=== PATIENT | female | born 1955 | race Caucasian/White ===

== ENCOUNTER 2022-10-02 17:38 | Inpatient (IN) ==
--- NOTE | 2022-10-02 18:00 | ED Triage Note ---
Date of Service October 02, 2022 History of Present Illness This patient was briefly evaluated while in triage. An abbreviated physical exam was performed. This patient is a 67-year-old Female who presents to the ED for evaluation of weakness and frequent falls. Was recently started on chemo for cervix mass. She was here for an outpatient PE study and was found to have an elevated creatinine of 3, which is new and she did not have the CT done. She also has bilateral nephrostomy tubes because of mass effect on kidneys. Had blood transfusion today as well, reports she is supposed to get a second unit of blood still. Physical Exam CONSTITUTIONAL: No acute distress. Pale appearing. RESPIRATORY: Clear to auscultation bilaterally. Equal expansion bilaterally. CARDIOVASCULAR: Regular rate and rhythm with no murmurs, rubs or gallops. Normal peripheral perfusion. No peripheral edema. GASTROINTESTINAL: Soft, nontender NEUROLOGIC: Alert and oriented X 4 with normal affect. Initial orders for labs and / or imaging were placed and patient was placed in the waiting area until a bed is available. Please see further documentation for the full ED course.
[2022-10-02 18:52] LABS: Hemoglobin 8.6 g/dl (12.0-16.0); Mean Corpuscular Hemoglobin 26.2 pg (25.0-34.0); Mean Corpuscular Hgb Conc 31.9 g/dL (32.0-36.0); Mean Corpuscular Volume 82.3 fL (80.0-100.0); Mean Platelet Volume 9.5 fL (9.4-12.4); Platelet Count 406 K/uL (130-400); RDW Coefficient of Variation 17.7 % (11.5-14.5); RDW Standard Deviation 51.8 fL (36.4-46.3); Red Blood Count 3.28 M/uL (4.20-5.40); White Blood Count 17.57 K/ul (4.8-10.8)
--- NOTE | 2022-10-02 19:03 | Emergency Department Note ---
Impression & Plan Neuroendocrine cancer, Nausea, Acute kidney injury, Anemia, Hyponatremia ED Provider Note NAME: ROMEO DOE AGE: 67 SEX: F : 1955 ARRIVES VIA: Walk-In INFORMANT: Patient, ED PROVIDER(S): Randy Camarena MD CHIEF COMPLAINT: Weakness, fall, anemia MEDICAL DECISION MAKING: Patient presents w/ progressively worsening weakness and fall. IV established and blood work obtained. IVF ordered. Noted to have elvated WBC and worsening LOLIS in setting of perc nephrostomy tubes. CT head negative. CXR w/ no obvious PNA. Did receive empiric abx given elevated WBC and complicated history and perc tubes. I did have nursing obtain two separate UAs given both neph tubes. Na low and calcium low. relates uric acid levels were elevated on prior lab work. Possible TLS. LA normal. Procal elevated. CT head negative. CT A/P w/ metastatic disease and known pelvic mass. No hydronephrosis. I did speak w/ patient account liaison garment sewer hand Dr. Salmon who is patient's primary garment sewer hand and agrees pateint may stay here for treatment and doesn't require transfer. I did update family. I spoke w/ oncall hospitalist Dr. Deluca and patient was admitted. Prior /Outside records reviewed: I did review an operative report from August 02 showed the patient did have an exam under anesthesia at which point the patient did have cervical biopsies cystoscopy and pelvic exam. Patient was admitted back on August 02 and discharged on August 07 for acute bilateral obstructive uropathy secondary to pelvic mass LOLIS and placement of percutaneous nephrostomy tubes. The patient also suffering from modest metabolic acidosis. Did review a hematology oncology consultation from Dr. 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 Patient reportedly at the time of her [facility] visit underwent CT-guided core needle biopsy on which revealed poorly differentiated malignant neoplasm with NGS revealing a low TMB. Patient was evaluated by Dr. Reese of gynecology oncology at [facility] who performed exam under anesthesia cervical dilation endometrial curettage biopsy cystoscopy and proctoscopy on September 11. Patient was to be started on cisplatin and etoposide neuroendocrine carcinoma regimen. Differential diagnosis: Infection, dehydration, metabolic abnormality, hypo/hyperglycemia, electrolyte disturbance, anemia, hypoxia, cardiac sources, intracerebral event, toxicologic, neurologic, as well as other pathologies. Diagnostics, as interpreted by me: ECG: Sinus, rate of 72, normal QRS, no ST elevations. Cardiac monitoring: An order was placed for continuous cardiac monitoring. The monitor shows a rate of 87 with sinus rhythm. Patient was placed on pulse oximetry Medical decision rules: none Imaging studies: See below Chest x-ray was informally reviewed by me which may show slight more raised of the right hemidiaphragm but no obvious pneumonia or pneumothorax. HPI: Patient presents with at bedside due to concern for fall and dizziness. The patient was recently diagnosed with a pelvic mass that was thought to be a neuroendocrine carcinoma. Patient has been seen by gynecology oncology down at [facility] Dr. Silva. Patient was to start chemotherapy today after consultation with Dr. Kim. Patient reportedly was at home and gotten up from the restroom and going to sit down when she lost her balance felt lightheaded and dizzy fell forward and struck her head on a flower vase which she states broke her fall. Patient did not hit the floor the hearth Mansel below. Patient denies any chest pains or shortness of breath no nausea vomiting or diarrhea. The patient is a poor appetite given the patient's abdominal mass. Patient does have percutaneous nephrostomy tubes in place. Patient states that they have been draining appropriately. They have been trying to increase her hydration and nutrition but given the associated compression of this abdominal mass therapy and that the chemo will improve some of the symptoms. PAST MEDICAL HISTORY: See Below PAST SURGICAL HISTORY: See Below SOCIAL HISTORY: See Below HOME MEDICATIONS: See Below ALLERGIES: See Below VITALS: See Below PHYSICAL EXAMINATION: GENERAL: Fatigue and pale in appearance but non-toxic. EYE EXAM: Normal conjunctiva. PERRL, no anisocoria and EOM's grossly intact w/o pain. NECK: Supple, no nuchal rigidity, no adenopathy, non-tender. No signs of meningismus. FROM of the neck with good chin to chest and neck extension. No stridor. LUNGS: Clear to auscultation. Normal chest wall mechanics. HEART: NSR, no MRG. ABDOMEN: Abdomen non-tender, no rebound or guarding. BACK: No CVA TTP. Perc nephrostomy tubes in place b/l lower back w/ no surround erythema or overlying skin changes. SKIN: No rashes and no bruising. UPPER EXTREMITIES: Upper extremities are grossly normal. LOWER EXTREMITIES: Grossly normal, trace pretibial edema. NEURO EXAM: A&O x3, cranial nerves II-XII grossly intact, normal speech, moves all 4 extremities. Past Med/Surg History Medical History (Updated 10/03/22 @ 13:56 by Randy Camarena MD) Advanced care planning/counseling discussion Anxiety Cancer related pain DVT (deep venous thrombosis) Insomnia Nausea Neuroendocrine cancer No significant medical problems Palliative care by specialist Surgical History (Updated 10/03/22 @ 13:44 by Randy Camarena MD) H/O cervical biopsy Social History Smoking Status: Never smoker Hx Alcohol Use: No Hx Substance Use: No Preferred Language: Bahraini Communication Ability: Effective Beliefs That Will Affect Care: Anabaptist marital status: Current Living Situation: Spouse current occupational status: employed How many Children do You have: 0 Other Information That Helps Us Care for You: No Feels Safe at Home: Yes Safety Concerns: Feels Safe At This Time during the past year weight has: decreased > 10 lbs Assistive Devices: Walker Allergies Allergies Allergy/AdvReac Type Severity Reaction Status Date / Time Sulfa (Sulfonamide Allergy Severe Swelling Verified 10/02/22 20:44 Antibiotics) of Lip/Tongue/Throat Home Meds Home Medications Medication Instructions Recorded Confirmed folic acid 1 mg tablet 1 mg PO DAILY 09/25/22 10/02/22 polyethylene glycol 3350 17 17 g PO DAILY 09/30/22 10/02/22 gram/dose oral powder (Miralax) allopurinol 300 mg tablet 300 mg PO QPM 10/02/22 10/02/22 food supplemt, lactose-reduced 1 ea PO DAILY 10/02/22 10/02/22 (Ensure oral liquid) olanzapine 2.5 mg tablet (Zyprexa) 2.5 mg PO HS 10/02/22 10/02/22 ondansetron HCl 4 mg tablet 4 mg PO Q6H PRN Nausea And Vomiting 10/02/22 10/02/22 prochlorperazine maleate 5 mg 5 mg PO TID PRN Nausea And Vomiting 10/02/22 10/02/22 tablet sodium chloride 1,000 mg soluble 1,000 mg PO TID 10/02/22 10/02/22 tablet Previous Rx's Medication Instructions Recorded oxycodone 5 mg tablet 5 mg PO TID 30 days #120 tabs 09/25/22 Results & Data (ED) Vital Signs Vital Signs - 24 hr 10/02/22 17:59 10/02/22 19:29 Temperature 37.2 C 36.7 C Temperature Source Temporal Artery Scan Oral Pulse Rate 73 Pulse Rate [Right Brachial] 78 Pulse Rhythm [Right Brachial] Regular Pulse Strength [Right Brachial] Normal Respiratory Rate 18 18 Respiratory Effort / Characteristics Non-Labored Non-Labored Spontaneous Respiratory Depth Normal Respiratory Pattern Regular Blood Pressure 133/67 Blood Pressure [Right Arm] 157/75 H Blood Pressure Mean 89 Blood Pressure Mean [Right Arm] 102 Blood Pressure Position [Right Arm] Lying Pulse Oximetry 98 98 Oxygen Delivery Method Room Air Room Air Sepsis Recent Fever Within 48 Hours No Sepsis New/Unexplained Change in Mental Status N/A Sepsis Action Taken by Nursing No Action Required Home Medications Current Medication List: was personally reviewed by me Laboratory Data Attestation: I reviewed the patient's lab results. 10/02/22 18:30 10/02/22 18:30 Lab Results 10/02/22 10/02/22 10/02/22 Range/Units 18:30 18:30 18:30 WBC (4.8-10.8) K/ul RBC (4.20-5.40) M/uL Hgb (12.0-16.0) g/dl Hct (37.0-47.0) % MCV (80.0-100.0) fL MCH (25.0-34.0) pg MCHC (32.0-36.0) g/dL RDW Std Deviation (36.4-46.3) fL RDW Coeff of Claude (11.5-14.5) % Plt Count (130-400) K/uL MPV (9.4-12.4) fL Immature Gran % (Auto) % Neut % (Auto) % Lymph % (Auto) % Hinds % (Auto) % Eos % (Auto) % Baso % (Auto) % Neut # (Auto) (1.40-6.50) K/uL Lymph # (Auto) (1.2-3.4) K/uL Hinds # (Auto) (0.11-0.59) K/uL Eos # (Auto) (0-0.50) K/uL Baso # (Auto) (0-0.2) K/uL Immature Gran # (Auto) (0.01-0.20) K/uL Echinocytes PT 12.0 (9.0-12.0) Seconds INR 1.1 (0.9-1.1) Sodium (136-145) mmol/L Potassium (3.5-5.1) mmol/L Chloride (98-107) mmol/L Carbon Dioxide (21-32) mmol/L Anion Gap (3-11) BUN (6-23) mg/dl Creatinine (0.6-1.2) mg/dl Est Cr Clr Drug Dosing Est GFR ( Amer) ml/min Est GFR (Non-Af Amer) ml/min BUN/Creatinine Ratio (10-20) Glucose (70-99(Fasting)) mg/dl Lactate 1.4 (0.4-2.0) mmol/L Calcium (8.6-10.3) mg/dl Magnesium (1.7-2.4) mg/dl Total Bilirubin (0.2-1.0) mg/dl AST (13-39) U/L ALT (7-52) U/L Alkaline Phosphatase (34-104) U/L Troponin I High Sens (0-14) pg/ml Total Protein (6.0-8.3) gm/dl Albumin (3.4-5.0) gm/dl Globulin (2.5-4.0) gm/dl Albumin/Globulin Ratio (0.9-2) Procalcitonin (0-0.5) ng/ml TSH (0.300-4.500) uIu/ml Blood Type A Positive Antibody Screen NEGATIVE 10/02/22 10/02/22 10/02/22 Range/Units 18:30 18:30 18:30 WBC 17.57 H (4.8-10.8) K/ul RBC 3.28 L (4.20-5.40) M/uL Hgb 8.6 L (12.0-16.0) g/dl Hct 27.0 L (37.0-47.0) % MCV 82.3 (80.0-100.0) fL MCH 26.2 (25.0-34.0) pg MCHC 31.9 L (32.0-36.0) g/dL RDW Std Deviation 51.8 H (36.4-46.3) fL RDW Coeff of Claude 17.7 H (11.5-14.5) % Plt Count 406 H (130-400) K/uL MPV 9.5 (9.4-12.4) fL Immature Gran % (Auto) 2.9 % Neut % (Auto) 92.2 % Lymph % (Auto) 1.4 % Hinds % (Auto) 3.3 % Eos % (Auto) 0.0 % Baso % (Auto) 0.2 % Neut # (Auto) 16.21 H (1.40-6.50) K/uL Lymph # (Auto) 0.24 L (1.2-3.4) K/uL Hinds # (Auto) 0.58 (0.11-0.59) K/uL Eos # (Auto) 0.00 (0-0.50) K/uL Baso # (Auto) 0.03 (0-0.2) K/uL Immature Gran # (Auto) 0.51 H (0.01-0.20) K/uL Echinocytes 1+ PT (9.0-12.0) Seconds INR (0.9-1.1) Sodium 128 L (136-145) mmol/L Potassium 4.8 (3.5-5.1) mmol/L Chloride 95 L (98-107) mmol/L Carbon Dioxide 18 L (21-32) mmol/L Anion Gap 15 H (3-11) BUN 67 H (6-23) mg/dl Creatinine 3.74 H (0.6-1.2) mg/dl Est Cr Clr Drug Dosing Not Reportable Est GFR ( Amer) 13.7 ml/min Est GFR (Non-Af Amer) 11.8 ml/min BUN/Creatinine Ratio 17.9 (10-20) Glucose 132 H (70-99(Fasting)) mg/dl Lactate (0.4-2.0) mmol/L Calcium 7.6 L (8.6-10.3) mg/dl Magnesium 2.2 (1.7-2.4) mg/dl Total Bilirubin 0.6 (0.2-1.0) mg/dl AST 108 H (13-39) U/L ALT 14 (7-52) U/L Alkaline Phosphatase 133 H (34-104) U/L Troponin I High Sens 40.3 H (0-14) pg/ml Total Protein 6.9 (6.0-8.3) gm/dl Albumin 3.4 (3.4-5.0) gm/dl Globulin 3.5 (2.5-4.0) gm/dl Albumin/Globulin Ratio 1.0 (0.9-2) Procalcitonin (0-0.5) ng/ml TSH 0.706 (0.300-4.500) uIu/ml Blood Type Antibody Screen 10/02/22 10/02/22 Range/Units 20:01 20:01 WBC (4.8-10.8) K/ul RBC (4.20-5.40) M/uL Hgb (12.0-16.0) g/dl Hct (37.0-47.0) % MCV (80.0-100.0) fL MCH (25.0-34.0) pg MCHC (32.0-36.0) g/dL RDW Std Deviation (36.4-46.3) fL RDW Coeff of Claude (11.5-14.5) % Plt Count (130-400) K/uL MPV (9.4-12.4) fL Immature Gran % (Auto) % Neut % (Auto) % Lymph % (Auto) % Hinds % (Auto) % Eos % (Auto) % Baso % (Auto) % Neut # (Auto) (1.40-6.50) K/uL Lymph # (Auto) (1.2-3.4) K/uL Hinds # (Auto) (0.11-0.59) K/uL Eos # (Auto) (0-0.50) K/uL Baso # (Auto) (0-0.2) K/uL Immature Gran # (Auto) (0.01-0.20) K/uL Echinocytes PT (9.0-12.0) Seconds INR (0.9-1.1) Sodium (136-145) mmol/L Potassium (3.5-5.1) mmol/L Chloride (98-107) mmol/L Carbon Dioxide (21-32) mmol/L Anion Gap (3-11) BUN (6-23) mg/dl Creatinine (0.6-1.2) mg/dl Est Cr Clr Drug Dosing Est GFR ( Amer) ml/min Est GFR (Non-Af Amer) ml/min BUN/Creatinine Ratio (10-20) Glucose (70-99(Fasting)) mg/dl Lactate 1.6 (0.4-2.0) mmol/L Calcium (8.6-10.3) mg/dl Magnesium (1.7-2.4) mg/dl Total Bilirubin (0.2-1.0) mg/dl AST (13-39) U/L ALT (7-52) U/L Alkaline Phosphatase (34-104) U/L Troponin I High Sens (0-14) pg/ml Total Protein (6.0-8.3) gm/dl Albumin (3.4-5.0) gm/dl Globulin (2.5-4.0) gm/dl Albumin/Globulin Ratio (0.9-2) Procalcitonin 1.26 H (0-0.5) ng/ml TSH (0.300-4.500) uIu/ml Blood Type Antibody Screen Administered Medications Folic Acid (Folic Acid 1 Mg Tab) 1 mg PO DAILY ADAN Stop: 11/02/22 08:59 Last Admin: 10/03/22 09:49 Dose: 1 mg Documented By: DOUGIE Pantoprazole Sodium 40 mg/ (Syringe) 10 mls @ 5 mls/min IV BID ADAN Stop: 11/02/22 08:59 Last Admin: 10/03/22 11:18 Dose: 5 mls/min Documented By: DOUGIE Iron Sucrose 200 mg/ Sodium (Chloride) 110 mls @ 220 mls/hr IV DAILY ADAN Stop: 10/06/22 08:59 Last Infusion: 10/03/22 12:10 Dose: 0 mls/hr Documented By: Admin: 10/03/22 11:17 Dose: 220 mls/hr Documented By: DOUGIE Discontinued Medications Calcium Gluconate () 1,000 mg in 60 mls @ 240 mls/hr IV NOW STA Stop: 10/02/22 19:33 Last Infusion: 10/02/22 20:34 Dose: 0 mls/hr Documented By: Admin: 10/02/22 20:15 Dose: 240 mls/hr Documented By: PAULA Sodium Chloride (Nss 1000ml) 1,000 mls @ 999 mls/hr IV .Q1H1M ONE Stop: 10/02/22 20:19 Last Infusion: 10/02/22 21:55 Dose: 0 mls/hr Documented By: Admin: 10/02/22 20:13 Dose: 999 mls/hr Documented By: PAULA Piperacillin Sod/Tazobactam (Sod 4.5 gm/ Dextrose) 120 mls @ 200 mls/hr IV NOW ONE; Protocol Stop: 10/02/22 20:05 Last Infusion: 10/02/22 21:12 Dose: 0 mls/hr Documented By: Admin: 10/02/22 20:35 Dose: 200 mls/hr Documented By: PAULA Lactated Ringer's (Lr) 1,000 mls @ 100 mls/hr IV .Q10H STA Stop: 10/03/22 07:46 Last Infusion: 10/03/22 02:39 Dose: 100 mls/hr Documented By: Admin: 10/02/22 21:55 Dose: 80 mls/hr Documented By: PAULA Pantoprazole Sodium 80 mg/ (Dextrose) 120 mls @ 480 mls/hr IV ONE STA Stop: 10/02/22 22:58 Last Infusion: 10/03/22 01:07 Dose: 0 mls/hr Documented By: Admin: 10/03/22 00:49 Dose: 480 mls/hr Documented By: FERNANDO Daptomycin 200 mg/ Syringe 4 mls @ 2 mls/min IV ONE STA; Protocol Stop: 10/02/22 22:50 Last Admin: 10/02/22 23:40 Dose: 2 mls/min Documented By: CHRISTIAN Cefepime HCl 2,000 mg/ Syringe 20 mls @ 5 mls/min IV ONE ONE; Protocol Stop: 10/03/22 04:03 Last Admin: 10/03/22 03:28 Dose: 5 mls/min Documented By: FERNANDO Non-Formulary Medication (Rasburicase ) 6 mg IV ONCE ONE Stop: 10/03/22 06:28 Last Admin: 10/03/22 09:49 Dose: Not Given Documented By: DOUGIE Imaging Data Radiologist's Impression: Chest X-Ray 10/02/22 18:07 XR chest 1V portable HISTORY: weakness COMPARISON: Chest 08/02/2022. FINDINGS: No pneumothorax. No pleural effusions. Right basilar linear densities favor subsegmental atelectasis. The heart remains mildly enlarged. No new focal lung consolidations to suggest a pneumonia. No evidence for pulmonary edema. Partially visualized right nephrostomy tube is noted. There is a small right azygos lobe. IMPRESSION: No significant change compared to the prior study. No acute process. ACT 112: Negative or not required by law. Electronically signed by: Angel Aguiar M.D. 10/03/2022 7:[address] 10/02/22 18:06 Exam(s): CT HEAD Without Contrast EXAM: CT Head Without Intravenous Contrast CLINICAL HISTORY: Reason for exam: weakness, disoriented at times. TECHNIQUE: Axial computed tomography images of the head/brain without intravenous contrast. Automated exposure control was utilized for the study. A dose lowering technique was utilized adhering to the principles of ALARA. COMPARISON: No relevant prior studies available. FINDINGS: Brain: No hemorrhage. No apparent acute cortical infarct. No mass lesion or midline shift. Involutional changes with small vessel disease. Ventricles: No hydrocephalus. Bones/joints: No acute fracture. Soft tissues: Unremarkable. Sinuses: No acute sinusitis. Mastoid air cells: No mastoid effusion. Orbits: Unremarkable as visualized. IMPRESSION: No acute intracranial process. Electronically signed by: Susanna Molina M.D. 10/02/22 20:05 PM Chest X-Ray 10/02/22 18:07 XR chest 1V portable HISTORY: weakness COMPARISON: Chest 08/02/2022. FINDINGS: No pneumothorax. No pleural effusions. Right basilar linear densities favor subsegmental atelectasis. The heart remains mildly enlarged. No new focal lung consolidations to suggest a pneumonia. No evidence for pulmonary edema. Partially visualized right nephrostomy tube is noted. There is a small right azygos lobe. IMPRESSION: No significant change compared to the prior study. No acute process. ACT 112: Negative or not required by law. Electronically signed by: Angel Aguiar M.D. 10/03/2022 7:13 AM Abdomen/Pelvis CT 10/02/22 19:30 Exam(s): CT ABDOMEN + PELVIS Without Contrast EXAM: CT Abdomen and Pelvis Without Intravenous Contrast CLINICAL HISTORY: Reason for exam: h/o pelvic mass and b/l neph tubes in place, WBC,. TECHNIQUE: Axial computed tomography images of the abdomen and pelvis without intravenous contrast. Automated exposure control was utilized for the study. A dose lowering technique was utilized adhering to the principles of ALARA. COMPARISON: 08/02/22 FINDINGS: There is subsegmental atelectasis at the lung bases. No suspicious pulmonary nodules are observed. There are hypodense lesions in the lateral segment of the left hepatic lobe measuring 2.2 cm (series 5, image 110) and 2.5 cm (series 5, image 96). There are vague regions of parenchymal hypodensity throughout the right liver. Gallbladder and common bile duct are normal. Spleen, pancreas, and adrenal glands are normal. Bilateral percutaneous nephrostomy tubes are in place and appropriately positioned. There is no significant hydronephrosis of either kidney. There are bilateral nonobstructing kidney stones. There is aortoiliac atherosclerosis without aneurysm. There is bulky and confluent retroperitoneal lymphadenopathy encasing the abdominal aorta. Enlarged lymph nodes extend along the bilateral iliac chains. There is also bulky and confluent pelvic lymphadenopathy. There are also numerous scattered peritoneal nodules. There is a poorly characterized mass involving the cervix and uterus with numerous surrounding soft tissue nodules. Urinary bladder is incompletely distended and suboptimally characterized. There is no bowel obstruction or inflammation. There is scattered colonic diverticula. Appendix is not identified. There is trace ascites in the pelvis. There is no free air. There are no acute osseous findings or suspicious osseous lesions. IMPRESSION: 1. Bulky mass involving the uterus and cervix. Numerous surrounding metastatic implants in the pelvis. Extensive retroperitoneal, iliac chain, and pelvic lymphadenopathy. Findings raise concern for metastatic cancer of uterine, endometrial, or cervical origin. 2. Numerous scattered peritoneal nodules concerning for peritoneal carcinomatosis. 3. Vague hypodense lesions throughout the liver raising concern for hepatic metastases. These might be better characterized on liver mass protocol CT or MRI. 4. Interval placement of bilateral percutaneous nephrostomy tubes. Nonobstructing kidney stones bilaterally. No hydronephrosis. Electronically signed by: Candace Baptiste M.D. 10/02/22 20:25 PM Venous Doppler Study 10/02/22 22:43 CR Exam(s): US VENOUS BILATERAL LOWER EXTREMITIES EXAM: US Duplex Bilateral Lower Extremities Veins CLINICAL HISTORY: Reason for exam: leg swelling. TECHNIQUE: Real-time duplex ultrasound scan of the bilateral lower extremity veins integrating B-mode two-dimensional vascular structure, Doppler spectral analysis, color flow Doppler imaging and compression. COMPARISON: No relevant prior studies available. FINDINGS: Right deep veins: Acute nonocclusive DVT common femoral vein. Acute occlusive DVT extending through the superficial femoral vein and popliteal vein as well as within the gastrocnemius vein. Possible nonocclusive DVT in the deep femoral vein. Right superficial veins: Possible nonocclusive thrombus extending into the great saphenous vein. Left deep veins: Unremarkable. No DVT in the left common femoral, femoral, proximal deep femoral or popliteal veins. The veins demonstrate normal color flow, are normally compressible, with normal phasic flow and/or augmentation response. Left superficial veins: Unremarkable. No thrombus in the visualized left great saphenous vein. Soft tissues: Right leg soft tissue edema. IMPRESSION: 1. Extensive acute DVT in the right leg involving the common femoral, superficial femoral, popliteal, and gastrocnemius veins. 2. No left lower extremity DVT. Communications: Call Doctor DVT acute, progressing Electronically signed by: Candace Baptiste M.D. 10/02/22 23:59 PM Discharge Plan Visit Data Chief Complaint: Altered Mental Status Stated Complaint: DISORIENTED, FALLING ED Provider: Randy Camarena Discharge Problem: Neuroendocrine cancer, Nausea, Acute kidney injury, Anemia, Hyponatremia Patient Disposition: Admitted As Inpatient Discharge Instructions Interventions: ED Discharge Assessment Last Done: 10/02/22 23:11
[2022-10-02 19:06] LABS: Alanine Aminotransferase 14 U/L (7-52); Albumin Level 3.4 gm/dl (3.4-5.0); Alkaline Phosphatase 133 U/L (34-104); Anion Gap 15 (3-11); Aspartate Aminotransferase 108 U/L (13-39); BUN Creatinine Ratio 17.9 (10-20); Bilirubin,Total 0.6 mg/dl (0.2-1.0); Blood Urea Nitrogen 67 mg/dl (6-23); Calcium 7.6 mg/dl (8.6-10.3); Carbon Dioxide 18 mmol/L (21-32); Chloride 95 mmol/L (98-107); Est GFR (African American) 13.7 ml/min; Est GFR (Non-African American) 11.8 ml/min; Globulin 3.5 gm/dl (2.5-4.0); Glucose 132 mg/dl (70-99(Fasting)); Magnesium 2.2 mg/dl (1.7-2.4); Potassium 4.8 mmol/L (3.5-5.1); Sodium 128 mmol/L (136-145); Total Protein 6.9 gm/dl (6.0-8.3)
[2022-10-02 19:10] LABS: INR 1.1 (0.9-1.1)
[2022-10-02 19:16] LABS: Troponin I High Sensitivity 40.3 pg/ml (0-14)
[2022-10-02 19:19] LABS: Basophils # (auto) 0.03 K/uL (0-0.2); Basophils % (auto) 0.2 %; Echinocytes 1+; Immature Granulocytes # (auto) 0.51 K/uL (0.01-0.20); Immature Granulocytes % (auto) 2.9 %; Lymphocytes # (auto) 0.24 K/uL (1.2-3.4); Lymphocytes % (auto) 1.4 %; Monocytes # (auto) 0.58 K/uL (0.11-0.59); Monocytes % (auto) 3.3 %; Neutrophils # (auto) 16.21 K/uL (1.40-6.50); Neutrophils % (auto) 92.2 %
[2022-10-02] MEDS ORDERED: CALCIUM GLUCONATE 1,000 MG/60 ML BAG IV STA (19:19)
[2022-10-02] MEDS ORDERED: SODIUM CHLORIDE 0.9% 1000ML 1,000 ML IV ONE (19:19)
[2022-10-02] MEDS ORDERED: PIPERACILLIN/TAZOBACTAM 4.5 GM in DEXTROSE 5% 100 ML IV ONE (19:30)
[2022-10-02 20:00] LABS: Appearance Urine Turbid (Clear); Bacteria Urine Automated Negative (Negative); Bilirubin Urine Negative (Negative); Blood Urine 3+ (Negative); Color Urine Yellow; Epithelial Cell Urine Auto >30 /lpf (0-5); Glucose Urine UA Negative (Negative); Ketones Urine Negative (Negative); Leukocyte Esterase Urine 1+ (Negative); Leukocyte Esterase Urine 2+ (Negative); Nitrite Urine Negative (Negative); Protein Urine 2+ (Negative); RBC Urine Automated 0-4 /hpf (0-4); Specific Gravity Urine 1.014 (1.000-1.030); Specific Gravity Urine 1.015 (1.000-1.030); Urobilinogen Urine Negative (Negative); WBC Urine Automated >30 /hpf (0-5)
[2022-10-02 20:17] LABS: Uric Acid Crystals Urine Present (None Prsent)
[2022-10-02 20:20] LABS: Renal Epithelial Cells Urine 0-5 /lpf (0-5)
--- NOTE | 2022-10-02 20:20 | CT Scan Report ---
Exam(s): CT HEAD Without Contrast EXAM: CT Head Without Intravenous Contrast CLINICAL HISTORY: Reason for exam: weakness, disoriented at times. TECHNIQUE: Axial computed tomography images of the head/brain without intravenous contrast. Automated exposure control was utilized for the study. A dose lowering technique was utilized adhering to the principles of ALARA. COMPARISON: No relevant prior studies available. FINDINGS: Brain: No hemorrhage. No apparent acute cortical infarct. No mass lesion or midline shift. Involutional changes with small vessel disease. Ventricles: No hydrocephalus. Bones/joints: No acute fracture. Soft tissues: Unremarkable. Sinuses: No acute sinusitis. Mastoid air cells: No mastoid effusion. Orbits: Unremarkable as visualized. IMPRESSION: No acute intracranial process. Electronically signed by: Susanna Molina M.D. 10/02/22 20:05 PM
[2022-10-02 20:23] LABS: Uric Acid Crystals Urine Present (None Prsent)
--- NOTE | 2022-10-02 20:26 | CT Scan Report ---
Exam(s): CT ABDOMEN + PELVIS Without Contrast EXAM: CT Abdomen and Pelvis Without Intravenous Contrast CLINICAL HISTORY: Reason for exam: h/o pelvic mass and b/l neph tubes in place, WBC,. TECHNIQUE: Axial computed tomography images of the abdomen and pelvis without intravenous contrast. Automated exposure control was utilized for the study. A dose lowering technique was utilized adhering to the principles of ALARA. COMPARISON: 08/02/22 FINDINGS: There is subsegmental atelectasis at the lung bases. No suspicious pulmonary nodules are observed. There are hypodense lesions in the lateral segment of the left hepatic lobe measuring 2.2 cm (series 5, image 110) and 2.5 cm (series 5, image 96). There are vague regions of parenchymal hypodensity throughout the right liver. Gallbladder and common bile duct are normal. Spleen, pancreas, and adrenal glands are normal. Bilateral percutaneous nephrostomy tubes are in place and appropriately positioned. There is no significant hydronephrosis of either kidney. There are bilateral nonobstructing kidney stones. There is aortoiliac atherosclerosis without aneurysm. There is bulky and confluent retroperitoneal lymphadenopathy encasing the abdominal aorta. Enlarged lymph nodes extend along the bilateral iliac chains. There is also bulky and confluent pelvic lymphadenopathy. There are also numerous scattered peritoneal nodules. There is a poorly characterized mass involving the cervix and uterus with numerous surrounding soft tissue nodules. Urinary bladder is incompletely distended and suboptimally characterized. There is no bowel obstruction or inflammation. There is scattered colonic diverticula. Appendix is not identified. There is trace ascites in the pelvis. There is no free air. There are no acute osseous findings or suspicious osseous lesions. IMPRESSION: 1. Bulky mass involving the uterus and cervix. Numerous surrounding metastatic implants in the pelvis. Extensive retroperitoneal, iliac chain, and pelvic lymphadenopathy. Findings raise concern for metastatic cancer of uterine, endometrial, or cervical origin. 2. Numerous scattered peritoneal nodules concerning for peritoneal carcinomatosis. 3. Vague hypodense lesions throughout the liver raising concern for hepatic metastases. These might be better characterized on liver mass protocol CT or MRI. 4. Interval placement of bilateral percutaneous nephrostomy tubes. Nonobstructing kidney stones bilaterally. No hydronephrosis. Electronically signed by: Candace Baptiste M.D. 10/02/22 20:25 PM
[2022-10-02] MEDS ORDERED: LACTATED RINGER'S 1,000 ML IV STA (21:47)
--- NOTE | 2022-10-02 22:42 | History & Physical Report ---
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, chronic hydronephrosis secondary to bilateral ureteral obstruction status post nephroureteral catheter placement [id number] oxycodone Rx possibly contributory Hyponatremia, AGMA secondary to illness/kidney dysfunction UGIB, hemoglobin currently at baseline RLE DVT HTN, patient BP medicine currently on hold due to outpatient hypotension the last few days history VRE UTI Medical telemetry CS, Daptomycin, cefepime Monitor creatinine response to IVF Nephrology consult Re: Worsening kidney dysfunction IV PPI for UGIB GI consult Re: UGIB Vascular surgery consult Re: IVC filter placement, history RLE DVT with current contraindication to anticoagulation N.p.o. in anticipation of any procedures in a.m. Oncology consultation follow-up evaluation as per patient/family request Re: Progressive malignancy Appropriate to hold RTC oxycodone given patient encephalopathy. Utilize Vicodin as needed interim DVT prophylaxis. SCDs on unaffected LLE (RE GI bleed) Full code Patient requesting updates from providers. Mr. Erwin Pérez, contact #[phone]. Text document was generated using [employer] voice recognition software. It may contain grammatical or spelling errors. Kindly contact undersigned for clarification of any documentation item in question. History of Present Illness Chief Complaint: Increasing weakness Primary Care Provider: Kelley Giordano DO History obtained from patient, family, and records. 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 Last [facility] confinement August 02 to 2022 acute renal failure secondary to bilateral hydroureteronephrosis secondary to likely metastatic pelvic malignancy status post bilateral percutaneous nephrostomy tube placement. Serum creatinine initially noted to be 20s when patient initially presented at [facility] prior to [facility] transfer. Serum creatinine back to normal at time of discharge. Subsequent CT-guided pelvic at [facility] 2 months ago revealed lymph node biopsy poorly differentiated malignant neoplasm. Patient underwent pelvic exam under anesthesia, cervical core biopsies, cystoscopy and proctoscopy at [facility] last September 11. 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 Chemotherapy (cisplatin and etoposide)JEFFERY recommended by [facility] oncologist for aggressive/severe malignancy after initial evaluation last week. Serum creatinine noted to be 1.74 at time of oncologist evaluation. Patient also seen by palliative care last week following oncology referral. Oxycodone [id number] and as needed Ativan recommended for patient's cancer pain and anxiety. Increasing weakness over the last week. Episode of dark emesis and transient dark stools. Abdominal discomfort relieved by oxycodone. No OTC NSAID intake. Poor appetite, no fever, no chills. Patient denies headache, chest pain, SOB. Episodic disorientation noted by which patient denies. Legs swollen as per patient. Patient noted to be tachycardic and hypotensive at [facility] general surgeon clinic 2 days ago to discuss Mediport placement tentatively scheduled for 10/16/2022. communicated abnormal vitals with PCP's office. Patient amlodipine on hold. PCP concerned about pulmonary embolism given tachycardia. Outpatient CT chest angio study could not be done due to worsening kidney function (serum creatinine 2.95) on outpatient blood work 2 days ago. First dose chemotherapy initiated yesterday outpatient. Patient also received pRBC transfusion. Increasing weakness at home with patient falling down once due to weakness. No syncope. Patient brought to ER for evaluation. Zosyn administered for possible UTI. 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 Allergies Allergy/AdvReac Type Severity Reaction Status Date / Time Sulfa (Sulfonamide Allergy Severe Swelling Verified 10/02/22 20:44 Antibiotics) of Lip/Tongue/Throat Home Medications Medication Instructions Recorded Confirmed Type folic acid 1 mg tablet 1 mg PO DAILY 09/25/22 10/02/22 History oxycodone 5 mg tablet 5 mg PO TID 30 days #120 tabs 09/25/22 10/02/22 Rx polyethylene glycol 3350 17 17 g PO DAILY 09/30/22 10/02/22 History gram/dose oral powder (Miralax) allopurinol 300 mg tablet 300 mg PO QPM 10/02/22 10/02/22 History food supplemt, lactose-reduced 1 ea PO DAILY 10/02/22 10/02/22 History (Ensure oral liquid) olanzapine 2.5 mg tablet (Zyprexa) 2.5 mg PO HS 10/02/22 10/02/22 History ondansetron HCl 4 mg tablet 4 mg PO Q6H PRN Nausea And Vomiting 10/02/22 10/02/22 History prochlorperazine maleate 5 mg 5 mg PO TID PRN Nausea And Vomiting 10/02/22 10/02/22 History tablet sodium chloride 1,000 mg soluble 1,000 mg PO TID 10/02/22 10/02/22 History tablet Past Med/Surg History Medical History (Updated 10/03/22 @ 06:16 by Jenae Kim MD) Anxiety Cancer related pain Insomnia Nausea Neuroendocrine cancer No significant medical problems Palliative care by specialist Social History (Updated 09/30/22 @ 15:07 by Joy Simmons RN) Smoking Status: Never smoker Hx Alcohol Use: No Hx Substance Use: No Preferred Language: Georgian Beliefs That Will Affect Care: None marital status: Current Living Situation: Spouse current occupational status: employed How many Children do You have: 0 Other Information That Helps Us Care for You: No Feels Safe at Home: Yes Safety Concerns: Feels Safe At This Time during the past year weight has: decreased > 10 lbs Assistive Devices: Walker Review of Systems Review of Systems: As per HPI, all other systems reviewed and negative Physical Exam Physical Exam: GENERAL: Episodic lethargy, slightly uncomfortable, obese, no respiratory distress SKIN: Pallor, warm HEENT: Bespectacled, pale palpebral conjunctivae, no ptosis, dry buccal mucosa NECK : Supple, no tenderness CHEST : Decreased breath sounds, no tenderness HEART : RRR, no obvious murmurs ABDOMEN: distention, minimal epigastric tenderness EXTREMITIES : Bilateral LE swelling, no LE tenderness, no other conspicuous deformities noted NEUROLOGIC : Episodic lethargy, no facial asymmetry, gait and stance not assessed Results & Data Results & Data Vital Signs (Past 12 Hours) Vital Signs Temp Pulse Pulse Resp BP BP Pulse Ox 10/02/22 19:29 36.7 C 78 18 157/75 H 98 10/02/22 17:59 37.2 C 73 18 133/67 98 O2 Del Method 10/02/22 19:29 Room Air 10/02/22 17:59 Room Air Laboratory Results Laboratory Results WBC 17.57 K/ul (4.8-10.8) H 10/02/22 18:30 RBC 3.28 M/uL (4.20-5.40) L 10/02/22 18:30 Hgb 8.6 g/dl (12.0-16.0) L 10/02/22 18:30 Hct 27.0 % (37.0-47.0) L 10/02/22 18:30 MCV 82.3 fL (80.0-100.0) 10/02/22 18:30 MCH 26.2 pg (25.0-34.0) 10/02/22 18: MCHC 31.9 g/dL (32.0-36.0) L 10/02/22 18:30 RDW Std Deviation 51.8 fL (36.4-46.3) H 10/02/22 18:30 RDW Coeff of Claude 17.7 % (11.5-14.5) H 10/02/22 18: Plt Count 406 K/uL (130-400) H 10/02/22 18:30 MPV 9.5 fL (9.4-12.4) 10/02/22 18:30 Immature Gran % (Auto) 2.9 % 10/02/22 18:30 Neut % (Auto) 92.2 % 10/02/22 18:30 Lymph % (Auto) 1.4 % 10/02/22 18:30 Grant % (Auto) 3.3 % 10/02/22 18:30 Eos % (Auto) 0.0 % 10/02/22 18:30 Baso % (Auto) 0.2 % 10/02/22 18:30 Neut # (Auto) 16.21 K/uL (1.40-6.50) H 10/02/22 18:30 Lymph # (Auto) 0.24 K/uL (1.2-3.4) L 10/02/22 18:30 Grant # (Auto) 0.58 K/uL (0.11-0.59) 10/02/22 18:30 Eos # (Auto) 0.00 K/uL (0-0.50) 10/02/22 18:30 Baso # (Auto) 0.03 K/uL (0-0.2) 10/02/22 18:30 Immature Gran # (Auto) 0.51 K/uL (0.01-0.20) H 10/02/22 18:30 Echinocytes 1+ 10/02/22 18:30 PT 12.0 Seconds (9.0-12.0) 10/02/22 18:30 INR 1.1 (0.9-1.1) 10/02/22 18:30 Sodium 128 mmol/L (136-145) L 10/02/22 18:30 Potassium 4.8 mmol/L (3.5-5.1) 10/02/22 18:30 Chloride 95 mmol/L (98-107) L 10/02/22 18:30 Carbon Dioxide 18 mmol/L (21-32) L 10/02/22 18:30 Anion Gap 15 (3-11) H 10/02/22 18:30 BUN 67 mg/dl (6-23) H 10/02/22 18:30 Creatinine 3.74 mg/dl (0.6-1.2) H 10/02/22 18:30 Est Cr Clr Drug Dosing Not Reportable 10/02/22 18:30 Est GFR ( Amer) 13.7 ml/min 10/02/22 18:30 Est GFR (Non-Af Amer) 11.8 ml/min 10/02/22 18:30 BUN/Creatinine Ratio 17.9 (10-20) 10/02/22 18:30 Glucose 132 mg/dl (70-99(Fasting)) H 10/02/22 18:30 Lactate 1.6 mmol/L (0.4-2.0) 10/02/22 20:01 Calcium 7.6 mg/dl (8.6-10.3) L 10/02/22 18:30 Magnesium 2.2 mg/dl (1.7-2.4) 10/02/22 18:30 Total Bilirubin 0.6 mg/dl (0.2-1.0) 10/02/22 18:30 AST 108 U/L (13-39) H 10/02/22 18:30 ALT 14 U/L (7-52) 10/02/22 18:30 Alkaline Phosphatase 133 U/L (34-104) H 10/02/22 18:30 Troponin I High Sens 40.3 pg/ml (0-14) H 10/02/22 18:30 Total Protein 6.9 gm/dl (6.0-8.3) 10/02/22 18:30 Albumin 3.4 gm/dl (3.4-5.0) 10/02/22 18:30 Globulin 3.5 gm/dl (2.5-4.0) 10/02/22 18:30 Albumin/Globulin Ratio 1.0 (0.9-2) 10/02/22 18:30 Procalcitonin 1.26 ng/ml (0-0.5) H 10/02/22 20:01 TSH 0.706 uIu/ml (0.300-4.500) 10/02/22 18:30 Urine Color Yellow 10/02/22 Unknown Urine Color Yellow 10/02/22 Unknown Urine Appearance Turbid (Clear) A 10/02/22 Unknown Urine Appearance Turbid (Clear) A 10/02/22 Unknown Urine pH 5.0 (4.5-7.5) 10/02/22 Unknown Urine pH 5.0 (4.5-7.5) 10/02/22 Unknown Ur Specific Philipp 1.014 (1.000-1.030) 10/02/22 Unknown Ur Specific Philipp 1.015 (1.000-1.030) 10/02/22 Unknown Urine Protein 2+ (Negative) H 10/02/22 Unknown Urine Protein 2+ (Negative) H 10/02/22 Unknown Urine Glucose (UA) Negative (Negative) 10/02/22 Unknown Urine Glucose (UA) Negative (Negative) 10/02/22 Unknown Urine Ketones Negative (Negative) 10/02/22 Unknown Urine Ketones Negative (Negative) 10/02/22 Unknown Urine Blood 3+ (Negative) H 10/02/22 Unknown Urine Blood 3+ (Negative) H 10/02/22 Unknown Urine Nitrite Negative (Negative) 10/02/22 Unknown Urine Nitrite Negative (Negative) 10/02/22 Unknown Urine Bilirubin Negative (Negative) 10/02/22 Unknown Urine Bilirubin Negative (Negative) 10/02/22 Unknown Urine Urobilinogen Negative (Negative) 10/02/22 Unknown Urine Urobilinogen Negative (Negative) 10/02/22 Unknown Ur Leukocyte Esterase 1+ (Negative) H 10/02/22 Unknown Ur Leukocyte Esterase 2+ (Negative) H 10/02/22 Unknown Urine WBC (Auto) >30 /hpf (0-5) H 10/02/22 Unknown Urine WBC (Auto) >30 /hpf (0-5) H 10/02/22 Unknown Urine RBC (Auto) 0-4 /hpf (0-4) 10/02/22 Unknown Urine RBC (Auto) 0-4 /hpf (0-4) 10/02/22 Unknown U Hyaline Cast (Auto) 1-5 /lpf (0-5) 10/02/22 Unknown U Hyaline Cast (Auto) 1-5 /lpf (0-5) 10/02/22 Unknown U Epithel Cells (Auto) 10-20 /lpf (0-5) H 10/02/22 Unknown U Epithel Cells (Auto) >30 /lpf (0-5) H 10/02/22 Unknown Urine Bacteria (Auto) Negative (Negative) 10/02/22 Unknown Urine Bacteria (Auto) Not Reportable 10/02/22 Unknown Ur Renal Epithelial Cell 0-5 /lpf (0-5) 10/02/22 Unknown Urine Crystals Uric Acid (None Prsent) A 10/02/22 Unknown Urine Crystals Uric Acid (None Prsent) A 10/02/22 Unknown Uric Acid Crystals Present (None Prsent) A 10/02/22 Unknown Uric Acid Crystals Present (None Prsent) A 10/02/22 Unknown SARS-CoV-2, RNA, NAAT NEGATIVE (NEGATIVE) 10/02/22 Unknown Blood Type A Positive 10/02/22 18:30 Antibody Screen NEGATIVE 10/02/22 18:[address] 10/02/22 18:06 Exam(s): CT HEAD Without Contrast EXAM: CT Head Without Intravenous Contrast CLINICAL HISTORY: Reason for exam: weakness, disoriented at times. TECHNIQUE: Axial computed tomography images of the head/brain without intravenous contrast. Automated exposure control was utilized for the study. A dose lowering technique was utilized adhering to the principles of ALARA. COMPARISON: No relevant prior studies available. FINDINGS: Brain: No hemorrhage. No apparent acute cortical infarct. No mass lesion or midline shift. Involutional changes with small vessel disease. Ventricles: No hydrocephalus. Bones/joints: No acute fracture. Soft tissues: Unremarkable. Sinuses: No acute sinusitis. Mastoid air cells: No mastoid effusion. Orbits: Unremarkable as visualized. IMPRESSION: No acute intracranial process. Electronically signed by: Susanna Molina M.D. 10/02/22 20:05 PM Abdomen/Pelvis CT 10/02/22 19:30 Exam(s): CT ABDOMEN + PELVIS Without Contrast EXAM: CT Abdomen and Pelvis Without Intravenous Contrast CLINICAL HISTORY: Reason for exam: h/o pelvic mass and b/l neph tubes in place, WBC,. TECHNIQUE: Axial computed tomography images of the abdomen and pelvis without intravenous contrast. Automated exposure control was utilized for the study. A dose lowering technique was utilized adhering to the principles of ALARA. COMPARISON: 08/02/22 FINDINGS: There is subsegmental atelectasis at the lung bases. No suspicious pulmonary nodules are observed. There are hypodense lesions in the lateral segment of the left hepatic lobe measuring 2.2 cm (series 5, image 110) and 2.5 cm (series 5, image 96). There are vague regions of parenchymal hypodensity throughout the right liver. Gallbladder and common bile duct are normal. Spleen, pancreas, and adrenal glands are normal. Bilateral percutaneous nephrostomy tubes are in place and appropriately positioned. There is no significant hydronephrosis of either kidney. There are bilateral nonobstructing kidney stones. There is aortoiliac atherosclerosis without aneurysm. There is bulky and confluent retroperitoneal lymphadenopathy encasing the abdominal aorta. Enlarged lymph nodes extend along the bilateral iliac chains. There is also bulky and confluent pelvic lymphadenopathy. There are also numerous scattered peritoneal nodules. There is a poorly characterized mass involving the cervix and uterus with numerous surrounding soft tissue nodules. Urinary bladder is incompletely distended and suboptimally characterized. There is no bowel obstruction or inflammation. There is scattered colonic diverticula. Appendix is not identified. There is trace ascites in the pelvis. There is no free air. There are no acute osseous findings or suspicious osseous lesions. IMPRESSION: 1. Bulky mass involving the uterus and cervix. Numerous surrounding metastatic implants in the pelvis. Extensive retroperitoneal, iliac chain, and pelvic lymphadenopathy. Findings raise concern for metastatic cancer of uterine, endometrial, or cervical origin. 2. Numerous scattered peritoneal nodules concerning for peritoneal carcinomatosis. 3. Vague hypodense lesions throughout the liver raising concern for hepatic metastases. These might be better characterized on liver mass protocol CT or MRI. 4. Interval placement of bilateral percutaneous nephrostomy tubes. Nonobstructing kidney stones bilaterally. No hydronephrosis. Electronically signed by: Candace Baptiste M.D. 10/02/22 20:25 PM LE venous Dopplers: 1. Extensive acute DVT in the right leg involving the common femoral, superficial femoral, popliteal, and gastrocnemius veins. 2. No left lower extremity DVT. Diagnostic Findings EKG as per my interpretation rate 70, NSR, LAD, LAFB, LVH, no ischemia
[2022-10-02] MEDS ORDERED: PANTOprazole 80 MG in DEXTROSE 5% 100 ML IV STA (22:44)
[2022-10-02] MEDS ORDERED: DAPTOmycin 200 MG in SYRINGE 0 ML IV STA (22:49)
[2022-10-02] MEDS ORDERED: PROMETHAZINE HCL 6.25 MG in SODIUM CHLORIDE 0.9% 50 ML IV PRN (22:53)
[2022-10-02] MEDS ORDERED: ACETAMINOPHEN 500 MG TAB PO PRN (22:53)
[2022-10-02] MEDS ORDERED: oxyCODONE HCL IR 5 MG TAB (IMMEDIATE RELEASE) PO PRN (22:53)
--- NOTE | 2022-10-03 | Ultrasound Report ---
Exam(s): US VENOUS BILATERAL LOWER EXTREMITIES EXAM: US Duplex Bilateral Lower Extremities Veins CLINICAL HISTORY: Reason for exam: leg swelling. TECHNIQUE: Real-time duplex ultrasound scan of the bilateral lower extremity veins integrating B-mode two-dimensional vascular structure, Doppler spectral analysis, color flow Doppler imaging and compression. COMPARISON: No relevant prior studies available. FINDINGS: Right deep veins: Acute nonocclusive DVT common femoral vein. Acute occlusive DVT extending through the superficial femoral vein and popliteal vein as well as within the gastrocnemius vein. Possible nonocclusive DVT in the deep femoral vein. Right superficial veins: Possible nonocclusive thrombus extending into the great saphenous vein. Left deep veins: Unremarkable. No DVT in the left common femoral, femoral, proximal deep femoral or popliteal veins. The veins demonstrate normal color flow, are normally compressible, with normal phasic flow and/or augmentation response. Left superficial veins: Unremarkable. No thrombus in the visualized left great saphenous vein. Soft tissues: Right leg soft tissue edema. IMPRESSION: 1. Extensive acute DVT in the right leg involving the common femoral, superficial femoral, popliteal, and gastrocnemius veins. 2. No left lower extremity DVT. Communications: Call Doctor DVT acute, progressing Electronically signed by: Candace Baptiste M.D. 10/02/22 23:59 PM
[2022-10-03 00:12] LABS: Base Excess VBG -12.1 mEq/L; HCO3 VBG 15 mmol/L; Oxygen Saturation VBG < 60.0 %; PCO2 VBG 36 mmHg (38-50); PO2 VBG 29 mmHg; pH VBG 7.22 (7.36-7.41)
[2022-10-03 00:25] LABS: Hematocrit (blood only) 24.2 % (37.0-47.0); Hemoglobin 7.7 g/dl (12.0-16.0)
[2022-10-03 00:36] LABS: Anion Gap 15 (3-11); BUN Creatinine Ratio 19.9 (10-20); Blood Urea Nitrogen 73 mg/dl (6-23); Calcium 7.4 mg/dl (8.6-10.3); Carbon Dioxide 17 mmol/L (21-32); Chloride 98 mmol/L (98-107); Est GFR (Non-African American) 12.1 ml/min; Glucose 143 mg/dl (70-99(Fasting)); Potassium 4.7 mmol/L (3.5-5.1); Sodium 130 mmol/L (136-145)
[2022-10-03] MEDS ORDERED: HYDROCODONE/ACETAMOPHEN 5/325MG TAB PO PRN (01:17)
[2022-10-03] MEDS ORDERED: CEFEPIME 2,000 MG in SYRINGE 0 ML IV ONE (04:00)
--- NOTE | 2022-10-03 06:06 | Oncology Consultation ---
Date of Consultation October 03, 2022 Assessment & Plan (1) Neuro-endocrine carcinoma: (2) Acute kidney injury: (3) Anemia: (4) Hyponatremia: Plan -Worsening kidney function possibly from TLS, obstructive uropathy or combination of these. Would recommend daily TLS labs. Also continue allopurinol 200mg po daily. Also recommend rasburicase 6mg IV. She should also have US to r/o blockage of nephrostomy tubes by mass. -Transfuse with 1Unit of PRBC. Also consider giving IV venofer x 3 doses for likely iron deficiency given microcytic anemia as ferritin likely falsely elevated from malignancy -Plan to hold cycle 1 day 3 of etoposide which was scheduled for today until clinical condition improves -Patient already established care with palliative care as outpatient. May need to reengage palliative care if clinical condition does not improve History of Present Illness Attending Physician: Tiago Hernandes MD History of Present Illness Ms. 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 She had presented to [facility] on 08/02/2022 with nausea, vomiting and lower abdominal discomfort. Labs revealed LOLIS with creatinine of 21.99. CT abdomen and pelvis revealed large uterine/cervical mass with numerous pelvic, perirectal and retroperitoneal lymph nodes which may represent metastatic endometrial or uterine carcinoma as well as associated hydronephrosis likely due to bilateral ureteral obstruction. Patient was then transferred to [facility] where image guided percutaneous placement of bilateral nephroureteral catheters was performed on 08/03/2022. She also underwent pelvic examination under anesthesia with biopsy of pelvic mass on 08/03/2022 but revealed benign squamous mucosa negative for dysplasia. She then underwent CT-guided core needle biopsy at [facility] on 08/18/2022 which revealed poorly differentiated malignant neoplasm with NGS revealing low TMB, MSI stable and was positive for ARID1B, BRAF, KM T2B, PIK3CA, PTEN and RAD 52 mutations. She was then evaluated by Dr. Reese of [facility] oncology at [facility] who performed examination under anesthesia, cervical dilation, endometrial curettage, biopsies, cystoscopy and proctoscopy on 09/11/2022 with preliminary pathology consistent with large cell neuroendocrine carcinoma as immunostains were diffusely positive for synaptophysin, negative for keratins and CD45. I discussed case with her [facility] [facility] oncologist last week who recommended cisplatin/etoposide (neuroendocrine carcinoma regimen). Patient was supposed to start cisplatin/etoposide on Thursday this week, however her pretreatment labs revealed worsening renal function with creatinine of 2.95 and CrCl of 22. As a result of this, cisplatin was switched to carboplatin and she received cycle 1 day 1 of carboplatin/etoposide on 10/01/22 and cycle1, day 2 of etoposide on 10/02/2022. TLS labs were obtained which revealed uric acid level of 19. She was started on allopurinol and plan was to administer rasburicase 6mg IV today prior to cycle 1 day 3 of treatment. She was also noted to have anemia with hemoglobin of 8.1 for which she received 1 unit PRBC yesterday and was supposed to receive another unit today. Case was discussed with her screw machine operator yesterday who recommended IV hydration and discontinuation of amlodipine/lasix. Patient's PCP had ordered CTA chest to r/o PE and labs obtained prior to CT scan revealed worsening renal function with Cr of 3.65 for which she was adviced to go to the ED Allergies Allergy/AdvReac Type Severity Reaction Status Date / Time Sulfa (Sulfonamide Allergy Severe Swelling Verified 10/02/22 20:44 Antibiotics) of Lip/Tongue/Throat Home Medications Medication Instructions Recorded Confirmed Type folic acid 1 mg tablet 1 mg PO DAILY 09/25/22 10/02/22 History oxycodone 5 mg tablet 5 mg PO TID 30 days #120 tabs 09/25/22 10/02/22 Rx polyethylene glycol 3350 17 17 g PO DAILY 09/30/22 10/02/22 History gram/dose oral powder (Miralax) allopurinol 300 mg tablet 300 mg PO QPM 10/02/22 10/02/22 History food supplemt, lactose-reduced 1 ea PO DAILY 10/02/22 10/02/22 History (Ensure oral liquid) olanzapine 2.5 mg tablet (Zyprexa) 2.5 mg PO HS 10/02/22 10/02/22 History ondansetron HCl 4 mg tablet 4 mg PO Q6H PRN Nausea And Vomiting 10/02/22 10/02/22 History prochlorperazine maleate 5 mg 5 mg PO TID PRN Nausea And Vomiting 10/02/22 10/02/22 History tablet sodium chloride 1,000 mg soluble 1,000 mg PO TID 10/02/22 10/02/22 History tablet Patient History Medical History (Updated 10/03/22 @ 06:16 by Jenae Kim MD) Anxiety Cancer related pain Insomnia Nausea Neuroendocrine cancer No significant medical problems Palliative care by specialist Social History (Updated 09/30/22 @ 15:07 by Joy Simmons RN) Smoking Status: Never smoker Hx Alcohol Use: No Hx Substance Use: No Preferred Language: [place]serrat[place] Beliefs That Will Affect Care: None marital status: Current Living Situation: Spouse current occupational status: employed How many Children do You have: 0 Other Information That Helps Us Care for You: No Feels Safe at Home: Yes Safety Concerns: Feels Safe At This Time during the past year weight has: decreased > 10 lbs Assistive Devices: Walker Results & Data Vital Signs (Past 12 Hours) Vital Signs Temp Pulse Pulse Pulse Resp BP Pulse Ox 10/03/22 04:21 67 20 118/69 96 10/03/22 01:00 70 10/03/22 01:00 74 18 118/73 96 10/02/22 19:29 36.7 C 78 18 157/75 H 98 O2 Del Method 10/03/22 04:21 Room Air 10/03/22 01:00 10/03/22 01:00 Room Air 10/02/22 19:29 Room Air
[2022-10-03] MEDS ORDERED: RASBURICASE IV ONE (06:27)
[2022-10-03 06:33] LABS: Hematocrit (blood only) 22.7 % (37.0-47.0); Hemoglobin 7.2 g/dl (12.0-16.0); Mean Corpuscular Hgb Conc 31.7 g/dL (32.0-36.0); Mean Corpuscular Volume 81.9 fL (80.0-100.0); Mean Platelet Volume 9.4 fL (9.4-12.4); Platelet Count 303 K/uL (130-400); RDW Coefficient of Variation 17.7 % (11.5-14.5); RDW Standard Deviation 52.8 fL (36.4-46.3); Red Blood Count 2.77 M/uL (4.20-5.40); White Blood Count 10.15 K/ul (4.8-10.8)
[2022-10-03] MEDS ORDERED: SODIUM CHLORIDE 0.9% 250 ML IV PRN (06:41)
[2022-10-03 06:49] LABS: BUN Creatinine Ratio 19.7 (10-20); Calcium 7.3 mg/dl (8.6-10.3); Creatinine Clr Calc Pharmacy 14.9 ml/min; Est GFR (African American) 13.9 ml/min; Potassium 4.9 mmol/L (3.5-5.1)
[2022-10-03 07:02] LABS: Basophils # (auto) 0.01 K/uL (0-0.2); Basophils % (auto) 0.1 %; Echinocytes 1+; Immature Granulocytes # (auto) 0.33 K/uL (0.01-0.20); Immature Granulocytes % (auto) 3.3 %; Lymphocytes # (auto) 0.18 K/uL (1.2-3.4); Lymphocytes % (auto) 1.8 %; Monocytes # (auto) 0.29 K/uL (0.11-0.59); Monocytes % (auto) 2.9 %; Neutrophils # (auto) 9.34 K/uL (1.40-6.50); Neutrophils % (auto) 91.9 %; Polychromasia 1+
--- NOTE | 2022-10-03 07:14 | XRay Report ---
XR chest 1V portable HISTORY: weakness COMPARISON: Chest 08/02/2022. FINDINGS: No pneumothorax. No pleural effusions. Right basilar linear densities favor subsegmental at electasis. The heart remains mildly enlarged. No new focal lung consolidations to suggest a pneumonia . No evidence for pulmonary edema. Partially visualized right nephrostomy tube is noted. There is a s mall right azygos lobe. IMPRESSION: No significant change compared to the prior study. No acute process. ACT 112: Negative or not required by law. Electronically signed by: Angel Aguiar M.D. 10/03/2022 7:13 AM
--- NOTE | 2022-10-03 08:39 | Electrocardiogram Report ---
Test Reason : Blood Pressure : / mmHG Vent. Rate : 072 BPM Atrial Rate : 072 BPM P-R Int : 110 ms QRS Dur : 086 ms QT Int : 392 ms P-R-T Axes : 045 -21 021 degrees QTc Int : 429 ms Sinus rhythm with short NJ Voltage criteria for left ventricular hypertrophy Poor R wave progression, consider anterior NJ vs. lead placement vs. LVH Abnormal ECG When compared with ECG of 02-AUG-2022 14:09, Loss of precordial R wave voltage Otherwise no significant change Confirmed by Jamie Garcia ([id number]) on 10/03/2022 8:38:49 AM Referred By: REFERRED SELF Confirmed By:Jamie Garcia
--- NOTE | 2022-10-03 08:45 | Gastrointestinal Consultation ---
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 HGB baseline 8-9, was 8.3 on admit ->7.2, now 8.6 after pRBC transfusion. AC has not yet been started pending conferring with multiple consultants. We are consulted as there was a report of dark emesis a few days ago that is questionable for possible UGIB. It has not recurred. She has had no report of melena, or hematochezia. Her acute on chronic anemia is likely multifactorial in the setting of known malignancy, recently starting chemo, among others. She has had issues with nausea and that has been better lately with meds per her . Primary/vascular surgery teams considering starting AC vs IVC filter given her DVT. There is a need to make sure no underlying source of UGIB whilst treating her with AC. Given her overall presentation, we can provide EGD to r/o any source of UGIB such as PUD, gastritis, AVMs, etc and also eval for GOO in the setting of her bulky malignancy which could be contributing to episodes of nausea. I discussed this with the pt, her , her primary team, and GI attending. Given her lab derangements including Na of 129 will need make sure she is cleared by anesthesia for sedation. - Keep NPO - Continue IVF - Trend H&H, transfuse PRN - Monitor and document GI output - IV PPI - No contraindication to starting AC prior to EGD - Prior to endoscopic evaluation, we appreciate assistance in the management and correction of lindsey laboratory elements including the following: Please optimize pt's hemoglobin >7, , potassium levels >3.5 but <5.3, and sodium levels within 5 points of the reference range. Thank you for allowing us to participate in the care of this patient. Please call with any acute changes, questions or concerns. Please see addendum below with additional recommendation from my supervising physician. Supervising Physician Co-Signing Physician Notes Attg add: I interviewed and examined pt, reviewed chart and labs. Pt with met ca admit with n/v, coffee grounds, imaging shows DVT. Plan EGD today to triage risk of bleeding with AC, help guide need for IVC filter. History of Present Illness Reason for Consultation: ugib Requesting Physician: Dr. Deluca Attending Physician: Tiago Hernandes MD History of Present Illness This is a 67 y/o female with PMhx HTN, recently diagnosed metastatic gynecologic neuroendocrine malignancy recently started on chemotherapy, chronic hydronephrosis secondary to bilateral ureteral obstruction status post nephroureteral catheter placement, CKD, chronic anemia (baseline hemoglobin 8-9 ), cancer pain on narcotics, history VRE UTI, and others admitted yesterday after presenting with weakness, LOLIS. She was found to have extensive RLE DVT, CTAP w/ bulky pelvic mass, possible extensive metastatic disease involving numerous LN, peritoneum and hepatic region. Vascular surgery, heme/onc, nephrology, palliative care, all have been consulted. Vascular surgery working her up for possible IVC filter, MR of IVC pending to evaluate patency. Labs concerning for hyponatremia (acute on chronic), HGB 8.6, possible UTI, sepsis. Placed on empiric ABX, IV PPI. HGB 8.3-> 7.7 -> 7.2, now 8.6 s/p pRBC transfusion. at bedside - majority of history is from him and chart. Pt noted to be having some confusion, forgetfulness (encephalopathy?). Pt also lethargic during exam; falls asleep easily during conversation. There was a report of a fall [employer], as well as episode of dark emesis a few days ago (concerning for ? UGIB). But has had no n/v/hematemesis since. She just started chemotherapy this week (has had 2 doses). Her appetite has been poor, she tolerates very little as far as input before getting full. She had been on oral iron many weeks ago and he states her stool was black then. Has not had for many weeks and stool had returned to normal brown color. No report of melena, hematochezia. She's been given antiemetics for nausea with her chemo and states she's had improved nausea on this regimen. Pt reported stool overnight but can't provide details (none documented in her chart; per nurse this AM, she was not given report of stool overnight). No history of any upper GI symptoms (n/v, heartburn, dysphagia). Never had EGD or colonoscopy. No AC, NSAID, tobacco, ETOH use. Denies CP, SOB, fever, chills. Has had ongoing leg swell, abd discomfort lately. Her thinks she's lost approx 30-35 lbs lately. Allergies Allergy/AdvReac Type Severity Reaction Status Date / Time Sulfa (Sulfonamide Allergy Severe Swelling Verified 10/02/22 20:44 Antibiotics) of Lip/Tongue/Throat Home Medications Medication Instructions Recorded Confirmed Type folic acid 1 mg tablet 1 mg PO DAILY 09/25/22 10/02/22 History oxycodone 5 mg tablet 5 mg PO TID 30 days #120 tabs 09/25/22 10/02/22 Rx polyethylene glycol 3350 17 17 g PO DAILY 09/30/22 10/02/22 History gram/dose oral powder (Miralax) allopurinol 300 mg tablet 300 mg PO QPM 10/02/22 10/02/22 History food supplemt, lactose-reduced 1 ea PO DAILY 10/02/22 10/02/22 History (Ensure oral liquid) olanzapine 2.5 mg tablet (Zyprexa) 2.5 mg PO HS 10/02/22 10/02/22 History ondansetron HCl 4 mg tablet 4 mg PO Q6H PRN Nausea And Vomiting 10/02/22 10/02/22 History prochlorperazine maleate 5 mg 5 mg PO TID PRN Nausea And Vomiting 10/02/22 10/02/22 History tablet sodium chloride 1,000 mg soluble 1,000 mg PO TID 10/02/22 10/02/22 History tablet Patient History Medical History (Updated 10/03/22 @ 13:56 by Randy Camarena MD) Advanced care planning/counseling discussion Anxiety Cancer related pain DVT (deep venous thrombosis) Insomnia Nausea Neuroendocrine cancer No significant medical problems Palliative care by specialist Surgical History (Updated 10/03/22 @ 13:44 by Randy Camarena MD) H/O cervical biopsy Social History Smoking Status: Never smoker Hx Alcohol Use: No Hx Substance Use: No Preferred Language: Slovenian Communication Ability: Effective Beliefs That Will Affect Care: Hoahaoism marital status: Current Living Situation: Spouse current occupational status: employed How many Children do You have: 0 Other Information That Helps Us Care for You: No Feels Safe at Home: Yes Safety Concerns: Feels Safe At This Time during the past year weight has: decreased > 10 lbs Assistive Devices: Walker Review of Systems Review of Systems: All systems reviewed & are unremarkable except as noted in HPI & below Physical Exam Constitutional: NAD, well-developed, chronically ill; pale. Eyes: Sclera anicteric, no conjunctival injection ENMT: moist mucous membranes, no pallor Neck: trachea midline supple Respiratory: normal respiratory effort, lungs clear to auscultation Cardiovascular: RRR, no murmur, no edema Gastrointestinal (Abdomen): BS x 4 quadrants, + palpable mass in the lower abd; mild diffuse tenderness, nondistended Skin: no rashes, warm and dry Neurologic: lethargic, but awake and alert at times; conversant but at times forgetful Psychiatric: normal mood and affect Results & Data Vital Signs (Past 12 Hours) Vital Signs Temp Pulse Pulse Resp BP BP Pulse Ox 10/03/22 08:35 36.2 C L 65 24 96/60 L 95 10/03/22 08:20 36.2 C L 65 24 107/66 95 10/03/22 07:22 60 10/03/22 04:21 67 20 118/69 96 10/03/22 01:00 70 10/03/22 01:00 74 18 118/73 96 O2 Del Method 10/03/22 08:35 10/03/22 08:20 10/03/22 07:22 10/03/22 04:21 Room Air 10/03/22 01:00 10/03/22 01:00 Room Air Laboratory Results 10/03/22 10/03/22 10/03/22 Range/Units 11:58 08:41 08:25 WBC (4.8-10.8) K/ul RBC (4.20-5.40) M/uL Hgb 8.6 L (12.0-16.0) g/dl Hct 26.1 L (37.0-47.0) % MCV (80.0-100.0) fL MCH (25.0-34.0) pg MCHC (32.0-36.0) g/dL RDW Std Deviation (36.4-46.3) fL RDW Coeff of Claude (11.5-14.5) % Plt Count (130-400) K/uL MPV (9.4-12.4) fL Immature Gran % (Auto) % Neut % (Auto) % Lymph % (Auto) % [place] % (Auto) % Eos % (Auto) % Baso % (Auto) % Neut # (Auto) (1.40-6.50) K/uL Lymph # (Auto) (1.2-3.4) K/uL [place] # (Auto) (0.11-0.59) K/uL Eos # (Auto) (0-0.50) K/uL Baso # (Auto) (0-0.2) K/uL Immature Gran # (Auto) (0.01-0.20) K/uL Polychromasia Echinocytes PT (9.0-12.0) Seconds INR (0.9-1.1) VBG pH (7.36-7.41) VBG pCO2 (38-50) mmHg VBG pO2 mmHg VBG HCO3 mmol/L VBG O2 Saturation % VBG Base Excess mEq/L Sodium (136-145) mmol/L Potassium (3.5-5.1) mmol/L Chloride (98-107) mmol/L Carbon Dioxide (21-32) mmol/L Anion Gap (3-11) BUN (6-23) mg/dl Creatinine (0.6-1.2) mg/dl Est Cr Clr Drug Dosing Est GFR ( Amer) ml/min Est GFR (Non-Af Amer) ml/min BUN/Creatinine Ratio (10-20) Glucose (70-99(Fasting)) mg/dl Lactate (0.4-2.0) mmol/L Uric Acid 17.5 H (2.6-7.2) mg/dl Calcium (8.6-10.3) mg/dl Phosphorus (2.5-4.9) mg/dl Magnesium (1.7-2.4) mg/dl Iron (35-150) mcg/dl Ferritin (8-388) ng/ml Total Bilirubin (0.2-1.0) mg/dl AST (13-39) U/L ALT (7-52) U/L Alkaline Phosphatase (34-104) U/L Ammonia (18-72) umol/L Troponin I High Sens (0-14) pg/ml Total Protein (6.0-8.3) gm/dl Albumin (3.4-5.0) gm/dl Globulin (2.5-4.0) gm/dl Albumin/Globulin Ratio (0.9-2) Vitamin B12 223 (180-914) pg/ml Folate > 22.30 (>5.38) ng/ml Procalcitonin (0-0.5) ng/ml TSH (0.300-4.500) uIu/ml Urine Color Urine Appearance (Clear) Urine pH (4.5-7.5) Ur Specific [place] (1.000-1.030) Urine Protein (Negative) Urine Glucose (UA) (Negative) Urine Ketones (Negative) Urine Blood (Negative) Urine Nitrite (Negative) Urine Bilirubin (Negative) Urine Urobilinogen (Negative) Ur Leukocyte Esterase (Negative) Urine WBC (Auto) (0-5) /hpf Urine RBC (Auto) (0-4) /hpf U Hyaline Cast (Auto) (0-5) /lpf U Epithel Cells (Auto) (0-5) /lpf Urine Bacteria (Auto) (Negative) Ur Renal Epithelial Cell (0-5) /lpf Urine Crystals (None Prsent) Uric Acid Crystals (None Prsent) SARS-CoV-2, RNA, NAAT (NEGATIVE) Blood Type Antibody Screen 10/03/22 10/03/22 10/03/22 Range/Units 06:06 06:06 06:06 WBC 10.15 (4.8-10.8) K/ul RBC 2.77 L (4.20-5.40) M/uL Hgb 7.2 L (12.0-16.0) g/dl Hct 22.7 L (37.0-47.0) % MCV 81.9 (80.0-100.0) fL MCH 26.0 (25.0-34.0) pg MCHC 31.7 L (32.0-36.0) g/dL RDW Std Deviation 52.8 H (36.4-46.3) fL RDW Coeff of Claude 17.7 H (11.5-14.5) % Plt Count 303 (130-400) K/uL MPV 9.4 (9.4-12.4) fL Immature Gran % (Auto) 3.3 % Neut % (Auto) 91.9 % Lymph % (Auto) 1.8 % [place] % (Auto) 2.9 % Eos % (Auto) 0.0 % Baso % (Auto) 0.1 % Neut # (Auto) 9.34 H (1.40-6.50) K/uL Lymph # (Auto) 0.18 L (1.2-3.4) K/uL [place] # (Auto) 0.29 (0.11-0.59) K/uL Eos # (Auto) 0.00 (0-0.50) K/uL Baso # (Auto) 0.01 (0-0.2) K/uL Immature Gran # (Auto) 0.33 H (0.01-0.20) K/uL Polychromasia 1+ Echinocytes 1+ PT (9.0-12.0) Seconds INR (0.9-1.1) VBG pH (7.36-7.41) VBG pCO2 (38-50) mmHg VBG pO2 mmHg VBG HCO3 mmol/L VBG O2 Saturation % VBG Base Excess mEq/L Sodium 129 L (136-145) mmol/L Potassium 4.9 (3.5-5.1) mmol/L Chloride 99 (98-107) mmol/L Carbon Dioxide 16 L (21-32) mmol/L Anion Gap 14 H (3-11) BUN 73 H (6-23) mg/dl Creatinine 3.70 H (0.6-1.2) mg/dl Est Cr Clr Drug Dosing 14.9 Est GFR ( Amer) 13.9 ml/min Est GFR (Non-Af Amer) 12.0 ml/min BUN/Creatinine Ratio 19.7 (10-20) Glucose 134 H (70-99(Fasting)) mg/dl Lactate (0.4-2.0) mmol/L Uric Acid (2.6-7.2) mg/dl Calcium 7.3 L (8.6-10.3) mg/dl Phosphorus Cancelled 9.3 H (2.5-4.9) mg/dl Magnesium (1.7-2.4) mg/dl Iron Cancelled 73 (35-150) mcg/dl Ferritin Cancelled 1315.0 H (8-388) ng/ml Total Bilirubin (0.2-1.0) mg/dl AST (13-39) U/L ALT (7-52) U/L Alkaline Phosphatase (34-104) U/L Ammonia (18-72) umol/L Troponin I High Sens (0-14) pg/ml Total Protein (6.0-8.3) gm/dl Albumin (3.4-5.0) gm/dl Globulin (2.5-4.0) gm/dl Albumin/Globulin Ratio (0.9-2) Vitamin B12 (180-914) pg/ml Folate (>5.38) ng/ml Procalcitonin (0-0.5) ng/ml TSH (0.300-4.500) uIu/ml Urine Color Urine Appearance (Clear) Urine pH (4.5-7.5) Ur Specific [place] (1.000-1.030) Urine Protein (Negative) Urine Glucose (UA) (Negative) Urine Ketones (Negative) Urine Blood (Negative) Urine Nitrite (Negative) Urine Bilirubin (Negative) Urine Urobilinogen (Negative) Ur Leukocyte Esterase (Negative) Urine WBC (Auto) (0-5) /hpf Urine RBC (Auto) (0-4) /hpf U Hyaline Cast (Auto) (0-5) /lpf U Epithel Cells (Auto) (0-5) /lpf Urine Bacteria (Auto) (Negative) Ur Renal Epithelial Cell (0-5) /lpf Urine Crystals (None Prsent) Uric Acid Crystals (None Prsent) SARS-CoV-2, RNA, NAAT (NEGATIVE) Blood Type Antibody Screen 10/02/22 10/02/22 10/02/22 Range/Units Unknown Unknown Unknown WBC (4.8-10.8) K/ul RBC (4.20-5.40) M/uL Hgb (12.0-16.0) g/dl Hct (37.0-47.0) % MCV (80.0-100.0) fL MCH (25.0-34.0) pg MCHC (32.0-36.0) g/dL RDW Std Deviation (36.4-46.3) fL RDW Coeff of Claude (11.5-14.5) % Plt Count (130-400) K/uL MPV (9.4-12.4) fL Immature Gran % (Auto) % Neut % (Auto) % Lymph % (Auto) % [place] % (Auto) % Eos % (Auto) % Baso % (Auto) % Neut # (Auto) (1.40-6.50) K/uL Lymph # (Auto) (1.2-3.4) K/uL [place] # (Auto) (0.11-0.59) K/uL Eos # (Auto) (0-0.50) K/uL Baso # (Auto) (0-0.2) K/uL Immature Gran # (Auto) (0.01-0.20) K/uL Polychromasia Echinocytes PT (9.0-12.0) Seconds INR (0.9-1.1) VBG pH (7.36-7.41) VBG pCO2 (38-50) mmHg VBG pO2 mmHg VBG HCO3 mmol/L VBG O2 Saturation % VBG Base Excess mEq/L Sodium (136-145) mmol/L Potassium (3.5-5.1) mmol/L Chloride (98-107) mmol/L Carbon Dioxide (21-32) mmol/L Anion Gap (3-11) BUN (6-23) mg/dl Creatinine (0.6-1.2) mg/dl Est Cr Clr Drug Dosing Est GFR ( Amer) ml/min Est GFR (Non-Af Amer) ml/min BUN/Creatinine Ratio (10-20) Glucose (70-99(Fasting)) mg/dl Lactate (0.4-2.0) mmol/L Uric Acid (2.6-7.2) mg/dl Calcium (8.6-10.3) mg/dl Phosphorus (2.5-4.9) mg/dl Magnesium (1.7-2.4) mg/dl Iron (35-150) mcg/dl Ferritin (8-388) ng/ml Total Bilirubin (0.2-1.0) mg/dl AST (13-39) U/L ALT (7-52) U/L Alkaline Phosphatase (34-104) U/L Ammonia (18-72) umol/L Troponin I High Sens (0-14) pg/ml Total Protein (6.0-8.3) gm/dl Albumin (3.4-5.0) gm/dl Globulin (2.5-4.0) gm/dl Albumin/Globulin Ratio (0.9-2) Vitamin B12 (180-914) pg/ml Folate (>5.38) ng/ml Procalcitonin (0-0.5) ng/ml TSH (0.300-4.500) uIu/ml Urine Color Yellow Yellow Urine Appearance Turbid A Turbid A (Clear) Urine pH 5.0 5.0 (4.5-7.5) Ur Specific [place] 1.015 1.014 (1.000-1.030) Urine Protein 2+ H 2+ H (Negative) Urine Glucose (UA) Negative Negative (Negative) Urine Ketones Negative Negative (Negative) Urine Blood 3+ H 3+ H (Negative) Urine Nitrite Negative Negative (Negative) Urine Bilirubin Negative Negative (Negative) Urine Urobilinogen Negative Negative (Negative) Ur Leukocyte Esterase 1+ H 2+ H (Negative) Urine WBC (Auto) >30 H >30 H (0-5) /hpf Urine RBC (Auto) 0-4 0-4 (0-4) /hpf U Hyaline Cast (Auto) 1-5 1-5 (0-5) /lpf U Epithel Cells (Auto) >30 H 10-20 H (0-5) /lpf Urine Bacteria (Auto) Not Reportable Negative (Negative) Ur Renal Epithelial Cell 0-5 (0-5) /lpf Urine Crystals Uric Acid A Uric Acid A (None Prsent) Uric Acid Crystals Present A Present A (None Prsent) SARS-CoV-2, RNA, NAAT NEGATIVE (NEGATIVE) Blood Type Antibody Screen 10/02/22 10/02/22 10/02/22 Range/Units 23:48 23:48 23:48 WBC (4.8-10.8) K/ul RBC (4.20-5.40) M/uL Hgb (12.0-16.0) g/dl Hct (37.0-47.0) % MCV (80.0-100.0) fL MCH (25.0-34.0) pg MCHC (32.0-36.0) g/dL RDW Std Deviation (36.4-46.3) fL RDW Coeff of Claude (11.5-14.5) % Plt Count (130-400) K/uL MPV (9.4-12.4) fL Immature Gran % (Auto) % Neut % (Auto) % Lymph % (Auto) % [place] % (Auto) % Eos % (Auto) % Baso % (Auto) % Neut # (Auto) (1.40-6.50) K/uL Lymph # (Auto) (1.2-3.4) K/uL [place] # (Auto) (0.11-0.59) K/uL Eos # (Auto) (0-0.50) K/uL Baso # (Auto) (0-0.2) K/uL Immature Gran # (Auto) (0.01-0.20) K/uL Polychromasia Echinocytes PT (9.0-12.0) Seconds INR (0.9-1.1) VBG pH 7.22 L (7.36-7.41) VBG pCO2 36 L (38-50) mmHg VBG pO2 29 mmHg VBG HCO3 15 mmol/L VBG O2 Saturation < 60.0 % VBG Base Excess -12.1 mEq/L Sodium 130 L (136-145) mmol/L Potassium 4.7 (3.5-5.1) mmol/L Chloride 98 (98-107) mmol/L Carbon Dioxide 17 L (21-32) mmol/L Anion Gap 15 H (3-11) BUN 73 H (6-23) mg/dl Creatinine 3.67 H (0.6-1.2) mg/dl Est Cr Clr Drug Dosing Not Reportable Est GFR ( Amer) 14.0 ml/min Est GFR (Non-Af Amer) 12.1 ml/min BUN/Creatinine Ratio 19.9 (10-20) Glucose 143 H (70-99(Fasting)) mg/dl Lactate (0.4-2.0) mmol/L Uric Acid (2.6-7.2) mg/dl Calcium 7.4 L (8.6-10.3) mg/dl Phosphorus (2.5-4.9) mg/dl Magnesium (1.7-2.4) mg/dl Iron (35-150) mcg/dl Ferritin (8-388) ng/ml Total Bilirubin (0.2-1.0) mg/dl AST (13-39) U/L ALT (7-52) U/L Alkaline Phosphatase (34-104) U/L Ammonia 30.0 (18-72) umol/L Troponin I High Sens (0-14) pg/ml Total Protein (6.0-8.3) gm/dl Albumin (3.4-5.0) gm/dl Globulin (2.5-4.0) gm/dl Albumin/Globulin Ratio (0.9-2) Vitamin B12 (180-914) pg/ml Folate (>5.38) ng/ml Procalcitonin (0-0.5) ng/ml TSH (0.300-4.500) uIu/ml Urine Color Urine Appearance (Clear) Urine pH (4.5-7.5) Ur Specific [place] (1.000-1.030) Urine Protein (Negative) Urine Glucose (UA) (Negative) Urine Ketones (Negative) Urine Blood (Negative) Urine Nitrite (Negative) Urine Bilirubin (Negative) Urine Urobilinogen (Negative) Ur Leukocyte Esterase (Negative) Urine WBC (Auto) (0-5) /hpf Urine RBC (Auto) (0-4) /hpf U Hyaline Cast (Auto) (0-5) /lpf U Epithel Cells (Auto) (0-5) /lpf Urine Bacteria (Auto) (Negative) Ur Renal Epithelial Cell (0-5) /lpf Urine Crystals (None Prsent) Uric Acid Crystals (None Prsent) SARS-CoV-2, RNA, NAAT (NEGATIVE) Blood Type Antibody Screen 10/02/22 10/02/22 10/02/22 Range/Units 23:48 20:01 20:01 WBC (4.8-10.8) K/ul RBC (4.20-5.40) M/uL Hgb 7.7 L (12.0-16.0) g/dl Hct 24.2 L (37.0-47.0) % MCV (80.0-100.0) fL MCH (25.0-34.0) pg MCHC (32.0-36.0) g/dL RDW Std Deviation (36.4-46.3) fL RDW Coeff of Claude (11.5-14.5) % Plt Count (130-400) K/uL MPV (9.4-12.4) fL Immature Gran % (Auto) % Neut % (Auto) % Lymph % (Auto) % [place] % (Auto) % Eos % (Auto) % Baso % (Auto) % Neut # (Auto) (1.40-6.50) K/uL Lymph # (Auto) (1.2-3.4) K/uL [place] # (Auto) (0.11-0.59) K/uL Eos # (Auto) (0-0.50) K/uL Baso # (Auto) (0-0.2) K/uL Immature Gran # (Auto) (0.01-0.20) K/uL Polychromasia Echinocytes PT (9.0-12.0) Seconds INR (0.9-1.1) VBG pH (7.36-7.41) VBG pCO2 (38-50) mmHg VBG pO2 mmHg VBG HCO3 mmol/L VBG O2 Saturation % VBG Base Excess mEq/L Sodium (136-145) mmol/L Potassium (3.5-5.1) mmol/L Chloride (98-107) mmol/L Carbon Dioxide (21-32) mmol/L Anion Gap (3-11) BUN (6-23) mg/dl Creatinine (0.6-1.2) mg/dl Est Cr Clr Drug Dosing Est GFR ( Amer) ml/min Est GFR (Non-Af Amer) ml/min BUN/Creatinine Ratio (10-20) Glucose (70-99(Fasting)) mg/dl Lactate 1.6 (0.4-2.0) mmol/L Uric Acid (2.6-7.2) mg/dl Calcium (8.6-10.3) mg/dl Phosphorus (2.5-4.9) mg/dl Magnesium (1.7-2.4) mg/dl Iron (35-150) mcg/dl Ferritin (8-388) ng/ml Total Bilirubin (0.2-1.0) mg/dl AST (13-39) U/L ALT (7-52) U/L Alkaline Phosphatase (34-104) U/L Ammonia (18-72) umol/L Troponin I High Sens (0-14) pg/ml Total Protein (6.0-8.3) gm/dl Albumin (3.4-5.0) gm/dl Globulin (2.5-4.0) gm/dl Albumin/Globulin Ratio (0.9-2) Vitamin B12 (180-914) pg/ml Folate (>5.38) ng/ml Procalcitonin 1.26 H (0-0.5) ng/ml TSH (0.300-4.500) uIu/ml Urine Color Urine Appearance (Clear) Urine pH (4.5-7.5) Ur Specific [place] (1.000-1.030) Urine Protein (Negative) Urine Glucose (UA) (Negative) Urine Ketones (Negative) Urine Blood (Negative) Urine Nitrite (Negative) Urine Bilirubin (Negative) Urine Urobilinogen (Negative) Ur Leukocyte Esterase (Negative) Urine WBC (Auto) (0-5) /hpf Urine RBC (Auto) (0-4) /hpf U Hyaline Cast (Auto) (0-5) /lpf U Epithel Cells (Auto) (0-5) /lpf Urine Bacteria (Auto) (Negative) Ur Renal Epithelial Cell (0-5) /lpf Urine Crystals (None Prsent) Uric Acid Crystals (None Prsent) SARS-CoV-2, RNA, NAAT (NEGATIVE) Blood Type Antibody Screen 10/02/22 10/02/22 10/02/22 Range/Units 18:30 18:30 18:30 WBC 17.57 H (4.8-10.8) K/ul RBC 3.28 L (4.20-5.40) M/uL Hgb 8.6 L (12.0-16.0) g/dl Hct 27.0 L (37.0-47.0) % MCV 82.3 (80.0-100.0) fL MCH 26.2 (25.0-34.0) pg MCHC 31.9 L (32.0-36.0) g/dL RDW Std Deviation 51.8 H (36.4-46.3) fL RDW Coeff of Claude 17.7 H (11.5-14.5) % Plt Count 406 H (130-400) K/uL MPV 9.5 (9.4-12.4) fL Immature Gran % (Auto) 2.9 % Neut % (Auto) 92.2 % Lymph % (Auto) 1.4 % [place] % (Auto) 3.3 % Eos % (Auto) 0.0 % Baso % (Auto) 0.2 % Neut # (Auto) 16.21 H (1.40-6.50) K/uL Lymph # (Auto) 0.24 L (1.2-3.4) K/uL [place] # (Auto) 0.58 (0.11-0.59) K/uL Eos # (Auto) 0.00 (0-0.50) K/uL Baso # (Auto) 0.03 (0-0.2) K/uL Immature Gran # (Auto) 0.51 H (0.01-0.20) K/uL Polychromasia Echinocytes 1+ PT (9.0-12.0) Seconds INR (0.9-1.1) VBG pH (7.36-7.41) VBG pCO2 (38-50) mmHg VBG pO2 mmHg VBG HCO3 mmol/L VBG O2 Saturation % VBG Base Excess mEq/L Sodium 128 L (136-145) mmol/L Potassium 4.8 (3.5-5.1) mmol/L Chloride 95 L (98-107) mmol/L Carbon Dioxide 18 L (21-32) mmol/L Anion Gap 15 H (3-11) BUN 67 H (6-23) mg/dl Creatinine 3.74 H (0.6-1.2) mg/dl Est Cr Clr Drug Dosing Not Reportable Est GFR ( Amer) 13.7 ml/min Est GFR (Non-Af Amer) 11.8 ml/min BUN/Creatinine Ratio 17.9 (10-20) Glucose 132 H (70-99(Fasting)) mg/dl Lactate (0.4-2.0) mmol/L Uric Acid (2.6-7.2) mg/dl Calcium 7.6 L (8.6-10.3) mg/dl Phosphorus (2.5-4.9) mg/dl Magnesium 2.2 (1.7-2.4) mg/dl Iron (35-150) mcg/dl Ferritin (8-388) ng/ml Total Bilirubin 0.6 (0.2-1.0) mg/dl AST 108 H (13-39) U/L ALT 14 (7-52) U/L Alkaline Phosphatase 133 H (34-104) U/L Ammonia (18-72) umol/L Troponin I High Sens 40.3 H (0-14) pg/ml Total Protein 6.9 (6.0-8.3) gm/dl Albumin 3.4 (3.4-5.0) gm/dl Globulin 3.5 (2.5-4.0) gm/dl Albumin/Globulin Ratio 1.0 (0.9-2) Vitamin B12 (180-914) pg/ml Folate (>5.38) ng/ml Procalcitonin (0-0.5) ng/ml TSH 0.706 (0.300-4.500) uIu/ml Urine Color Urine Appearance (Clear) Urine pH (4.5-7.5) Ur Specific [place] (1.000-1.030) Urine Protein (Negative) Urine Glucose (UA) (Negative) Urine Ketones (Negative) Urine Blood (Negative) Urine Nitrite (Negative) Urine Bilirubin (Negative) Urine Urobilinogen (Negative) Ur Leukocyte Esterase (Negative) Urine WBC (Auto) (0-5) /hpf Urine RBC (Auto) (0-4) /hpf U Hyaline Cast (Auto) (0-5) /lpf U Epithel Cells (Auto) (0-5) /lpf Urine Bacteria (Auto) (Negative) Ur Renal Epithelial Cell (0-5) /lpf Urine Crystals (None Prsent) Uric Acid Crystals (None Prsent) SARS-CoV-2, RNA, NAAT (NEGATIVE) Blood Type Antibody Screen 10/02/22 10/02/22 10/02/22 Range/Units 18:30 18:30 18:30 WBC (4.8-10.8) K/ul RBC (4.20-5.40) M/uL Hgb (12.0-16.0) g/dl Hct (37.0-47.0) % MCV (80.0-100.0) fL MCH (25.0-34.0) pg MCHC (32.0-36.0) g/dL RDW Std Deviation (36.4-46.3) fL RDW Coeff of Claude (11.5-14.5) % Plt Count (130-400) K/uL MPV (9.4-12.4) fL Immature Gran % (Auto) % Neut % (Auto) % Lymph % (Auto) % [place] % (Auto) % Eos % (Auto) % Baso % (Auto) % Neut # (Auto) (1.40-6.50) K/uL Lymph # (Auto) (1.2-3.4) K/uL [place] # (Auto) (0.11-0.59) K/uL Eos # (Auto) (0-0.50) K/uL Baso # (Auto) (0-0.2) K/uL Immature Gran # (Auto) (0.01-0.20) K/uL Polychromasia Echinocytes PT 12.0 (9.0-12.0) Seconds INR 1.1 (0.9-1.1) VBG pH (7.36-7.41) VBG pCO2 (38-50) mmHg VBG pO2 mmHg VBG HCO3 mmol/L VBG O2 Saturation % VBG Base Excess mEq/L Sodium (136-145) mmol/L Potassium (3.5-5.1) mmol/L Chloride (98-107) mmol/L Carbon Dioxide (21-32) mmol/L Anion Gap (3-11) BUN (6-23) mg/dl Creatinine (0.6-1.2) mg/dl Est Cr Clr Drug Dosing Est GFR ( Amer) ml/min Est GFR (Non-Af Amer) ml/min BUN/Creatinine Ratio (10-20) Glucose (70-99(Fasting)) mg/dl Lactate 1.4 (0.4-2.0) mmol/L Uric Acid (2.6-7.2) mg/dl Calcium (8.6-10.3) mg/dl Phosphorus (2.5-4.9) mg/dl Magnesium (1.7-2.4) mg/dl Iron (35-150) mcg/dl Ferritin (8-388) ng/ml Total Bilirubin (0.2-1.0) mg/dl AST (13-39) U/L ALT (7-52) U/L Alkaline Phosphatase (34-104) U/L Ammonia (18-72) umol/L Troponin I High Sens (0-14) pg/ml Total Protein (6.0-8.3) gm/dl Albumin (3.4-5.0) gm/dl Globulin (2.5-4.0) gm/dl Albumin/Globulin Ratio (0.9-2) Vitamin B12 (180-914) pg/ml Folate (>5.38) ng/ml Procalcitonin (0-0.5) ng/ml TSH (0.300-4.500) uIu/ml Urine Color Urine Appearance (Clear) Urine pH (4.5-7.5) Ur Specific [place] (1.000-1.030) Urine Protein (Negative) Urine Glucose (UA) (Negative) Urine Ketones (Negative) Urine Blood (Negative) Urine Nitrite (Negative) Urine Bilirubin (Negative) Urine Urobilinogen (Negative) Ur Leukocyte Esterase (Negative) Urine WBC (Auto) (0-5) /hpf Urine RBC (Auto) (0-4) /hpf U Hyaline Cast (Auto) (0-5) /lpf U Epithel Cells (Auto) (0-5) /lpf Urine Bacteria (Auto) (Negative) Ur Renal Epithelial Cell (0-5) /lpf Urine Crystals (None Prsent) Uric Acid Crystals (None Prsent) SARS-CoV-2, RNA, NAAT (NEGATIVE) Blood Type A Positive Antibody Screen NEGATIVE Diagnostic Findings CTAP: IMPRESSION: 1. Bulky mass involving the uterus and cervix. Numerous surrounding metastatic implants in the pelvis. Extensive retroperitoneal, iliac chain, and pelvic lymphadenopathy. Findings raise concern for metastatic cancer of uterine, endometrial, or cervical origin. 2. Numerous scattered peritoneal nodules concerning for peritoneal carcinomatosis. 3. Vague hypodense lesions throughout the liver raising concern for hepatic metastases. These might be better characterized on liver mass protocol CT or MRI. 4. Interval placement of bilateral percutaneous nephrostomy tubes. Nonobstructing kidney stones bilaterally. No hydronephrosis. CXR: FINDINGS: No pneumothorax. No pleural effusions. Right basilar linear densities favor subsegmental atelectasis. The heart remains mildly enlarged. No new focal lung consolidations to suggest a pneumonia. No evidence for pulmonary edema. Partially visualized right nephrostomy tube is noted. There is a small right azygos lobe. IMPRESSION: No significant change compared to the prior study. No acute process. VEnous doppler: Right deep veins: Acute nonocclusive DVT common femoral vein. Acute occlusive DVT extending through the superficial femoral vein and popliteal vein as well as within the gastrocnemius vein. Possible nonocclusive DVT in the deep femoral vein. Right superficial veins: Possible nonocclusive thrombus extending into the great saphenous vein. Left deep veins: Unremarkable. No DVT in the left common femoral, femoral, proximal deep femoral or popliteal veins. The veins demonstrate normal color flow, are normally compressible, with normal phasic flow and/or augmentation response. Left superficial veins: Unremarkable. No thrombus in the visualized left great saphenous vein. Soft tissues: Right leg soft tissue edema. IMPRESSION: 1. Extensive acute DVT in the right leg involving the common femoral, superficial femoral, popliteal, and gastrocnemius veins. 2. No left lower extremity DVT. CT head: FINDINGS: Brain: No hemorrhage. No apparent acute cortical infarct. No mass lesion or midline shift. Involutional changes with small vessel disease. Ventricles: No hydrocephalus. Bones/joints: No acute fracture. Soft tissues: Unremarkable. Sinuses: No acute sinusitis. Mastoid air cells: No mastoid effusion. Orbits: Unremarkable as visualized. IMPRESSION: No acute intracranial process.
[2022-10-03 08:46] LABS: Phosphorus 9.3 mg/dl (2.5-4.9)
[2022-10-03] MEDS ORDERED: SODIUM CHLORIDE 1 GM TABLET PO SCH (09:00)
--- NOTE | 2022-10-03 09:30 | Palliative Care Consultation ---
Date of Consultation October 03, 2022 Assessment & Plan (1) Palliative care by specialist: Met with pt/family. Provided overview of Palliative Medicine, a subspecialty that provides specialized medical care for people living with a serious illness by offering a focus on quality of life. Palliative Medicine is often conflated with hospice: I advised patient/family that Palliative and hospice can be partners but we are not the same. It is important to understand the difference so that we may be informed, and not afraid. Palliative Medicine works to improve QOL through reduction of symptom burden/more control over their illness, for both the patient and family. Palliative medicine clinicians are board certified, specially-trained and another member of the patient's medical care team. We often provide an extra layer of support because our care is based on the needs of the patient, not the prognosis; as such, it's appropriate at any age/advancing stage of a serious illness and can be provided along with curative treatment. Palliative Medicine clinicians are also trained in advanced communication methodologies, to facilitate complex discussions about advanced illness planning, which are needed to help assure that the treatment choices match the patient's goals, aka delivering Goal Concordant care. Finally, we discussed that hospice is a visiting nurse service that focuses on care delivered at the very end of life for patients with terminal illness, with life expectancy less than 6 month. (2) Advanced care planning/counseling discussion: Face to face discussion with patient and then later w/ via phone, total time spent 60min Elizabeth intermittently confused but we were able to review her recent chemo, any post infusion concerns and current admission related issues. We also discussed how chronic/progressive disease has a declining trajectory over time where facets of patient self-identity and independence are lost. Every acute event leads to a further decline, resulting- many times, in a new baseline. Advised that the greatest priority is to determine what matters most to pt, then family and to develop a plan of care that is aligned with those priorities. Advance illness planning conversations are conducted to review goals and expectations, support shared decision-making, and engage in disease specific advance care planning. This type of advance care planning is sometimes referred to as 'preparedness planning. It is used to review the risks and benefits of offered therapy, elicit and deepen understanding of the underlying illness and therapeutic options, ensure adequate psychosocial support, address existential concerns and coping, and engage in end-of-life planning. Preparedness planning is not meant to replace informed consent discussions. Palliative medicine plays a role in the process of deepening a patients understanding of this specific medical intervention and ensuring this treatment aligns with their goals of care remains a central tenet of the planning conversation. Elizabeth perceives we (medical teams) are "finding complications" to avoid or delay treating her and she feels this is what will make her disease incurable. She also believes "you're just trying to give me hospice meds, I looked it up online. palliative c are is just hospice by another name." I offered her reassurance we are not the same as hospice and provided the overview as noted above in assessment problem #1. I offered her psych and unemployment insurance hearing officer. She said she didnt need that but the unemployment insurance hearing officer can come by thought she doesn't "need" him. [employer] notified. Mr. Pérez shared the following: while at [facility], Elizabeth was resisting and refusing treatment reccs, meds etc so [facility] team said "ok well then you're going on hospice" ad d/c her with referral to hospice. Hospice called their home/came for initial appt and pt was outraged. Mr Pérez states at that junction he suggested to Elizabeth that if she wants to have care for her cancer maybe she needs to listen to the medical advice she is being given. elizabeth advised me she researched palliative online and knows it is hospice and "how dare anyone try to give her hospice meds." Likely this additional context helps explain where some of her hostility about "being told she had to see palliative med" may be coming from in addition to her anger about her cancer diagnosis. Mr. Pérez shares Elizabeth has not been a high utilizer of healthcare - the last time she was in a hospital was at 6yo for tonsillectomy. I told her about my encounter with her and advised I would just stay in background and available to re engage if needed. I also advised pt of same and she was mollified. Mr. Pérez reports Elizabeth perceives palliative med is to "push pills on people for hospice" though he noted that the reccs I made were modifying her current regimen to be more on a schedule to bring better control of symptoms and did not offer any dose increases. He also added "ironically, she was actually taking your advice and using Oxy IR 5mg three times a day and she took the nausea pill more regular ly some days but she didn't try the Ativan." He also said they have spoken about goals of care and "she wants a round of CPR to see if she can be brought back" but not be kept alive on machines. Also, her nutritional intake is extremely poor - she eats about 3 thing slivers of canned peach and maybe equivalent of one ensure a day. Since August 02, her PO intake has been minimal. Mr. Pérez inquired if there were other ways to improve nutrition. Given tumor burden/pressure i don't feel PEG would help however TPN may be a better option for her. Advised that continuation of tube feedings and IV fluids will not aid to any comfort in the dying process but in fact will create more secretions, bloating and distention, and possible fluid volume overload and progressive edema. Advised that this would likely only prolong the dying process rather than help make it more comfortable. We specifically discussed that artificial nutrition and hydration (AN H) by IV, will not prolong life or improve its quality, but will increase distressing symptoms such as shortness of breath, respiratory congestion, restlessness, nausea and vomiting. Educated family that fluids are often avoided at the very end of life to prevent volume overload in the lungs and other organs and our evidence to date demonstrates that data to suggest that IV hydration is unlikely to provide a meaningful benefit to most hospice patients with advanced cancer, even with mild to moderate dehydration. (Raiza E, Ludmila D, Santhosh S, et al. Parenteral hydration in patients with advanced cancer: a multicenter, double- blind, placebo-controlled randomized trial. J Clin Oncol. 2013;31(1):111-118. Doi:10.1200/JCO.2012.44.6518) TPN is a nutritional intervention method that has controversial treatment outcome on gynecological cancer patients but malnutrition status is closely associated with survival of advanced stage ovarian cancer patients. These patients may benefit from TPN treatment for reduced hospitalization, especially with the onset of hypoalbuminemia (Juventino Acuña, Gomez S, Brittany J, Malik J, Ha Y, Taco H. Exploring the malnutrition status and impact of total parenteral nutrition on the outcome of patients with advanced stage ovarian cancer. BMC Cancer. 202;21(1):799. Published 2020Nov 10. doi:10.1186/z52044-552-01844-9) I briefly reviewed TPN with but said that would be something I defer to Dr. Kim. advised "don't take this the wrong way but I have a feeling if Dr Kim suggests it, Elizabeth will do it but if you suggest it or she hears you suggested it, she won't do it because she thinks you're the same as hospice." I updated Dr. Kim who will follow up with pt tomorrow. (3) Cancer related pain: When I saw elizabeth in clinic, she was already taking oxy IR 5mg one tab PO q4h prn, average use was 3 tabs a day at random times. Her pain was not controlled. She had some transient relief with Oxy IR 5mg but nothing that lasted. We spoke about the option of a trial of scheduled dosing to try and improve longer control/relief of pain, with the thought that if we find the right dose, we can consider a long acting forumation. I recommended Oxy IR at the same 5mg dose but to take it TID on a schedule instead of BID PRN. I also asked her to tkae her Zofran BID on a schedule to try and improve relief of persistent cancer related nauasea. (4) Neuroendocrine cancer: (5) Insomnia: I suggested a trial of low dose Ativan for cancer related nausea, insomnia and anxiety. advised she has not tried this at all. (6) Anxiety: see #5 above (7) Nausea: see #3 and 5 above Plan * Patient has been using Oxy IR 5mg tabs q4h prn for cancer pain since August 2022. When I saw her last week, I suggested she try a more scheduled regimen of Oxy IR 5mg PO TID, which is one more tab per day than the 2 tabs per day she was using although she has not regular time of dosing. I would suggest this as a possible approach or simply allow her to take Oxy IR 5mg PO q4h prn as desired/add hold parameters of Hold for somnolence or RR<14/minute * I suggest a trial of Kytril this admission to better improve nausea relief. if successful, she may be able to take some more PO though she is unable to take PO at a nutritionally adequate daily level. * Suggest consideration of ?TPN if Oncology is in agreement: I have reviewed with Dr Kim. Strongly recommend this is not brought up to patient unless it is something we are sure we can offer, as it will only add to her frustration and suffering. * Patient does not want to try Ativan. * Elizabeth wants to stay full code, wants a trial of CPR (one round) to see if she can be brought back but she does not want to linger on machines/life support. She and Erwin have had numerous discussions about her C through the years. They completed ADs when living in [place], these were done >10yr ago but nothing has changed as far as preferences. I have asked to provide a copy to nursing for inclusion in medical records. * Elizabeth believes Palliative med = hospice, therefore remains convinced any med recommendation we make is a hospice recommendation and she does not want hospice. Her prior experience at [facility] has added context to this conviction. * Elizabeth does not want Palliative Med engagement and tells me oncology will handle her pain meds. I reviewed w/Dr. Kim. For now, we will sign off and remain available for urgent re-engagement both IP and OP as needed. I advised pt of same and she expressed agreement. * Elizabeth is very high information seeking. 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 She has very strong convictions. She will do her own research on any recommendation offered and makes up her own mind based on her research. 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 She is unaccustomed to asking for help. The one and only time she needed inpatient admission prior to August 2022 was when she was 6yo and admitted for tonsillectomy. She is frightened/vulnerable with the loss of control and autonomy due to current medical complexities. * I will sign off. No orders were written. Case d/w oncology. Thank you for allowing us to participate in the ongoing care of this patient. Please don't hesitate to call or page with any additional concerns. Dr. Karen Phillips [facility] Director, Palliative Care History of Present Illness Reason for Consultation: [facility] Attending Physician: Tiago Hernandes MD History of Present Illness Elizabeth is known to me from my outpatient clinic. 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 She complains of anorexia, reports intermittent +AMS/pt states this is not true. Her BLE edema has progressed. ED workup revealed severe sepsis (SIRS/LOLIS/encephalopathy) secondary to complicated UTI prompting this admission. Elizabeth had prior [facility] admission 08/02/2022 when she presented with severe nausea, vomiting and lower abdominal discomfort at which times labs found LOLIS with creatinine of 21.99. An urgent CT abd/pelvis revealed large uterine/cervical mass with numerous pelvic, perirectal and retroperitoneal lymph nodes suspicious for a metastatic endometrial or uterine carcinoma. She was also noted to have hydronephrosis, believed to be attributable to bilateral ureteral obstruction. This necessitated a transfer to [facility] for IR assisted percutaneous placement of bilateral nephroureteral catheters was performed on 08/03/2022. She had pelvic examination with [facility] for biopsy of pelvic mass on 08/03/2022 which revealed benign squamous mucosa negative for dysplasia. Oncology consult notes the following: She then underwent CT-guided core needle biopsy 08/18/22 which revealed poorly differentiated malignant neoplasm with NGS revealing low TMB, MSI stable and was positive for ARID1B, BRAF, KM T2B, PIK3CA, PTEN and RAD 52 mutations. She was then evaluated by Dr. Reese of [employer] oncology at [facility] who performed examination under anesthesia, cervical dilation, endometrial curettage, biopsies, cystoscopy and proctoscopy on 09/11/2022 with preliminary pathology consistent with large cell neuroendocrine carcinoma as immunostains were diffusely positive for synaptophysin, negative for keratins and CD45. I discussed case with her [employer] oncologist last week who recommended cisplatin/etoposide (neuroendocrine carcinoma regimen). Elizabeth was scheduled to begin cisplatin/etoposide this week, but d/t worsening renal function (Barometers Calibrator 2.95/CrCl 22), cisplatin was switched to carboplatin. She received cycle 1 day 1 of carboplatin/etoposide on 10/01/22 and cycle1, day 2 of etoposide on 10/02/2022. TLS labs were obtained which revealed uric acid level of 19. She was started on allopurinol and plan was to administer rasburicase 6mg IV today prior to cycle 1 day 3 of treatment. She was also noted to have anemia with hemoglobin of 8.1 for which she received 1 unit PRBC 10/02/22. Her bookmobile driver recommended IV hydration and discontinuation of amlodipine/lasix. She has very severe cancer related pain along with significant cancer related anxiety, insomnia and anger. At initial clinic visit, we agreed to try taking the following regimen: Oxycodone 5mg PO TID, make sure one dose is at bedtime, can use 5mg PO q4h prn for BTP Zofran 8mg ODT use BID Will add Ativan 0.5mg PO q6h prn anxiety/insomnia/prior to procedures; please take one dose at bedtime for insomnia (Please see my OP clinic note for full details.) Patient's , Erwin Pérez, contact #[phone], is primary NOK decision maker. Allergies Allergy/AdvReac Type Severity Reaction Status Date / Time Sulfa (Sulfonamide Allergy Severe Swelling Verified 10/02/22 20:44 Antibiotics) of Lip/Tongue/Throat Home Medications Medication Instructions Recorded Confirmed Type folic acid 1 mg tablet 1 mg PO DAILY 09/25/22 10/02/22 History oxycodone 5 mg tablet 5 mg PO TID 30 days #120 tabs 09/25/22 10/02/22 Rx polyethylene glycol 3350 17 17 g PO DAILY 09/30/22 10/02/22 History gram/dose oral powder (Miralax) allopurinol 300 mg tablet 300 mg PO QPM 10/02/22 10/02/22 History food supplemt, lactose-reduced 1 ea PO DAILY 10/02/22 10/02/22 History (Ensure oral liquid) olanzapine 2.5 mg tablet (Zyprexa) 2.5 mg PO HS 10/02/22 10/02/22 History ondansetron HCl 4 mg tablet 4 mg PO Q6H PRN Nausea And Vomiting 10/02/22 10/02/22 History prochlorperazine maleate 5 mg 5 mg PO TID PRN Nausea And Vomiting 10/02/22 10/02/22 History tablet sodium chloride 1,000 mg soluble 1,000 mg PO TID 10/02/22 10/02/22 History tablet Patient History Medical History (Updated 10/03/22 @ 13:56 by Randy Camarena MD) Advanced care planning/counseling discussion Anxiety Cancer related pain DVT (deep venous thrombosis) Insomnia Nausea Neuroendocrine cancer No significant medical problems Palliative care by specialist Surgical History (Updated 10/03/22 @ 13:44 by Randy Camarena MD) H/O cervical biopsy Social History Smoking Status: Never smoker Hx Alcohol Use: No Hx Substance Use: No Preferred Language: Bulgarian Communication Ability: Effective Beliefs That Will Affect Care: Pentecostalism marital status: Current Living Situation: Spouse current occupational status: employed How many Children do You have: 0 Feels Safe at Home: Yes during the past year weight has: decreased > 10 lbs Assistive Devices: Walker Review of Systems Review of Systems: All systems reviewed & are unremarkable except as noted in Subjective Physical Exam Physical Exam: pt declined Results & Data Vital Signs (Past 12 Hours) Vital Signs Temp Pulse Pulse Resp BP BP Pulse Ox 10/03/22 08:50 36.2 C L 69 20 112/66 95 10/03/22 08:35 36.2 C L 65 24 96/60 L 95 10/03/22 08:20 36.2 C L 65 24 107/66 95 10/03/22 07:22 60 10/03/22 04:21 67 20 118/69 96 10/03/22 01:00 70 10/03/22 01:00 74 18 118/73 96 O2 Del Method 10/03/22 08:50 10/03/22 08:35 10/03/22 08:20 10/03/22 07:22 10/03/22 04:21 Room Air 10/03/22 01:00 10/03/22 01:00 Room Air Laboratory Results data reviewed Diagnostic Findings data reviewed 10/02/22, CT ABD/PELV non contrast: 1. Bulky mass involving the uterus and cervix. Numerous surrounding metastatic implants in the pelvis. Extensive retroperitoneal, iliac chain, and pelvic lymphadenopathy. Findings raise concern for metastatic cancer of uterine, endometrial, or cervical origin. 2. Numerous scattered peritoneal nodules concerning for peritoneal carcinomatosis. 3. Vague hypodense lesions throughout the liver raising concern for hepatic metastases. These might be better characterized on liver mass protocol CT or MRI. 4. Interval placement of bilateral percutaneous nephrostomy tubes.Nonobstructing kidney stones bilaterally. No hydronephrosis. 10/02/22, CT HEAD NON CONTRAST: Brain: No hemorrhage. No apparent acute cortical infarct. No mass lesion or midline shift. Involutional changes with small vessel disease. Ventricles: No hydrocephalus. Bones/joints: No acute fracture. Soft tissues: Unremarkable. Sinuses: No acute sinusitis. Mastoid air cells: No mastoid effusion. Orbits: Unremarkable as visualized. PG Care Time/CCT Total # of Minutes Spent Total Time Spent: 115 Total Time Spent with Patient: Total time spent is greater than 50% in coordination of care (as documented) at patient's floor/unit and/or counseling patient: I spent 90 minutes overall addressing this case: 15 in medical data review/discussion with referring provider(s) and/or preparation for the visit - [facility] and [facility] chart review, radiology review, labs reviewed, d/w oncology 15 in direct interaction with the patient/. pt intermittently delirious 60 Advance Care Planning/Goals of Care discussions as detailed above in note (must be >16min) 10 in subsequent review and synthesis of assessment and plan 15 in communicating with other providers regarding the patient's case: oncology, primary team Advanced Care Planning 39299 Advanced Care Planning 30 Min 43892 Advanced Care Planning Additional 30 [place] [address] IN/OBS CONSULT LVL 5,80M Patient Type New History Comprehensive Exam Problem Focused Medical Decision Making High Complexity Diagnoses Palliative care by specialist Z51.5 Advanced care planning/counseling discussion Z71.89 Cancer related pain G89.3 Neuroendocrine cancer C7A.8 Insomnia G47.00 Anxiety F41.9 Nausea R11.0 Additional Codes Advanced Care Planning - 18171 Advanced Care Planning 30 Min: 36648 Advanced Care Planning 30 Min ([id number]) Advanced Care Planning - 81091 Advanced Care Planning Additional 30 Min: 50634 Advanced Care Planning Additional 30 Min ([id number])
[2022-10-03 09:49] LABS: Vitamin B12 223 pg/ml (180-914)
[2022-10-03] MEDS: FOLIC ACID 1 MG TAB PO SCH (09:49)
[2022-10-03] MEDS: PANTOprazole 40 MG in SYRINGE 0 ML IV SCH ×3 (09:52→20:22)
--- NOTE | 2022-10-03 10:18 | Consultation ---
Date of Consultation October 03, 2022 Assessment & Plan (1) DVT (deep venous thrombosis): Pt with extensive RLE DVT, likely related to venous congestion d/t pelvic mass, as well as metastatic ca. Decrease in hgb may be partially dilutional d/t dehydration on admission. Discussed with Dr Poon, recommends pt undergo MRV abd/pelvis to eval whether her IVC is patent prior to consideration for filter placement. History of Present Illness Reason for Consultation: DVT, anemia Attending Physician: Tiago Hernandes MD History of Present Illness 67 vo f with hx of stage 4 neuroendocrine ca and CKD, seen in consultation today for possible IVC filter insertion. Pt is confused and unable to provide meaningful hx. Hx obtained from chart and . Pt admitted in August 2022 and found to have large pelvic mass and renal failure. She was transferred to [facility] and underwent nephrostomy tube placement d/t ureteral c ompression. She was started on chrmotherapy as well. states pt has had edema of BLE for some time, may be slightly worse thann usual over past 1-2 weeks. Pt has not been eating or drinking much at home prior to admission. Her renal fxn has continued to decline. Venous US demonstrated extensive DVT of RLE. Her baseline hgb is 8-9, but this has been decreasing since admission. No definite source of bleeding identified. Pt admits chronic generalized pain, but denies other complaints. Allergies Allergy/AdvReac Type Severity Reaction Status Date / Time Sulfa (Sulfonamide Allergy Severe Swelling Verified 10/02/22 20:44 Antibiotics) of Lip/Tongue/Throat Home Medications Medication Instructions Recorded Confirmed Type folic acid 1 mg tablet 1 mg PO DAILY 09/25/22 10/02/22 History oxycodone 5 mg tablet 5 mg PO TID 30 days #120 tabs 09/25/22 10/02/22 Rx polyethylene glycol 3350 17 17 g PO DAILY 09/30/22 10/02/22 History gram/dose oral powder (Miralax) allopurinol 300 mg tablet 300 mg PO QPM 10/02/22 10/02/22 History food supplemt, lactose-reduced 1 ea PO DAILY 10/02/22 10/02/22 History (Ensure oral liquid) olanzapine 2.5 mg tablet (Zyprexa) 2.5 mg PO HS 10/02/22 10/02/22 History ondansetron HCl 4 mg tablet 4 mg PO Q6H PRN Nausea And Vomiting 10/02/22 10/02/22 History prochlorperazine maleate 5 mg 5 mg PO TID PRN Nausea And Vomiting 10/02/22 10/02/22 History tablet sodium chloride 1,000 mg soluble 1,000 mg PO TID 10/02/22 10/02/22 History tablet Patient History Medical History (Updated 10/03/22 @ 10:15 by Shila Carreon PA-C) Advanced care planning/counseling discussion Anxiety Cancer related pain DVT (deep venous thrombosis) Insomnia Nausea Neuroendocrine cancer No significant medical problems Palliative care by specialist Social History Smoking Status: Never smoker Hx Alcohol Use: No Hx Substance Use: No Preferred Language: Sami Beliefs That Will Affect Care: None marital status: Current Living Situation: Spouse current occupational status: employed How many Children do You have: 0 Other Information That Helps Us Care for You: No Feels Safe at Home: Yes Safety Concerns: Feels Safe At This Time during the past year weight has: decreased > 10 lbs Assistive Devices: Walker Review of Systems Review of Systems: Unobtainable due to cognitive status Physical Exam Constitutional: well developed and well nourished; not in distress ENMT: Ears: no hearing impairment Neck: trachea midline Respiratory: normal respiratory effort, lungs clear to auscultation Auscultation: + diminished lung sounds Cardiovascular: Rate/Rhythm: regular rate and regular rhythm Vessels: posterior tibial pulses present, dorsalis pedis pulses present and radial pulses present; + abnormal peripheral pulses Extremities: normal capillary refill and + edema (BLE +4) Gastrointestinal (Abdomen): Inspection/Auscultation: abdomen normal to inspection and normal bowel sounds Percussion/Palpation: + abdomen tender (generalized) and abdomen soft Musculoskeletal: no cyanosis or clubbing, extremities motor strength 5/5 Skin: no rashes, warm and dry Neurologic: moves all extremities, awake (but falls asleep easily) and + confused; no focal motor deficits Psychiatric: Orientation: alert, oriented to person and oriented to place Results & Data Vital Signs (Past 12 Hours) Vital Signs Temp Pulse Pulse Resp BP BP Pulse Ox 10/03/22 09:40 36.2 C L 68 16 111/70 95 10/03/22 09:20 36.2 C L 65 16 100/62 96 10/03/22 08:50 36.2 C L 69 20 112/66 95 10/03/22 08:35 36.2 C L 65 24 96/60 L 95 10/03/22 08:20 36.2 C L 65 24 107/66 95 10/03/22 07:22 60 10/03/22 04:21 67 20 118/69 96 10/03/22 01:00 70 10/03/22 01:00 74 18 118/73 96 O2 Del Method 10/03/22 09:40 10/03/22 09:20 10/03/22 08:50 10/03/22 08:35 10/03/22 08:20 10/03/22 07:22 10/03/22 04:21 Room Air 10/03/22 01:00 10/03/22 01:00 Room Air
[2022-10-03] MEDS: IRON SUCROSE 200 MG in 0.9 % SODIUM CHLORIDE 100 ML IV SCH (11:17)
--- NOTE | 2022-10-03 12:26 | Hospitalist Progress Note ---
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 Extensive acute DVT in the right leg involving the common femoral, superficial femoral, popliteal, and gastrocnemius veins. 2. No left lower extremity DVT. CT A/P 1. Bulky mass involving the uterus and cervix. Numerous surrounding metastatic implants in the pelvis. Extensive retroperitoneal, iliac chain, and pelvic lymphadenopathy. Findings raise concern for metastatic cancer of uterine, endometrial, or cervical origin. 2. Numerous scattered peritoneal nodules concerning for peritoneal carcinomatosis. 3. Vague hypodense lesions throughout the liver raising concern for hepatic metastases. These might be better characterized on liver massprotocol CT or MRI. 4. Interval placement of bilateral percutaneous nephrostomy tubes.Nonobstructing kidney stones bilaterally. No hydronephrosis. Acute extensive DVT RLE in setting of metastatic pelvic malignancy- US reviewed as above. Communicated with GI and hemonc. Reviewed [facility] surgery notes. GI planning for EGD to definitely rule out UGI bleed but okayed to start anticoagulation. I think it is more detrimental not to start AC than the risk of starting AC. Hemonc agrees with heparin drip with closer H and H monitoring. Will start on heparin drip and monitor H and H or bleeding episodes. [facility] surgery planning for MRV abd/pelvis to see if IVC filter can be placed Acute on chronic anemia- Hb baseline is around 8-9. Down to 7.2. S/p 1 U PRBC and started on iv venofer. Hb 8.6->7.7->7.1->8.6 s/p 1 U PRBC. Vit B12 and folate normal. Ferritin elevated in setting of acute illness and malignancy. R/o UGI bleed- reported dark emesis few days ago. On IV PPI. GI plans for UGI endoscopy today to definitely r/o UGIB Sepsis with UTI- Afebrile. Procal 1.26. WBC 17->10. On empiric dapto/cefepime due to h/o VRE UTI pending clx result. 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 recently started on chemo. Onc following- managing for TLS Abnormal LFTs due to hepatic mets TLS with hyperuricemia, hypephosphatemia, hypocalcemia- Uric acid 19->17. PO4 9.3. on Allopurinol. Hemonc managing- started on rasburicase 6 mg IV and daily TLS labs. LOLIS on CKD with AGMA with chronic hydronephrosis d/t pelvic mass s/p b/L nephrostomy tubes- Likely multifactorial from TLS, obstruction d/t malignancy, sepsis. Nephro consulted. Cr 2.9->3.7->3.7. AG 14, CO2 16. Lactate 1.6 Hyponatremia- Na 129. relatively stable. Monitor. Encephalopathy- seems improved. suspected to be multifactorial. GOC discussion- Known to palliative. Complicated situation. Palliative has been consulted for GOC discussion DVT ppx- heparin drip Dispo- Pending medical stability at bedside Admission and Anticipated Discharge Date Admission Date: October 02, 2022 Subjective Patient was seen and examined at bedside. Feels about the same. Has discomfort but denies pain as such. No fever, chills, chest pain, SOB, N/V. Review of Systems Review of Systems: All systems reviewed & are unremarkable except as noted in Subjective Physical Exam Physical Exam: General: Lying comfortably in bed, not in distress, on room air HEENT: EOMI, SEBASTIAN, MMM Chest: Fair breath sounds anteriorly CVS: Regular rate and rhythm, normal heart sounds, no murmur Abdomen: Soft, non tender, not distended, normal bowel sounds Neuro: Awake, alert, oriented, conversing ok, non focal Extremities: No cyanosis, clubbing. Edema + : Nephrostomy tubes with clear urine in bag Psych:Low mood Results & Data Results & Data Vital Signs (Past 12 Hours) Vital Signs Temp Pulse Pulse Resp BP BP Pulse Ox 10/03/22 10:58 36.3 C L 60 16 93/59 L 96 10/03/22 09:40 36.2 C L 68 16 111/70 95 10/03/22 09:20 36.2 C L 65 16 100/62 96 10/03/22 08:50 36.2 C L 69 20 112/66 95 10/03/22 08:35 36.2 C L 65 24 96/60 L 95 10/03/22 08:20 36.2 C L 65 24 107/66 95 10/03/22 07:22 60 10/03/22 04:21 67 20 118/69 96 10/03/22 01:00 70 10/03/22 01:00 74 18 118/73 96 O2 Del Method 10/03/22 10:58 10/03/22 09:40 10/03/22 09:20 10/03/22 08:50 10/03/22 08:35 10/03/22 08:20 10/03/22 07:22 10/03/22 04:21 Room Air 10/03/22 01:00 10/03/22 01:00 Room Air Laboratory Results Short CBC 10/02/22 10/02/22 10/03/22 Range/Units 18:30 23:48 06:06 WBC 17.57 H 10.15 (4.8-10.8) K/ul Hgb 8.6 L 7.7 L 7.2 L (12.0-16.0) g/dl Hct 27.0 L 24.2 L 22.7 L (37.0-47.0) % Plt Count 406 H 303 (130-400) K/uL BMP 10/02/22 10/02/22 10/03/22 18:30 23:48 06:06 Sodium 128 L 130 L 129 L Potassium 4.8 4.7 4.9 Chloride 95 L 98 99 Carbon Dioxide 18 L 17 L 16 L BUN 67 H 73 H 73 H Creatinine 3.74 H 3.67 H 3.70 H Glucose 132 H 143 H 134 H Calcium 7.6 L 7.4 L 7.3 L Liver Function 10/02/22 Range/Units 18:30 Total Bilirubin 0.6 (0.2-1.0) mg/dl AST 108 H (13-39) U/L ALT 14 (7-52) U/L Alkaline Phosphatase 133 H (34-104) U/L Albumin 3.4 (3.4-5.0) gm/dl Urine 10/02/22 10/02/22 Range/Units Unknown Unknown Urine Color Yellow Yellow Urine Appearance Turbid A Turbid A (Clear) Urine pH 5.0 5.0 (4.5-7.5) Ur Specific [place] 1.014 1.015 (1.000-1.030) Urine Protein 2+ H 2+ H (Negative) Urine Glucose (UA) Negative Negative (Negative) Diagnostic Findings Chest X-Ray 10/02/22 18:07 XR chest 1V portable HISTORY: weakness COMPARISON: Chest 08/02/2022. FINDINGS: No pneumothorax. No pleural effusions. Right basilar linear densities favor subsegmental atelectasis. The heart remains mildly enlarged. No new focal lung consolidations to suggest a pneumonia. No evidence for pulmonary edema. Partially visualized right nephrostomy tube is noted. There is a small right azygos lobe. IMPRESSION: No significant change compared to the prior study. No acute process. ACT 112: Negative or not required by law. Electronically signed by: Angel Aguiar M.D. 10/03/2022 7:13 AM Medications Administered Current Inpatient Medications Acetaminophen (Acetaminophen 500 Mg Tab) 500 mg PO Q6H PRN PRN Reason: pain/fever Stop: 11/01/22 22:52 Hydrocodone Bitart/Acetaminophen (Hydrocodone/Acetamophen 5/325mg Tab) 1 tab PO QID PRN PRN Reason: Pain Stop: 10/17/22 01:16 Allopurinol (Allopurinol 300 Mg Tab) 300 mg PO QPM ADAN Stop: 11/02/22 20:59 Folic Acid (Folic Acid 1 Mg Tab) 1 mg PO DAILY ADAN Stop: 11/02/22 08:59 Last Admin: 10/03/22 09:49 Dose: 1 mg Daptomycin 200 mg/ Syringe 4 mls @ 2 mls/min IV Q2D ADAN; Protocol Stop: 10/14/22 22:59 Promethazine HCl 6.25 mg/ (Sodium Chloride) 50.25 mls @ 201 mls/hr IV Q6H PRN PRN Reason: Nausea And Vomiting Stop: 11/01/22 22:52 Pantoprazole Sodium 40 mg/ (Syringe) 10 mls @ 5 mls/min IV BID ADAN Stop: 11/02/22 08:59 Last Admin: 10/03/22 11:18 Dose: 5 mls/min Cefepime HCl 1,000 mg/ Syringe 10 mls @ 5 mls/min IV Q12H ADAN; Protocol Stop: 10/13/22 15:59 Lactated Ringer's (Lr) 1,000 mls @ 100 mls/hr IV .Q10H ADAN Stop: 10/04/22 06:59 Sodium Chloride (Nss) 250 mls @ 15 mls/hr IV .[id number] PRN PRN Reason: For Transfusion Duration Stop: 10/03/22 16:41 Iron Sucrose 200 mg/ Sodium (Chloride) 110 mls @ 220 mls/hr IV DAILY ADAN Stop: 10/06/22 08:59 Last Infusion: 10/03/22 12:10 Dose: Infused Non-Formulary Medication (Rasburicase ) 6 mg IV ONCE ONE Stop: 10/03/22 06:28 Last Admin: 10/03/22 09:49 Dose: Not Given
[2022-10-03 12:33] LABS: Hematocrit (blood only) 26.1 % (37.0-47.0); Hemoglobin 8.6 g/dl (12.0-16.0)
[2022-10-03] MEDS ORDERED: Heparin IV Adult Wt-Based Standard *NO* Bolus Protocol IV SCH (12:45)
--- NOTE | 2022-10-03 12:49 | Anesthesiology Consultation ---
Date of Service October 03, 2022 Assessment & Plan Chart Review Chart Review: Acceptable Risk for Surgery and Patient NOT seen in Pre Admission Testing Consults Requested none History Surgery Operation Date: 10/03/22 17:00 Proposed Procedures p Esophagogastroduodenoscopy Dr Rodriguze - Joesph Schmitt MD Height/Weight Height: 5 ft 2 in Weight: 84.5 kg Allergies Allergy/AdvReac Type Severity Reaction Status Date / Time Sulfa (Sulfonamide Allergy Severe Swelling Verified 10/02/22 20:44 Antibiotics) of Lip/Tongue/Throat Medications Home Medications Medication Instructions Recorded Confirmed Last Taken folic acid 1 mg tablet 1 mg PO DAILY 09/25/22 10/02/22 10/02/22 oxycodone 5 mg tablet 5 mg PO TID 30 days #120 tabs 09/25/22 10/02/22 10/02/22 15:00 polyethylene glycol 3350 17 17 g PO DAILY 09/30/22 10/02/22 10/02/22 gram/dose oral powder (Miralax) allopurinol 300 mg tablet 300 mg PO QPM 10/02/22 10/02/22 10/02/22 food supplemt, lactose-reduced 1 ea PO DAILY 10/02/22 10/02/22 10/02/22 (Ensure oral liquid) olanzapine 2.5 mg tablet (Zyprexa) 2.5 mg PO HS 10/02/22 10/02/22 10/01/22 ondansetron HCl 4 mg tablet 4 mg PO Q6H PRN Nausea And Vomiting 10/02/22 10/02/22 10/02/22 15:00 prochlorperazine maleate 5 mg 5 mg PO TID PRN Nausea And Vomiting 10/02/22 10/02/22 10/02/22 15:00 tablet sodium chloride 1,000 mg soluble 1,000 mg PO TID 10/02/22 10/02/22 10/02/22 15:00 tablet Active Medications Generic Name Dose Route Start Last Admin Trade Name Freq PRN Reason Stop Dose Admin Folic Acid 1 mg 10/03/22 09:00 10/03/22 09:49 Folic Acid 1 Mg Tab PO 11/02/22 08:59 1 mg DAILY ADAN Administration Pantoprazole Sodium 40 mg/ 10 mls @ 5 mls/min 10/03/22 09:00 10/03/22 11:18 Syringe IV 11/02/22 08:59 5 mls/min BID ADAN Administration Iron Sucrose 200 mg/ Sodium 110 mls @ 220 mls/hr 10/03/22 09:00 10/03/22 12:10 Chloride IV 10/06/22 08:59 Infused DAILY ADAN Infusion Non-Formulary Medication 6 mg 10/03/22 06:27 10/03/22 09:49 Rasburicase IV 10/03/22 06:28 Not Given ONCE ONE Past Medical History Medical History Advanced care planning/counseling discussion Anxiety Cancer related pain DVT (deep venous thrombosis) Insomnia Nausea Neuroendocrine cancer No significant medical problems Palliative care by specialist Social History Smoking Status: Never smoker Hx Alcohol Use: No Hx Substance Use: No Physical Exam Vital Signs Last Vital Signs Temp 97.3 F L 10/03/22 10:58 Pulse 60 10/03/22 10:58 Resp 16 10/03/22 10:58 BP 93/59 L 10/03/22 10:58 Pulse Ox 96 10/03/22 10:58 O2 Del Method Room Air 10/03/22 04:21 Testing Laboratory Results 10/03/22 11:58 10/03/22 06:06 PT 12.0 Seconds (9.0-12.0) 10/02/22 18:30 INR 1.1 (0.9-1.1) 10/02/22 18:30 Urine Color Yellow 10/02/22 Unknown Urine Color Yellow 10/02/22 Unknown Urine Appearance Turbid (Clear) A 10/02/22 Unknown Urine Appearance Turbid (Clear) A 10/02/22 Unknown Urine pH 5.0 (4.5-7.5) 10/02/22 Unknown Urine pH 5.0 (4.5-7.5) 10/02/22 Unknown Ur Specific [place] 1.014 (1.000-1.030) 10/02/22 Unknown Ur Specific [place] 1.015 (1.000-1.030) 10/02/22 Unknown Urine Protein 2+ (Negative) H 10/02/22 Unknown Urine Protein 2+ (Negative) H 10/02/22 Unknown Urine Glucose (UA) Negative (Negative) 10/02/22 Unknown Urine Glucose (UA) Negative (Negative) 10/02/22 Unknown Urine Ketones Negative (Negative) 10/02/22 Unknown Urine Ketones Negative (Negative) 10/02/22 Unknown Urine Nitrite Negative (Negative) 10/02/22 Unknown Urine Nitrite Negative (Negative) 10/02/22 Unknown Ur Leukocyte Esterase 1+ (Negative) H 10/02/22 Unknown Ur Leukocyte Esterase 2+ (Negative) H 10/02/22 Unknown Urine WBC (Auto) >30 /hpf (0-5) H 10/02/22 Unknown Urine WBC (Auto) >30 /hpf (0-5) H 10/02/22 Unknown Urine RBC (Auto) 0-4 /hpf (0-4) 10/02/22 Unknown Urine RBC (Auto) 0-4 /hpf (0-4) 10/02/22 Unknown U Hyaline Cast (Auto) 1-5 /lpf (0-5) 10/02/22 Unknown U Hyaline Cast (Auto) 1-5 /lpf (0-5) 10/02/22 Unknown U Epithel Cells (Auto) 10-20 /lpf (0-5) H 10/02/22 Unknown U Epithel Cells (Auto) >30 /lpf (0-5) H 10/02/22 Unknown Urine Bacteria (Auto) Negative (Negative) 10/02/22 Unknown Urine Bacteria (Auto) Not Reportable 10/02/22 Unknown Blood Type A Positive 10/02/22 18:30 Antibody Screen NEGATIVE 10/02/22 18:30 Electrocardiogram Date: 10/02/22 Chest X-Ray Sinus rhythm with short [place] Voltage criteria for left ventricular hypertrophy Poor R wave progression, consider anterior ME vs. lead placement vs. LVH Abnormal ECG
[2022-10-03 13:40] LABS: Hematocrit (blood only) 26.7 % (37.0-47.0); Hemoglobin 8.7 g/dl (12.0-16.0); Mean Corpuscular Hemoglobin 26.6 pg (25.0-34.0); Mean Corpuscular Hgb Conc 32.6 g/dL (32.0-36.0); Mean Corpuscular Volume 81.7 fL (80.0-100.0); Mean Platelet Volume 9.7 fL (9.4-12.4); Platelet Count 298 K/uL (130-400); RDW Coefficient of Variation 17.3 % (11.5-14.5); RDW Standard Deviation 51.1 fL (36.4-46.3); Red Blood Count 3.27 M/uL (4.20-5.40); White Blood Count 9.48 K/ul (4.8-10.8)
[2022-10-03 13:58] LABS: Basophils # (auto) 0.01 K/uL (0-0.2); Basophils % (auto) 0.1 %; Immature Granulocytes # (auto) 0.14 K/uL (0.01-0.20); Immature Granulocytes % (auto) 1.5 %; Lymphocytes # (auto) 0.13 K/uL (1.2-3.4); Lymphocytes % (auto) 1.4 %; Monocytes # (auto) 0.21 K/uL (0.11-0.59); Monocytes % (auto) 2.2 %; Neutrophils # (auto) 8.99 K/uL (1.40-6.50); Neutrophils % (auto) 94.8 %
[2022-10-03] MEDS ORDERED: RASBURICASE 6 MG in SODIUM CHLORIDE 0.9% 50 ML IV SCH (14:00)
[2022-10-03 14:14] LABS: INR 1.1 (0.9-1.1); Partial Thromboplastin Ratio 1.2; Partial Thromboplastin Time 34.7 Seconds (21.0-31.0); Prothrombin Time 11.9 Seconds (9.0-12.0)
--- NOTE | 2022-10-03 14:27 | History & Physical Report ---
Date of Service October 03, 2022 Assessment & Plan Admission and Anticipated Discharge Date Admission Date: October 02, 2022 History of Present Illness Primary Care Provider: Kelley Giordano, DO Coffee ground emesis CV: RRR Resp: CTA Abd: soft A/p: ? UGIB - EGD Allergies Allergy/AdvReac Type Severity Reaction Status Date / Time Sulfa (Sulfonamide Allergy Severe Swelling Verified 10/02/22 20:44 Antibiotics) of Lip/Tongue/Throat Home Medications Medication Instructions Recorded Confirmed Type folic acid 1 mg tablet 1 mg PO DAILY 09/25/22 10/02/22 History oxycodone 5 mg tablet 5 mg PO TID 30 days #120 tabs 09/25/22 10/02/22 Rx polyethylene glycol 3350 17 17 g PO DAILY 09/30/22 10/02/22 History gram/dose oral powder (Miralax) allopurinol 300 mg tablet 300 mg PO QPM 10/02/22 10/02/22 History food supplemt, lactose-reduced 1 ea PO DAILY 10/02/22 10/02/22 History (Ensure oral liquid) olanzapine 2.5 mg tablet (Zyprexa) 2.5 mg PO HS 10/02/22 10/02/22 History ondansetron HCl 4 mg tablet 4 mg PO Q6H PRN Nausea And Vomiting 10/02/22 10/02/22 History prochlorperazine maleate 5 mg 5 mg PO TID PRN Nausea And Vomiting 10/02/22 10/02/22 History tablet sodium chloride 1,000 mg soluble 1,000 mg PO TID 10/02/22 10/02/22 History tablet Past Med/Surg History Medical History (Updated 10/03/22 @ 13:56 by Randy Camarena MD) Advanced care planning/counseling discussion Anxiety Cancer related pain DVT (deep venous thrombosis) Insomnia Nausea Neuroendocrine cancer No significant medical problems Palliative care by specialist Surgical History (Updated 10/03/22 @ 13:44 by Randy Camarena MD) H/O cervical biopsy Social History Smoking Status: Never smoker Hx Alcohol Use: No Hx Substance Use: No Preferred Language: Yi Communication Ability: Effective Beliefs That Will Affect Care: Anglican marital status: Current Living Situation: Spouse current occupational status: employed How many Children do You have: 0 Other Information That Helps Us Care for You: No Feels Safe at Home: Yes Safety Concerns: Feels Safe At This Time during the past year weight has: decreased > 10 lbs Assistive Devices: Walker Results & Data Results & Data Vital Signs (Past 12 Hours) Vital Signs Temp Pulse Pulse Resp BP BP Pulse Ox 10/03/22 14:05 36.5 C 69 18 110/58 L 93 10/03/22 10:58 36.3 C L 60 16 93/59 L 96 10/03/22 09:40 36.2 C L 68 16 111/70 95 10/03/22 09:20 36.2 C L 65 16 100/62 96 10/03/22 08:50 36.2 C L 69 20 112/66 95 10/03/22 08:35 36.2 C L 65 24 96/60 L 95 10/03/22 08:20 36.2 C L 65 24 107/66 95 10/03/22 07:22 60 10/03/22 04:21 67 20 118/69 96 O2 Del Method 10/03/22 14:05 Room Air 10/03/22 10:58 10/03/22 09:40 10/03/22 09:20 10/03/22 08:50 10/03/22 08:35 10/03/22 08:20 10/03/22 07:22 10/03/22 04:21 Room Air Code Status & VTE Plan VTE Prophylaxis Plan VTE Prophylaxis will be ordered: Yes
[2022-10-03] MEDS ORDERED: PROPOFOL IV EMULSION 10 MG/ML 20 ML VIAL IV ONE (14:37)
[2022-10-03] MEDS ORDERED: LIDOCAINE 2% 2 ML VIAL/AMP(20MG/ML) INFIL ONE (14:37)
--- NOTE | 2022-10-03 14:53 | Anesthesiology Progress Note ---
Date of Service October 03, 2022 Anesthesia Post Procedure Vital Signs Vital Signs: Temp Pulse Pulse Pulse Resp BP BP 10/03/22 14:51 68 16 101/55 L 10/03/22 14:36 75 16 102/47 L 10/03/22 14:05 97.7 F 69 18 110/58 L 10/03/22 10:58 97.3 F L 60 16 93/59 L 10/03/22 09:40 97.2 F L 68 16 111/70 10/03/22 09:20 97.2 F L 65 16 100/62 10/03/22 08:50 97.2 F L 69 20 112/66 10/03/22 08:35 97.2 F L 65 24 96/60 L 10/03/22 08:20 97.2 F L 65 24 107/66 10/03/22 07:22 60 10/03/22 04:21 67 20 118/69 10/03/22 01:00 70 10/03/22 01:00 74 18 118/73 10/02/22 19:29 98.1 F 78 18 157/75 H 10/02/22 17:59 99.0 F 73 18 133/67 Pulse Ox O2 Del Method 10/03/22 14:51 94 Room Air 10/03/22 14:36 99 Room Air 10/03/22 14:05 93 Room Air 10/03/22 10:58 96 10/03/22 09:40 95 10/03/22 09:20 96 10/03/22 08:50 95 10/03/22 08:35 95 10/03/22 08:20 95 10/03/22 07:22 10/03/22 04:21 96 Room Air 10/03/22 01:00 10/03/22 01:00 96 Room Air 10/02/22 19:29 98 Room Air 10/02/22 17:59 98 Room Air Transfer of Care Handoff Completed per policy Notes Mental Status: alert / awake / arousable and participated in evaluation Patient Amnestic to Procedure: Yes Nausea / Vomiting: adequately controlled Pain: adequately controlled Airway Patency, RR, SpO2: stable & adequate BP & HR: stable & adequate Hydration State: stable & adequate Anesthetic Complications: no major complications apparent and Pt Satisfied with anesthetic care
[2022-10-03] MEDS: HEPARIN SODIUM/DEXTROSE 25,000 UNITS/500 ML BAG IV SCH (16:02)
[2022-10-03] MEDS: CEFEPIME 1,000 MG in SYRINGE 0 ML IV SCH (16:11)
--- NOTE | 2022-10-03 18:29 | Consultation Report ---
NEPHROLOGY CONSULTATION NOTE REASON FOR CONSULTATION: Acute renal failure on background CKD. HISTORY OF PRESENT ILLNESS: The patient is a 67-year-old female with advanced metastatic neuroendocr ine cancer who is currently getting chemotherapy through . She had routine labs done as par t of the chemotherapy, which showed kidney function was getting worse. Her creatinine had gone from most recent blood work showing 1.7 to 2.95. She did get first dose of chemotherapy, which was suppos ed to be cisplatin but was changed over to carboplatin because of renal failure. She also had uric a calli done, which was exceptionally high at 19.3. Because of abnormal labs, the patient was instructed to come to the hospital, which she did. Since being admitted, she has been getting IV fluid. She i s also very anemic and had 1 unit of blood yesterday and 1 unit of blood today. Blood pressure is ru nning lower than usual. She does not eat anything solid, but is still drinking fair amount of liquid . She was also found to have DVT and she is being considered to have an IVC filter placed, currently getting broad-spectrum antibiotics including cefepime and daptomycin. As for the critically high ur ic acid, she is getting rasburicase. CT abdomen and pelvis already done and she does not have obstru ctive uropathy. She has bilateral nephrostomy tube, which are draining very well. Urine is normal c olored. 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 Last hospital admission was in [facility], 08/02/2022 to 08/07/2022 for severe acute renal failure secondary to severe bilateral hydroureterone phrosis secondary to metastatic pelvic malignancy, tonsillectomy, nephrostomy tube placement. FAMILY HISTORY: Positive for heart disease. PERSONAL AND SOCIAL HISTORY: Never smoked. No alcohol. She is and lives with her spouse. She used to work in insurance business. ALLERGIES: REVIEWED. MEDICATIONS: Home medication list was reviewed in detail. It is somewhat unclear whether the patien t is actually taking Lasix or not, but it is listed in one of her medicine list. Past medical/surgical history already reviewed. REVIEW OF SYSTEMS: Positive for generalized weakness, nausea, vomiting, poor appetite, weakness, but no other focal acute symptoms. Twelve systems reviewed and negative. PHYSICAL EXAM: GENERAL: Elderly white female who looks pale and sick. She has flat affect and looks somewhat depre ssed. She is awake, alert, oriented x3. HEENT: Mucous membrane is moist. NECK: Supple. No jugular venous distention. CHEST: Bilateral decreased breath sounds, occasional crackles. CARDIOVASCULAR: S1 and S2, regular. ABDOMEN: Soft, nontender. EXTREMITIES: Shows 1+ edema, slightly more on the left. LABORATORY TEST: Reviewed in detail. Severe acute renal failure in the recent past with a creatinin e as high as 22, but after the placement of bilateral nephrostomy tubes, her creatinine has settled d own to 1.7. On admission, creatinine was 3.74 and it is still about the same at 3.7. Most recent blo od work shows uric acid is down slightly to 17.5. Sodium 129, potassium 4.9, BUN 73, creatinine 3.7, calcium 7.3, phosphorus 9.3, hemoglobin is up to 8.6, WBC count 10.1. Urine shows 2+ protein, 3+ bl ood. Uric acid crystals present. CT abdomen and pelvis shows extensive metastatic lesions all over the abdomen. The venous duplex shows extensive DVT in the right leg. ASSESSMENT AND PLAN: A 67-year-old female with advanced metastatic gynecological pelvic cancer causi ng multitude of problems. 1. Acute renal failure on background CKD. She recently had severe obstructive uropathy with creatin ine as high as 22, but then improved, down to baseline of 1.7 after placement of bilateral nephrostom y tubes, now having another episode of acute renal failure. At this time, this is not obstructive as she does not have any hydronephrosis on the CT abdomen done yesterday. The nephrostomy tubes are dr manuel very well. She is also not volume depleted. She has received enough IV hydration already. M ost likely etiology is either uric acid nephropathy, given that her uric acid was 19, that is high en ough to cause acute uric acid nephropathy. Other etiology is possible ATN. She has already been sta rted on rasburicase and I would continue with IV hydration to help with the acute uric acid nephropat hy, lower the IV fluid to 75 mL per hour. 2. Acute DVT in the setting of metastatic cancer. 3. Anemia related with malignancy as well as renal failure. We will continue to follow the patient. I already discussed with the patient as well as her that renal function has not really got better since being admitted. Daily labs, input/output charting. Avoid nephrotoxic agent as much as possible. Thank you very much for the consult. Job ID: [id number]
[2022-10-03] MEDS: LACTATED RINGER'S 1,000 ML IV SCH ×2 (19:44→19:45)
[2022-10-03] MEDS: SODIUM CHLORIDE 0.9% 1000ML 1,000 ML IV SCH (20:20)
--- NOTE | 2022-10-03 20:44 | Communication Note ---
Date of Service: October 03, 2022 M RA angio pelvis requested by vascular surgery could not be done due to patient's GFR as per certified surgical technologist.
[2022-10-03] MEDS ORDERED: OLANZAPINE 2.5 MG TAB PO SCH (21:00)
[2022-10-03] MEDS ORDERED: CEFEPIME 1,000 MG in SYRINGE 0 ML IV SCH (21:00)
[2022-10-03] MEDS: SUCRALFATE 1 GM/10 ML UDC PO SCH (21:19)
[2022-10-03] MEDS: allopurinoL 300 MG TAB PO SCH (21:19)
[2022-10-03 21:58] LABS: Hemoglobin 8.5 g/dl (12.0-16.0)
--- NOTE | 2022-10-03 22:15 | Magnetic Resonance Report ---
Exam(s): MRA ABDOMEN Without Contrast EXAM: MR Angiography Abdomen Without Intravenous Contrast CLINICAL HISTORY: Reason for exam: IVC/iliac vein patentcy. TECHNIQUE: Magnetic resonance angiography images of the abdomen without intravenous contrast. COMPARISON: No relevant prior studies available. FINDINGS: Aorta is normal in caliber. Celiac artery, SMA, bilateral renal arteries, [place], and bilateral iliac arteries appear patent. IVC and iliac veins appear patent as visualized. There are multiple T2 hyperintense lesions in the liver concerning for multifocal hepatic metastatic disease. The largest is located in the right hepatic lobe and measures 4.5 cm in maximum transaxial dimension (series 10, image 7). Heterogeneous pelvic mass is again noted, associated with extensive retroperitoneal lymphadenopathy. IMPRESSION: 1. IVC and iliac veins appear patent as visualized. 2. Heterogeneous pelvic mass. Extensive stuart metastatic disease. Suspected multifocal hepatic metastases. Electronically signed by: Candace Baptiste M.D. 10/03/22 22:15 PM
[2022-10-03 22:42] LABS: Partial Thromboplastin Ratio 1.8
[2022-10-03 22:47] LABS: Partial Thromboplastin Time 51.8 Seconds (21.0-31.0)
[2022-10-04] MEDS: CEFEPIME 1,000 MG in SYRINGE 0 ML IV SCH ×2 (04:13→15:50)
--- NOTE | 2022-10-04 04:56 | Hematology/Oncology Prog Note ---
Date of Service October 04, 2022 Assessment & Plan (1) Tumor lysis syndrome: (2) Acute DVT (deep venous thrombosis): (3) Neuroendocrine cancer: (4) Acute on chronic anemia: (5) Iron deficiency: Plan -Received Rasburicase 6mg IV yesterday for TLS (uric acid of 17, hypocalcemia,hypophatemia and worsening kidney function). Continue allopurinol -Recommend rechecking uric acid/TLS labs daily. Collect blood for uric acid in prechilled green top tube and maintained in ice bath on route to lab as uric acid may be falsely low if blood is not collected on ice. -Continue unfractionated heparin for right lower extremity DVT due to concern for G.I bleeding especially in the setting of microcytic anemia (MCV of 79 earlier this week). Can switch to DOAC prior to discharge home if no evidence of bleeding on heparin -Although ferritin is >1000, this is likely due to aggressive malignancy. Suspect she also has iron deficiency as well based on MCV of 79 obtained earlier this week. IV venofer 200mg IV x 3 doses (completed tomorrow 10/05/22). -If she develops chemo induced neutropenia, she should be started on filgrastim 480mcg daily x 3 days. Admission and Anticipated Discharge Date Admission Date: October 02, 2022 Subjective She received Rasburicase 6mg IV yesterday. US Lower extremity revealed right lower extremity DVT and she is currently on heparin drip. CT A/P did not show any evidence of hydronephrosis. She is on cefepime for possible UTI Results & Data Vital Signs (Past 12 Hours) Vital Signs Temp Pulse Pulse Resp BP Pulse Ox O2 Del Method 10/04/22 03:37 36.5 C 62 18 107/70 94 Room Air 10/03/22 23:42 36.3 C L 66 20 104/64 99 Room Air 10/03/22 20:14 36.3 C L 71 18 119/67 93 Room Air 10/03/22 19:34 70 10/03/22 18:03 36.5 C 69 18 112/70 91
[2022-10-04 08:26] LABS: Hematocrit (blood only) 28.7 % (37.0-47.0); Hemoglobin 9.2 g/dl (12.0-16.0); Mean Corpuscular Hemoglobin 26.9 pg (25.0-34.0); Mean Corpuscular Hgb Conc 32.1 g/dL (32.0-36.0); Mean Corpuscular Volume 83.9 fL (80.0-100.0); Mean Platelet Volume 9.2 fL (9.4-12.4); Platelet Count 234 K/uL (130-400); RDW Coefficient of Variation 17.8 % (11.5-14.5); RDW Standard Deviation 54.1 fL (36.4-46.3); Red Blood Count 3.42 M/uL (4.20-5.40)
[2022-10-04 08:37] LABS: BUN Creatinine Ratio 25.4 (10-20); Calcium 7.3 mg/dl (8.6-10.3); Creatinine Clr Calc Pharmacy 20.4 ml/min; Est GFR (African American) 20.5 ml/min; Est GFR (Non-African American) 17.7 ml/min; Magnesium 2.1 mg/dl (1.7-2.4); Phosphorus 6.4 mg/dl (2.5-4.9); Potassium 4.6 mmol/L (3.5-5.1)
[2022-10-04 08:59] LABS: Partial Thromboplastin Ratio 3.3
[2022-10-04 09:32] LABS: Partial Thromboplastin Time 94.2 Seconds (21.0-31.0)
[2022-10-04] MEDS: SODIUM CHLORIDE 0.9% 1000ML 1,000 ML IV SCH (09:42)
[2022-10-04] MEDS: IRON SUCROSE 200 MG in 0.9 % SODIUM CHLORIDE 100 ML IV SCH (09:43)
[2022-10-04] MEDS: SUCRALFATE 1 GM/10 ML UDC PO SCH ×3 (10:21→21:49)
[2022-10-04] MEDS: PANTOprazole 40 MG in SYRINGE 0 ML IV SCH ×2 (10:21→22:06)
[2022-10-04] MEDS: FOLIC ACID 1 MG TAB PO SCH (10:21)
--- NOTE | 2022-10-04 14:56 | Hospitalist Progress Note ---
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 Extensive acute DVT in the right leg involving the common femoral, superficial femoral, popliteal, and gastrocnemius veins. 2. No left lower extremity DVT. CT A/P 1. Bulky mass involving the uterus and cervix. Numerous surrounding metastatic implants in the pelvis. Extensive retroperitoneal, iliac chain, and pelvic lymphadenopathy. Findings raise concern for metastatic cancer of uterine, endometrial, or cervical origin. 2. Numerous scattered peritoneal nodules concerning for peritoneal carcinomatosis. 3. Vague hypodense lesions throughout the liver raising concern for hepatic metastases. These might be better characterized on liver massprotocol CT or MRI. 4. Interval placement of bilateral percutaneous nephrostomy tubes.Nonobstructing kidney stones bilaterally. No hydronephrosis. Malfunction of left nephrostomy tube- seen by urology- unable to flush or aspirate despite being in good position. Suspected obstruction in setting of TLS. Recommended transfer to [facility] for nephrostomy tube exchage with IR. [facility] Dr Dumont (hospitalist) accepted the patient under hospitalist service. Awaiting bed availability for transfer. Updated and patient at bedside. Acute extensive DVT RLE in setting of metastatic pelvic malignancy- US reviewed as above. Communicated with GI and hemonc. Reviewed vasc surgery notes. Started on heparin drip after discussing with GI and hemonc. Tolerating without any bleeing issues. Continue heparin drip for now with H and H monitoring. Vasc surgery planned for MRV abd/pelvis to see if IVC filter can be placed but unable to give contrast given her renal dysfunction. Acute on chronic anemia- Hb baseline is around 8-9. Down to 7.2. S/p 1 U PRBC and started on iv venofer. D2/3 Hb 8.6->7.7->7.1->8.6->9.2 s/p 1 U PRBC. Vit B12 and folate normal. Ferritin elevated in setting of acute illness and malignancy. Esophagitis- No bleeding noted on EGD 6/2. Continue PPI and carafate per GI. Sepsis with UTI- Afebrile. Procal 1.26. WBC 17->10. Urine clx with pinpoint growth, reincubating. On empiric dapto/cefepime due to h/o VRE UTI pending clx result. 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 recently started on chemo 2/3 cycles completed with carboplatin and etoposide. Now with LOLIS and TLS. Onc following- managing for TLS as below. TLS with hyperuricemia, hypephosphatemia, hypocalcemia- Uric acid 19->17->8. PO4 9.3->6.4. on Allopurinol. S/p rasburicase 6 mg IV 6/ and daily TLS labs. Onc managing Abnormal LFTs due to hepatic mets LOLIS on CKD with AGMA with chronic hydronephrosis d/t pelvic mass s/p b/L nephrostomy tubes- Likely multifactorial from TLS, obstruction d/t malignancy, sepsis. Nephro consulted. Cr 2.9->3.7->3.7->2.68. AG 14, CO2 18. Lactate 1.6 Hyponatremia- Na 129->134. Monitor. Encephalopathy- seems improved. suspected to be multifactorial. C discussion- Known to palliative. Complicated situation. Seen by palliative who signed off as patient not ready for palliative discussion yet. Full code. DVT ppx- heparin drip Dispo- Transfer to [facility] for nephrostomy tube replacement. Details as above. Full code Updated at bedside Admission and Anticipated Discharge Date Admission Date: October 02, 2022 Subjective Patient was seen and examined at bedside. No new issues. No fever, chills, N/V, SOB. States her left nephrostomy tube has not been draining since last night. Discussed the labs and they are relieved that labs are improving. Review of Systems Review of Systems: All systems reviewed & are unremarkable except as noted in Subjective Physical Exam Physical Exam: General: Lying comfortably in bed, not in distress, on room air HEENT: EOMI, SEBASTIAN, MMM Chest: Fair breath sounds anteriorly CVS: Regular rate and rhythm, normal heart sounds, no murmur Abdomen: Soft, non tender, not distended, normal bowel sounds Neuro: Awake, alert, oriented, conversing ok, non focal Extremities: No cyanosis, clubbing. Edema + : Lt Nephrostomy tubes clogged and not draining, rt one with clear urine Psych:Low mood Results & Data Results & Data Vital Signs (Past 12 Hours) Vital Signs Temp Pulse Pulse Resp BP Pulse Ox O2 Del Method 10/04/22 12:12 36.4 C L 67 18 106/65 94 Room Air 10/04/22 08:15 56 L 10/04/22 09:40 36.4 C L 70 20 112/66 97 Room Air 10/04/22 03:37 36.5 C 62 18 107/70 94 Room Air Laboratory Results Short CBC 10/03/22 10/04/22 Range/Units 21:34 07:57 WBC 8.70 (4.8-10.8) K/ul Hgb 8.5 L 9.2 L (12.0-16.0) g/dl Hct 26.0 L 28.7 L (37.0-47.0) % Plt Count 234 (130-400) K/uL BMP 10/04/22 07:57 Sodium 134 L Potassium 4.6 Chloride 102 Carbon Dioxide 18 L BUN 68 H Creatinine 2.68 H D Glucose 122 H Calcium 7.3 L Medications Administered Current Inpatient Medications Acetaminophen (Acetaminophen 500 Mg Tab) 500 mg PO Q6H PRN PRN Reason: pain/fever Stop: 11/01/22 22:52 Hydrocodone Bitart/Acetaminophen (Hydrocodone/Acetamophen 5/325mg Tab) 1 tab PO QID PRN PRN Reason: Pain Stop: 10/17/22 01:16 Allopurinol (Allopurinol 300 Mg Tab) 300 mg PO QPM ADAN Stop: 11/02/22 20:59 Last Admin: 10/03/22 21:19 Dose: 300 mg Folic Acid (Folic Acid 1 Mg Tab) 1 mg PO DAILY ADAN Stop: 11/02/22 08:59 Last Admin: 10/04/22 10:21 Dose: 1 mg Daptomycin 200 mg/ Syringe 4 mls @ 2 mls/min IV Q2D ADAN; Protocol Stop: 10/14/22 22:59 Promethazine HCl 6.25 mg/ (Sodium Chloride) 50.25 mls @ 201 mls/hr IV Q6H PRN PRN Reason: Nausea And Vomiting Stop: 11/01/22 22:52 Pantoprazole Sodium 40 mg/ (Syringe) 10 mls @ 5 mls/min IV BID ADAN Stop: 11/02/22 08:59 Last Admin: 10/04/22 10:21 Dose: 5 mls/min Cefepime HCl 1,000 mg/ Syringe 10 mls @ 5 mls/min IV Q12H ADAN; Protocol Stop: 10/13/22 15:59 Last Admin: 10/04/22 15:50 Dose: 5 mls/min Iron Sucrose 200 mg/ Sodium (Chloride) 110 mls @ 220 mls/hr IV DAILY ADAN Stop: 10/06/22 08:59 Last Infusion: 10/04/22 10:28 Dose: Infused Heparin Sodium/Dextrose (Heparin Sodium/Dextrose) 25,000 units in 500 mls @ 20 mls/hr IV .Q24H ADAN; Protocol Stop: 11/02/22 12:59 Last Titration: 10/04/22 10:48 Dose: 1,000 units/hr, 20 mls/hr Sodium Chloride (Nss 1000ml) 1,000 mls @ 80 mls/hr IV .[id number] ADAN Stop: 11/02/22 20:59 Last Admin: 10/04/22 09:42 Dose: 80 mls/hr Sucralfate (Sucralfate 1 Gm/10 Ml Udc) 1 gm PO TID ADAN Stop: 11/02/22 20:59 Last Admin: 10/04/22 13:45 Dose: 1 gm
--- NOTE | 2022-10-04 15:59 | Urology Consultation ---
Date of Consultation October 04, 2022 Assessment & Plan (1) Malfunction of nephrostomy tube: I evaluated her nephrostomy tube at the bedside. The tube appears to be in good position. I was unable to flush or aspirate any fluid through the tube. In the setting of tumor lysis syndrome, I suspect that the tube is obstructed. Based on her most recent CT scan, I think attempt at ureteral stent placement would be unsuccessful. At this point, I think that she requires transfer to a facility where nephrostomy tube can be exchanged with interventional radiology. 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 Urology was consulted because her left nephrostomy tube stopped draining. At the bedside, her reports that he has been intermittently flushing the tubes when they become cloudy or have sediment. They have tried flushing the tubes today, but are unable to advance any fluid into or withdraw any fluid out from the nephrostomy tube. They deny any dislocation of the tube. Of note, she is currently on chemotherapy and there is concern that she may have tumor lysis syndrome, which could at higher risk for put her sediment within the urine. Labs reviewed: CBC (10/04/2022): WBC 8.70, hemoglobin 9.2 BMP (10/04/2022): Creatinine 2.68, has been as low as 1.7 over the past month. She had a CT scan from 10/02/2022. I independently reviewed these images. Both nephrostomy tubes appear to be in good position. There is a large pelvic mass which appears to compress bilateral ureters. Her bladder appears overall decompressed. Allergies Allergy/AdvReac Type Severity Reaction Status Date / Time Sulfa (Sulfonamide Allergy Severe Swelling Verified 10/02/22 20:44 Antibiotics) of Lip/Tongue/Throat Home Medications Medication Instructions Recorded Confirmed Type folic acid 1 mg tablet 1 mg PO DAILY 09/25/22 10/02/22 History oxycodone 5 mg tablet 5 mg PO TID 30 days #120 tabs 09/25/22 10/02/22 Rx polyethylene glycol 3350 17 17 g PO DAILY 09/30/22 10/02/22 History gram/dose oral powder (Miralax) allopurinol 300 mg tablet 300 mg PO QPM 10/02/22 10/02/22 History food supplemt, lactose-reduced 1 ea PO DAILY 10/02/22 10/02/22 History (Ensure oral liquid) olanzapine 2.5 mg tablet (Zyprexa) 2.5 mg PO HS 10/02/22 10/02/22 History ondansetron HCl 4 mg tablet 4 mg PO Q6H PRN Nausea And Vomiting 10/02/22 10/02/22 History prochlorperazine maleate 5 mg 5 mg PO TID PRN Nausea And Vomiting 10/02/22 10/02/22 History tablet sodium chloride 1,000 mg soluble 1,000 mg PO TID 10/02/22 10/02/22 History tablet Patient History Medical History (Updated 10/04/22 @ 15:56 by Cristian Denson MD) Advanced care planning/counseling discussion Anxiety Cancer related pain DVT (deep venous thrombosis) Insomnia Nausea Neuroendocrine cancer No significant medical problems Palliative care by specialist Surgical History (Updated 10/03/22 @ 13:44 by Randy Camarena MD) H/O cervical biopsy Social History Smoking Status: Never smoker Hx Alcohol Use: No Hx Substance Use: No Preferred Language: Kittitian Communication Ability: Effective Beliefs That Will Affect Care: [facility] marital status: Current Living Situation: Spouse current occupational status: employed How many Children do You have: 0 Other Information That Helps Us Care for You: No Feels Safe at Home: Yes Safety Concerns: Feels Safe At This Time during the past year weight has: decreased > 10 lbs Assistive Devices: Walker Review of Systems Review of Systems: 12 point review of systems negative except for otherwise indicated. Physical Exam Physical Exam: Frail-appearing Constitutional: well developed and well nourished; no acute distress Eyes: + anicteric sclerae; pupils not irregular Respiratory: normal respiratory effort; no respiratory distress, does not use accessory muscles and no cough Cardiovascular: well perfused Gastrointestinal (Abdomen): Inspection/Auscultation: abdomen normal to inspection; abdomen not distended Musculoskeletal: Extremities: extremities normal to inspection Skin: normal turgor; no rashes and no lesions Neurologic: moves all extremities and awake Psychiatric: Orientation: alert and oriented x 3 Genitourinary: Bilateral nephrostomy tubes, moderate output from the right side, minimal urine in the bag from the left side. I attempted to flush the left tube but was unable to instill or withdraw any fluid. Results & Data Vital Signs (Past 12 Hours) Vital Signs Temp Pulse Pulse Resp BP Pulse Ox O2 Del Method 10/04/22 12:12 36.4 C L 67 18 106/65 94 Room Air 10/04/22 08:15 56 L 10/04/22 09:40 36.4 C L 70 20 112/66 97 Room Air PG Care Time/CCT Total # of Minutes Spent Total Time Spent with Patient: Total time spent is greater than 50% in coordination of care (as documented) at patient's floor/unit and/or counseling patient: Coding Level of Care Code 88240 IN/OBS CONSULT LVL 3,45M Diagnoses Malfunction of nephrostomy tube T83.098A Tumor lysis syndrome E88.3 Acute kidney injury superimposed on CKD N17.9; N18.9
--- NOTE | 2022-10-04 16:50 | Discharge Summary ---
Date of Service October 04, 2022 Admission HPI Per Admitting Provider Coffee ground emesis CV: RRR Resp: CTA Abd: soft A/p: ? UGIB - EGD Admission Exam Per Admitting Provider GENERAL: Episodic lethargy, slightly uncomfortable, obese, no respiratory distress SKIN: Pallor, warm HEENT: Bespectacled, pale palpebral conjunctivae, no ptosis, dry buccal mucosa NECK : Supple, no tenderness CHEST : Decreased breath sounds, no tenderness HEART : RRR, no obvious murmurs ABDOMEN: distention, minimal epigastric tenderness EXTREMITIES : Bilateral LE swelling, no LE tenderness, no other conspicuous deformities noted NEUROLOGIC : Episodic lethargy, no facial asymmetry, gait and stance not assessed Principal Diagnosis Malfunctioning nephrostomy tube, Acute DVT RLE, Tumor lysis syndrome, Acute on chronic kidney disease, acute on chronic anemia, neuroendocrine carcinoma Discharge Exam General: Lying comfortably in bed, not in distress, on room air HEENT: EOMI, SEBASTIAN, MMM Chest: Fair breath sounds anteriorly CVS: Regular rate and rhythm, normal heart sounds, no murmur Abdomen: Soft, non tender, not distended, normal bowel sounds Neuro: Awake, alert, oriented, conversing ok, non focal Extremities: No cyanosis, clubbing. Edema + : Lt Nephrostomy tubes clogged and not draining, rt one with clear urine Psych:Low mood Discharge Data Allergies Allergy/AdvReac Type Severity Reaction Status Date / Time Sulfa (Sulfonamide Allergy Severe Swelling Verified 10/02/22 20:44 Antibiotics) of Lip/Tongue/Throat Consultations 10/02/22 21:18 ED Decision to Admit Stat 10/02/22 22:53 Consult Oncology Routine 10/03/22 00:20 Consult Vascular Surgery Routine 10/03/22 00:47 Consult Gastroenterology Routine Consult Nephrology Routine 10/03/22 07:48 Consult Palliative Care Routine 10/04/22 14:00 Consult Urology Routine Procedures Performed Operation Date: 10/03/22 17:00 Actual Procedures p Esophagogastroduodenoscopy - Joesph Schmitt MD Ordered Studies 10/02/22 18:06 CT head/brain wo con Stat 10/02/22 19:30 CT abd pelvis wo con Stat 10/02/22 22:43 US venous doppler LE BI Stat 10/03/22 10:46 MR angio abdomen wo con Routine Laboratory Results WBC 8.70 K/ul (4.8-10.8) 10/04/22 07:57 RBC 3.42 M/uL (4.20-5.40) L 10/04/22 07:57 Hgb 9.2 g/dl (12.0-16.0) L 10/04/22 07:57 Hct 28.7 % (37.0-47.0) L 10/04/22 07:57 MCV 83.9 fL (80.0-100.0) 10/04/22 07:57 MCH 26.9 pg (25.0-34.0) 10/04/22 07:57 MCHC 32.1 g/dL (32.0-36.0) 10/04/22 07:57 RDW Std Deviation 54.1 fL (36.4-46.3) H 10/04/22 07:57 RDW Coeff of Claude 17.8 % (11.5-14.5) H 10/04/22 07:57 Plt Count 234 K/uL (130-400) 10/04/22 07:57 MPV 9.2 fL (9.4-12.4) L 10/04/22 07:57 Immature Gran % (Auto) 1.5 % 10/03/22 13:15 Neut % (Auto) 94.8 % 10/03/22 13:15 Lymph % (Auto) 1.4 % 10/03/22 13:15 Edgar % (Auto) 2.2 % 10/03/22 13:15 Eos % (Auto) 0.0 % 10/03/22 13:15 Baso % (Auto) 0.1 % 10/03/22 13:15 Neut # (Auto) 8.99 K/uL (1.40-6.50) H 10/03/22 13:15 Lymph # (Auto) 0.13 K/uL (1.2-3.4) L 10/03/22 13:15 Edgar # (Auto) 0.21 K/uL (0.11-0.59) 10/03/22 13:15 Eos # (Auto) 0.00 K/uL (0-0.50) 10/03/22 13:15 Baso # (Auto) 0.01 K/uL (0-0.2) 10/03/22 13:15 Immature Gran # (Auto) 0.14 K/uL (0.01-0.20) 10/03/22 13:15 Polychromasia 1+ 10/03/22 06:06 Echinocytes 1+ 10/03/22 06:06 PT 11.9 Seconds (9.0-12.0) 10/03/22 13:15 INR 1.1 (0.9-1.1) 10/03/22 13:15 APTT 94.2 Seconds (21.0-31.0) H* 10/04/22 07:57 PTT Ratio 3.3 10/04/22 07:57 VBG pH 7.22 (7.36-7.41) L 10/02/22 23:48 VBG pCO2 36 mmHg (38-50) L 10/02/22 23:48 VBG pO2 29 mmHg 10/02/22 23:48 VBG HCO3 15 mmol/L 10/02/22 23:48 VBG O2 Saturation < 60.0 % 10/02/22 23:48 VBG Base Excess -12.1 mEq/L 10/02/22 23:48 Sodium 134 mmol/L (136-145) L 10/04/22 07:57 Potassium 4.6 mmol/L (3.5-5.1) 10/04/22 07:57 Chloride 102 mmol/L (98-107) 10/04/22 07:57 Carbon Dioxide 18 mmol/L (21-32) L 10/04/22 07:57 Anion Gap 14 (3-11) H 10/04/22 07:57 BUN 68 mg/dl (6-23) H 10/04/22 07:57 Creatinine 2.68 mg/dl (0.6-1.2) H D 10/04/22 07:57 Est Cr Clr Drug Dosing 20.4 ml/min 10/04/22 07:57 Est GFR ( Amer) 20.5 ml/min 10/04/22 07:57 Est GFR (Non-Af Amer) 17.7 ml/min 10/04/22 07:57 BUN/Creatinine Ratio 25.4 (10-20) H 10/04/22 07:57 Glucose 122 mg/dl (70-99(Fasting)) H 10/04/22 07:57 Lactate 1.6 mmol/L (0.4-2.0) 10/02/22 20:01 Uric Acid 8.8 mg/dl (2.6-7.2) H 10/04/22 08:01 Calcium 7.3 mg/dl (8.6-10.3) L 10/04/22 07:57 Phosphorus 6.4 mg/dl (2.5-4.9) H 10/04/22 07:57 Magnesium 2.1 mg/dl (1.7-2.4) 10/04/22 07:57 Iron 73 mcg/dl (35-150) 10/03/22 06:06 Iron Cancelled 10/03/22 06:06 Ferritin 1315.0 ng/ml (8-388) H 10/03/22 06:06 Ferritin Cancelled 10/03/22 06:06 Total Bilirubin 0.6 mg/dl (0.2-1.0) 10/02/22 18:30 AST 108 U/L (13-39) H 10/02/22 18:30 ALT 14 U/L (7-52) 10/02/22 18:30 Alkaline Phosphatase 133 U/L (34-104) H 10/02/22 18:30 Ammonia 30.0 umol/L (18-72) 10/02/22 23:48 Troponin I High Sens 40.3 pg/ml (0-14) H 10/02/22 18:30 Total Protein 6.9 gm/dl (6.0-8.3) 10/02/22 18:30 Albumin 3.4 gm/dl (3.4-5.0) 10/02/22 18:30 Globulin 3.5 gm/dl (2.5-4.0) 10/02/22 18:30 Albumin/Globulin Ratio 1.0 (0.9-2) 10/02/22 18:30 Vitamin B12 223 pg/ml (180-914) 10/03/22 08:25 Folate > 22.30 ng/ml (>5.38) 10/03/22 08:25 Procalcitonin 1.26 ng/ml (0-0.5) H 10/02/22 20:01 TSH 0.706 uIu/ml (0.300-4.500) 10/02/22 18:30 Urine Color Yellow 10/02/22 Unknown Urine Color Yellow 10/02/22 Unknown Urine Appearance Turbid (Clear) A 10/02/22 Unknown Urine Appearance Turbid (Clear) A 10/02/22 Unknown Urine pH 5.0 (4.5-7.5) 10/02/22 Unknown Urine pH 5.0 (4.5-7.5) 10/02/22 Unknown Ur Specific [place] 1.014 (1.000-1.030) 10/02/22 Unknown Ur Specific [place] 1.015 (1.000-1.030) 10/02/22 Unknown Urine Protein 2+ (Negative) H 10/02/22 Unknown Urine Protein 2+ (Negative) H 10/02/22 Unknown Urine Glucose (UA) Negative (Negative) 10/02/22 Unknown Urine Glucose (UA) Negative (Negative) 10/02/22 Unknown Urine Ketones Negative (Negative) 10/02/22 Unknown Urine Ketones Negative (Negative) 10/02/22 Unknown Urine Blood 3+ (Negative) H 10/02/22 Unknown Urine Blood 3+ (Negative) H 10/02/22 Unknown Urine Nitrite Negative (Negative) 10/02/22 Unknown Urine Nitrite Negative (Negative) 10/02/22 Unknown Urine Bilirubin Negative (Negative) 10/02/22 Unknown Urine Bilirubin Negative (Negative) 10/02/22 Unknown Urine Urobilinogen Negative (Negative) 10/02/22 Unknown Urine Urobilinogen Negative (Negative) 10/02/22 Unknown Ur Leukocyte Esterase 1+ (Negative) H 10/02/22 Unknown Ur Leukocyte Esterase 2+ (Negative) H 10/02/22 Unknown Urine WBC (Auto) >30 /hpf (0-5) H 10/02/22 Unknown Urine WBC (Auto) >30 /hpf (0-5) H 10/02/22 Unknown Urine RBC (Auto) 0-4 /hpf (0-4) 10/02/22 Unknown Urine RBC (Auto) 0-4 /hpf (0-4) 10/02/22 Unknown U Hyaline Cast (Auto) 1-5 /lpf (0-5) 10/02/22 Unknown U Hyaline Cast (Auto) 1-5 /lpf (0-5) 10/02/22 Unknown U Epithel Cells (Auto) 10-20 /lpf (0-5) H 10/02/22 Unknown U Epithel Cells (Auto) >30 /lpf (0-5) H 10/02/22 Unknown Urine Bacteria (Auto) Negative (Negative) 10/02/22 Unknown Urine Bacteria (Auto) Not Reportable 10/02/22 Unknown Ur Renal Epithelial Cell 0-5 /lpf (0-5) 10/02/22 Unknown Urine Crystals Uric Acid (None Prsent) A 10/02/22 Unknown Urine Crystals Uric Acid (None Prsent) A 10/02/22 Unknown Uric Acid Crystals Present (None Prsent) A 10/02/22 Unknown Uric Acid Crystals Present (None Prsent) A 10/02/22 Unknown Stool Occult Bld Scrn Negative (Negative) 10/04/22 07:48 SARS-CoV-2, RNA, NAAT NEGATIVE (NEGATIVE) 10/02/22 Unknown Blood Type A Positive 10/02/22 18:30 Antibody Screen NEGATIVE 10/02/22 18:[address] 10/02/22 18:06 Exam(s): CT HEAD Without Contrast EXAM: CT Head Without Intravenous Contrast CLINICAL HISTORY: Reason for exam: weakness, disoriented at times. TECHNIQUE: Axial computed tomography images of the head/brain without intravenous contrast. Automated exposure control was utilized for the study. A dose lowering technique was utilized adhering to the principles of ALARA. COMPARISON: No relevant prior studies available. FINDINGS: Brain: No hemorrhage. No apparent acute cortical infarct. No mass lesion or midline shift. Involutional changes with small vessel disease. Ventricles: No hydrocephalus. Bones/joints: No acute fracture. Soft tissues: Unremarkable. Sinuses: No acute sinusitis. Mastoid air cells: No mastoid effusion. Orbits: Unremarkable as visualized. IMPRESSION: No acute intracranial process. Electronically signed by: Susanna Molina M.D. 10/02/22 20:05 PM Chest X-Ray 10/02/22 18:07 XR chest 1V portable HISTORY: weakness COMPARISON: Chest 08/02/2022. FINDINGS: No pneumothorax. No pleural effusions. Right basilar linear densities favor subsegmental atelectasis. The heart remains mildly enlarged. No new focal lung consolidations to suggest a pneumonia. No evidence for pulmonary edema. Partially visualized right nephrostomy tube is noted. There is a small right azygos lobe. IMPRESSION: No significant change compared to the prior study. No acute process. ACT 112: Negative or not required by law. Electronically signed by: Angel Aguiar M.D. 10/03/2022 7:13 AM Abdomen/Pelvis CT 10/02/22 19:30 Exam(s): CT ABDOMEN + PELVIS Without Contrast EXAM: CT Abdomen and Pelvis Without Intravenous Contrast CLINICAL HISTORY: Reason for exam: h/o pelvic mass and b/l neph tubes in place, WBC,. TECHNIQUE: Axial computed tomography images of the abdomen and pelvis without intravenous contrast. Automated exposure control was utilized for the study. A dose lowering technique was utilized adhering to the principles of ALARA. COMPARISON: 08/02/22 FINDINGS: There is subsegmental atelectasis at the lung bases. No suspicious pulmonary nodules are observed. There are hypodense lesions in the lateral segment of the left hepatic lobe measuring 2.2 cm (series 5, image 110) and 2.5 cm (series 5, image 96). There are vague regions of parenchymal hypodensity throughout the right liver. Gallbladder and common bile duct are normal. Spleen, pancreas, and adrenal glands are normal. Bilateral percutaneous nephrostomy tubes are in place and appropriately positioned. There is no significant hydronephrosis of either kidney. There are bilateral nonobstructing kidney stones. There is aortoiliac atherosclerosis without aneurysm. There is bulky and confluent retroperitoneal lymphadenopathy encasing the abdominal aorta. Enlarged lymph nodes extend along the bilateral iliac chains. There is also bulky and confluent pelvic lymphadenopathy. There are also numerous scattered peritoneal nodules. There is a poorly characterized mass involving the cervix and uterus with numerous surrounding soft tissue nodules. Urinary bladder is incompletely distended and suboptimally characterized. There is no bowel obstruction or inflammation. There is scattered colonic diverticula. Appendix is not identified. There is trace ascites in the pelvis. There is no free air. There are no acute osseous findings or suspicious osseous lesions. IMPRESSION: 1. Bulky mass involving the uterus and cervix. Numerous surrounding metastatic implants in the pelvis. Extensive retroperitoneal, iliac chain, and pelvic lymphadenopathy. Findings raise concern for metastatic cancer of uterine, endometrial, or cervical origin. 2. Numerous scattered peritoneal nodules concerning for peritoneal carcinomatosis. 3. Vague hypodense lesions throughout the liver raising concern for hepatic metastases. These might be better characterized on liver mass protocol CT or MRI. 4. Interval placement of bilateral percutaneous nephrostomy tubes. Nonobstructing kidney stones bilaterally. No hydronephrosis. Electronically signed by: Candace Baptiste M.D. 10/02/22 20:25 PM Venous Doppler Study 10/02/22 22:43 CR Exam(s): US VENOUS BILATERAL LOWER EXTREMITIES EXAM: US Duplex Bilateral Lower Extremities Veins CLINICAL HISTORY: Reason for exam: leg swelling. TECHNIQUE: Real-time duplex ultrasound scan of the bilateral lower extremity veins integrating B-mode two-dimensional vascular structure, Doppler spectral analysis, color flow Doppler imaging and compression. COMPARISON: No relevant prior studies available. FINDINGS: Right deep veins: Acute nonocclusive DVT common femoral vein. Acute occlusive DVT extending through the superficial femoral vein and popliteal vein as well as within the gastrocnemius vein. Possible nonocclusive DVT in the deep femoral vein. Right superficial veins: Possible nonocclusive thrombus extending into the great saphenous vein. Left deep veins: Unremarkable. No DVT in the left common femoral, femoral, proximal deep femoral or popliteal veins. The veins demonstrate normal color flow, are normally compressible, with normal phasic flow and/or augmentation response. Left superficial veins: Unremarkable. No thrombus in the visualized left great saphenous vein. Soft tissues: Right leg soft tissue edema. IMPRESSION: 1. Extensive acute DVT in the right leg involving the common femoral, superficial femoral, popliteal, and gastrocnemius veins. 2. No left lower extremity DVT. Communications: Call Doctor DVT acute, progressing Electronically signed by: Candace Baptiste M.D. 10/02/22 23:59 PM Abdomen MRA 10/03/22 10:46 Exam(s): MRA ABDOMEN Without Contrast EXAM: MR Angiography Abdomen Without Intravenous Contrast CLINICAL HISTORY: Reason for exam: IVC/iliac vein patentcy. TECHNIQUE: Magnetic resonance angiography images of the abdomen without intravenous contrast. COMPARISON: No relevant prior studies available. FINDINGS: Aorta is normal in caliber. Celiac artery, SMA, bilateral renal arteries, [place], and bilateral iliac arteries appear patent. IVC and iliac veins appear patent as visualized. There are multiple T2 hyperintense lesions in the liver concerning for multifocal hepatic metastatic disease. The largest is located in the right hepatic lobe and measures 4.5 cm in maximum transaxial dimension (series 10, image 7). Heterogeneous pelvic mass is again noted, associated with extensive retroperitoneal lymphadenopathy. IMPRESSION: 1. IVC and iliac veins appear patent as visualized. 2. Heterogeneous pelvic mass. Extensive stuart metastatic disease. Suspected multifocal hepatic metastases. Electronically signed by: Candace Baptiste M.D. 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 Extensive acute DVT in the right leg involving the common femoral, superficial femoral, popliteal, and gastrocnemius veins. 2. No left lower extremity DVT. CT A/P 1. Bulky mass involving the uterus and cervix. Numerous surrounding metastatic implants in the pelvis. Extensive retroperitoneal, iliac chain, and pelvic lymphadenopathy. Findings raise concern for metastatic cancer of uterine, endometrial, or cervical origin. 2. Numerous scattered peritoneal nodules concerning for peritoneal carcinomatosis. 3. Vague hypodense lesions throughout the liver raising concern for hepatic metastases. These might be better characterized on liver massprotocol CT or MRI. 4. Interval placement of bilateral percutaneous nephrostomy tubes.Nonobstructing kidney stones bilaterally. No hydronephrosis. Malfunction of left nephrostomy tube- seen by urology- unable to flush or aspirate despite being in good position. Suspected obstruction in setting of TLS. Recommended transfer to [facility] for nephrostomy tube exchage with IR. Spoke with Dr Guzman from [facility] who accepted the patient. Dr Dumont (hospitalist) accepted the patient under hospitalist service. Awaiting bed availability for transfer. Updated and patient at bedside. Acute extensive DVT RLE in setting of metastatic pelvic malignancy- US reviewed as above. Communicated with GI and hemonc. Reviewed vasc surgery notes. Started on heparin drip after discussing with GI and hemonc. Tolerating without any bleeing issues. Continue heparin drip for now with H and H monitoring. Vasc surgery planned for MRV abd/pelvis to see if IVC filter can be placed but unable to give contrast given her renal dysfunction. Acute on chronic anemia- Hb baseline is around 8-9. Down to 7.2. S/p 1 U PRBC and started on iv venofer. D2/3 Hb 8.6->7.7->7.2->8.6->9.2 s/p 1 U PRBC. Vit B12 and folate normal. Ferritin elevated in setting of acute illness and malignancy. Esophagitis- No bleeding noted on EGD 10/03. Continue PPI and carafate per GI. Sepsis with UTI- Afebrile. Procal 1.26. WBC 17->10. Urine clx with pinpoint growth, reincubating. On empiric dapto/cefepime due to h/o VRE UTI pending clx result. 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 recently started on chemo carboplatin/etoposide (received cycle 1 day 1 of carboplatin/etoposide on 10/01/22 and cycle1, day 2 of etoposide on 10/02/2022). Per oncology plan to hold cycle 1 day 3 of etoposide until condition improves. Now with LOLIS and TLS. Onc following- managing for TLS as below. TLS with hyperuricemia, hypephosphatemia, hypocalcemia- Uric acid 19->17->8. PO4 9.3->6.4. on Allopurinol. S/p rasburicase 6 mg IV 10/03 and daily TLS labs. Onc managing Abnormal LFTs due to hepatic mets LOLIS on CKD with AGMA with chronic hydronephrosis d/t pelvic mass s/p b/L nephrostomy tubes- Likely multifactorial from TLS, obstruction d/t malignancy, sepsis. Nephro consulted. Cr 2.9->3.7->3.7->2.68. AG 14, CO2 18. Lactate 1.6 Hyponatremia- Na 129->134. Monitor. Encephalopathy- seems improved. suspected to be multifactorial. C discussion- Known to palliative. Complicated situation. Seen by palliative who signed off as patient not ready for palliative discussion yet. Full code. DVT ppx- heparin drip for Acute DVT Dispo- Transfer to [facility] for nephrostomy tube replacement. Details as above. Full code Updated at bedside Total Time Total Time Spent Total Time Spent (In Minutes): 60 Discharge Plan Discharge Items Patient Disposition: Transfer Acute Care Hospital Reason For Visit: UGIB, COMP UTI, ARF CKD Discharge Diagnosis: Malfunctioning nephrostomy tube, Acute DVT RLE, Tumor lysis syndrome, Acute on chronic kidney disease, acute on chronic anemia, neuroendocrine carcinoma of gynecologic origin Activity: Per Instructions section Non-emergency contact: Primary Care Provider, Community Advocate and Oncologist Call non-emergency contact if: you have any medication questions, your symptoms worsen, your pain is concerning for you and you have a fever Follow-up/Referrals: Kelley Giordano, [Primary Care Provider] - Diet: Regular Addtl Attending Provider Instructions: You have extensive acute DVT RLE and started on heparin drip. Vascular surgery was contemplating IVC filter but MRV could not be done due to kidney dysfunction You have tumor lysis syndrome due to your extensively metastatic neuroendocrine malignancy and chemo. You have kidney dysfunction from the same. You are on allopurinol. You already received rasburicase You also had anemia and iron deficiency and got 1 U of PRBC and getting iv iron day 2/3. Your hemoglobin continues to improve from 7 to 9. There was no evidence of bleeding in EGD but only some esophagitis for which you will be on PPI and carafate You also had sepsis and urinary tract infection for which you are on empiric dapto/cefepime due to your prior history of VRE UTI- your urine culture is showing pin point growth and reincubating. Antibiotic to be deescalated as culture results become available. Your left nephrostomy tube is blocked for which you are being transferred to [place] for the tube exchange The following medications are being administered inhouse and recommended to continue at [facility] upon transfer Current Inpatient Medications Acetaminophen (Acetaminophen 500 Mg Tab) 500 mg PO Q6H PRN PRN Reason: pain/fever Stop: 11/01/22 22:52 Hydrocodone Bitart/Acetaminophen (Hydrocodone/Acetamophen 5/325mg Tab) 1 tab PO QID PRN PRN Reason: Pain Stop: 10/17/22 01:16 Allopurinol (Allopurinol 300 Mg Tab) 300 mg PO QPM ADAN Stop: 11/02/22 20:59 Last Admin: 10/03/22 21:19 Dose: 300 mg Folic Acid (Folic Acid 1 Mg Tab) 1 mg PO DAILY [facility] Stop: 11/02/22 08:59 Last Admin: 10/04/22 10:21 Dose: 1 mg Daptomycin 200 mg/ Syringe 4 mls @ 2 mls/min IV Q2D ADAN; Protocol Stop: 10/14/22 22:59 Promethazine HCl 6.25 mg/ (Sodium Chloride) 50.25 mls @ 201 mls/hr IV Q6H PRN PRN Reason: Nausea And Vomiting Stop: 11/01/22 22:52 Pantoprazole Sodium 40 mg/ (Syringe) 10 mls @ 5 mls/min IV BID [facility] Stop: 11/02/22 08:59 Last Admin: 10/04/22 10:21 Dose: 5 mls/min Cefepime HCl 1,000 mg/ Syringe 10 mls @ 5 mls/min IV Q12H [facility]; Protocol Stop: 10/13/22 15:59 Last Admin: 10/04/22 15:50 Dose: 5 mls/min Iron Sucrose 200 mg/ Sodium (Chloride) 110 mls @ 220 mls/hr IV DAILY [facility] Stop: 10/06/22 08:59 Last Infusion: 10/04/22 10:28 Dose: Infused Heparin Sodium/Dextrose (Heparin Sodium/Dextrose) 25,000 units in 500 mls @ 20 mls/hr IV .Q24H [facility]; Protocol Stop: 11/02/22 12:59 Last Titration: 10/04/22 10:48 Dose: 1,000 units/hr, 20 mls/hr Sodium Chloride (Nss 1000ml) 1,000 mls @ 80 mls/hr IV .[id number] [facility] Stop: 11/02/22 20:59 Last Admin: 10/04/22 09:42 Dose: 80 mls/hr Sucralfate (Sucralfate 1 Gm/10 Ml Udc) 1 gm PO TID ADAN Stop: 11/02/22 20:59 Last Admin: 10/04/22 13:45 Dose: 1 gm Pending Studies at Discharge: Yes Studies:: urine clx results Stand-Alone Forms: [facility] Skilled Items Patient informed of condition?: Yes DNR: No Discharge Level of Care: Other Communicable Disease: No Discharge Prognosis: Stable Lines: Peripheral IV Urinary Catheter: Yes (nephrostomy tube) Medications and DC Order Prescriptions: Continued polyethylene glycol 3350 [Miralax] 17 gram/dose powder 17 g PO DAILY folic acid 1 mg Tablet 1 mg PO DAILY oxycodone 5 mg tablet 5 mg PO TID 30 Days Qty: 120 0RF allopurinol 300 mg Tablet 300 mg PO QPM Rx Instructions: TAKES AT 1500 sodium chloride 1,000 mg Tablet,Soluble 1,000 mg PO TID Ensure Liquid 1 ea PO DAILY prochlorperazine maleate 5 mg Tablet 5 mg PO TID PRN (Reason: Nausea And Vomiting) ondansetron HCl 4 mg Tablet 4 mg PO Q6H PRN (Reason: Nausea And Vomiting) olanzapine [Zyprexa] 2.5 mg Tablet 2.5 mg PO HS Discharge Orders: Discharge Order (Routine); Ordered 10/04/22 Ordered By: Tiago Hernandes Admission Data Admit Date/Time: 10/02/22 22:48 Attending Provider: Tiago Hernandes Admit Provider: Rolando Deluca Primary Care Provider: Kelley Giordano Other Providers: Rolando Deluca ; Jenae Kim ; Carlo Poon ; Chelsey Motta ; Aleksandr Ramesh ; Echo Davis ; Maribell Glass ; Anika Garcia ; Indira Ledesma ; Henry Estrella ; Bruce Seo ; Olga Newton ; Joesph Schmitt ; Chirag Keita ; Felisha Felipe ; Jazlyn Alford ; Kelly Tyler ; Florecita Mcclelland ; Snoia Morel ; Delfino Terry ; Juvencio Mena ; May Rojas ; Lyly Hinkle Jr ; Lisa Heller ; Lul Carter ; Yesenia Rivera ; Huma Ralph ; Connie Lopez ; Alexia Faustin ; Carlee Jean-Baptiste ; Cristian Denson
[2022-10-04] MEDS: HEPARIN SODIUM/DEXTROSE 25,000 UNITS/500 ML BAG IV SCH ×2 (17:41→21:05)
[2022-10-04 17:45] LABS: Partial Thromboplastin Ratio 4.4
[2022-10-04 18:59] LABS: Partial Thromboplastin Time 124.4 Seconds (21.0-31.0)
[2022-10-04] MEDS: allopurinoL 300 MG TAB PO SCH (21:49)
[2022-10-04] MEDS ORDERED: DAPTOmycin 200 MG in SYRINGE 0 ML IV SCH (23:00)
--- NOTE | 2022-10-07 19:17 | GI REPORT ---
Patient Name: Barbara Pérez Procedure Date: 10/03/2022 2:31 PM Date of : 1955 Admit Type: Inpatient Age: 67 Gender: Female Attending MD: Joesph Schmitt MD, Procedure: Upper GI endoscopy Providers: Joesph Schmitt MD Referring MD: Tiago Hernandes Md Indications: Hematemesis Medicines: See the Anesthesia note for documentation of the administered medications Complications: No immediate complications. Estimated Blood Loss: Estimated blood loss: none. Procedure: Pre-Anesthesia Assessment: - ASA Grade Assessment: III - A patient with severe systemic disease. After obtaining informed consent, the endoscope was passed under direct vision. Throughout the procedure, the patient's blood pressure, pulse, and oxygen saturations were monitored continuously. The Scope was introduced through the mouth, and advanced to the second part of duodenum. The upper GI endoscopy was accomplished without difficulty. The patient tolerated the procedure well. Findings: LA Grade D (one or more mucosal breaks involving at least 75% of esophageal circumference) esophagitis without bleeding was found. There were diffuse severe erosions throughout the lower and mid esophagus. The stomach and duodenum were normal. Recommendation: - Patient has a contact number available for emergencies. The signs and symptoms of potential delayed complications were discussed with the patient. Return to normal activities tomorrow. Written discharge instructions were provided to the patient. - Discharge patient to home. Rik Rodríguez MD 10/07/2022 7:17:01 PM This report has been signed electronically. Note Initiated On: 10/03/2022 2:31 PM Number of Addenda: 0 I attest to the content of the Intraoperative Record and orders documented therein, exceptions below {[id number]}
== END 2022-10-04 23:15 | disposition short-term general hospital (02) | DRG 871 ==
LOC: ED 17:38 → 2W 22:48

== ENCOUNTER 2022-10-06 13:03 | Inpatient (IN) ==
[2022-10-06] MEDS ORDERED: ACETAMINOPHEN 325 MG TAB PO PRN (13:36)
[2022-10-06] MEDS ORDERED: ONDANSETRON INJ 2 MG/ML 2 ML VIAL IV PRN (13:36)
[2022-10-06] MEDS ORDERED: Patient's HEIGHT &/or WEIGHT Needed SCH (15:30)
--- NOTE | 2022-10-07 03:53 | Communication Note ---
Date of Service: October 06, 2022 Late entry Patient still waiting for transport arrangements from [facility] to [facility] as per Transfer center. Admission team made aware today of patient request to transfer back to [facility] after nephrostomy tube replacement at [facility]. [facility] discharge summary/hospital course in [facility] EMR reviewed. Patient currently on Lovenox Coumadin bridge for RLE DVT following initiation of IV heparin at [facility] last 10/03/22 prior to [facility] transfer for nephrostomy tube replacement. Eliquis not covered by patient's insurance as per note. Platelets noted to be 106 in 6/5 a.m. (Platelets 234, / at [facility]) AP New onset thrombocytopenia, hx heparin administration for RLE DVT possible HIT Case discussed with Dr. Amaral ([facility] oncologist on-call) who recommends holding Lovenox and utilizing Arixtra until HIT test results back. Recommendations relayed to Dr. Vázquez, [facility] hospitalist on-call.
[2022-10-07] MEDS ORDERED: cefTRIAXone SODIUM 2,000 MG in DEXTROSE 5% 50 ML IV SCH (09:00)
--- NOTE | 2022-10-07 10:56 | Communication Note ---
Date of Service: October 06, 2022 Patient was accepted in transfer on 10/06/2022. Of significance patient hospitalized here 10/02 to 10/04 secondary to altered mental status, LOLIS, concern for tumor lysis syndrome, anemia and acute DVT. 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 She recently started chemotherapy. Upon admission patient was found to have creatinine of 2.9 which was double of baseline. Found to have left-sided nephrostomy tube not functioning. Upon admission there was concern for sepsis and placed on IV empiric Dapto and cefepime. Patient diagnosed with tumor lysis syndrome secondary to elevated uric acid at 19 as well as hypocalcemia and hyperphosphatemia. She received 6 mg IV rasburicase on 10/03. Patient with anemia of chronic disease status post 1 unit of PRBC prior to transfer as well as was started on IV Venofer. On 10/04 she was transferred to [facility] for further evaluation via IR due to malfunctioning nephrostomy tube. In regards to her acute right lower extremity DVT she was placed on IV heparin. While at [facility] patient had bilateral nephrostomy tube exchange and both functioning appropriately. Her creatinine down trended appropriately to 1.7. Her blood and urine cultures remain negative. Infectious disease recommended transitioning to IV ceftriaxone for additional 2 days for 7 day antibiotic course as only finding was outpatient urine culture growing alpha strep not Enterococcus. She was found to be severely vitamin D deficient and started on high-dose vitamin D. [facility] oncology was consulted who recommended palliative care medicine at discharge. IV heparin was transitioned to Coumadin and Lovenox due to [id number] cost for Eliquis being significant. Prior to discharge patient found to have a thrombocytopenia and there was concern for HIT, HIT antibody sent and patient placed on Arixtra per [facility] oncology. Patient is otherwise medically stable, hemoglobin on 10/06 was 9.3, creatinine 1.7, LD 1837 and CK221. Patient has been requesting transfer back to [facility] [address] due to oncologist being present here. Hospitalist taking care of patient felt she was otherwise stable to do so. She was excepted in transfer on 10/06/2022. Currently patient is awaiting transport and has yet to be transported to our facility. Julian Alberts PA-C
[2022-10-07] MEDS ORDERED: amLODIPine BESYLATE 5 MG TAB PO ONE (20:14)
[2022-10-07] MEDS ORDERED: ERGOCALCIFEROL 50,000 UNITS 1250 MCG CAP PO SCH (20:30)
--- NOTE | 2022-10-07 20:46 | History & Physical Report ---
Date of Service October 07, 2022 Assessment & Plan (1) DVT (deep venous thrombosis): Plan: RLE DVT found during recent [facility] confinement Initially started on IV heparin at [facility] Currently on Arixtra due to concerns of possible heparin-induced thrombocytopenia with new onset thrombocytopenia noted on blood work at [facility] yesterday. Pancytopenia secondary to chemotherapy HTN currently elevated CRI, creatinine back to baseline following [facility] discharge metastatic gynecologic neuroendocrine malignancy on chemotherapy history of tumor lysis syndrome Peripheral LE edema likely secondary to venous compression by pelvic tumor, Amlodipine contributory chronic hydronephrosis secondary to bilateral ureteral obstruction status post nephroureteral catheter placement/replacement Recent UGIB, esophagitis/ulcers on recent EGD, PPI and Carafate recommended by GI during last confinement. Deconditioning Medical telemetry given elevated BP Follow HIT test results at [facility]. Arixtra for DVT until HIT ruled out. Add heparin to allergy/ADR list until HIT ruled out. Hematology consult Re: Pancytopenia, possible HIT (Dr. Amaral notified about HIT concerns yesterday over the phone. His recommendations were communicated to [facility] while patient was waiting for transportation.) Stop amlodipine given peripheral edema, initiate low-dose beta-mari for BP control (ACEI/ARB not ideal agent for patient given her kidney dysfunction) PPI and Carafate for esophagitis. Will request AM provider to clarify with specialists regarding duration of therapy. PT OT eval DVT prophylaxis. Arixtra Full code Patient requesting updates from providers. Mr. Erwin Pérez, contact #[phone]. Text document was generated using [employer] voice recognition software. It may contain grammatical or spelling errors. Kindly contact undersigned for clarification of any documentation item in question. Admission and Anticipated Discharge Date Admission Date: October 07, 2022 History of Present Illness Chief Complaint: [facility] transfer Primary Care Provider: Kelley Giordano DO History obtained from patient, family, and records. Medical history significant for HTN, metastatic gynecologic neuroendocrine malignancy on chemotherapy, history of tumor lysis syndrome, chronic hydronephrosis secondary to bilateral ureteral obstruction status post nephroureteral catheter placement, CRI (baseline creatinine 1.2)chronic anemia (baseline hemoglobin 8-9), esophagitis, cancer pain on narcotics, history VRE UTI. Recent [facility] confinement October 02 to 2022 for acute renal failure secondary to malfunctioning nephrostomy tube, tumor lysis syndrome. Patient RTC narcotics at home held due to confusion. Other issues during confinement included upper GI bleed, RLE DVT, complicated UTI. EGD showed esophagitis without bleeding and diffuse severe erosions to lower and mid esophagus. PPI and Carafate recommended. IV heparin initiated during confinement after GI clearance. Patient transferred to [facility] for IR guided bilateral nephrostomy catheter exchange. [facility] confinement from October 02 to 2022. Kidney function normalized on discharge after nephrostomy catheter exchange and IV rasburicase administration for TLS. Patient completed IV ceftriaxone course as per [facility] ID recommendation for alpha strep UTI growth from [facility] confinement. IV heparin initiated at [facility] transition to Lovenox Coumadin due to Eliquis not being covered by insurance. Patient also found to have severe vitamin D deficiency for which calcium D supplementation was recommended. Patient requested to transfer back to [facility] from [facility] yesterday to complete care. Patient to transfer pending transport availability. Platelets noted to be 105 yesterday. Concerns for heparin-induced thrombocytopenia discussed with patient's [place] oncology team who recommended holding Lovenox, HIT test, and utilizing Arixtra until HIT test results out. Heparin platelet factor 4 antibody with reflex to serotonin release assay pending at time of dictation. Follow-up CBC, CMP, mag, uric acid, ionized calcium, Phos, LD and CK recommended as per discharge summary. 10/07 [facility] lab results Hemoglobin 8.6, hematocrit 28, WBC 2.6, platelets 71 Serum sodium 141, potassium 3.6, chloride 110, CO2 20, anion gap 11, glucose 102 BUN 27, creatinine 1.2, uric acid 1.5, serum LDH 1263 Patient currently comfortable upon direct admission to floor. Patient denies chest pain, unusual SOB, headache, unusual belly pain, black, bloody stools. 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 Allergies Allergy/AdvReac Type Severity Reaction Status Date / Time Sulfa (Sulfonamide Allergy Severe Swelling Verified 10/06/22 22:11 Antibiotics) of Lip/Tongue/Throat heparin Allergy Intermediate poss HIT Verified 10/07/22 20:29 Home Medications Medication Instructions Recorded Confirmed Type folic acid 1 mg tablet 1 mg PO DAILY 09/25/22 10/06/22 History oxycodone 5 mg tablet 5 mg PO TID 30 days #120 tabs 09/25/22 10/06/22 Rx olanzapine 2.5 mg tablet (Zyprexa) 2.5 mg PO HS 10/02/22 10/06/22 History ondansetron HCl 4 mg tablet 4 mg PO Q6H PRN Nausea And Vomiting 10/02/22 10/06/22 History allopurinol 100 mg tablet 300 mg PO QAM 10/06/22 10/06/22 History amlodipine 2.5 mg tablet 2.5 mg PO DAILY 10/06/22 10/06/22 History calcium carbonate 300 mg (750 mg) 600 mg PO BID 10/06/22 10/06/22 History chewable tablet ergocalciferol (vitamin D2) 1,250 1,250 mcg PO WK 10/06/22 10/06/22 History mcg (50,000 unit) capsule (Vitamin D2) hydrocodone 5 mg-acetaminophen 325 1 tab PO Q6H PRN Pain 10/06/22 10/06/22 History mg tablet ondansetron HCl 8 mg tablet 8 mg PO Q8H PRN NAUSEA/VOMITING 10/06/22 10/06/22 History prochlorperazine maleate 10 mg 10 mg PO Q6H PRN NAUSEA/VOMITING 10/06/22 10/06/22 History tablet Past Med/Surg History Medical History (Updated 10/04/22 @ 15:56 by Cristian Denson MD) Advanced care planning/counseling discussion Anxiety Cancer related pain DVT (deep venous thrombosis) Insomnia Nausea Neuroendocrine cancer No significant medical problems Palliative care by specialist Surgical History (Updated 10/03/22 @ 13:44 by Randy Camarena MD) H/O cervical biopsy Social History Smoking Status: Never smoker Do You Dip or Chew Tobacco: No; Tobacco Cessation Education Requested by Patient: No Hx Alcohol Use: No Hx Substance Use: No Preferred Language: Citizen Of [place] Communication Ability: Effective 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 Beliefs That Will Affect Care: None marital status: Current Living Situation: Spouse current occupational status: employed How many Children do You have: 0 Other Information That Helps Us Care for You: No Feels Safe at Home: Yes Safety Concerns: Feels Safe At This Time during the past year weight has: decreased > 10 lbs Assistive Devices: Walker Review of Systems Review of Systems: As per HPI, all other systems reviewed and negative Physical Exam Physical Exam: GENERAL: wane, no respiratory distress SKIN: Pallor, warm HEENT: pale palpebral conjunctivae, no ptosis, dry buccal mucosa NECK : Supple, no tenderness CHEST : Decreased breath sounds, no tenderness HEART : RRR, no obvious murmurs ABDOMEN: distention, no tenderness EXTREMITIES : Bilateral LE swelling, no LE tenderness, no other conspicuous deformities noted NEUROLOGIC : Coherent, no facial asymmetry, gait and stance not assessed Results & Data Results & Data Vital Signs (Past 12 Hours) Vital Signs Temp Pulse Resp BP Pulse Ox O2 Del Method 10/07/22 19:30 36.3 C L 80 20 161/83 H 96 Room Air Code Status & VTE Plan VTE Prophylaxis Plan VTE Prophylaxis will be ordered: Yes Reason for no VTE drug order: Treatment not indicated
[2022-10-07] MEDS ORDERED: CALCIUM CARBONATE 500 MG CHEWABLE TAB PO SCH (21:00)
[2022-10-07] MEDS: OLANZAPINE 2.5 MG TAB PO SCH (21:08)
--- NOTE | 2022-10-08 07:43 | Oncology Consultation ---
Date of Consultation October 08, 2022 Assessment & Plan (1) Neuro-endocrine carcinoma: (2) Acute kidney injury: (3) Acute DVT (deep venous thrombosis): (4) Tumor lysis syndrome: Plan -Although her 4 T score is low, I recommend continuing with fondaparinux for now until results of HIT antibody is available -Ideally, she requires Mediport given poor IV access. However, since she has not had labs drawn cannot assess her current platelet count would recommend placement of PICC line. This can also be used for chemotherapy administration. -She will require long-term anticoagulation for malignancy provoked DVT. Discussed options for treatment with patient and her including DOAC or Coumadin. Patient indicated that co-pay for DOAC was is too high and would prefer Coumadin. If she is found to have HIT, would not recommend starting Coumadin until platelet count has normalized. -Given improvement in her clinical symptoms, suspect that she has had some response to the first cycle of treatment. May consider CT A/P prior to discharge Thank you for this consult. We will continue to follow patient while she is in the hospital. Please feel free to call if you have any further questions History of Present Illness Reason for Consultation: Neuroendocrine carcinoma Attending Physician: Sylvester Nieto MD History of Present Illness Ms. 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 She received cycle 1 day 1 of carboplatin/etoposide on 10/01/22 and cycle1, day 2 of etoposide on 10/02/2022. Was subsequently admitted to [facility] with worsening renal function 2/2 TLS and malfunctioning Nephrostomy tube. Labs revealed uric acid level of 19 for which she received rasburicase 6 mg IV. During admission, she was diagnosed with right lower extremity DVT for which she was placed on heparin. Patient was subsequently transferred to [facility] for malfunctioning left nephrostomy tube. While at [facility], nephrostomy tubes were replaced. She was found to have thrombocytopenia c oncerning for HIT for which HIT antibody was ordered and she was placed on Arixtra. Patient was subsequently transferred back to [facility] yesterday. She remains on Arixtra at this time. States that she is doing a lot better. indicates that she has been eating more and is having regular bowel movements. Her veins have been difficult to access and as such labs have not been drawn since transfer to [facility]. Allergies Allergy/AdvReac Type Severity Reaction Status Date / Time Sulfa (Sulfonamide Allergy Severe Swelling Verified 10/06/22 22:11 Antibiotics) of Lip/Tongue/Throat heparin Allergy Intermediate poss HIT Verified 10/07/22 20:29 Home Medications Medication Instructions Recorded Confirmed Type folic acid 1 mg tablet 1 mg PO DAILY 09/25/22 10/06/22 History oxycodone 5 mg tablet 5 mg PO TID 30 days #120 tabs 09/25/22 10/06/22 Rx olanzapine 2.5 mg tablet (Zyprexa) 2.5 mg PO HS 10/02/22 10/06/22 History ondansetron HCl 4 mg tablet 4 mg PO Q6H PRN Nausea And Vomiting 10/02/22 10/06/22 History allopurinol 100 mg tablet 300 mg PO QAM 10/06/22 10/06/22 History amlodipine 2.5 mg tablet 2.5 mg PO DAILY 10/06/22 10/06/22 History calcium carbonate 300 mg (750 mg) 600 mg PO BID 10/06/22 10/06/22 History chewable tablet ergocalciferol (vitamin D2) 1,250 1,250 mcg PO WK 10/06/22 10/06/22 History mcg (50,000 unit) capsule (Vitamin D2) hydrocodone 5 mg-acetaminophen 325 1 tab PO Q6H PRN Pain 10/06/22 10/06/22 History mg tablet ondansetron HCl 8 mg tablet 8 mg PO Q8H PRN NAUSEA/VOMITING 10/06/22 10/06/22 History prochlorperazine maleate 10 mg 10 mg PO Q6H PRN NAUSEA/VOMITING 10/06/22 10/06/22 History tablet Patient History Medical History Advanced care planning/counseling discussion Anxiety Cancer related pain DVT (deep venous thrombosis) Insomnia Nausea Neuroendocrine cancer No significant medical problems Palliative care by specialist Surgical History H/O cervical biopsy Social History Smoking Status: Never smoker Do You Dip or Chew Tobacco: No; Tobacco Cessation Education Requested by Patient: No Hx Alcohol Use: No Hx Substance Use: No Preferred Language: Urdu Communication Ability: Effective Transmission Rebuilder Required: No Beliefs That Will Affect Care: None marital status: Current Living Situation: Spouse current occupational status: employed How many Children do You have: 0 Other Information That Helps Us Care for You: No Feels Safe at Home: Yes Safety Concerns: Feels Safe At This Time during the past year weight has: decreased > 10 lbs Assistive Devices: Walker Results & Data Vital Signs (Past 12 Hours) Vital Signs Temp Pulse Resp BP Pulse Ox O2 Del Method 10/08/22 03:37 36.7 C 86 18 114/66 95 Room Air 10/07/22 22:50 36.5 C 81 18 135/83 100 Room Air
[2022-10-08] MEDS ORDERED: amLODIPine BESYLATE 5 MG TAB PO SCH (09:00)
[2022-10-08] MEDS ORDERED: PANTOprazole 40 MG TAB PO SCH (09:00)
[2022-10-08] MEDS ORDERED: ATENOLOL 25 MG TABLET PO SCH ×2 (09:00)
[2022-10-08] MEDS ORDERED: FONDAPARINUX 7.5 MG/0.6 ML SQ SCH (09:00)
[2022-10-08] MEDS: METOPROLOL TARTRATE 25 MG TAB PO SCH ×2 (09:28→21:16)
[2022-10-08] MEDS: PANTOprazole 40 MG TAB PO SCH ×2 (09:28→21:17)
[2022-10-08] MEDS: SUCRALFATE 1 GM TAB PO SCH ×3 (09:28→21:15)
[2022-10-08] MEDS: allopurinoL 300 MG TAB PO SCH (09:29)
[2022-10-08] MEDS: DOCUSATE SODIUM/SENNA 50/8.6MG TAB PO SCH (09:29)
[2022-10-08] MEDS: FOLIC ACID 1 MG TAB PO SCH (09:30)
--- NOTE | 2022-10-08 14:38 | Hospitalist Progress Note ---
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 Started on chemotherapy with C1 D1 of carboplatin/etoposide on October 01. On day 3 of the cycle(October 02), patient was admitted here. Here here from 10/02 to 10/04 secondary to altered mental status, LOLIS, concern for tumor lysis syndrome, anemia and acute DVT. Found to have extensive DVT of right lower extremity Also, found to have acute kidney injury with malfunction of left nephrostomy tube. Concern for TLS; received rasburicase. Also, found to have UTI, alpha streptococcus. She was transferred to [facility] on 10/04 for IR evaluation for malfunctioning nephrostomy tube. 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 HIT panel is pending She was transferred back here in [facility] on 10/06. Labs reviewed from [facility] on 10/07: Hemoglobin 8.6, hematocrit 28, WBC 2.6, platelets 71 Serum sodium 141, potassium 3.6, chloride 110, CO2 20, anion gap 11, glucose 102 BUN 27, creatinine 1.2, uric acid 1.5, serum LDH 1263 Plan; - Patient has poor vascular access; unable to obtain lab work. Multiple discussion done with Oncology, surgery regarding possible port placement today. Plan to get PICC line placed for the time being given her thrombocytopenia and need for anticoagulation. Patient wanted more information regarding PICC line placement procedure. Discussed with IV team. Also, pamphlet provided regarding information about PICC line. If patient gives consent; will have PICC line placed today. -If HIT panel is negative; plan to switch over to heparin drip and have port placed inpatient later in the hospitalization if patient is agreeable. For the time being, continue on fondaparinux. -Last dose of ceftriaxone today for UTI. -Palliative consult done earlier in the hospitalization; remains full code. Pain controlled with current medication. -Avoid nephrotoxic agent. Monitor labs for tumor lysis syndrome. Continue allopurinol 300 mg once daily. -Continue Protonix and sucralfate for esophagitis. Patient had undergone endoscopy on 10/03. DVT prophylaxis fondaparinux Full code Time spent evaluating patient, direct bedside care, chart review, placing orders, interpretation of diagnostic studies, discussion with consultants, patient, and family members, as well as other required patient management activities is 90 minutes. Please note the above document was generated using voice recognition software. It may contain grammatical, syntax or spelling errors. Any formal questions or concerns about the content, text or information contained within the body of this dictation should be directly addressed to the provider for clarification Admission and Anticipated Discharge Date Admission Date: October 07, 2022 Subjective Patient seen multiple times during the day. Patient reports that she is feeling better; denies fever, chills, chest pain or shortness of breath. Review of Systems Review of Systems: All systems reviewed & are unremarkable except as noted in Subjective Physical Exam Physical Exam: General: Lying comfortably in bed, not in distress, on room air HEENT: EOMI, SEBASTIAN, MMM Chest: Fair breath sounds anteriorly CVS: Regular rate and rhythm, normal heart sounds, no murmur Abdomen: Soft, non tender, not distended, normal bowel sounds Neuro: Awake, alert, oriented, conversing ok, non focal Extremities: No cyanosis, clubbing. Edema + in bilateral lower extremity. : Bilateral nephrostomy in place draining clear urine. Psych:Low mood Results & Data Results & Data Vital Signs (Past 12 Hours) Vital Signs Temp Pulse Pulse Resp BP Pulse Ox O2 Del Method 10/08/22 08:00 78 10/08/22 10:20 36.8 C 81 16 148/79 H 99 Room Air 10/08/22 10:17 83 10/08/22 08:00 36.6 C 75 18 129/63 97 Room Air 10/08/22 03:37 36.7 C 86 18 114/66 95 Room Air
--- NOTE | 2022-10-08 14:55 | Surgery Consultation ---
This patient was seen by me on the day of the consult. She had questions regarding the PICC line which I answered and referred her to discuss further details about how her particular procedure would be done to the PICC service performing the procedure. 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 During her hospitalization she required transfer to [facility] for replacement of bilateral perc nephrostomy tubes. She returned to [facility] today and we have been asked to consider port placement during her hospitalization per patient request. Per chart review she was seen by Dr. Harris in the office on 09/30/22 with the port then scheduled as an outpatient for 10/16. While she was at [facility] she was noted to have thrombocytopenia and concern for JOLLY given she was on anticoagulation for her DVT. She has since been switched to Arixtra while awaiting JOLLY labs. After discussions with hospitalist and oncology patient would likely benefit from a PICC line to be placed while she is undergoing investigation for JOLLY and on Arixtra for active DVT. If JOLLY labs return negative she may be able to transition to heparin and can consider port placement at that time. Otherwise she may follow up next week as previously scheduled with Dr. Harris for outpatient port procedure(will need to have plan for anticoagulation in the cosme-op period outlined). No plans for insertion of port today, hospitalist obtaining picc line consent in time being. She has no current labs to review at this time as she is awaiting line placement for blood work to be drawn. 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 During her hospitalization she required transfer to [facility] for replacement of bilateral perc nephrostomy tubes. She returned to [facility] today. We have been asked to consider port placement during her hospitalization per patient request. Per chart review she was seen by Dr. Harris in the office on 09/30/22 with the port then scheduled as an outpatient for 10/16. While she was at [facility] she was noted to have thrombocytopenia and concern for JOLLY given she was on anticoagulation for her DVT. She has since been switched to Arixtra while awaiting JOLLY labs. She has recently started chemo after her + cancer diagnosis, hence the reasoning for her upcoming port placement. During my interview patient was adamant about speaking with a surgeon regarding any decision making regarding timing of port placement. Allergies Allergy/AdvReac Type Severity Reaction Status Date / Time Sulfa (Sulfonamide Allergy Severe Swelling Verified 10/06/22 22:11 Antibiotics) of Lip/Tongue/Throat heparin Allergy Intermediate poss HIT Verified 10/07/22 20:29 Home Medications Medication Instructions Recorded Confirmed Type folic acid 1 mg tablet 1 mg PO DAILY 09/25/22 10/06/22 History oxycodone 5 mg tablet 5 mg PO TID 30 days #120 tabs 09/25/22 10/06/22 Rx olanzapine 2.5 mg tablet (Zyprexa) 2.5 mg PO HS 10/02/22 10/06/22 History ondansetron HCl 4 mg tablet 4 mg PO Q6H PRN Nausea And Vomiting 10/02/22 10/06/22 History allopurinol 100 mg tablet 300 mg PO QAM 10/06/22 10/06/22 History amlodipine 2.5 mg tablet 2.5 mg PO DAILY 10/06/22 10/06/22 History calcium carbonate 300 mg (750 mg) 600 mg PO BID 10/06/22 10/06/22 History chewable tablet ergocalciferol (vitamin D2) 1,250 1,250 mcg PO WK 10/06/22 10/06/22 History mcg (50,000 unit) capsule (Vitamin D2) hydrocodone 5 mg-acetaminophen 325 1 tab PO Q6H PRN Pain 10/06/22 10/06/22 History mg tablet ondansetron HCl 8 mg tablet 8 mg PO Q8H PRN NAUSEA/VOMITING 10/06/22 10/06/22 History prochlorperazine maleate 10 mg 10 mg PO Q6H PRN NAUSEA/VOMITING 10/06/22 10/06/22 History tablet Patient History Medical History Advanced care planning/counseling discussion Anxiety Cancer related pain DVT (deep venous thrombosis) Insomnia Nausea Neuroendocrine cancer No significant medical problems Palliative care by specialist Surgical History H/O cervical biopsy Social History Smoking Status: Never smoker Do You Dip or Chew Tobacco: No; Tobacco Cessation Education Requested by Patient: No Hx Alcohol Use: No Hx Substance Use: No Preferred Language: Faroese Communication Ability: Effective Contact Person Required: No Beliefs That Will Affect Care: None marital status: Current Living Situation: Spouse current occupational status: employed How many Children do You have: 0 Other Information That Helps Us Care for You: No Feels Safe at Home: Yes Safety Concerns: Feels Safe At This Time during the past year weight has: decreased > 10 lbs Assistive Devices: Walker Physical Exam Physical Exam: awake/alert Constitutional: agitated during interview, demanding to speak with surgeon Respiratory: normal respiratory effort Results & Data Vital Signs (Past 12 Hours) Vital Signs Temp Pulse Pulse Resp BP Pulse Ox O2 Del Method 10/08/22 08:00 78 10/08/22 10:20 36.8 C 81 16 148/79 H 99 Room Air 10/08/22 10:17 83 10/08/22 08:00 36.6 C 75 18 129/63 97 Room Air 10/08/22 03:37 36.7 C 86 18 114/66 95 Room Air PG Care Time/CCT Total # of Minutes Spent Total Time Spent with Patient: Total time spent is greater than 50% in coordination of care (as documented) at patient's floor/unit and/or counseling patient: Coding Level of Care Code 45448 INT INP/OBS CARE 1/40MIN Diagnoses Neuroendocrine cancer C7A.8
[2022-10-08 19:38] LABS: Anion Gap 6 (3-11); BUN Creatinine Ratio 29.2 (10-20); Blood Urea Nitrogen 21 mg/dl (6-23); Calcium 7.7 mg/dl (8.6-10.3); Carbon Dioxide 22 mmol/L (21-32); Chloride 112 mmol/L (98-107); Creatinine Clr Calc Pharmacy 74.4 ml/min; Est GFR (African American) 100.4 ml/min; Est GFR (Non-African American) 86.7 ml/min; Glucose 116 mg/dl (70-99(Fasting)); Potassium 3.7 mmol/L (3.5-5.1); Sodium 140 mmol/L (136-145)
[2022-10-08 19:40] LABS: Alanine Aminotransferase 8 U/L (7-52); Albumin Level 2.6 gm/dl (3.4-5.0); Alkaline Phosphatase 193 U/L (34-104); Aspartate Aminotransferase 12 U/L (13-39); Bilirubin,Total 0.3 mg/dl (0.2-1.0); Creatine Kinase 47 U/L (26-192); Globulin 2.6 gm/dl (2.5-4.0); Magnesium 1.4 mg/dl (1.7-2.4); Phosphorus 1.5 mg/dl (2.5-4.9); Total Protein 5.2 gm/dl (6.0-8.3); Uric Acid < 1.5 mg/dl (2.6-7.2)
[2022-10-08 19:49] LABS: INR 1.2 (0.9-1.1)
[2022-10-08 19:56] LABS: Hemoglobin 7.2 g/dl (12.0-16.0); Mean Corpuscular Hemoglobin 26.7 pg (25.0-34.0); Mean Corpuscular Hgb Conc 31.3 g/dL (32.0-36.0); Mean Corpuscular Volume 85.2 fL (80.0-100.0); Mean Platelet Volume 10.1 fL (9.4-12.4); Platelet Count 74 K/uL (130-400); RDW Coefficient of Variation 17.8 % (11.5-14.5); RDW Standard Deviation 55.3 fL (36.4-46.3); White Blood Count 0.65 K/ul (4.8-10.8)
[2022-10-08 19:57] LABS: Eosinophils # (auto) 0.02 K/uL (0-0.50); Eosinophils % (auto) 3.1 %; Immature Granulocytes # (auto) 0.01 K/uL (0.01-0.20); Immature Granulocytes % (auto) 1.5 %; Lymphocytes % (auto) 61.5 %; Monocytes # (auto) 0.01 K/uL (0.11-0.59); Monocytes % (auto) 1.5 %; Neutrophils # (auto) 0.21 K/uL (1.40-6.50); Neutrophils % (auto) 32.4 %; Platelet Estimate Decreased (Normal)
[2022-10-08] MEDS ORDERED: POTASSIUM PHOS 3 MMOL/1 ML INFUSION IV STA (20:00)
[2022-10-08] MEDS ORDERED: POTASSIUM PHOSPHATE 24 MMOL in SODIUM CHLORIDE 0.9% 500 ML IV ONE (20:15)
[2022-10-08] MEDS ORDERED: lisinopril 2.5 MG TAB PO SCH (21:00)
[2022-10-08] MEDS: MAGNESIUM SULFATE / D5W 1 GM/100 ML BAG IV SCH ×2 (21:07→23:31)
[2022-10-08] MEDS: OLANZAPINE 2.5 MG TAB PO SCH (21:17)
[2022-10-09] MEDS: PROMETHAZINE HCL 6.25 MG in SODIUM CHLORIDE 0.9% 50 ML IV PRN ×2 (02:48→17:33)
[2022-10-09] MEDS ORDERED: PROCHLORPERAZINE 5 MG in SYRINGE 4 ML IV ONE (06:15)
[2022-10-09] MEDS: DOCUSATE SODIUM/SENNA 50/8.6MG TAB PO SCH (07:43)
[2022-10-09] MEDS ORDERED: POTASSIUM PHOS 3 MMOL/1 ML INFUSION IV STA (07:55)
[2022-10-09] MEDS ORDERED: POTASSIUM PHOSPHATE 40 MMOL in SODIUM CHLORIDE 0.9% 1000ML 1,000 ML IV ONE (08:00)
[2022-10-09] MEDS: Heparin IV Adult Wt-Based Standard *NO* Bolus Protocol IV SCH ×2 (08:54→09:02)
[2022-10-09] MEDS ORDERED: ENOXAPARIN 1 MG/KG SQ SCH (09:15)
[2022-10-09] MEDS ORDERED: HEPARIN SODIUM/DEXTROSE 25,000 UNITS/500 ML BAG IV SCH (09:15)
[2022-10-09 09:33] LABS: Hematocrit (blood only) 24.3 % (37.0-47.0); Hemoglobin 7.5 g/dl (12.0-16.0); Mean Corpuscular Hgb Conc 30.9 g/dL (32.0-36.0); Mean Corpuscular Volume 84.1 fL (80.0-100.0); Mean Platelet Volume 8.9 fL (9.4-12.4); Platelet Count 72 K/uL (130-400); RDW Coefficient of Variation 17.8 % (11.5-14.5); RDW Standard Deviation 54.8 fL (36.4-46.3); Red Blood Count 2.89 M/uL (4.20-5.40); White Blood Count 0.52 K/ul (4.8-10.8)
[2022-10-09 09:35] LABS: Eosinophils # (auto) 0.01 K/uL (0-0.50); Eosinophils % (auto) 1.9 %; Immature Granulocytes # (auto) 0.01 K/uL (0.01-0.20); Immature Granulocytes % (auto) 1.9 %; Lymphocytes # (auto) 0.44 K/uL (1.2-3.4); Lymphocytes % (auto) 84.6 %; Monocytes # (auto) 0.01 K/uL (0.11-0.59); Monocytes % (auto) 1.9 %; Neutrophils # (auto) 0.05 K/uL (1.40-6.50); Neutrophils % (auto) 9.7 %; Platelet Estimate Decreased (Normal); RBC Morphology Unremarkable
[2022-10-09] MEDS: ONDANSETRON INJ 2 MG/ML 2 ML VIAL IV PRN ×2 (09:39→17:02)
[2022-10-09 09:54] LABS: Calcium 7.6 mg/dl (8.6-10.3); Potassium 3.8 mmol/L (3.5-5.1)
[2022-10-09 10:00] LABS: BUN Creatinine Ratio 28.3 (10-20); Creatinine Clr Calc Pharmacy 89.7 ml/min; Est GFR (African American) 109.3 ml/min; Est GFR (Non-African American) 94.3 ml/min; Phosphorus 2.4 mg/dl (2.5-4.9)
[2022-10-09] MEDS: METOPROLOL TARTRATE 25 MG TAB PO SCH ×2 (10:39→22:11)
[2022-10-09] MEDS: SUCRALFATE 1 GM TAB PO SCH (10:40)
[2022-10-09] MEDS: PANTOprazole 40 MG TAB PO SCH ×2 (10:40→22:11)
[2022-10-09] MEDS: ENOXAPARIN 80 MG/0.8 ML SYR SQ SCH ×2 (10:41→22:13)
[2022-10-09] MEDS: allopurinoL 300 MG TAB PO SCH (10:41)
[2022-10-09] MEDS: FOLIC ACID 1 MG TAB PO SCH (10:41)
[2022-10-09] MEDS ORDERED: Nursing to Pharmacy Communication SCH (12:00)
--- NOTE | 2022-10-09 14:19 | Hospitalist Progress Note ---
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 Started on chemotherapy with C1 D1 of carboplatin/etoposide on October 01. On day 3 of the cycle(October 02), patient presented here. Admitted here from 10/02 to 10/04 secondary to altered mental status, LOLIS, concern for tumor lysis syndrome, anemia and acute DVT. Found to have extensive DVT of right lower extremity Also, found to have acute kidney injury with malfunction of left nephrostomy tube. Concern for TLS; received rasburicase. Also, found to have UTI, alpha streptococcus. She was transferred to [facility] on 10/04 for IR evaluation for malfunctioning nephrostomy tube. 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 She was transferred back here in [facility] on 10/06. Labs reviewed; HIT panel negative CBC reveals pancytopenia with ANC of 50. Platelet counts of 72 LOLIS resolved Plan; -As HIT panel is negative; patient is started on Lovenox therapeutic dose with first dose of warfarin today. Discussed with oncology. Follow-up on PT/INR tomorrow AM. Patient received Neupogen as per oncology today. -Completed antibiotic course for UTI. -Palliative consult done earlier in the hospitalization; remains full code. Pain controlled with current medication. -Avoid nephrotoxic agent. Monitor labs for tumor lysis syndrome. Continue allopurinol 300 mg once daily. -Continue Protonix and sucralfate for esophagitis. Patient had undergone endoscopy on 10/03. DVT prophylaxis Lovenox Full code Discussed with at bedside Time spent evaluating patient, direct bedside care, chart review, placing orders, interpretation of diagnostic studies, discussion with consultants, patient, and family members, as well as other required patient management activities is 60 minutes. Please note the above document was generated using voice recognition software. It may contain grammatical, syntax or spelling errors. Any formal questions or concerns about the content, text or information contained within the body of this dictation should be directly addressed to the provider for clarification Admission and Anticipated Discharge Date Admission Date: October 07, 2022 Subjective Patient seen multiple times during the day. She is sitting on the side of the bed complaining of nausea. No overnight events. Review of Systems Review of Systems: All systems reviewed & are unremarkable except as noted in Subjective Physical Exam Physical Exam: General: Lying comfortably in bed, not in distress, on room air HEENT: EOMI, SEBASTIAN, MMM Chest: Fair breath sounds anteriorly CVS: Regular rate and rhythm, normal heart sounds, no murmur Abdomen: Soft, non tender, not distended, normal bowel sounds Neuro: Awake, alert, oriented, conversing ok, non focal Extremities: No cyanosis, clubbing. Edema + in bilateral lower extremity. : Bilateral nephrostomy in place draining clear urine. Psych:Low mood Results & Data Results & Data Vital Signs (Past 12 Hours) Vital Signs Temp Pulse Pulse Resp BP Pulse Ox O2 Del Method 10/09/22 11:49 36.5 C 86 18 143/77 H 100 Room Air 10/09/22 07:40 Room Air 10/09/22 06:05 85 10/09/22 08:29 Room Air 10/09/22 07:52 36.9 C 88 18 115/69 96 Room Air 10/09/22 04:00 36.7 C 79 18 126/69 95 Room Air Laboratory Results Laboratory Results WBC 0.52 K/ul (4.8-10.8) L* 10/09/22 08:18 RBC 2.89 M/uL (4.20-5.40) L 10/09/22 08:18 Hgb 7.5 g/dl (12.0-16.0) L 10/09/22 08:18 Hct 24.3 % (37.0-47.0) L 10/09/22 08:18 MCV 84.1 fL (80.0-100.0) 10/09/22 08:18 MCH 26.0 pg (25.0-34.0) 10/09/22 08:18 MCHC 30.9 g/dL (32.0-36.0) L 10/09/22 08:18 RDW Std Deviation 54.8 fL (36.4-46.3) H 10/09/22 08:18 RDW Coeff of Claude 17.8 % (11.5-14.5) H 10/09/22 08:18 Plt Count 72 K/uL (130-400) L 10/09/22 08:18 MPV 8.9 fL (9.4-12.4) L 10/09/22 08:18 Immature Gran % (Auto) 1.9 % 10/09/22 08:18 Neut % (Auto) 9.7 % 10/09/22 08:18 Lymph % (Auto) 84.6 % 10/09/22 08:18 [place] % (Auto) 1.9 % 10/09/22 08:18 Eos % (Auto) 1.9 % 10/09/22 08:18 Baso % (Auto) 0.0 % 10/09/22 08:18 Neut # (Auto) 0.05 K/uL (1.40-6.50) L* 10/09/22 08:18 Lymph # (Auto) 0.44 K/uL (1.2-3.4) L 10/09/22 08:18 [place] # (Auto) 0.01 K/uL (0.11-0.59) L 10/09/22 08:18 Eos # (Auto) 0.01 K/uL (0-0.50) 10/09/22 08:18 Baso # (Auto) 0.00 K/uL (0-0.2) 10/09/22 08:18 Immature Gran # (Auto) 0.01 K/uL (0.01-0.20) 10/09/22 08:18 Platelet Estimate Decreased (Normal) L 10/09/22 08:18 RBC Morphology Unremarkable 10/09/22 08:18 PT 13.0 Seconds (9.0-12.0) H 10/08/22 18:53 INR 1.2 (0.9-1.1) H 10/08/22 18:53 Sodium 140 mmol/L (136-145) 10/09/22 08:18 Potassium 3.8 mmol/L (3.5-5.1) 10/09/22 08:18 Chloride 111 mmol/L (98-107) H 10/09/22 08:18 Carbon Dioxide 23 mmol/L (21-32) 10/09/22 08:18 Anion Gap 6 (3-11) 10/09/22 08:18 BUN 17 mg/dl (6-23) 10/09/22 08:18 Creatinine 0.60 mg/dl (0.6-1.2) 10/09/22 08:18 Est Cr Clr Drug Dosing 89.7 ml/min 10/09/22 08:18 Est GFR ( Amer) 109.3 ml/min 10/09/22 08:18 Est GFR (Non-Af Amer) 94.3 ml/min 10/09/22 08:18 BUN/Creatinine Ratio 28.3 (10-20) H 10/09/22 08:18 Glucose 104 mg/dl (70-99(Fasting)) H 10/09/22 08:18 Uric Acid < 1.5 mg/dl (2.6-7.2) L 10/08/22 18:54 Calcium 7.6 mg/dl (8.6-10.3) L 10/09/22 08:18 Ionized Calcium 1.18 mmol/L (1.12-1.32) 10/08/22 18:54 Phosphorus 2.4 mg/dl (2.5-4.9) L 10/09/22 08:18 Magnesium 1.4 mg/dl (1.7-2.4) L 10/08/22 18:54 Total Bilirubin 0.3 mg/dl (0.2-1.0) 10/08/22 18:54 AST 12 U/L (13-39) L 10/08/22 18:54 ALT 8 U/L (7-52) 10/08/22 18:54 Alkaline Phosphatase 193 U/L (34-104) H 10/08/22 18:54 Lactate Dehydrogenase 746 U/L (86-244) H 10/08/22 18:54 Total Creatine Kinase 41 U/L (26-192) 10/09/22 08:18 Total Protein 5.2 gm/dl (6.0-8.3) L 10/08/22 18:54 Albumin 2.6 gm/dl (3.4-5.0) L 10/08/22 18:54 Globulin 2.6 gm/dl (2.5-4.0) 10/08/22 18:54 Albumin/Globulin Ratio 1.0 (0.9-2) 10/08/22 18:54 Blood Type A Positive 10/08/22 18:54 Antibody Screen NEGATIVE 10/08/22 18:54
[2022-10-09] MEDS: SUCRALFATE 1 GM/10 ML UDC PO SCH ×2 (14:45→22:14)
[2022-10-09] MEDS: FILGRASTIM 480 MCG/1.6 ML VIAL SC SCH (14:46)
--- NOTE | 2022-10-09 15:45 | Hematology/Oncology Prog Note ---
Date of Service October 09, 2022 Assessment & Plan (1) Thrombocytopenia: (2) Chemotherapy induced neutropenia: (3) Anemia: (4) Acute DVT (deep venous thrombosis): Plan -Recommend filgrastim 40 mcg SC daily x3 days for chemotherapy-induced neutropenia -Thrombocytopenia most likely due to chemotherapy. Since HIT antibody is negative, can start weight-based therapeutic Lovenox plus Coumadin.Continue with Lovenox until INR is within therapeutic range of 2 to 3 x 2 days -Transfuse with PRBC for hemoglobin less than 7 -Daily monitoring of CBC, CMP, Phos, Mag, uric acid and coags Admission and Anticipated Discharge Date Admission Date: October 07, 2022 Subjective - HIT antibodies negative -Labs show pancytopenia likely chemotherapy-induced Results & Data Vital Signs (Past 12 Hours) Vital Signs Temp Pulse Pulse Resp BP Pulse Ox O2 Del Method 10/09/22 14:00 80 10/09/22 11:49 36.5 C 86 18 143/77 H 100 Room Air 10/09/22 07:40 Room Air 10/09/22 06:05 85 10/09/22 08:29 Room Air 10/09/22 07:52 36.9 C 88 18 115/69 96 Room Air 10/09/22 04:00 36.7 C 79 18 126/69 95 Room Air
[2022-10-09] MEDS ORDERED: WARFARIN SOD 5 MG TAB PO SCH (16:00)
--- NOTE | 2022-10-09 21:48 | Surgery Progress Note ---
Date of Service October 09, 2022 Assessment & Plan (1) Chemotherapy induced neutropenia: (2) Acute DVT (deep venous thrombosis): Plan: Patient is s/p PICC insertion yesterday. Neutropenia and extensive acute DVT. No port recommended at this time if the patient is able to receive necessary treatments and blood draws via PICC. Recommended to hold off on port insertion at this time and re-visit in 2-3 months if a port is still preferred at that time. This case was discussed with Dr. Harris with whom she was scheduled to have a port inserted next week. Follow up with Dr. Harris in the office in 6-8 weeks or sooner if her medical oncologist determines they need the port inserted sooner or her PICC fails. Re-consult surgery as needed. Admission and Anticipated Discharge Date Admission Date: October 07, 2022 Subjective The patient was seen this am. She offers no complaints. Physical Exam Constitutional: healthy appearing; no acute distress, not ill appearing and not disheveled Respiratory: normal respiratory effort; no respiratory distress, no labored breathing and does not use accessory muscles Results & Data Vital Signs (Past 12 Hours) Vital Signs Temp Pulse Pulse Resp BP Pulse Ox O2 Del Method 10/09/22 11:49 36.5 C 86 18 143/77 H 100 Room Air 10/09/22 07:40 Room Air 10/09/22 06:05 85 10/09/22 08:29 Room Air 10/09/22 07:52 36.9 C 88 18 115/69 96 Room Air 10/09/22 04:00 36.7 C 79 18 126/69 95 Room Air PG Care Time/CCT Total # of Minutes Spent Total Time Spent with Patient: Total time spent is greater than 50% in coordination of care (as documented) at patient's floor/unit and/or counseling patient: Coding Level of Care Code 02429 SUB INP/OBS CARE 25MIN Diagnoses Chemotherapy induced neutropenia D70.1; T45.1X5A Acute DVT (deep venous thrombosis) I82.409
[2022-10-09] MEDS: OLANZAPINE 2.5 MG TAB PO SCH (22:11)
[2022-10-10] MEDS: FOLIC ACID 1 MG TAB PO SCH (09:29)
[2022-10-10] MEDS: ENOXAPARIN 80 MG/0.8 ML SYR SQ SCH ×2 (09:29→22:56)
[2022-10-10] MEDS: allopurinoL 300 MG TAB PO SCH (09:29)
[2022-10-10] MEDS: METOPROLOL TARTRATE 25 MG TAB PO SCH ×2 (09:30→23:26)
[2022-10-10] MEDS: PANTOprazole 40 MG TAB PO SCH ×2 (09:30→23:28)
[2022-10-10] MEDS: SUCRALFATE 1 GM/10 ML UDC PO SCH ×3 (09:31→23:29)
[2022-10-10] MEDS: FILGRASTIM 480 MCG/1.6 ML VIAL SC SCH (10:20)
[2022-10-10] MEDS: DOCUSATE SODIUM/SENNA 50/8.6MG TAB PO SCH (10:20)
[2022-10-10 10:54] LABS: White Blood Count 0.38 K/ul (4.8-10.8)
[2022-10-10] MEDS: oxyCODONE HCL IR 5 MG TAB (IMMEDIATE RELEASE) PO PRN (10:55)
[2022-10-10 10:58] LABS: Calcium 7.8 mg/dl (8.6-10.3); Creatinine Clr Calc Pharmacy 89.4 ml/min; Est GFR (African American) 109.3 ml/min; Est GFR (Non-African American) 94.3 ml/min; Magnesium 1.5 mg/dl (1.7-2.4); Phosphorus 1.9 mg/dl (2.5-4.9); Potassium 3.6 mmol/L (3.5-5.1)
[2022-10-10 11:01] LABS: Hematocrit (blood only) 23.3 % (37.0-47.0); Hemoglobin 7.5 g/dl (12.0-16.0); Mean Corpuscular Hemoglobin 27.3 pg (25.0-34.0); Mean Corpuscular Hgb Conc 32.2 g/dL (32.0-36.0); Mean Corpuscular Volume 84.7 fL (80.0-100.0); Mean Platelet Volume 9.7 fL (9.4-12.4); Platelet Count 29 K/uL (130-400); RDW Coefficient of Variation 17.3 % (11.5-14.5); RDW Standard Deviation 53.7 fL (36.4-46.3); Red Blood Count 2.75 M/uL (4.20-5.40)
[2022-10-10 11:03] LABS: Platelet Estimate Decreased (Normal)
[2022-10-10 11:19] LABS: INR 2.2 (0.9-1.1); Prothrombin Time 22.5 Seconds (9.0-12.0)
[2022-10-10] MEDS: ONDANSETRON INJ 2 MG/ML 2 ML VIAL IV PRN (14:21)
--- NOTE | 2022-10-10 15:33 | Hospitalist Progress Note ---
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 Started on chemotherapy with C1 D1 of carboplatin/etoposide on October 01. On day 3 of the cycle(October 02), patient presented here. Admitted here from 10/02 to 10/04 secondary to altered mental status, LOLIS, concern for tumor lysis syndrome, anemia and acute DVT. Found to have extensive DVT of right lower extremity Also, found to have acute kidney injury with malfunction of left nephrostomy tube. Concern for TLS; received rasburicase. Also, found to have UTI, alpha streptococcus. She was [place] [facility] [place] for IR evaluation for malfunctioning nephrostomy tube. 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 She was transferred back here in [facility] on 10/06. Labs reviewed; HIT panel negative CBC reveals pancytopenia Platelet counts of 29,000 LOLIS resolved Plan; -Discussed with oncology. Patient to be given Neupogen again today for pancytopenia. Also, warfarin to be kept on hold; continue on Lovenox. Recommended to transfuse 1 unit of pooled platelets; platelet transfusion ordered. Monitor for febrile neutropenia -Completed antibiotic course for UTI. -Palliative consult done earlier in the hospitalization; remains full code. Pain controlled with current medication. -Avoid nephrotoxic agent. Monitor labs for tumor lysis syndrome. Continue allopurinol 300 mg once daily. -Continue Protonix and sucralfate for esophagitis. Patient had undergone endoscopy on 10/03. Pressure ulcer of right medial buttock, stage 3, POA: Dressing as per wound care, DVT prophylaxis Lovenox Full code Discussed with at bedside Time spent evaluating patient, direct bedside care, chart review, placing orders, interpretation of diagnostic studies, discussion with consultants, patient, and family members, as well as other required patient management activities is 60 minutes. Please note the above document was generated using voice recognition software. It may contain grammatical, syntax or spelling errors. Any formal questions or concerns about the content, text or information contained within the body of this dictation should be directly addressed to the provider for clarification Admission and Anticipated Discharge Date Admission Date: October 07, 2022 Subjective Patient seen multiple times during today. She reports ongoing nausea and weakness. Reports increasing bowel movements. Denies any abdominal pain or discomfort. Review of Systems Review of Systems: All systems reviewed & are unremarkable except as noted in Subjective Physical Exam Physical Exam: General: Sitting up on the chair comfortably; not in any distress. HEENT: EOMI, SEBASTIAN, MMM Chest: Fair breath sounds anteriorly CVS: Regular rate and rhythm, normal heart sounds, no murmur Abdomen: Soft, non tender, not distended, normal bowel sounds Neuro: Awake, alert, oriented, conversing ok, non focal Extremities: No cyanosis, clubbing. Edema + in bilateral lower extremity. : Bilateral nephrostomy in place draining clear urine. Psych:Low mood Results & Data Results & Data Vital Signs (Past 12 Hours) Vital Signs Temp Pulse Pulse Pulse Resp BP BP 10/10/22 14:00 36.7 C 79 18 158/76 H 10/10/22 13:18 36.8 C 75 18 153/79 H 10/10/22 12:53 36.5 C 89 18 152/85 H 10/10/22 11:39 36.9 C 89 49 H 166/73 H 10/10/22 08:12 109 H 10/10/22 08:08 36.7 C 91 H 18 145/75 H 10/10/22 04:00 36.8 C 85 18 132/75 Pulse Ox O2 Del Method 10/10/22 14:00 100 Room Air 10/10/22 13:18 98 Room Air 10/10/22 12:53 10/10/22 11:39 98 Room Air 10/10/22 08:12 10/10/22 08:08 99 Room Air 10/10/22 04:00 96 Room Air Laboratory Results Laboratory Results WBC 0.38 K/ul (4.8-10.8) L* 10/10/22 10:20 RBC 2.75 M/uL (4.20-5.40) L 10/10/22 10:20 Hgb 7.5 g/dl (12.0-16.0) L 10/10/22 10:20 Hct 23.3 % (37.0-47.0) L 10/10/22 10:20 MCV 84.7 fL (80.0-100.0) 10/10/22 10:20 MCH 27.3 pg (25.0-34.0) 10/10/22 10:20 MCHC 32.2 g/dL (32.0-36.0) 10/10/22 10:20 RDW Std Deviation 53.7 fL (36.4-46.3) H 10/10/22 10:20 RDW Coeff of Claude 17.3 % (11.5-14.5) H 10/10/22 10:20 Plt Count 29 K/uL (130-400) L* D 10/10/22 10:20 MPV 9.7 fL (9.4-12.4) 10/10/22 10:20 Immature Gran % (Auto) Cancelled 10/10/22 10:20 Neut % (Auto) Cancelled 10/10/22 10:20 Lymph % (Auto) Cancelled 10/10/22 10:20 [place] % (Auto) Cancelled 10/10/22 10:20 Eos % (Auto) Cancelled 10/10/22 10:20 Baso % (Auto) Cancelled 10/10/22 10:20 Neut # (Auto) Cancelled 10/10/22 10:20 Lymph # (Auto) Cancelled 10/10/22 10:20 [place] # (Auto) Cancelled 10/10/22 10:20 Eos # (Auto) Cancelled 10/10/22 10:20 Baso # (Auto) Cancelled 10/10/22 10:20 Immature Gran # (Auto) Cancelled 10/10/22 10:20 Neutrophils % (Manual) Cancelled 10/10/22 10:20 Band Neutrophils % Cancelled 10/10/22 10:20 Lymphocytes % (Manual) Cancelled 10/10/22 10:20 Prolymphocyte % Cancelled 10/10/22 10:20 Reactive Lymphs % (Man) Cancelled 10/10/22 10:20 Monocytes % (Manual) Cancelled 10/10/22 10:20 Eosinophils % (Manual) Cancelled 10/10/22 10:20 Basophils % (Manual) Cancelled 10/10/22 10:20 Metamyelocytes % (Man) Cancelled 10/10/22 10:20 Myelocytes % (Man) Cancelled 10/10/22 10:20 Promyelocytes % (Man) Cancelled 10/10/22 10:20 Blast Cells % (Manual) Cancelled 10/10/22 10:20 Plasma Cell % (Manual) Cancelled 10/10/22 10:20 Other Cells % Cancelled 10/10/22 10:20 Nucleated RBC % Cancelled 10/10/22 10:20 Neutrophils # (Manual) Cancelled 10/10/22 10:20 Band Neutrophils # Cancelled 10/10/22 10:20 Total Absolute Neuts Cancelled 10/10/22 10:20 Lymphocytes # (Manual) Cancelled 10/10/22 10:20 Prolymphocyte # Cancelled 10/10/22 10:20 Reactive Lymphs # Cancelled 10/10/22 10:20 Total Abs Lymphocytes Cancelled 10/10/22 10:20 Monocytes # (Manual) Cancelled 10/10/22 10:20 Eosinophils # (Manual) Cancelled 10/10/22 10:20 Basophils # (Manual) Cancelled 10/10/22 10:20 Metamyelocytes # (Man) Cancelled 10/10/22 10:20 Myelocytes # (Manual) Cancelled 10/10/22 10:20 Promyelocytes # (Man) Cancelled 10/10/22 10:20 Blast Cells # (Man) Cancelled 10/10/22 10:20 Plasma Cell # (Manual) Cancelled 10/10/22 10:20 Other Cells # Cancelled 10/10/22 10:20 Nucleated RBCs # (Man) Cancelled 10/10/22 10:20 Hypersegmented Neuts Cancelled 10/10/22 10:20 Hyposegmented Neuts Cancelled 10/10/22 10:20 Hypogranular Neuts Cancelled 10/10/22 10:20 Large Granular Lymphs Cancelled 10/10/22 10:20 # Lrg Granular Lymphs Cancelled 10/10/22 10:20 Hairy Cells Cancelled 10/10/22 10:20 Smudge Cells Cancelled 10/10/22 10:20 Toxic Granulation Cancelled 10/10/22 10:20 Toxic Vacuolation Cancelled 10/10/22 10:20 Dohle Bodies Cancelled 10/10/22 10:20 Fuentes Rods Cancelled 10/10/22 10:20 Platelet Estimate Decreased (Normal) L 10/10/22 10:20 Hypogranular Platelets Cancelled 10/10/22 10:20 Giant Platelets Cancelled 10/10/22 10:20 Platelet Satelliting Cancelled 10/10/22 10:20 RBC Morphology Cancelled 10/10/22 10:20 Polychromasia Cancelled 10/10/22 10:20 Hypochromasia Cancelled 10/10/22 10:20 Poikilocytosis Cancelled 10/10/22 10:20 Basophilic Stippling Cancelled 10/10/22 10:20 Anisocytosis Cancelled 10/10/22 10:20 Microcytosis Cancelled 10/10/22 10:20 Macrocytosis Cancelled 10/10/22 10:20 Spherocytes Cancelled 10/10/22 10:20 Pappenheimer Bodies Cancelled 10/10/22 10:20 Sickle Cells Cancelled 10/10/22 10:20 Target Cells Cancelled 10/10/22 10:20 Tear Drop Cells Cancelled 10/10/22 10:20 Ovalocytes Cancelled 10/10/22 10:20 Stomatocytes Cancelled 10/10/22 10:[address] Bodies Cancelled 10/10/22 10:20 Echinocytes Cancelled 10/10/22 10:20 Acanthocytes (Spur) Cancelled 10/10/22 10:20 Rouleaux Cancelled 10/10/22 10:20 RBC Agglutinates Cancelled 10/10/22 10:20 Schistocytes Cancelled 10/10/22 10:20 Sezary Cell Cancelled 10/10/22 10:20 PT 22.5 Seconds (9.0-12.0) H 10/10/22 10:20 INR 2.2 (0.9-1.1) H 10/10/22 10:20 Sodium 140 mmol/L (136-145) 10/10/22 10:20 Potassium 3.6 mmol/L (3.5-5.1) 10/10/22 10:20 Chloride 110 mmol/L (98-107) H 10/10/22 10:20 Carbon Dioxide 23 mmol/L (21-32) 10/10/22 10:20 Anion Gap 7 (3-11) 10/10/22 10:20 BUN 15 mg/dl (6-23) 10/10/22 10:20 Creatinine 0.60 mg/dl (0.6-1.2) 10/10/22 10:20 Est Cr Clr Drug Dosing 89.4 ml/min 10/10/22 10:20 Est GFR ( Amer) 109.3 ml/min 10/10/22 10:20 Est GFR (Non-Af Amer) 94.3 ml/min 10/10/22 10:20 BUN/Creatinine Ratio 25.0 (10-20) H 10/10/22 10:20 Glucose 112 mg/dl (70-99(Fasting)) H 10/10/22 10:20 Uric Acid < 1.5 mg/dl (2.6-7.2) L 10/08/22 18:54 Calcium 7.8 mg/dl (8.6-10.3) L 10/10/22 10:20 Ionized Calcium 1.18 mmol/L (1.12-1.32) 10/08/22 18:54 Phosphorus 1.9 mg/dl (2.5-4.9) L 10/10/22 10:20 Magnesium 1.5 mg/dl (1.7-2.4) L 10/10/22 10:20 Total Bilirubin 0.3 mg/dl (0.2-1.0) 10/08/22 18:54 AST 12 U/L (13-39) L 10/08/22 18:54 ALT 8 U/L (7-52) 10/08/22 18:54 Alkaline Phosphatase 193 U/L (34-104) H 10/08/22 18:54 Lactate Dehydrogenase 746 U/L (86-244) H 10/08/22 18:54 Total Creatine Kinase 41 U/L (26-192) 10/09/22 08:18 Total Protein 5.2 gm/dl (6.0-8.3) L 10/08/22 18:54 Albumin 2.6 gm/dl (3.4-5.0) L 10/08/22 18:54 Globulin 2.6 gm/dl (2.5-4.0) 10/08/22 18:54 Albumin/Globulin Ratio 1.0 (0.9-2) 10/08/22 18:54 Blood Parasites ID Cancelled 10/10/22 10:20 Blood Type A Positive 10/08/22 18:54 Antibody Screen NEGATIVE 10/08/22 18:54
[2022-10-10] MEDS: OLANZAPINE 2.5 MG TAB PO SCH (23:27)
[2022-10-11] MEDS: ONDANSETRON INJ 2 MG/ML 2 ML VIAL IV PRN ×2 (03:13→11:09)
[2022-10-11] MEDS: PROMETHAZINE HCL 6.25 MG in SODIUM CHLORIDE 0.9% 50 ML IV PRN (03:46)
[2022-10-11] MEDS ORDERED: PROCHLORPERAZINE 5 MG in SYRINGE 4 ML IV ONE (06:00)
[2022-10-11 07:24] LABS: White Blood Count 0.28 K/ul (4.8-10.8)
[2022-10-11 07:25] LABS: Hematocrit (blood only) 23.9 % (37.0-47.0); Hemoglobin 7.4 g/dl (12.0-16.0); Mean Corpuscular Volume 83.9 fL (80.0-100.0); Mean Platelet Volume 9.9 fL (9.4-12.4); Platelet Count 34 K/uL (130-400); RDW Coefficient of Variation 17.1 % (11.5-14.5); RDW Standard Deviation 51.9 fL (36.4-46.3); Red Blood Count 2.85 M/uL (4.20-5.40)
[2022-10-11 07:34] LABS: Albumin Globulin Ratio 1.1 (0.9-2); Albumin Level 2.9 gm/dl (3.4-5.0); BUN Creatinine Ratio 23.6 (10-20); Bilirubin,Total 0.5 mg/dl (0.2-1.0); Creatinine Clr Calc Pharmacy 96.6 ml/min; Est GFR (African American) 112.5 ml/min; Est GFR (Non-African American) 97.1 ml/min; Globulin 2.7 gm/dl (2.5-4.0); Potassium 3.3 mmol/L (3.5-5.1); Total Protein 5.6 gm/dl (6.0-8.3)
[2022-10-11 07:46] LABS: INR 3.1 (0.9-1.1); Prothrombin Time 31.5 Seconds (9.0-12.0)
--- NOTE | 2022-10-11 08:07 | Hematology/Oncology Prog Note ---
Date of Service October 11, 2022 Assessment & Plan (1) Neuro-endocrine carcinoma: (2) Thrombocytopenia: (3) Chemotherapy induced neutropenia: (4) Tumor lysis syndrome: Plan She has chemotherapy induced pancytopenia in the setting of right acute DVT. Currently in vero period (7-10 days post chemo). Expect counts to improve in next 2-3 days . -Ideally, would like her to remain inpatient until platelet count is above 50,000. However, if she desires discharge today recommend transfusing with another unit of platelets and discharge her on therapeutic lovenox dosing. I will arrange for outpatient labs on Thursday and start her on Coumadin was platelet count is above 50,000. Admission and Anticipated Discharge Date Admission Date: October 07, 2022 Subjective -Received 1 unit of platelets yesterday for platelet count of 29,000 with improvement to 34,000. INR today of 3.1. Coumadin held for thrombocytopenia and remains on lovenox Results & Data Vital Signs (Past 12 Hours) Vital Signs Temp Pulse Pulse Resp BP Pulse Ox O2 Del Method 10/11/22 07:19 36.8 C 103 H 18 154/81 H 95 Room Air 10/11/22 03:05 37 C 114 H 20 166/80 H 96 Room Air 10/10/22 22:00 85 10/10/22 22:53 36.9 C 110 H 18 171/83 H 97 Room Air
[2022-10-11] MEDS: METOPROLOL TARTRATE 25 MG TAB PO SCH ×2 (09:49→20:08)
[2022-10-11] MEDS: FOLIC ACID 1 MG TAB PO SCH (09:49)
[2022-10-11] MEDS: allopurinoL 300 MG TAB PO SCH (09:49)
[2022-10-11] MEDS: DOCUSATE SODIUM/SENNA 50/8.6MG TAB PO SCH (09:49)
[2022-10-11] MEDS: ENOXAPARIN 80 MG/0.8 ML SYR SQ SCH ×2 (09:50→20:07)
[2022-10-11] MEDS: SUCRALFATE 1 GM/10 ML UDC PO SCH ×3 (09:50→21:10)
[2022-10-11] MEDS: PANTOprazole 40 MG TAB PO SCH (09:50)
[2022-10-11] MEDS: PANTOprazole 40 MG in SYRINGE 0 ML IV SCH ×2 (10:48→20:17)
[2022-10-11] MEDS ORDERED: MoRPHine SULFATE 2 MG/ML CARP IV PRN (10:51)
[2022-10-11] MEDS ORDERED: LIDOCAINE VISCOUS 2% 15 ML UDC MT ONE (10:52)
[2022-10-11] MEDS ORDERED: ALUMINUM/MAGNESIUM/SIMETH (MAALOX MAX) 30 ML UDC PO STA (11:07)
[2022-10-11] MEDS: ACETAMINOPHEN 1,000 MG/100 ML VIAL IV SCH ×2 (11:10→20:17)
--- NOTE | 2022-10-11 12:18 | Gastrointestinal Consultation ---
Date of Consultation October 11, 2022 Assessment & Plan (1) Neuro-endocrine carcinoma: (2) Pancytopenia due to chemotherapy: (3) Esophageal dysphagia: Continue Protonix 40 mg IV BID Continue Mylanta and Viscous lidocaine PO as tolerated Recommend switching to alternative narcotic analgesic, as patient is having little relief with morphine Will Check CMV and HSV titers, however she had a normal WBC count at the time of her endoscopy with Dr. Schmitt. Discussed case with Dr. Nieto History of Present Illness Reason for Consultation: Dysphagia Attending Physician: Sylvester Nieto MD History of Present Illness Barbara Pérez is a 67 yo CF with metastatic neuroendocrine carcinoma with chemotherapy induced pancytopenia and tumor lysis syndrome, with additional complaint of dysphagia. She was initially admitted on 10/02/2022 with complaints of weakness and was found to have an acute RLE DVT. [facility] and did undergo an EGD by Dr. Schmitt on 10/03/2022 which showed LA Class D reflux esophagitis. He recommended twice daily PPI therapy. She has also been receiving viscous lidocaine PO and Mylanta, but continues to have significant symptoms. At the time I saw her, she complained of severe chronic pain in her sternal area, which is worsened by swallowing, even her saliva. She states that the viscous lidocaine has helped slightly, but the morphine is not helpful. She states she is having difficulty swallowing liquids, and has not attempted solids over the past few days. She currently denies any fevers, chills, nausea, vomiting, hematemesis, or melena. She has no further complaints. Allergies Allergy/AdvReac Type Severity Reaction Status Date / Time Sulfa (Sulfonamide Allergy Severe Swelling Verified 10/06/22 22:11 Antibiotics) of Lip/Tongue/Throat Home Medications Medication Instructions Recorded Confirmed Type folic acid 1 mg tablet 1 mg PO DAILY 09/25/22 10/06/22 History oxycodone 5 mg tablet 5 mg PO TID 30 days #120 tabs 09/25/22 10/06/22 Rx olanzapine 2.5 mg tablet (Zyprexa) 2.5 mg PO HS 10/02/22 10/06/22 History ondansetron HCl 4 mg tablet 4 mg PO Q6H PRN Nausea And Vomiting 10/02/22 10/06/22 History allopurinol 100 mg tablet 300 mg PO QAM 10/06/22 10/06/22 History amlodipine 2.5 mg tablet 2.5 mg PO DAILY 10/06/22 10/06/22 History calcium carbonate 300 mg (750 mg) 600 mg PO BID 10/06/22 10/06/22 History chewable tablet ergocalciferol (vitamin D2) 1,250 1,250 mcg PO WK 10/06/22 10/06/22 History mcg (50,000 unit) capsule (Vitamin D2) hydrocodone 5 mg-acetaminophen 325 1 tab PO Q6H PRN Pain 10/06/22 10/06/22 History mg tablet ondansetron HCl 8 mg tablet 8 mg PO Q8H PRN NAUSEA/VOMITING 10/06/22 10/06/22 History prochlorperazine maleate 10 mg 10 mg PO Q6H PRN NAUSEA/VOMITING 10/06/22 10/06/22 History tablet Patient History Medical History Advanced care planning/counseling discussion Anxiety Cancer related pain DVT (deep venous thrombosis) Insomnia Nausea Neuroendocrine cancer No significant medical problems Palliative care by specialist Surgical History H/O cervical biopsy Social History Smoking Status: Never smoker Do You Dip or Chew Tobacco: No; Tobacco Cessation Education Requested by Patient: No Hx Alcohol Use: No Hx Substance Use: No Preferred Language: Guyanese Communication Ability: Effective 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 Beliefs That Will Affect Care: None marital status: Current Living Situation: Spouse current occupational status: employed How many Children do You have: 0 Other Information That Helps Us Care for You: No Feels Safe at Home: Yes Safety Concerns: Feels Safe At This Time during the past year weight has: decreased > 10 lbs Assistive Devices: Walker Review of Systems Review of Systems: All systems reviewed & are unremarkable except as noted in Subjective Physical Exam Constitutional: WD/WN, vitals as above Chronic ill-appearing Respiratory: normal respiratory effort, lungs clear to auscultation Cardiovascular: RRR, no murmur, no edema Gastrointestinal (Abdomen): normal bowel sounds, soft, nontender, no hepatosplenomegaly Psychiatric: Mood: + depressed mood Results & Data Vital Signs (Past 12 Hours) Vital Signs Temp Pulse Pulse Resp BP BP Pulse Ox 10/11/22 10:00 89 10/11/22 10:40 37.1 C 105 H 17 156/84 H 96 10/11/22 09:02 36.7 C 104 H 20 159/72 H 97 10/11/22 07:19 36.8 C 103 H 18 154/81 H 95 10/11/22 03:05 37 C 114 H 20 166/80 H 96 O2 Del Method 10/11/22 10:00 10/11/22 10:40 10/11/22 09:02 10/11/22 07:19 Room Air 10/11/22 03:05 Room Air PG Care Time/CCT Total # of Minutes Spent Total Time Spent with Patient: Total time spent is greater than 50% in coordination of care (as documented) at patient's floor/unit and/or counseling patient: Coding Level of Care Code 58540 IN/OBS CONSULT LVL 4,60M Diagnoses Neuro-endocrine carcinoma C7A.8 Pancytopenia due to chemotherapy D61.810 Esophageal dysphagia R13.19
[2022-10-11] MEDS: LACTATED RINGER'S 1,000 ML IV SCH (12:47)
--- NOTE | 2022-10-11 13:53 | Hospitalist Progress Note ---
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 Started on chemotherapy with C1 D1 of carboplatin/etoposide on October 01. On day 3 of the cycle(October 02), patient presented here. Admitted here from 10/02 to 10/04 secondary to altered mental status, LOLIS, concern for tumor lysis syndrome, anemia and acute DVT. Found to have extensive DVT of right lower extremity Also, found to have acute kidney injury with malfunction of left nephrostomy tube. Concern for TLS; received rasburicase. Also, found to have UTI, alpha streptococcus. She was transferred to [facility] [place] on 10/04 for IR evaluation for malfunctioning nephrostomy tube. 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 She was transferred back here in [facility] on 10/06. Labs reviewed; HIT panel negative [place] [id number] LOLIS resolved Plan; -Third dose of Neupogen again today for pancytopenia. Also, warfarin to be kept on hold; continue on Lovenox. Transfuse 1 unit of pooled platelets; platelet transfusion ordered. Monitor for febrile neutropenia -Completed antibiotic course for UTI. -Palliative consult done earlier in the hospitalization; remains full code. Pain controlled with current medication. -Avoid nephrotoxic agent. Monitor labs for tumor lysis syndrome. Continue allopurinol 300 mg once daily. Pressure ulcer of right medial buttock, stage 3, POA: Dressing as per wound care, Severe esophagitis Underwent endoscopy on October 03; found to have grade D esophagitis without bleeding. Also diffuse severe erosions throughout the lower and mid esophagus. Currently having severe dysphagia Discussed with GI; recommend changing CMV and HSV titers. Continue on Protonix 40 mg IV twice daily Continue Mylanta and viscous lidocaine oral every 6 hours IV fluids Clear liquid diet. DVT prophylaxis Lovenox Full code Discussed with at bedside Time spent evaluating patient, direct bedside care, chart review, placing orders, interpretation of diagnostic studies, discussion with consultants, patient, and family members, as well as other required patient management activities is 60 minutes. Please note the above document was generated using voice recognition software. It may contain grammatical, syntax or spelling errors. Any formal questions or concerns about the content, text or information contained within the body of this dictation should be directly addressed to the provider for clarification Admission and Anticipated Discharge Date Admission Date: October 07, 2022 Subjective Patient seen and examined at bedside. She reports significant dysphagia; unable to eat or take pills. Hemodynamically stable and saturating well on room air. Review of Systems Review of Systems: All systems reviewed & are unremarkable except as noted in Subjective Physical Exam Physical Exam: General: Sitting up on the chair comfortably; not in any distress. HEENT: EOMI, SEBASTIAN, MMM Chest: Fair breath sounds anteriorly CVS: Regular rate and rhythm, normal heart sounds, no murmur Abdomen: Tenderness in epigastric region. Neuro: Awake, alert, oriented, conversing ok, non focal Extremities: No cyanosis, clubbing. Edema + in bilateral lower extremity. : Bilateral nephrostomy in place draining clear urine. Psych:Low mood Results & Data Results & Data Vital Signs (Past 12 Hours) Vital Signs Temp Pulse Pulse Resp BP BP Pulse Ox 10/11/22 10:00 89 10/11/22 10:40 37.1 C 105 H 17 156/84 H 96 10/11/22 09:02 36.7 C 104 H 20 159/72 H 97 10/11/22 07:19 36.8 C 103 H 18 154/81 H 95 10/11/22 03:05 37 C 114 H 20 166/80 H 96 O2 Del Method 10/11/22 10:00 10/11/22 10:40 10/11/22 09:02 10/11/22 07:19 Room Air 10/11/22 03:05 Room Air Laboratory Results Laboratory Results WBC 0.28 K/ul (4.8-10.8) L* 10/11/22 06:32 RBC 2.85 M/uL (4.20-5.40) L 10/11/22 06:32 Hgb 7.4 g/dl (12.0-16.0) L 10/11/22 06:32 Hct 23.9 % (37.0-47.0) L 10/11/22 06:32 MCV 83.9 fL (80.0-100.0) 10/11/22 06:32 MCH 26.0 pg (25.0-34.0) 10/11/22 06:32 MCHC 31.0 g/dL (32.0-36.0) L 10/11/22 06:32 RDW Std Deviation 51.9 fL (36.4-46.3) H 10/11/22 06:32 RDW Coeff of Claude 17.1 % (11.5-14.5) H 10/11/22 06:32 Plt Count 34 K/uL (130-400) L 10/11/22 06:32 MPV 9.9 fL (9.4-12.4) 10/11/22 06:32 Immature Gran % (Auto) Cancelled 10/11/22 06:32 Neut % (Auto) Cancelled 10/11/22 06:32 Lymph % (Auto) Cancelled 10/11/22 06:32 [place] % (Auto) Cancelled 10/11/22 06:32 Eos % (Auto) Cancelled 10/11/22 06:32 Baso % (Auto) Cancelled 10/11/22 06:32 Neut # (Auto) Cancelled 10/11/22 06:32 Lymph # (Auto) Cancelled 10/11/22 06:32 [place] # (Auto) Cancelled 10/11/22 06:32 Eos # (Auto) Cancelled 10/11/22 06:32 Baso # (Auto) Cancelled 10/11/22 06:32 Immature Gran # (Auto) Cancelled 10/11/22 06:32 Neutrophils % (Manual) Cancelled 10/11/22 06:32 Band Neutrophils % Cancelled 10/11/22 06:32 Lymphocytes % (Manual) Cancelled 10/11/22 06:32 Prolymphocyte % Cancelled 10/11/22 06:32 Reactive Lymphs % (Man) Cancelled 10/11/22 06:32 Monocytes % (Manual) Cancelled 10/11/22 06:32 Eosinophils % (Manual) Cancelled 10/11/22 06:32 Basophils % (Manual) Cancelled 10/11/22 06:32 Metamyelocytes % (Man) Cancelled 10/11/22 06:32 Myelocytes % (Man) Cancelled 10/11/22 06:32 Promyelocytes % (Man) Cancelled 10/11/22 06:32 Blast Cells % (Manual) Cancelled 10/11/22 06:32 Plasma Cell % (Manual) Cancelled 10/11/22 06:32 Other Cells % Cancelled 10/11/22 06:32 Nucleated RBC % Cancelled 10/11/22 06:32 Neutrophils # (Manual) Cancelled 10/11/22 06:32 Band Neutrophils # Cancelled 10/11/22 06:32 Total Absolute Neuts Cancelled 10/11/22 06:32 Lymphocytes # (Manual) Cancelled 10/11/22 06:32 Prolymphocyte # Cancelled 10/11/22 06:32 Reactive Lymphs # Cancelled 10/11/22 06:32 Total Abs Lymphocytes Cancelled 10/11/22 06:32 Monocytes # (Manual) Cancelled 10/11/22 06:32 Eosinophils # (Manual) Cancelled 10/11/22 06:32 Basophils # (Manual) Cancelled 10/11/22 06:32 Metamyelocytes # (Man) Cancelled 10/11/22 06:32 Myelocytes # (Manual) Cancelled 10/11/22 06:32 Promyelocytes # (Man) Cancelled 10/11/22 06:32 Blast Cells # (Man) Cancelled 10/11/22 06:32 Plasma Cell # (Manual) Cancelled 10/11/22 06:32 Other Cells # Cancelled 10/11/22 06:32 Nucleated RBCs # (Man) Cancelled 10/11/22 06:32 Hypersegmented Neuts Cancelled 10/11/22 06:32 Hyposegmented Neuts Cancelled 10/11/22 06:32 Hypogranular Neuts Cancelled 10/11/22 06:32 Large Granular Lymphs Cancelled 10/11/22 06:32 # Lrg Granular Lymphs Cancelled 10/11/22 06:32 Hairy Cells Cancelled 10/11/22 06:32 Smudge Cells Cancelled 10/11/22 06:32 Toxic Granulation Cancelled 10/11/22 06:32 Toxic Vacuolation Cancelled 10/11/22 06:32 Dohle Bodies Cancelled 10/11/22 06:32 Fuentes Rods Cancelled 10/11/22 06:32 Platelet Estimate Decreased (Normal) L 10/10/22 10:20 Hypogranular Platelets Cancelled 10/11/22 06:32 Giant Platelets Cancelled 10/11/22 06:32 Platelet Satelliting Cancelled 10/11/22 06:32 RBC Morphology Cancelled 10/11/22 06:32 Polychromasia Cancelled 10/11/22 06:32 Hypochromasia Cancelled 10/11/22 06:32 Poikilocytosis Cancelled 10/11/22 06:32 Basophilic Stippling Cancelled 10/11/22 06:32 Anisocytosis Cancelled 10/11/22 06:32 Microcytosis Cancelled 10/11/22 06:32 Macrocytosis Cancelled 10/11/22 06:32 Spherocytes Cancelled 10/11/22 06:32 Pappenheimer Bodies Cancelled 10/11/22 06:32 Sickle Cells Cancelled 10/11/22 06:32 Target Cells Cancelled 10/11/22 06:32 Tear Drop Cells Cancelled 10/11/22 06:32 Ovalocytes Cancelled 10/11/22 06:32 Stomatocytes Cancelled 10/11/22 06:32 [place] Bodies Cancelled 10/11/22 06:32 Echinocytes Cancelled 10/11/22 06:32 Acanthocytes (Spur) Cancelled 10/11/22 06:32 Rouleaux Cancelled 10/11/22 06:32 RBC Agglutinates Cancelled 10/11/22 06:32 Schistocytes Cancelled 10/11/22 06:32 Sezary Cell Cancelled 10/11/22 06:32 PT 31.5 Seconds (9.0-12.0) H 10/11/22 06:32 INR 3.1 (0.9-1.1) H 10/11/22 06:32 Sodium 141 mmol/L (136-145) 10/11/22 06:32 Potassium 3.3 mmol/L (3.5-5.1) L 10/11/22 06:32 Chloride 110 mmol/L (98-107) H 10/11/22 06:32 Carbon Dioxide 23 mmol/L (21-32) 10/11/22 06:32 Anion Gap 8 (3-11) 10/11/22 06:32 BUN 13 mg/dl (6-23) 10/11/22 06:32 Creatinine 0.55 mg/dl (0.6-1.2) L 10/11/22 06:32 Est Cr Clr Drug Dosing 96.6 ml/min 10/11/22 06:32 Est GFR ( Amer) 112.5 ml/min 10/11/22 06:32 Est GFR (Non-Af Amer) 97.1 ml/min 10/11/22 06:32 BUN/Creatinine Ratio 23.6 (10-20) H 10/11/22 06:32 Glucose 93 mg/dl (70-99(Fasting)) 10/11/22 06:32 Uric Acid < 1.5 mg/dl (2.6-7.2) L 10/08/22 18:54 Calcium 8.0 mg/dl (8.6-10.3) L 10/11/22 06:32 Ionized Calcium 1.18 mmol/L (1.12-1.32) 10/08/22 18:54 Phosphorus 1.9 mg/dl (2.5-4.9) L 10/10/22 10:20 Magnesium 1.5 mg/dl (1.7-2.4) L 10/10/22 10:20 Total Bilirubin 0.5 mg/dl (0.2-1.0) 10/11/22 06:32 AST 9 U/L (13-39) L 10/11/22 06:32 ALT 7 U/L (7-52) 10/11/22 06:32 Alkaline Phosphatase 180 U/L (34-104) H 10/11/22 06:32 Lactate Dehydrogenase 746 U/L (86-244) H 10/08/22 18:54 Total Creatine Kinase 41 U/L (26-192) 10/09/22 08:18 Total Protein 5.6 gm/dl (6.0-8.3) L 10/11/22 06:32 Albumin 2.9 gm/dl (3.4-5.0) L 10/11/22 06:32 Globulin 2.7 gm/dl (2.5-4.0) 10/11/22 06:32 Albumin/Globulin Ratio 1.1 (0.9-2) 10/11/22 06:32 Blood Parasites ID Cancelled 10/11/22 06:32 Blood Type A Positive 10/08/22 18:54 Antibody Screen NEGATIVE 10/08/22 18:54
[2022-10-11] MEDS: MoRPHine SULFATE 2 MG/ML CARP IV PRN ×3 (14:44→22:44)
[2022-10-11] MEDS: LIDOCAINE VISCOUS 2% 15 ML UDC MT SCH ×2 (17:46→23:07)
[2022-10-11] MEDS: ALUMINUM/MAGNESIUM/SIMETH (MAALOX MAX) 30 ML UDC PO SCH ×2 (17:46→23:07)
[2022-10-11] MEDS: OLANZAPINE 2.5 MG TAB PO SCH (20:08)
[2022-10-12] MEDS: ACETAMINOPHEN 1,000 MG/100 ML VIAL IV SCH ×3 (01:57→18:33)
[2022-10-12] MEDS: ONDANSETRON INJ 2 MG/ML 2 ML VIAL IV PRN ×3 (01:57→20:56)
[2022-10-12] MEDS: LACTATED RINGER'S 1,000 ML IV SCH ×2 (01:58→17:31)
[2022-10-12] MEDS: PROMETHAZINE HCL 6.25 MG in SODIUM CHLORIDE 0.9% 50 ML IV PRN (02:25)
[2022-10-12] MEDS: MoRPHine SULFATE 2 MG/ML CARP IV PRN ×5 (02:39→20:56)
[2022-10-12] MEDS: LIDOCAINE VISCOUS 2% 15 ML UDC MT SCH ×3 (05:27→17:31)
[2022-10-12] MEDS: ALUMINUM/MAGNESIUM/SIMETH (MAALOX MAX) 30 ML UDC PO SCH ×3 (05:27→17:31)
[2022-10-12] MEDS ORDERED: PROCHLORPERAZINE 5 MG in SYRINGE 4 ML IV ONE (06:00)
[2022-10-12 07:27] LABS: Albumin Globulin Ratio 1.1 (0.9-2); Albumin Level 3.1 gm/dl (3.4-5.0); BUN Creatinine Ratio 19.6 (10-20); Bilirubin,Total 0.6 mg/dl (0.2-1.0); Creatinine Clr Calc Pharmacy 94.9 ml/min; Est GFR (African American) 111.8 ml/min; Est GFR (Non-African American) 96.5 ml/min; Globulin 2.9 gm/dl (2.5-4.0); Potassium 3.1 mmol/L (3.5-5.1)
[2022-10-12 07:46] LABS: INR 3.8 (0.9-1.1); Prothrombin Time 38.4 Seconds (9.0-12.0)
[2022-10-12 07:52] LABS: Hematocrit (blood only) 23.9 % (37.0-47.0); Hemoglobin 7.5 g/dl (12.0-16.0); Mean Corpuscular Hemoglobin 26.1 pg (25.0-34.0); Mean Corpuscular Hgb Conc 31.4 g/dL (32.0-36.0); Mean Corpuscular Volume 83.3 fL (80.0-100.0); Mean Platelet Volume 10.2 fL (9.4-12.4); Platelet Count 37 K/uL (130-400); RDW Coefficient of Variation 16.7 % (11.5-14.5); Red Blood Count 2.87 M/uL (4.20-5.40)
[2022-10-12 07:53] LABS: Platelet Estimate Decreased (Normal)
[2022-10-12] MEDS: allopurinoL 300 MG TAB PO SCH (09:28)
[2022-10-12] MEDS: DOCUSATE SODIUM/SENNA 50/8.6MG TAB PO SCH (09:28)
[2022-10-12] MEDS: ENOXAPARIN 80 MG/0.8 ML SYR SQ SCH ×2 (09:29→20:54)
[2022-10-12] MEDS: METOPROLOL TARTRATE 25 MG TAB PO SCH ×2 (09:30→20:57)
[2022-10-12] MEDS: FOLIC ACID 1 MG TAB PO SCH (09:30)
[2022-10-12] MEDS: SUCRALFATE 1 GM/10 ML UDC PO SCH ×3 (09:31→20:58)
[2022-10-12] MEDS: PANTOprazole 40 MG in SYRINGE 0 ML IV SCH ×2 (10:25→20:57)
--- NOTE | 2022-10-12 11:31 | Hospitalist Progress Note ---
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 Started on chemotherapy with C1 D1 of carboplatin/etoposide on October 01. On day 3 of the cycle(October 02), patient presented here. Admitted here from 10/02 to 10/04 secondary to altered mental status, LOLIS, concern for tumor lysis syndrome, anemia and acute DVT. Found to have extensive DVT of right lower extremity Also, found to have acute kidney injury with malfunction of left nephrostomy tube. Concern for TLS; received rasburicase. Also, found to have UTI, alpha streptococcus. She was transferred to [facility] on 10/04 for IR evaluation for malfunctioning nephrostomy tube. 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 She was transferred back here in [facility] on 10/06. Labs reviewed; HIT panel negative CBC [place] [id number], patient has received platelet transfusion on October 10 and LOLIS resolved Plan; -Status post 3 days of Neupogen. Continue on Lovenox. Transfuse another 1 unit of pooled platelets; platelet transfusion ordered. Monitor for febrile neutropenia -Completed antibiotic course for UTI. -Palliative consult done earlier in the hospitalization; remains full code. Pain controlled with current medication. -Avoid nephrotoxic agent. Monitor labs for tumor lysis syndrome. Continue allopurinol 300 mg once daily. Pressure ulcer of right medial buttock, stage 3, POA: Dressing as per wound care, Severe esophagitis Underwent endoscopy on October 03; found to have grade D esophagitis without bleeding. Also diffuse severe erosions throughout the lower and mid esophagus. Currently having severe dysphagia, slightly improved Discussed with GI; recommend obtaining CMV and HSV titers. Continue on Protonix 40 mg IV twice daily Continue Mylanta and viscous lidocaine oral every 6 hours IV fluids Clear liquid diet; advance as tolerated. DVT prophylaxis Lovenox Full code Discussed with at bedside Time spent evaluating patient, direct bedside care, chart review, placing orders, interpretation of diagnostic studies, discussion with consultants, patient, and family members, as well as other required patient management activities is 60 minutes. Please note the above document was generated using voice recognition software. It may contain grammatical, syntax or spelling errors. Any formal questions or concerns about the content, text or information contained within the body of this dictation should be directly addressed to the provider for clarification Admission and Anticipated Discharge Date Admission Date: October 07, 2022 Subjective Patient seen and examined at bedside. She reports that her reflux and abdominal pain has improved compared to yesterday. Reports that her energy has slightly improved as well. Review of Systems Review of Systems: All systems reviewed & are unremarkable except as noted in Subjective Physical Exam Physical Exam: General: Sitting up on the chair comfortably; not in any distress. HEENT: EOMI, SEBASTIAN, MMM Chest: Fair breath sounds anteriorly CVS: Regular rate and rhythm, normal heart sounds, no murmur Abdomen: Tenderness in epigastric region. Neuro: Awake, alert, oriented, conversing ok, non focal Extremities: No cyanosis, clubbing. Edema + in bilateral lower extremity. : Bilateral nephrostomy in place draining clear urine. Psych:Low mood Results & Data Results & Data Vital Signs (Past 12 Hours) Vital Signs Temp Pulse Pulse Resp BP BP Pulse Ox 10/12/22 11:06 36.9 C 111 H 16 155/79 H 93 10/12/22 10:33 36.9 C 107 H 19 157/85 H 93 10/12/22 09:57 36.6 C 112 H 20 162/88 H 93 10/12/22 09:40 36.6 C 110 H 20 168/88 H 93 10/12/22 07:24 36.8 C 110 H 16 170/80 H 96 10/12/22 02:20 36.5 C 97 H 18 177/101 H 97 10/12/22 00:07 87 O2 Del Method O2 Flow Rate 10/12/22 11:06 Room Air 10/12/22 10:33 10/12/22 09:57 0 10/12/22 09:40 0 10/12/22 07:24 Room Air 10/12/22 02:20 Room Air 10/12/22 00:07 Laboratory Results Laboratory Results WBC 0.30 K/ul (4.8-10.8) L* 10/12/22 05:42 RBC 2.87 M/uL (4.20-5.40) L 10/12/22 05:42 Hgb 7.5 g/dl (12.0-16.0) L 10/12/22 05:42 Hct 23.9 % (37.0-47.0) L 10/12/22 05:42 MCV 83.3 fL (80.0-100.0) 10/12/22 05:42 MCH 26.1 pg (25.0-34.0) 10/12/22 05:42 MCHC 31.4 g/dL (32.0-36.0) L 10/12/22 05:42 RDW Std Deviation 51.0 fL (36.4-46.3) H 10/12/22 05:42 RDW Coeff of Claude 16.7 % (11.5-14.5) H 10/12/22 05:42 Plt Count 37 K/uL (130-400) L 10/12/22 05:42 MPV 10.2 fL (9.4-12.4) 10/12/22 05:42 Immature Gran % (Auto) Cancelled 10/12/22 05:42 Neut % (Auto) Cancelled 10/12/22 05:42 Lymph % (Auto) Cancelled 10/12/22 05:42 [place] % (Auto) Cancelled 10/12/22 05:42 Eos % (Auto) Cancelled 10/12/22 05:42 Baso % (Auto) Cancelled 10/12/22 05:42 Neut # (Auto) Cancelled 10/12/22 05:42 Lymph # (Auto) Cancelled 10/12/22 05:42 [place] # (Auto) Cancelled 10/12/22 05:42 Eos # (Auto) Cancelled 10/12/22 05:42 Baso # (Auto) Cancelled 10/12/22 05:42 Immature Gran # (Auto) Cancelled 10/12/22 05:42 Neutrophils % (Manual) Cancelled 10/12/22 05:42 Band Neutrophils % Cancelled 10/12/22 05:42 Lymphocytes % (Manual) Cancelled 10/12/22 05:42 Prolymphocyte % Cancelled 10/12/22 05:42 Reactive Lymphs % (Man) Cancelled 10/12/22 05:42 Monocytes % (Manual) Cancelled 10/12/22 05:42 Eosinophils % (Manual) Cancelled 10/12/22 05:42 Basophils % (Manual) Cancelled 10/12/22 05:42 Metamyelocytes % (Man) Cancelled 10/12/22 05:42 Myelocytes % (Man) Cancelled 10/12/22 05:42 Promyelocytes % (Man) Cancelled 10/12/22 05:42 Blast Cells % (Manual) Cancelled 10/12/22 05:42 Plasma Cell % (Manual) Cancelled 10/12/22 05:42 Other Cells % Cancelled 10/12/22 05:42 Nucleated RBC % Cancelled 10/12/22 05:42 Neutrophils # (Manual) Cancelled 10/12/22 05:42 Band Neutrophils # Cancelled 10/12/22 05:42 Total Absolute Neuts Cancelled 10/12/22 05:42 Lymphocytes # (Manual) Cancelled 10/12/22 05:42 Prolymphocyte # Cancelled 10/12/22 05:42 Reactive Lymphs # Cancelled 10/12/22 05:42 Total Abs Lymphocytes Cancelled 10/12/22 05:42 Monocytes # (Manual) Cancelled 10/12/22 05:42 Eosinophils # (Manual) Cancelled 10/12/22 05:42 Basophils # (Manual) Cancelled 10/12/22 05:42 Metamyelocytes # (Man) Cancelled 10/12/22 05:42 Myelocytes # (Manual) Cancelled 10/12/22 05:42 Promyelocytes # (Man) Cancelled 10/12/22 05:42 Blast Cells # (Man) Cancelled 10/12/22 05:42 Plasma Cell # (Manual) Cancelled 10/12/22 05:42 Other Cells # Cancelled 10/12/22 05:42 Nucleated RBCs # (Man) Cancelled 10/12/22 05:42 Hypersegmented Neuts Cancelled 10/12/22 05:42 Hyposegmented Neuts Cancelled 10/12/22 05:42 Hypogranular Neuts Cancelled 10/12/22 05:42 Large Granular Lymphs Cancelled 10/12/22 05:42 # Lrg Granular Lymphs Cancelled 10/12/22 05:42 Hairy Cells Cancelled 10/12/22 05:42 Smudge Cells Cancelled 10/12/22 05:42 Toxic Granulation Cancelled 10/12/22 05:42 Toxic Vacuolation Cancelled 10/12/22 05:42 Dohle Bodies Cancelled 10/12/22 05:42 Fuentes Rods Cancelled 10/12/22 05:42 Platelet Estimate Decreased (Normal) L 10/12/22 05:42 Hypogranular Platelets Cancelled 10/12/22 05:42 Giant Platelets Cancelled 10/12/22 05:42 Platelet Satelliting Cancelled 10/12/22 05:42 RBC Morphology Cancelled 10/12/22 05:42 Polychromasia Cancelled 10/12/22 05:42 Hypochromasia Cancelled 10/12/22 05:42 Poikilocytosis Cancelled 10/12/22 05:42 Basophilic Stippling Cancelled 10/12/22 05:42 Anisocytosis Cancelled 10/12/22 05:42 Microcytosis Cancelled 10/12/22 05:42 Macrocytosis Cancelled 10/12/22 05:42 Spherocytes Cancelled 10/12/22 05:42 Pappenheimer Bodies Cancelled 10/12/22 05:42 Sickle Cells Cancelled 10/12/22 05:42 Target Cells Cancelled 10/12/22 05:42 Tear Drop Cells Cancelled 10/12/22 05:42 Ovalocytes Cancelled 10/12/22 05:42 Stomatocytes Cancelled 10/12/22 05:42 [place] Bodies Cancelled 10/12/22 05:42 Echinocytes Cancelled 10/12/22 05:42 Acanthocytes (Spur) Cancelled 10/12/22 05:42 Rouleaux Cancelled 10/12/22 05:42 RBC Agglutinates Cancelled 10/12/22 05:42 Schistocytes Cancelled 10/12/22 05:42 Sezary Cell Cancelled 10/12/22 05:42 PT 38.4 Seconds (9.0-12.0) H 10/12/22 05:42 INR 3.8 (0.9-1.1) H 10/12/22 05:42 Sodium 141 mmol/L (136-145) 10/12/22 05:42 Potassium 3.1 mmol/L (3.5-5.1) L 10/12/22 05:42 Chloride 107 mmol/L (98-107) 10/12/22 05:42 Carbon Dioxide 23 mmol/L (21-32) 10/12/22 05:42 Anion Gap 11 (3-11) 10/12/22 05:42 BUN 11 mg/dl (6-23) 10/12/22 05:42 Creatinine 0.56 mg/dl (0.6-1.2) L 10/12/22 05:42 Est Cr Clr Drug Dosing 94.9 ml/min 10/12/22 05:42 Est GFR ( Amer) 111.8 ml/min 10/12/22 05:42 Est GFR (Non-Af Amer) 96.5 ml/min 10/12/22 05:42 BUN/Creatinine Ratio 19.6 (10-20) 10/12/22 05:42 Glucose 80 mg/dl (70-99(Fasting)) 10/12/22 05:42 Uric Acid < 1.5 mg/dl (2.6-7.2) L 10/08/22 18:54 Calcium 8.0 mg/dl (8.6-10.3) L 10/12/22 05:42 Ionized Calcium 1.18 mmol/L (1.12-1.32) 10/08/22 18:54 Phosphorus 1.9 mg/dl (2.5-4.9) L 10/10/22 10:20 Magnesium 1.5 mg/dl (1.7-2.4) L 10/10/22 10:20 Total Bilirubin 0.6 mg/dl (0.2-1.0) 10/12/22 05:42 AST 7 U/L (13-39) L 10/12/22 05:42 ALT 7 U/L (7-52) 10/12/22 05:42 Alkaline Phosphatase 169 U/L (34-104) H 10/12/22 05:42 Lactate Dehydrogenase 746 U/L (86-244) H 10/08/22 18:54 Total Creatine Kinase 41 U/L (26-192) 10/09/22 08:18 Total Protein 6.0 gm/dl (6.0-8.3) 10/12/22 05:42 Albumin 3.1 gm/dl (3.4-5.0) L 10/12/22 05:42 Globulin 2.9 gm/dl (2.5-4.0) 10/12/22 05:42 Albumin/Globulin Ratio 1.1 (0.9-2) 10/12/22 05:42 Blood Parasites ID Cancelled 10/12/22 05:42 Blood Type A Positive 10/08/22 18:54 Antibody Screen NEGATIVE 10/08/22 18:54
[2022-10-12] MEDS: POTASSIUM CHLORIDE / WTR 10 MEQ/100 ML PLCT IV SCH ×4 (11:54→15:07)
--- NOTE | 2022-10-12 12:20 | Gastroenterology Progress Note ---
Date of Service October 12, 2022 Assessment & Plan (1) Pancytopenia due to chemotherapy: (2) Esophageal dysphagia: Plan: Continue current therapy and supportive care Awaiting results of CMV and HSV titers Would expect improvement when pancytopenia improves Admission and Anticipated Discharge Date Admission Date: October 07, 2022 Subjective Feeling slightly better today. Tolerating PO intake, "a little better." Does feel that viscous lidocaine is helpful. No further complaints. Review of Systems Review of Systems: All systems reviewed & are unremarkable except as noted in Subjective Physical Exam Constitutional: WD/WN, vitals as above (Chronic ill-appearing) Respiratory: normal respiratory effort, lungs clear to auscultation Cardiovascular: RRR, no murmur, no edema Gastrointestinal (Abdomen): normal bowel sounds, soft, nontender, no hepatosplenomegaly Results & Data Results & Data Vital Signs (Past 12 Hours) Vital Signs Temp Pulse Pulse Resp BP BP Pulse Ox 10/12/22 11:05 36.9 C 111 H 155/79 H 93 10/12/22 11:06 36.9 C 111 H 16 155/79 H 93 10/12/22 10:33 36.9 C 107 H 19 157/85 H 93 10/12/22 09:57 36.6 C 112 H 20 162/88 H 93 10/12/22 09:40 36.6 C 110 H 20 168/88 H 93 10/12/22 07:24 36.8 C 110 H 16 170/80 H 96 10/12/22 02:20 36.5 C 97 H 18 177/101 H 97 O2 Del Method O2 Flow Rate 10/12/22 11:05 10/12/22 11:06 Room Air 10/12/22 10:33 10/12/22 09:57 0 10/12/22 09:40 0 10/12/22 07:24 Room Air 10/12/22 02:20 Room Air PG Care Time/CCT Total # of Minutes Spent Total Time Spent with Patient: Total time spent is greater than 50% in coordination of care (as documented) at patient's floor/unit and/or counseling patient: Coding Level of Care Code 28458 SUB INP/OBS CARE 2/35MIN Diagnoses Pancytopenia due to chemotherapy D61.810 Esophageal dysphagia R13.19
[2022-10-12] MEDS: oxyCODONE HCL IR 5 MG TAB (IMMEDIATE RELEASE) PO PRN (15:02)
[2022-10-12] MEDS: OLANZAPINE 2.5 MG TAB PO SCH (20:57)
[2022-10-13] MEDS: LACTATED RINGER'S 1,000 ML IV SCH ×2 (03:48→20:34)
[2022-10-13] MEDS: ACETAMINOPHEN 1,000 MG/100 ML VIAL IV SCH ×3 (03:48→20:32)
[2022-10-13] MEDS: ALUMINUM/MAGNESIUM/SIMETH (MAALOX MAX) 30 ML UDC PO SCH ×4 (04:34→17:17)
[2022-10-13] MEDS: LIDOCAINE VISCOUS 2% 15 ML UDC MT SCH ×4 (04:34→17:17)
[2022-10-13 07:12] LABS: Hemoglobin 6.9 g/dl (12.0-16.0); Mean Corpuscular Hemoglobin 25.9 pg (25.0-34.0); Mean Corpuscular Hgb Conc 31.4 g/dL (32.0-36.0); Mean Corpuscular Volume 82.7 fL (80.0-100.0); Mean Platelet Volume 9.1 fL (9.4-12.4); Platelet Count 47 K/uL (130-400); RDW Coefficient of Variation 16.6 % (11.5-14.5); RDW Standard Deviation 50.2 fL (36.4-46.3); Red Blood Count 2.66 M/uL (4.20-5.40); White Blood Count 0.35 K/ul (4.8-10.8)
[2022-10-13 07:13] LABS: BUN Creatinine Ratio 17.5 (10-20); Bilirubin,Total 0.6 mg/dl (0.2-1.0); Calcium 7.7 mg/dl (8.6-10.3); Creatinine Clr Calc Pharmacy 93.2 ml/min; Est GFR (African American) 111.2 ml/min; Est GFR (Non-African American) 95.9 ml/min; Potassium 3.1 mmol/L (3.5-5.1); Total Protein 5.5 gm/dl (6.0-8.3)
[2022-10-13 07:14] LABS: Albumin Level 2.8 gm/dl (3.4-5.0); Globulin 2.7 gm/dl (2.5-4.0)
[2022-10-13] MEDS ORDERED: SODIUM CHLORIDE 0.9% 250 ML IV PRN (07:25)
[2022-10-13 07:30] LABS: INR 5.4 (0.9-1.1)
[2022-10-13] MEDS: ONDANSETRON INJ 2 MG/ML 2 ML VIAL IV PRN ×2 (08:35→20:34)
[2022-10-13] MEDS: POTASSIUM CHLORIDE / WTR 10 MEQ/100 ML PLCT IV SCH ×4 (08:35→15:13)
[2022-10-13] MEDS: DOCUSATE SODIUM/SENNA 50/8.6MG TAB PO SCH (08:36)
[2022-10-13] MEDS: ENOXAPARIN 80 MG/0.8 ML SYR SQ SCH (08:37)
[2022-10-13] MEDS: PANTOprazole 40 MG in SYRINGE 0 ML IV SCH ×2 (08:51→21:53)
[2022-10-13] MEDS: METOPROLOL TARTRATE 25 MG TAB PO SCH (08:58)
[2022-10-13] MEDS: allopurinoL 300 MG TAB PO SCH (08:59)
[2022-10-13] MEDS: FOLIC ACID 1 MG TAB PO SCH (08:59)
[2022-10-13] MEDS: SUCRALFATE 1 GM/10 ML UDC PO SCH ×2 (09:01→14:21)
[2022-10-13] MEDS: MoRPHine SULFATE 2 MG/ML CARP IV PRN ×3 (09:10→20:34)
[2022-10-13] MEDS ORDERED: PHYTONADIONE 5 MG in DEXTROSE 5% 50 ML IV ONE (10:05)
[2022-10-13] MEDS ORDERED: PHYTONADIONE 5 MG TAB PO STA (10:14)
[2022-10-13] MEDS ORDERED: PHYTONADIONE 2.5 MG in DEXTROSE 5% 50 ML IV ONE (10:45)
--- NOTE | 2022-10-13 13:39 | Hospitalist Progress Note ---
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 Started on chemotherapy with C1 D1 of carboplatin/etoposide on October 01. On day 3 of the cycle(October 02), patient presented here. Admitted here from 10/02 to 10/04 secondary to altered mental status, LOLIS, concern for tumor lysis syndrome, anemia and acute DVT. Found to have extensive DVT of right lower extremity Also, found to have acute kidney injury with malfunction of left nephrostomy tube. Concern for TLS; received rasburicase. Also, found to have UTI, alpha streptococcus. She was transferred to [facility] on 10/04 for IR evaluation for malfunctioning nephrostomy tube. 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 She was transferred back here in [facility] on 10/06. Labs reviewed; HIT panel negative [place] [id number], patient has received platelet transfusion on October 10 , and Hemoglobin of 6.9 LOLIS resolved Plan; -We will transfuse 1 more unit of platelets and 1 unit of packed RBC. Status post 3 days of Neupogen. Continue on Lovenox. Monitor for febrile neutropenia -Completed antibiotic course for UTI. -Palliative consult done earlier in the hospitalization; remains full code. Pain controlled with current medication. -Avoid nephrotoxic agent. Monitor labs for tumor lysis syndrome. Continue allopurinol 300 mg once daily. Pressure ulcer of right medial buttock, stage 3, POA: Dressing as per wound care, Severe esophagitis Underwent endoscopy on October 03; found to have grade D esophagitis without bleeding. Also diffuse severe erosions throughout the lower and mid esophagus. Currently having severe dysphagia, slightly improved Discussed with GI; recommend obtaining CMV and HSV titers. Continue on Protonix 40 mg IV twice daily Continue Mylanta and viscous lidocaine oral every 6 hours IV fluids Clear liquid diet; advance as tolerated. DVT prophylaxis Lovenox Full code Discussed with at bedside Time spent evaluating patient, direct bedside care, chart review, placing orders, interpretation of diagnostic studies, discussion with consultants, patient, and family members, as well as other required patient management activities is 60 minutes. Please note the above document was generated using voice recognition software. It may contain grammatical, syntax or spelling errors. Any formal questions or concerns about the content, text or information contained within the body of this dictation should be directly addressed to the provider for clarification Admission and Anticipated Discharge Date Admission Date: October 07, 2022 Subjective Patient seen and examined at bedside. She complains of severe pain due to reflux esophagitis. Unable to swallow pills. Review of Systems Review of Systems: All systems reviewed & are unremarkable except as noted in Subjective Physical Exam Physical Exam: General: Sitting up on the chair comfortably; not in any distress. HEENT: EOMI, SEBASTIAN, MMM Chest: Fair breath sounds anteriorly CVS: Regular rate and rhythm, normal heart sounds, no murmur Abdomen: Tenderness in epigastric region. Neuro: Awake, alert, oriented, conversing ok, non focal Extremities: No cyanosis, clubbing. Edema + in bilateral lower extremity. : Bilateral nephrostomy in place draining clear urine. Psych:Low mood Results & Data Results & Data Vital Signs (Past 12 Hours) Vital Signs Temp Pulse Pulse Resp BP BP Pulse Ox 10/13/22 13:03 36.8 C 99 H 18 162/84 H 96 10/13/22 09:30 10/13/22 12:21 99 H 18 154/80 H 95 10/13/22 11:38 37.2 C 98 H 18 161/73 H 96 10/13/22 07:55 36.7 C 110 H 18 163/87 H 97 10/13/22 06:00 102 H 10/13/22 02:09 36.8 C 118 H 18 159/87 H 97 10/13/22 02:00 108 H O2 Del Method 10/13/22 13:03 10/13/22 09:30 Room Air 10/13/22 12:21 Room Air 10/13/22 11:38 Room Air 10/13/22 07:55 Room Air 10/13/22 06:00 10/13/22 02:09 Room Air 10/13/22 02:00 Laboratory Results Laboratory Results WBC 0.35 K/ul (4.8-10.8) L* 10/13/22 06:41 RBC 2.66 M/uL (4.20-5.40) L 10/13/22 06:41 Hgb 6.9 g/dl (12.0-16.0) L* 10/13/22 06:41 Hct 22.0 % (37.0-47.0) L 10/13/22 06:41 MCV 82.7 fL (80.0-100.0) 10/13/22 06:41 MCH 25.9 pg (25.0-34.0) 10/13/22 06:41 MCHC 31.4 g/dL (32.0-36.0) L 10/13/22 06:41 RDW Std Deviation 50.2 fL (36.4-46.3) H 10/13/22 06:41 RDW Coeff of Claude 16.6 % (11.5-14.5) H 10/13/22 06:41 Plt Count 47 K/uL (130-400) L 10/13/22 06:41 MPV 9.1 fL (9.4-12.4) L 10/13/22 06:41 Immature Gran % (Auto) Cancelled 10/13/22 06:41 Neut % (Auto) Cancelled 10/13/22 06:41 Lymph % (Auto) Cancelled 10/13/22 06:41 Mobile % (Auto) Cancelled 10/13/22 06:41 Eos % (Auto) Cancelled 10/13/22 06:41 Baso % (Auto) Cancelled 10/13/22 06:41 Neut # (Auto) Cancelled 10/13/22 06:41 Lymph # (Auto) Cancelled 10/13/22 06:41 Mobile # (Auto) Cancelled 10/13/22 06:41 Eos # (Auto) Cancelled 10/13/22 06:41 Baso # (Auto) Cancelled 10/13/22 06:41 Immature Gran # (Auto) Cancelled 10/13/22 06:41 Neutrophils % (Manual) Cancelled 10/13/22 06:41 Band Neutrophils % Cancelled 10/13/22 06:41 Lymphocytes % (Manual) Cancelled 10/13/22 06:41 Prolymphocyte % Cancelled 10/13/22 06:41 Reactive Lymphs % (Man) Cancelled 10/13/22 06:41 Monocytes % (Manual) Cancelled 10/13/22 06:41 Eosinophils % (Manual) Cancelled 10/13/22 06:41 Basophils % (Manual) Cancelled 10/13/22 06:41 Metamyelocytes % (Man) Cancelled 10/13/22 06:41 Myelocytes % (Man) Cancelled 10/13/22 06:41 Promyelocytes % (Man) Cancelled 10/13/22 06:41 Blast Cells % (Manual) Cancelled 10/13/22 06:41 Plasma Cell % (Manual) Cancelled 10/13/22 06:41 Other Cells % Cancelled 10/13/22 06:41 Nucleated RBC % Cancelled 10/13/22 06:41 Neutrophils # (Manual) Cancelled 10/13/22 06:41 Band Neutrophils # Cancelled 10/13/22 06:41 Total Absolute Neuts Cancelled 10/13/22 06:41 Lymphocytes # (Manual) Cancelled 10/13/22 06:41 Prolymphocyte # Cancelled 10/13/22 06:41 Reactive Lymphs # Cancelled 10/13/22 06:41 Total Abs Lymphocytes Cancelled 10/13/22 06:41 Monocytes # (Manual) Cancelled 10/13/22 06:41 Eosinophils # (Manual) Cancelled 10/13/22 06:41 Basophils # (Manual) Cancelled 10/13/22 06:41 Metamyelocytes # (Man) Cancelled 10/13/22 06:41 Myelocytes # (Manual) Cancelled 10/13/22 06:41 Promyelocytes # (Man) Cancelled 10/13/22 06:41 Blast Cells # (Man) Cancelled 10/13/22 06:41 Plasma Cell # (Manual) Cancelled 10/13/22 06:41 Other Cells # Cancelled 10/13/22 06:41 Nucleated RBCs # (Man) Cancelled 10/13/22 06:41 Hypersegmented Neuts Cancelled 10/13/22 06:41 Hyposegmented Neuts Cancelled 10/13/22 06:41 Hypogranular Neuts Cancelled 10/13/22 06:41 Large Granular Lymphs Cancelled 10/13/22 06:41 # Lrg Granular Lymphs Cancelled 10/13/22 06:41 Hairy Cells Cancelled 10/13/22 06:41 Smudge Cells Cancelled 10/13/22 06:41 Toxic Granulation Cancelled 10/13/22 06:41 Toxic Vacuolation Cancelled 10/13/22 06:41 Dohle Bodies Cancelled 10/13/22 06:41 Fuentes Rods Cancelled 10/13/22 06:41 Platelet Estimate Decreased (Normal) L 10/12/22 05:42 Hypogranular Platelets Cancelled 10/13/22 06:41 Giant Platelets Cancelled 10/13/22 06:41 Platelet Satelliting Cancelled 10/13/22 06:41 RBC Morphology Cancelled 10/13/22 06:41 Polychromasia Cancelled 10/13/22 06:41 Hypochromasia Cancelled 10/13/22 06:41 Poikilocytosis Cancelled 10/13/22 06:41 Basophilic Stippling Cancelled 10/13/22 06:41 Anisocytosis Cancelled 10/13/22 06:41 Microcytosis Cancelled 10/13/22 06:41 Macrocytosis Cancelled 10/13/22 06:41 Spherocytes Cancelled 10/13/22 06:41 Pappenheimer Bodies Cancelled 10/13/22 06:41 Sickle Cells Cancelled 10/13/22 06:41 Target Cells Cancelled 10/13/22 06:41 Tear Drop Cells Cancelled 10/13/22 06:41 Ovalocytes Cancelled 10/13/22 06:41 Stomatocytes Cancelled 10/13/22 06:41 [place] Bodies Cancelled 10/13/22 06:41 Echinocytes Cancelled 10/13/22 06:41 Acanthocytes (Spur) Cancelled 10/13/22 06:41 Rouleaux Cancelled 10/13/22 06:41 RBC Agglutinates Cancelled 10/13/22 06:41 Schistocytes Cancelled 10/13/22 06:41 Sezary Cell Cancelled 10/13/22 06:41 PT 53.0 Seconds (9.0-12.0) H 10/13/22 06:41 INR 5.4 (0.9-1.1) H 10/13/22 06:41 Sodium 138 mmol/L (136-145) 10/13/22 06:41 Potassium 3.1 mmol/L (3.5-5.1) L 10/13/22 06:41 Chloride 103 mmol/L (98-107) 10/13/22 06:41 Carbon Dioxide 25 mmol/L (21-32) 10/13/22 06:41 Anion Gap 10 (3-11) 10/13/22 06:41 BUN 10 mg/dl (6-23) 10/13/22 06:41 Creatinine 0.57 mg/dl (0.6-1.2) L 10/13/22 06:41 Est Cr Clr Drug Dosing 93.2 ml/min 10/13/22 06:41 Est GFR ( Amer) 111.2 ml/min 10/13/22 06:41 Est GFR (Non-Af Amer) 95.9 ml/min 10/13/22 06:41 BUN/Creatinine Ratio 17.5 (10-20) 10/13/22 06:41 Glucose 83 mg/dl (70-99(Fasting)) 10/13/22 06:41 Uric Acid < 1.5 mg/dl (2.6-7.2) L 10/08/22 18:54 Calcium 7.7 mg/dl (8.6-10.3) L 10/13/22 06:41 Ionized Calcium 1.18 mmol/L (1.12-1.32) 10/08/22 18:54 Phosphorus 1.9 mg/dl (2.5-4.9) L 10/10/22 10:20 Magnesium 1.5 mg/dl (1.7-2.4) L 10/10/22 10:20 Total Bilirubin 0.6 mg/dl (0.2-1.0) 10/13/22 06:41 AST 5 U/L (13-39) L 10/13/22 06:41 ALT 5 U/L (7-52) L 10/13/22 06:41 Alkaline Phosphatase 186 U/L (34-104) H 10/13/22 06:41 Lactate Dehydrogenase 746 U/L (86-244) H 10/08/22 18:54 Total Creatine Kinase 41 U/L (26-192) 10/09/22 08:18 Total Protein 5.5 gm/dl (6.0-8.3) L 10/13/22 06:41 Albumin 2.8 gm/dl (3.4-5.0) L 10/13/22 06:41 Globulin 2.7 gm/dl (2.5-4.0) 10/13/22 06:41 Albumin/Globulin Ratio 1.0 (0.9-2) 10/13/22 06:41 Blood Parasites ID Cancelled 10/13/22 06:41 Blood Type A Positive 10/13/22 10:12 Antibody Screen NEGATIVE 10/13/22 10:12 Crossmatch See Detail 10/13/22 10:12
--- NOTE | 2022-10-13 17:51 | Hematology/Oncology Prog Note ---
Date of Service October 13, 2022 Assessment & Plan (1) Pancytopenia due to chemotherapy: (2) Chemotherapy induced neutropenia: (3) Thrombocytopenia: (4) Acute DVT (deep venous thrombosis): Plan - Would counts to improve over the next few days as she is almost past expected vero period. Continue with therapeutic dosing of Lovenox -Despite INR being greater than 3, no indication for vitamin K at this time since she does not have any evidence of active bleeding. Vitamin K also p otentially prothrombotic in the setting of recent extensive DVT diagnosis and malignancy -Transfuse to maintain hemoglobin greater than 7 and platelet count greater than 50,000 while on anticoagulation. Admission and Anticipated Discharge Date Admission Date: October 07, 2022 Subjective Platelet count of 47,000 today. Required platelet transfusion yesterday. Hemoglobin of 6.9 today Results & Data Vital Signs (Past 12 Hours) Vital Signs Temp Pulse Pulse Resp BP BP Pulse Ox 10/13/22 17:20 37.0 C 101 H 18 167/83 H 94 10/13/22 16:49 36.8 C 108 H 18 158/82 H 95 10/13/22 14:09 102 H 10/13/22 15:05 36.9 C 101 H 18 145/81 H 95 10/13/22 14:05 37.1 C 95 H 18 156/77 H 96 10/13/22 14:10 37.1 C 95 H 20 156/77 H 96 10/13/22 13:35 37.1 C 93 H 18 153/81 H 96 10/13/22 13:03 36.8 C 99 H 18 162/84 H 96 10/13/22 09:30 10/13/22 12:21 99 H 18 154/80 H 95 10/13/22 11:38 37.2 C 98 H 18 161/73 H 96 10/13/22 07:55 36.7 C 110 H 18 163/87 H 97 10/13/22 06:00 102 H O2 Del Method 10/13/22 17:20 10/13/22 16:49 10/13/22 14:09 10/13/22 15:05 10/13/22 14:05 10/13/22 14:10 Room Air 10/13/22 13:35 10/13/22 13:03 10/13/22 09:30 Room Air 10/13/22 12:21 Room Air 06/12/23 11:38 Room Air 10/13/22 07:55 Room Air 10/13/22 06:00
[2022-10-13] MEDS ORDERED: ENALAPRILAT 1.25 MG in DEXTROSE 5% 25 ML IV ONE (20:45)
[2022-10-14] MEDS: METOPROLOL TARTRATE 25 MG TAB PO SCH ×3 (01:45→20:32)
[2022-10-14] MEDS: OLANZAPINE 2.5 MG TAB PO SCH ×2 (01:45→20:32)
[2022-10-14] MEDS: SUCRALFATE 1 GM/10 ML UDC PO SCH ×4 (01:46→20:32)
[2022-10-14] MEDS: ENOXAPARIN 80 MG/0.8 ML SYR SQ SCH ×3 (01:47→20:33)
[2022-10-14] MEDS: ALUMINUM/MAGNESIUM/SIMETH (MAALOX MAX) 30 ML UDC PO SCH ×5 (02:52→23:16)
[2022-10-14] MEDS: LIDOCAINE VISCOUS 2% 15 ML UDC MT SCH ×5 (02:52→23:17)
[2022-10-14] MEDS: ACETAMINOPHEN 1,000 MG/100 ML VIAL IV SCH (02:52)
[2022-10-14] MEDS: LACTATED RINGER'S 1,000 ML IV SCH ×2 (05:18→12:16)
[2022-10-14 06:11] LABS: Hematocrit (blood only) 24.6 % (37.0-47.0); Mean Corpuscular Hemoglobin 26.7 pg (25.0-34.0); Mean Corpuscular Hgb Conc 32.5 g/dL (32.0-36.0); Mean Platelet Volume 10.1 fL (9.4-12.4); Platelet Count 51 K/uL (130-400); RDW Coefficient of Variation 15.7 % (11.5-14.5); RDW Standard Deviation 47.3 fL (36.4-46.3); White Blood Count 0.75 K/ul (4.8-10.8)
[2022-10-14 06:16] LABS: BUN Creatinine Ratio 21.6 (10-20); Calcium 7.5 mg/dl (8.6-10.3); Creatinine Clr Calc Pharmacy 104.2 ml/min; Est GFR (African American) 115.3 ml/min; Est GFR (Non-African American) 99.5 ml/min; Potassium 3.2 mmol/L (3.5-5.1)
[2022-10-14 06:23] LABS: INR 1.1 (0.9-1.1); Prothrombin Time 11.9 Seconds (9.0-12.0)
[2022-10-14 06:46] LABS: ALC (manual) 0.62 K/uL (1.2-3.4); ANC (manual) 0.05 K/uL (1.4-6.5); Basophils # (manual) 0.01 K/uL (0-0.2); Basophils % (manual) 1 %; Blast # (manual) 0.02 K/uL (0-0); Blast Cells % (manual) 2 %; Eosinophils # (manual) 0.01 K/uL (0-0.50); Eosinophils % (manual) 1 %; Hypochromasia Present; Lymphocytes # (manual) 0.62 K/uL (1.2-3.4); Lymphocytes % (manual) 82 %; Metamyelocytes # (manual) 0.02 K/uL (0-0); Metamyelocytes % (manual) 2 %; Monocytes # (manual) 0.05 K/uL (0.11-0.59); Monocytes % (manual) 7 %; Neutrophils # (manual) 0.05 K/uL (1.40-6.50); Neutrophils % (manual) 6 %
[2022-10-14] MEDS: ONDANSETRON INJ 2 MG/ML 2 ML VIAL IV PRN ×2 (09:12→15:35)
[2022-10-14] MEDS: HYDROmorphone INJ 0.5 MG/0.5 ML SYR IV PRN ×2 (09:12→15:35)
[2022-10-14] MEDS: PANTOprazole 40 MG in SYRINGE 0 ML IV SCH ×2 (09:29→20:34)
--- NOTE | 2022-10-14 09:30 | Gastroenterology Progress Note ---
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 Discussed that topical therapy for esophagitis including the already ordered Carafate, Maalox/lidocaine is recommended. She is not agreeable to trial this medication again. Would continue IV PPI as ordered Recommended liquid Carafate, magic mouthwash Follow CMV/HSV labs which are still pending No plan for repeat endoscopic evaluation at this time Thank you for allowing us to participate in the care of this patient. Please call with any acute changes, questions or concerns. Please see addendum below with additional recommendation from my supervising physician. Admission and Anticipated Discharge Date Admission Date: October 07, 2022 Supervising Physician Co-Signing Physician Notes Attending attestation I have seen, examined this patient, and agree with the findings and above by our mid-level provider AKSHAT Escalante, with the following additions: Patient with c/o nausea and odynophagia Somewhat unwilling to attempt any pre-treatment oral numbing or soothing agents that is not IV Strongly encouraged attempts at PO after pretreatment with viscous lidocaine/mylanta etc No signs of mucocytitis Continue IV BID PPI Hopefully rebound with wbc ct will help after vero Would reluctantly rec peripheral nutrition if not willing to take PO Subjective GI was asked to re-evaluate for odynophagia. EGD from October reviewed. 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 She notes since EGD she was not been able to swallow due to pain. Unable to tolerating any oral intake and not willing to attempt to swallow liquid medications due to the pain. Has not tried the Carafate, lidocaine and Maalox due to discomfort. These medications cause esophageal discomfort so has not attempted to take. Requesting something IV. Is already on IV PPI. EGD 2022: LA Grade D (one or more mucosal breaks involving at least 75% of esophageal circumference) esophagitis without bleeding was found. There were diffuse severe erosions throughout the lower and mid esophagus. The stomach and duodenum were normal. Review of Systems Review of Systems: All systems reviewed & are unremarkable except as noted in HPI & below Physical Exam Constitutional: WD/WN, vitals as above OOB in recliner chair Respiratory: normal respiratory effort Cardiovascular: Rate/Rhythm: regular rate and regular rhythm Gastrointestinal (Abdomen): Inspection/Auscultation: abdomen normal to inspection Percussion/Palpation: abdomen soft; abdomen nontender and no guarding Skin: no rashes, warm and dry Results & Data Vital Signs (Past 12 Hours) Vital Signs Temp Pulse Pulse Resp BP Pulse Ox O2 Del Method 10/14/22 07:19 111 H 10/14/22 04:02 36.9 C 95 H 18 169/85 H 94 Room Air 10/13/22 23:00 37.0 C 103 H 18 170/76 H 95 Room Air 10/13/22 23:00 108 H Laboratory Results 10/14/22 10/14/22 10/14/22 Range/Units 05:33 05:33 05:33 WBC 0.75 L* (4.8-10.8) K/ul RBC 3.00 L (4.20-5.40) M/uL Hgb 8.0 L (12.0-16.0) g/dl Hct 24.6 L (37.0-47.0) % MCV 82.0 (80.0-100.0) fL MCH 26.7 (25.0-34.0) pg MCHC 32.5 (32.0-36.0) g/dL RDW Std Deviation 47.3 H (36.4-46.3) fL RDW Coeff of Claude 15.7 H (11.5-14.5) % Plt Count 51 L (130-400) K/uL MPV 10.1 (9.4-12.4) fL Neutrophils % (Manual) 6 % Lymphocytes % (Manual) 82 % Monocytes % (Manual) 7 % Eosinophils % (Manual) 1 % Basophils % (Manual) 1 % Metamyelocytes % (Man) 2 % Blast Cells % (Manual) 2 % Neutrophils # (Manual) 0.05 L (1.40-6.50) K/uL Total Absolute Neuts 0.05 L* (1.4-6.5) K/uL Lymphocytes # (Manual) 0.62 L (1.2-3.4) K/uL Total Abs Lymphocytes 0.62 L (1.2-3.4) K/uL Monocytes # (Manual) 0.05 L (0.11-0.59) K/uL Eosinophils # (Manual) 0.01 (0-0.50) K/uL Basophils # (Manual) 0.01 (0-0.2) K/uL Metamyelocytes # (Man) 0.02 H (0-0) K/uL Blast Cells # (Man) 0.02 H (0-0) K/uL Blood Smear Review Pending Hypochromasia Present PT 11.9 (9.0-12.0) Seconds INR 1.1 (0.9-1.1) Sodium 137 (136-145) mmol/L Potassium 3.2 L (3.5-5.1) mmol/L Chloride 102 (98-107) mmol/L Carbon Dioxide 24 (21-32) mmol/L Anion Gap 11 (3-11) BUN 11 (6-23) mg/dl Creatinine 0.51 L (0.6-1.2) mg/dl Est Cr Clr Drug Dosing 104.2 ml/min Est GFR ( Amer) 115.3 ml/min Est GFR (Non-Af Amer) 99.5 ml/min BUN/Creatinine Ratio 21.6 H (10-20) Glucose 74 (70-99(Fasting)) mg/dl Calcium 7.5 L (8.6-10.3) mg/dl Blood Type Antibody Screen Crossmatch 10/13/22 Range/Units 10:12 WBC (4.8-10.8) K/ul RBC (4.20-5.40) M/uL Hgb (12.0-16.0) g/dl Hct (37.0-47.0) % MCV (80.0-100.0) fL MCH (25.0-34.0) pg MCHC (32.0-36.0) g/dL RDW Std Deviation (36.4-46.3) fL RDW Coeff of Claude (11.5-14.5) % Plt Count (130-400) K/uL MPV (9.4-12.4) fL Neutrophils % (Manual) % Lymphocytes % (Manual) % Monocytes % (Manual) % Eosinophils % (Manual) % Basophils % (Manual) % Metamyelocytes % (Man) % Blast Cells % (Manual) % Neutrophils # (Manual) (1.40-6.50) K/uL Total Absolute Neuts (1.4-6.5) K/uL Lymphocytes # (Manual) (1.2-3.4) K/uL Total Abs Lymphocytes (1.2-3.4) K/uL Monocytes # (Manual) (0.11-0.59) K/uL Eosinophils # (Manual) (0-0.50) K/uL Basophils # (Manual) (0-0.2) K/uL Metamyelocytes # (Man) (0-0) K/uL Blast Cells # (Man) (0-0) K/uL Blood Smear Review Hypochromasia PT (9.0-12.0) Seconds INR (0.9-1.1) Sodium (136-145) mmol/L Potassium (3.5-5.1) mmol/L Chloride (98-107) mmol/L Carbon Dioxide (21-32) mmol/L Anion Gap (3-11) BUN (6-23) mg/dl Creatinine (0.6-1.2) mg/dl Est Cr Clr Drug Dosing ml/min Est GFR ( Amer) ml/min Est GFR (Non-Af Amer) ml/min BUN/Creatinine Ratio (10-20) Glucose (70-99(Fasting)) mg/dl Calcium (8.6-10.3) mg/dl Blood Type A Positive Antibody Screen NEGATIVE Crossmatch See Detail
[2022-10-14] MEDS: DOCUSATE SODIUM/SENNA 50/8.6MG TAB PO SCH (09:41)
[2022-10-14] MEDS: allopurinoL 300 MG TAB PO SCH (09:41)
[2022-10-14] MEDS: FOLIC ACID 1 MG TAB PO SCH (09:41)
[2022-10-14] MEDS: PROCHLORPERAZINE 5 MG in SYRINGE 4 ML IV PRN ×2 (12:21→18:37)
--- NOTE | 2022-10-14 12:47 | Hospitalist Progress Note ---
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 Started on chemotherapy with C1 D1 of carboplatin/etoposide on October 01. On day 3 of the cycle(October 02), patient presented here. Admitted here from 10/02 to 10/04 secondary to altered mental status, LOLIS, concern for tumor lysis syndrome, anemia and acute DVT. Found to have extensive DVT of right lower extremity Also, found to have acute kidney injury with malfunction of left nephrostomy tube. Concern for TLS; received rasburicase. Also, found to have UTI, alpha streptococcus. She was transferred to [facility] [place] on 10/04 for IR evaluation for malfunctioning nephrostomy tube. 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 She was transferred back here in [facility] on 10/06. Labs reviewed; HIT panel negative CBC reveals [place], [place] [address], patient has received platelet transfusion on October 10 , and and October 13 Hemoglobin of 8.0 status post 1 unit of transfusion on October 13 LOLIS resolved Plan; Continue to monitor counts daily. Discussed with hematology; patient counts are coming up after vero. Status post 3 days of Neupogen. Continue on Lovenox. Monitor for febrile neutropenia -Completed antibiotic course for UTI. -Palliative consult done earlier in the hospitalization; remains full code. Pain controlled with current medication. -Avoid nephrotoxic agent. Monitor labs for tumor lysis syndrome. Continue allopurinol 300 mg once daily. Pressure ulcer of right medial buttock, stage 3, POA: Dressing as per wound care, Severe esophagitis Underwent endoscopy on October 03; found to have grade D esophagitis without bleeding. Also diffuse severe erosions throughout the lower and mid esophagus. Currently having severe dysphagia, slightly improved Discussed with GI; recommend obtaining CMV and HSV titers. Results awaited. Recommend current treatment Continue on Protonix 40 mg IV twice daily Continue Mylanta and viscous lidocaine oral every 6 hours IV fluids Clear liquid diet; advance as tolerated. DVT prophylaxis Lovenox Full code Discussed with at bedside Time spent evaluating patient, direct bedside care, chart review, placing orders, interpretation of diagnostic studies, discussion with consultants, patient, and family members, as well as other required patient management activities is 60 minutes. Please note the above document was generated using voice recognition software. It may contain grammatical, syntax or spelling errors. Any formal questions or concerns about the content, text or information contained within the body of this dictation should be directly addressed to the provider for clarification Admission and Anticipated Discharge Date Admission Date: October 07, 2022 Subjective Patient seen and examined at bedside. Reports of severe reflux resulting in inability to eat anything. Review of Systems Review of Systems: All systems reviewed & are unremarkable except as noted in Subjective Physical Exam Physical Exam: She did not allow a physical examination. Results & Data Results & Data Vital Signs (Past 12 Hours) Vital Signs Temp Pulse Pulse Resp BP Pulse Ox O2 Del Method 10/14/22 11:38 37.1 C 122 H 16 151/93 H 97 Room Air 10/14/22 07:19 111 H 10/14/22 04:02 36.9 C 95 H 18 169/85 H 94 Room Air Laboratory Results Laboratory Results WBC 0.75 K/ul (4.8-10.8) L* 10/14/22 05:33 RBC 3.00 M/uL (4.20-5.40) L 10/14/22 05:33 Hgb 8.0 g/dl (12.0-16.0) L 10/14/22 05:33 Hct 24.6 % (37.0-47.0) L 10/14/22 05:33 MCV 82.0 fL (80.0-100.0) 10/14/22 05:33 MCH 26.7 pg (25.0-34.0) 10/14/22 05:33 MCHC 32.5 g/dL (32.0-36.0) 10/14/22 05:33 RDW Std Deviation 47.3 fL (36.4-46.3) H 10/14/22 05:33 RDW Coeff of Claude 15.7 % (11.5-14.5) H 10/14/22 05:33 Plt Count 51 K/uL (130-400) L 10/14/22 05:33 MPV 10.1 fL (9.4-12.4) 10/14/22 05:33 Immature Gran % (Auto) Cancelled 10/13/22 06:41 Neut % (Auto) Cancelled 10/13/22 06:41 Lymph % (Auto) Cancelled 10/13/22 06:41 [place] % (Auto) Cancelled 10/13/22 06:41 Eos % (Auto) Cancelled 10/13/22 06:41 Baso % (Auto) Cancelled 10/13/22 06:41 Neut # (Auto) Cancelled 10/13/22 06:41 Lymph # (Auto) Cancelled 10/13/22 06:41 [place] # (Auto) Cancelled 10/13/22 06:41 Eos # (Auto) Cancelled 10/13/22 06:41 Baso # (Auto) Cancelled 10/13/22 06:41 Immature Gran # (Auto) Cancelled 10/13/22 06:41 Neutrophils % (Manual) 6 % 10/14/22 05:33 Band Neutrophils % Cancelled 10/13/22 06:41 Lymphocytes % (Manual) 82 % 10/14/22 05:33 Prolymphocyte % Cancelled 10/13/22 06:41 Reactive Lymphs % (Man) Cancelled 10/13/22 06:41 Monocytes % (Manual) 7 % 10/14/22 05:33 Eosinophils % (Manual) 1 % 10/14/22 05:33 Basophils % (Manual) 1 % 10/14/22 05:33 Metamyelocytes % (Man) 2 % 10/14/22 05:33 Myelocytes % (Man) Cancelled 10/13/22 06:41 Promyelocytes % (Man) Cancelled 10/13/22 06:41 Blast Cells % (Manual) 2 % 10/14/22 05:33 Plasma Cell % (Manual) Cancelled 10/13/22 06:41 Other Cells % Cancelled 10/13/22 06:41 Nucleated RBC % Cancelled 10/13/22 06:41 Neutrophils # (Manual) 0.05 K/uL (1.40-6.50) L 10/14/22 05:33 Band Neutrophils # Cancelled 10/13/22 06:41 Total Absolute Neuts 0.05 K/uL (1.4-6.5) L* 10/14/22 05:33 Lymphocytes # (Manual) 0.62 K/uL (1.2-3.4) L 10/14/22 05:33 Prolymphocyte # Cancelled 10/13/22 06:41 Reactive Lymphs # Cancelled 10/13/22 06:41 Total Abs Lymphocytes 0.62 K/uL (1.2-3.4) L 10/14/22 05:33 Monocytes # (Manual) 0.05 K/uL (0.11-0.59) L 10/14/22 05:33 Eosinophils # (Manual) 0.01 K/uL (0-0.50) 10/14/22 05:33 Basophils # (Manual) 0.01 K/uL (0-0.2) 10/14/22 05:33 Metamyelocytes # (Man) 0.02 K/uL (0-0) H 10/14/22 05:33 Myelocytes # (Manual) Cancelled 10/13/22 06:41 Promyelocytes # (Man) Cancelled 10/13/22 06:41 Blast Cells # (Man) 0.02 K/uL (0-0) H 10/14/22 05:33 Plasma Cell # (Manual) Cancelled 10/13/22 06:41 Other Cells # Cancelled 10/13/22 06:41 Nucleated RBCs # (Man) Cancelled 10/13/22 06:41 Hypersegmented Neuts Cancelled 10/13/22 06:41 Hyposegmented Neuts Cancelled 10/13/22 06:41 Hypogranular Neuts Cancelled 10/13/22 06:41 Large Granular Lymphs Cancelled 10/13/22 06:41 # Lrg Granular Lymphs Cancelled 10/13/22 06:41 Hairy Cells Cancelled 10/13/22 06:41 Smudge Cells Cancelled 10/13/22 06:41 Toxic Granulation Cancelled 10/13/22 06:41 Toxic Vacuolation Cancelled 10/13/22 06:41 Dohle Bodies Cancelled 10/13/22 06:41 Fuentes Rods Cancelled 10/13/22 06:41 Platelet Estimate Decreased (Normal) L 10/12/22 05:42 Hypogranular Platelets Cancelled 10/13/22 06:41 Giant Platelets Cancelled 10/13/22 06:41 Platelet Satelliting Cancelled 10/13/22 06:41 RBC Morphology Cancelled 10/13/22 06:41 Polychromasia Cancelled 10/13/22 06:41 Hypochromasia Present 10/14/22 05:33 Poikilocytosis Cancelled 10/13/22 06:41 Basophilic Stippling Cancelled 10/13/22 06:41 Anisocytosis Cancelled 10/13/22 06:41 Microcytosis Cancelled 10/13/22 06:41 Macrocytosis Cancelled 10/13/22 06:41 Spherocytes Cancelled 10/13/22 06:41 Pappenheimer Bodies Cancelled 10/13/22 06:41 Sickle Cells Cancelled 10/13/22 06:41 Target Cells Cancelled 10/13/22 06:41 Tear Drop Cells Cancelled 10/13/22 06:41 Ovalocytes Cancelled 10/13/22 06:41 Stomatocytes Cancelled 10/13/22 06:41 [place] Bodies Cancelled 10/13/22 06:41 Echinocytes Cancelled 10/13/22 06:41 Acanthocytes (Spur) Cancelled 10/13/22 06:41 Rouleaux Cancelled 10/13/22 06:41 RBC Agglutinates Cancelled 10/13/22 06:41 Schistocytes Cancelled 10/13/22 06:41 Sezary Cell Cancelled 10/13/22 06:41 PT 11.9 Seconds (9.0-12.0) 10/14/22 05:33 INR 1.1 (0.9-1.1) 10/14/22 05:33 Sodium 137 mmol/L (136-145) 10/14/22 05:33 Potassium 3.2 mmol/L (3.5-5.1) L 10/14/22 05:33 Chloride 102 mmol/L (98-107) 10/14/22 05:33 Carbon Dioxide 24 mmol/L (21-32) 10/14/22 05:33 Anion Gap 11 (3-11) 10/14/22 05:33 BUN 11 mg/dl (6-23) 10/14/22 05:33 Creatinine 0.51 mg/dl (0.6-1.2) L 10/14/22 05:33 Est Cr Clr Drug Dosing 104.2 ml/min 10/14/22 05:33 Est GFR ( Amer) 115.3 ml/min 10/14/22 05:33 Est GFR (Non-Af Amer) 99.5 ml/min 10/14/22 05:33 BUN/Creatinine Ratio 21.6 (10-20) H 10/14/22 05:33 Glucose 74 mg/dl (70-99(Fasting)) 10/14/22 05:33 Uric Acid < 1.5 mg/dl (2.6-7.2) L 10/08/22 18:54 Calcium 7.5 mg/dl (8.6-10.3) L 10/14/22 05:33 Ionized Calcium 1.18 mmol/L (1.12-1.32) 10/08/22 18:54 Phosphorus 1.9 mg/dl (2.5-4.9) L 10/10/22 10:20 Magnesium 1.5 mg/dl (1.7-2.4) L 10/10/22 10:20 Total Bilirubin 0.6 mg/dl (0.2-1.0) 10/13/22 06:41 AST 5 U/L (13-39) L 10/13/22 06:41 ALT 5 U/L (7-52) L 10/13/22 06:41 Alkaline Phosphatase 186 U/L (34-104) H 10/13/22 06:41 Lactate Dehydrogenase 746 U/L (86-244) H 10/08/22 18:54 Total Creatine Kinase 41 U/L (26-192) 10/09/22 08:18 Total Protein 5.5 gm/dl (6.0-8.3) L 10/13/22 06:41 Albumin 2.8 gm/dl (3.4-5.0) L 10/13/22 06:41 Globulin 2.7 gm/dl (2.5-4.0) 10/13/22 06:41 Albumin/Globulin Ratio 1.0 (0.9-2) 10/13/22 06:41 Blood Parasites ID Cancelled 10/13/22 06:41 Blood Type A Positive 10/13/22 10:12 Antibody Screen NEGATIVE 10/13/22 10:12 Crossmatch See Detail 10/13/22 10:12
[2022-10-14] MEDS: ONDANSETRON INJ 2 MG/ML 2 ML VIAL IV SCH (15:54)
[2022-10-15] MEDS: HYDROmorphone INJ 0.5 MG/0.5 ML SYR IV PRN ×4 (00:07→11:41)
[2022-10-15] MEDS: ONDANSETRON INJ 2 MG/ML 2 ML VIAL IV SCH ×4 (00:07→23:49)
[2022-10-15] MEDS: LACTATED RINGER'S 1,000 ML IV SCH ×2 (00:08→12:40)
[2022-10-15] MEDS: oxyCODONE HCL IR 5 MG TAB (IMMEDIATE RELEASE) PO PRN ×4 (02:14→22:57)
[2022-10-15] MEDS: LIDOCAINE VISCOUS 2% 15 ML UDC MT SCH ×4 (05:50→23:49)
[2022-10-15] MEDS: ALUMINUM/MAGNESIUM/SIMETH (MAALOX MAX) 30 ML UDC PO SCH ×4 (05:50→23:50)
[2022-10-15 06:25] LABS: BUN Creatinine Ratio 21.8 (10-20); Calcium 7.5 mg/dl (8.6-10.3); Creatinine Clr Calc Pharmacy 96.6 ml/min; Est GFR (African American) 112.5 ml/min; Est GFR (Non-African American) 97.1 ml/min; Potassium 2.9 mmol/L (3.5-5.1)
[2022-10-15] MEDS: METOPROLOL TARTRATE 25 MG TAB PO SCH ×2 (08:26→22:25)
[2022-10-15] MEDS: FOLIC ACID 1 MG TAB PO SCH (08:27)
[2022-10-15] MEDS: allopurinoL 300 MG TAB PO SCH (08:27)
[2022-10-15] MEDS: ENOXAPARIN 80 MG/0.8 ML SYR SQ SCH ×2 (08:30→22:24)
[2022-10-15] MEDS: SUCRALFATE 1 GM/10 ML UDC PO SCH ×3 (08:30→22:28)
[2022-10-15] MEDS: PANTOprazole 40 MG in SYRINGE 0 ML IV SCH ×2 (08:43→22:27)
--- NOTE | 2022-10-15 09:28 | Gastroenterology Progress Note ---
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 Will sign off. Thank you for allowing us to participate in the care of this patient. Please call with any acute changes, questions or concerns. Please see addendum below with additional recommendation from my supervising physician. Admission and Anticipated Discharge Date Admission Date: October 07, 2022 Supervising Physician Co-Signing Physician Notes Attending attestation I have seen, examined this patient, and agree with the findings and above by our mid-level provider AKSHAT Escalante, with the following additions: - Doing well with scheduled sypmtomatic meds such as zofran, antacids, and pretreatment - will sign off, call with questions Subjective Pt was seen and evaluated, chart reviewed Feeling better. Tolerating soft foods, pudding, watermelon, water and meds this AM. Review of Systems Review of Systems: All systems reviewed & are unremarkable except as noted in HPI & below Physical Exam Constitutional: WD/WN, vitals as above Respiratory: normal respiratory effort, lungs clear to auscultation Gastrointestinal (Abdomen): Inspection/Auscultation: abdomen normal to inspection and normal bowel sounds; abdomen not distended Percussion/Palpation: abdomen soft; abdomen nontender, no guarding and abdomen not rigid Skin: no rashes, warm and dry Results & Data Vital Signs (Past 12 Hours) Vital Signs Temp Pulse Pulse Resp BP Pulse Ox O2 Del Method 10/15/22 08:10 36.6 C 109 H 16 163/67 H 98 Room Air 10/15/22 07:38 103 H 10/15/22 03:05 37.0 C 111 H 18 133/70 95 Room Air 10/15/22 02:10 110 H 18 155/81 H 97 Room Air 10/15/22 01:25 103 H 10/14/22 23:15 37.1 C 119 H 18 154/69 H 96 Room Air 10/14/22 21:37 Room Air Laboratory Results 10/15/22 10/15/22 10/14/22 Range/Units 08:35 05:30 05:33 WBC Pending RBC Pending Hgb Pending Hct Pending MCV Pending MCH Pending MCHC Pending Plt Count Pending Blood Smear Review Sodium 135 L (136-145) mmol/L Potassium 2.9 L (3.5-5.1) mmol/L Chloride 100 (98-107) mmol/L Carbon Dioxide 23 (21-32) mmol/L Anion Gap 12 H (3-11) BUN 12 (6-23) mg/dl Creatinine 0.55 L (0.6-1.2) mg/dl Est Cr Clr Drug Dosing 96.6 ml/min Est GFR ( Amer) 112.5 ml/min Est GFR (Non-Af Amer) 97.1 ml/min BUN/Creatinine Ratio 21.8 H (10-20) Glucose 93 (70-99(Fasting)) mg/dl Calcium 7.5 L (8.6-10.3) mg/dl
[2022-10-15] MEDS: ACETAMINOPHEN 1,000 MG/100 ML VIAL IV SCH ×2 (09:32→17:34)
[2022-10-15 09:33] LABS: Hematocrit (blood only) 26.8 % (37.0-47.0); Hemoglobin 8.8 g/dl (12.0-16.0); Mean Corpuscular Hemoglobin 26.9 pg (25.0-34.0); Mean Corpuscular Hgb Conc 32.8 g/dL (32.0-36.0); Mean Platelet Volume 9.8 fL (9.4-12.4); Platelet Count 60 K/uL (130-400); RDW Coefficient of Variation 15.9 % (11.5-14.5); RDW Standard Deviation 47.9 fL (36.4-46.3); Red Blood Count 3.27 M/uL (4.20-5.40); White Blood Count 2.69 K/ul (4.8-10.8)
[2022-10-15] MEDS: DOCUSATE SODIUM/SENNA 50/8.6MG TAB PO SCH (09:33)
[2022-10-15 09:36] LABS: ALC (manual) 1.56 K/uL (1.2-3.4); Blast # (manual) 0.13 K/uL (0-0); Blast Cells % (manual) 5 %; Lymphocytes # (manual) 1.53 K/uL (1.2-3.4); Lymphocytes % (manual) 57 %; Monocytes # (manual) 0.22 K/uL (0.11-0.59); Monocytes % (manual) 8 %; Myelocytes # (manual) 0.08 K/uL (0-0); Myelocytes % (manual) 3 %; Neutrophils % (manual) 26 %; Plasma Cells # (manual) 0.03 K/uL (0-0); Plasma Cells % (manual) 1 %
[2022-10-15] MEDS: POTASSIUM CHLORIDE / WTR 10 MEQ/100 ML PLCT IV SCH ×4 (09:47→13:00)
--- NOTE | 2022-10-15 10:41 | Hospitalist Progress Note ---
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 Started on chemotherapy with C1 D1 of carboplatin/etoposide on October 01. On day 3 of the cycle(October 02), patient presented here. Admitted here from 10/02 to 10/04 secondary to altered mental status, LOLIS, concern for tumor lysis syndrome, anemia and acute DVT. Found to have extensive DVT of right lower extremity Also, found to have acute kidney injury with malfunction of left nephrostomy tube. Concern for TLS; received rasburicase. Also, found to have UTI, alpha streptococcus. She was transferred to [facility] [place] on 10/04 for IR evaluation for malfunctioning nephrostomy tube. 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 She was transferred back here in [facility] on 10/06. Labs reviewed; HIT panel negative CBC reveals pancytopenia, improving Platelet counts of 60,000, patient has received platelet transfusion on October 10 , and and October 13 Hemoglobin of 8.8 status post 1 unit of transfusion on October 13 LOLIS resolved Plan; - Continue to monitor counts daily. Discussed with hematology; patient counts are coming up after vero. - Status post 3 days of Neupogen. - Continue on Lovenox for DVT. Plan was to start warfarin but patient's platelets downtrended. Plan is to discharge home on lovenox, warfarin to be started after follow up with oncology. Monitor for febrile neutropenia - Completed antibiotic course for UTI. - Palliative consult done earlier in the hospitalization; remains full code. Pain controlled with current medication. - Avoid nephrotoxic agent. Monitor labs for tumor lysis syndrome. Continue allopurinol 300 mg once daily. Pressure ulcer of right medial buttock, stage 3, POA: Dressing as per wound care, Severe esophagitis Underwent endoscopy on October 03; found to have grade D esophagitis without bleeding. Also diffuse severe erosions throughout the lower and mid esophagus. Currently having severe dysphagia, slightly improved Discussed with GI; recommend obtaining CMV and HSV titers. Results awaited. Recommend current treatment Continue on Protonix 40 mg IV twice daily Continue Mylanta and viscous lidocaine oral every 6 hours IV fluids diet advanced. DVT prophylaxis Lovenox Full code Discussed with at bedside Time spent evaluating patient, direct bedside care, chart review, placing orders, interpretation of diagnostic studies, discussion with consultants, patient, and family members, as well as other required patient management activities is 60 minutes. Please note the above document was generated using voice recognition software. It may contain grammatical, syntax or spelling errors. Any formal questions or concerns about the content, text or information contained within the body of this dictation should be directly addressed to the provider for clarification Admission and Anticipated Discharge Date Admission Date: October 07, 2022 Subjective Patient seen and examined at bedside. Today, she is able to tolerate oral intake. Was able to eat watermelon. Also able to drink water. Reports that pain is well controlled on current regimen of medication. Review of Systems Review of Systems: All systems reviewed & are unremarkable except as noted in Subjective Physical Exam Physical Exam: General: Sitting up on the chair comfortably; not in any distress. HEENT: EOMI, SEBASTIAN, MMM Chest: Fair breath sounds anteriorly CVS: Regular rate and rhythm, normal heart sounds, no murmur Abdomen: Tenderness in epigastric region. Neuro: Awake, alert, oriented, conversing ok, non focal Extremities: No cyanosis, clubbing. Edema + in bilateral lower extremity. : Bilateral nephrostomy in place draining clear urine. Psych:Low mood Results & Data Results & Data Vital Signs (Past 12 Hours) Vital Signs Temp Pulse Pulse Resp BP Pulse Ox O2 Del Method 10/15/22 08:10 36.6 C 109 H 16 163/67 H 98 Room Air 10/15/22 07:38 103 H 10/15/22 03:05 37.0 C 111 H 18 133/70 95 Room Air 10/15/22 02:10 110 H 18 155/81 H 97 Room Air 10/15/22 01:25 103 H 10/14/22 23:15 37.1 C 119 H 18 154/69 H 96 Room Air Laboratory Results Laboratory Results WBC 2.69 K/ul (4.8-10.8) L 10/15/22 08:35 RBC 3.27 M/uL (4.20-5.40) L 10/15/22 08:35 Hgb 8.8 g/dl (12.0-16.0) L 10/15/22 08:35 Hct 26.8 % (37.0-47.0) L 10/15/22 08:35 MCV 82.0 fL (80.0-100.0) 10/15/22 08:35 MCH 26.9 pg (25.0-34.0) 10/15/22 08:35 MCHC 32.8 g/dL (32.0-36.0) 10/15/22 08:35 RDW Std Deviation 47.9 fL (36.4-46.3) H 10/15/22 08:35 RDW Coeff of Claude 15.9 % (11.5-14.5) H 10/15/22 08:35 Plt Count 60 K/uL (130-400) L 10/15/22 08:35 MPV 9.8 fL (9.4-12.4) 10/15/22 08:35 Immature Gran % (Auto) Cancelled 10/13/22 06:41 Neut % (Auto) Cancelled 10/13/22 06:41 Lymph % (Auto) Cancelled 10/13/22 06:41 [place] % (Auto) Cancelled 10/13/22 06:41 Eos % (Auto) Cancelled 10/13/22 06:41 Baso % (Auto) Cancelled 10/13/22 06:41 Neut # (Auto) Cancelled 10/13/22 06:41 Lymph # (Auto) Cancelled 10/13/22 06:41 [place] # (Auto) Cancelled 10/13/22 06:41 Eos # (Auto) Cancelled 10/13/22 06:41 Baso # (Auto) Cancelled 10/13/22 06:41 Immature Gran # (Auto) Cancelled 10/13/22 06:41 Neutrophils % (Manual) 26 % 10/15/22 08:35 Band Neutrophils % Cancelled 10/13/22 06:41 Lymphocytes % (Manual) 57 % 10/15/22 08:35 Prolymphocyte % Cancelled 10/13/22 06:41 Reactive Lymphs % (Man) Cancelled 10/13/22 06:41 Monocytes % (Manual) 8 % 10/15/22 08:35 Eosinophils % (Manual) 1 % 10/14/22 05:33 Basophils % (Manual) 1 % 10/14/22 05:33 Metamyelocytes % (Man) 2 % 10/14/22 05:33 Myelocytes % (Man) 3 % 10/15/22 08:35 Promyelocytes % (Man) Cancelled 10/13/22 06:41 Blast Cells % (Manual) 5 % 10/15/22 08:35 Plasma Cell % (Manual) 1 % 10/15/22 08:35 Other Cells % Cancelled 10/13/22 06:41 Nucleated RBC % Cancelled 10/13/22 06:41 Neutrophils # (Manual) 0.70 K/uL (1.40-6.50) L 10/15/22 08:35 Band Neutrophils # Cancelled 10/13/22 06:41 Total Absolute Neuts 0.70 K/uL (1.4-6.5) L* 10/15/22 08:35 Lymphocytes # (Manual) 1.53 K/uL (1.2-3.4) 10/15/22 08:35 Prolymphocyte # Cancelled 10/13/22 06:41 Reactive Lymphs # Cancelled 10/13/22 06:41 Total Abs Lymphocytes 1.56 K/uL (1.2-3.4) 10/15/22 08:35 Monocytes # (Manual) 0.22 K/uL (0.11-0.59) 10/15/22 08:35 Eosinophils # (Manual) 0.01 K/uL (0-0.50) 10/14/22 05:33 Basophils # (Manual) 0.01 K/uL (0-0.2) 10/14/22 05:33 Metamyelocytes # (Man) 0.02 K/uL (0-0) H 10/14/22 05:33 Myelocytes # (Manual) 0.08 K/uL (0-0) H 10/15/22 08:35 Promyelocytes # (Man) Cancelled 10/13/22 06:41 Blast Cells # (Man) 0.13 K/uL (0-0) H 10/15/22 08:35 Plasma Cell # (Manual) 0.03 K/uL (0-0) H 10/15/22 08:35 Other Cells # Cancelled 10/13/22 06:41 Nucleated RBCs # (Man) Cancelled 10/13/22 06:41 Hypersegmented Neuts Cancelled 10/13/22 06:41 Hyposegmented Neuts Cancelled 10/13/22 06:41 Hypogranular Neuts Cancelled 10/13/22 06:41 Large Granular Lymphs Cancelled 10/13/22 06:41 # Lrg Granular Lymphs Cancelled 10/13/22 06:41 Hairy Cells Cancelled 10/13/22 06:41 Smudge Cells Cancelled 10/13/22 06:41 Blood Smear Review 10/14/22 05:33 Toxic Granulation Cancelled 10/13/22 06:41 Toxic Vacuolation Cancelled 10/13/22 06:41 Dohle Bodies Cancelled 10/13/22 06:41 Fuentes Rods Cancelled 10/13/22 06:41 Platelet Estimate Decreased (Normal) L 10/12/22 05:42 Hypogranular Platelets Cancelled 10/13/22 06:41 Giant Platelets Cancelled 10/13/22 06:41 Platelet Satelliting Cancelled 10/13/22 06:41 RBC Morphology Cancelled 10/13/22 06:41 Polychromasia Cancelled 10/13/22 06:41 Hypochromasia Present 10/14/22 05:33 Poikilocytosis Cancelled 10/13/22 06:41 Basophilic Stippling Cancelled 10/13/22 06:41 Anisocytosis Cancelled 10/13/22 06:41 Microcytosis Cancelled 10/13/22 06:41 Macrocytosis Cancelled 10/13/22 06:41 Spherocytes Cancelled 10/13/22 06:41 Pappenheimer Bodies Cancelled 10/13/22 06:41 Sickle Cells Cancelled 10/13/22 06:41 Target Cells Cancelled 10/13/22 06:41 Tear Drop Cells Cancelled 10/13/22 06:41 Ovalocytes Cancelled 10/13/22 06:41 Stomatocytes Cancelled 10/13/22 06:41 [place] Bodies Cancelled 10/13/22 06:41 Echinocytes Cancelled 10/13/22 06:41 Acanthocytes (Spur) Cancelled 10/13/22 06:41 Rouleaux Cancelled 10/13/22 06:41 RBC Agglutinates Cancelled 10/13/22 06:41 Schistocytes Cancelled 10/13/22 06:41 Sezary Cell Cancelled 10/13/22 06:41 PT 11.9 Seconds (9.0-12.0) 10/14/22 05:33 INR 1.1 (0.9-1.1) 10/14/22 05:33 Sodium 135 mmol/L (136-145) L 10/15/22 05:30 Potassium 2.9 mmol/L (3.5-5.1) L 10/15/22 05:30 Chloride 100 mmol/L (98-107) 10/15/22 05:30 Carbon Dioxide 23 mmol/L (21-32) 10/15/22 05:30 Anion Gap 12 (3-11) H 10/15/22 05:30 BUN 12 mg/dl (6-23) 10/15/22 05:30 Creatinine 0.55 mg/dl (0.6-1.2) L 10/15/22 05:30 Est Cr Clr Drug Dosing 96.6 ml/min 10/15/22 05:30 Est GFR ( Amer) 112.5 ml/min 10/15/22 05:30 Est GFR (Non-Af Amer) 97.1 ml/min 10/15/22 05:30 BUN/Creatinine Ratio 21.8 (10-20) H 10/15/22 05:30 Glucose 93 mg/dl (70-99(Fasting)) 10/15/22 05:30 Uric Acid < 1.5 mg/dl (2.6-7.2) L 10/08/22 18:54 Calcium 7.5 mg/dl (8.6-10.3) L 10/15/22 05:30 Ionized Calcium 1.18 mmol/L (1.12-1.32) 10/08/22 18:54 Phosphorus 1.9 mg/dl (2.5-4.9) L 10/10/22 10:20 Magnesium 1.5 mg/dl (1.7-2.4) L 10/10/22 10:20 Total Bilirubin 0.6 mg/dl (0.2-1.0) 10/13/22 06:41 AST 5 U/L (13-39) L 10/13/22 06:41 ALT 5 U/L (7-52) L 10/13/22 06:41 Alkaline Phosphatase 186 U/L (34-104) H 10/13/22 06:41 Lactate Dehydrogenase 746 U/L (86-244) H 10/08/22 18:54 Total Creatine Kinase 41 U/L (26-192) 10/09/22 08:18 Total Protein 5.5 gm/dl (6.0-8.3) L 10/13/22 06:41 Albumin 2.8 gm/dl (3.4-5.0) L 10/13/22 06:41 Globulin 2.7 gm/dl (2.5-4.0) 10/13/22 06:41 Albumin/Globulin Ratio 1.0 (0.9-2) 10/13/22 06:41 Blood Parasites ID Cancelled 10/13/22 06:41 Blood Type A Positive 10/13/22 10:12 Antibody Screen NEGATIVE 10/13/22 10:12 Crossmatch See Detail 10/13/22 10:12
[2022-10-15] MEDS: OLANZAPINE 2.5 MG TAB PO SCH (22:26)
[2022-10-16] MEDS: ACETAMINOPHEN 1,000 MG/100 ML VIAL IV SCH ×2 (01:25→08:21)
[2022-10-16] MEDS: oxyCODONE HCL IR 5 MG TAB (IMMEDIATE RELEASE) PO PRN ×2 (03:30→09:45)
[2022-10-16 03:38] VITALS: O2SAT 96
[2022-10-16] MEDS: LACTATED RINGER'S 1,000 ML IV SCH (05:27)
[2022-10-16] MEDS: ALUMINUM/MAGNESIUM/SIMETH (MAALOX MAX) 30 ML UDC PO SCH ×2 (05:32→14:24)
[2022-10-16] MEDS: LIDOCAINE VISCOUS 2% 15 ML UDC MT SCH ×2 (05:32→14:24)
[2022-10-16 07:18] LABS: Hematocrit (blood only) 26.4 % (37.0-47.0); Hemoglobin 8.5 g/dl (12.0-16.0); Mean Corpuscular Hemoglobin 26.4 pg (25.0-34.0); Mean Corpuscular Hgb Conc 32.2 g/dL (32.0-36.0); Mean Platelet Volume 9.9 fL (9.4-12.4); Platelet Count 82 K/uL (130-400); Red Blood Count 3.22 M/uL (4.20-5.40); White Blood Count 3.48 K/ul (4.8-10.8)
[2022-10-16 07:33] LABS: BUN Creatinine Ratio 19.6 (10-20); Calcium 7.9 mg/dl (8.6-10.3); Creatinine Clr Calc Pharmacy 94.9 ml/min; Est GFR (African American) 111.8 ml/min; Est GFR (Non-African American) 96.5 ml/min; Potassium 3.2 mmol/L (3.5-5.1)
[2022-10-16 07:51] LABS: Acanthocytes 1+; Basophils % (manual) 1 %; Blast Cells % (manual) 4 %; Lymphocytes % (manual) 30 %; Metamyelocytes % (manual) 6 %; Microcytosis Present; Monocytes % (manual) 15 %; Myelocytes % (manual) 6 %; Neutrophils % (manual) 38 %
[2022-10-16 08:02] VITALS: BP 160/78; TEMP 97.3
[2022-10-16 08:06] LABS: ALC (manual) 1.04 K/uL (1.2-3.4); ANC (manual) 1.32 K/uL (1.4-6.5); Basophils # (manual) 0.03 K/uL (0-0.2); Blast # (manual) 0.14 K/uL (0-0); Lymphocytes # (manual) 1.04 K/uL (1.2-3.4); Metamyelocytes # (manual) 0.21 K/uL (0-0); Monocytes # (manual) 0.52 K/uL (0.11-0.59); Myelocytes # (manual) 0.21 K/uL (0-0); Neutrophils # (manual) 1.32 K/uL (1.40-6.50)
[2022-10-16] MEDS ORDERED: POTASSIUM CHLORIDE CRTAB 20 MEQ TABCR PO STA (08:07)
[2022-10-16] MEDS: ONDANSETRON INJ 2 MG/ML 2 ML VIAL IV SCH (08:10)
[2022-10-16] MEDS ORDERED: POTASSIUM CHLORIDE 20 MEQ/15 ML UDC PO ONE (09:30)
[2022-10-16] MEDS: METOPROLOL TARTRATE 25 MG TAB PO SCH (09:31)
[2022-10-16] MEDS: allopurinoL 300 MG TAB PO SCH (09:32)
[2022-10-16] MEDS: FOLIC ACID 1 MG TAB PO SCH (09:32)
[2022-10-16] MEDS: SUCRALFATE 1 GM/10 ML UDC PO SCH (09:33)
[2022-10-16] MEDS: PANTOprazole 40 MG in SYRINGE 0 ML IV SCH (09:35)
[2022-10-16] MEDS: ENOXAPARIN 80 MG/0.8 ML SYR SQ SCH (09:49)
[2022-10-16] MEDS: DOCUSATE SODIUM/SENNA 50/8.6MG TAB PO SCH (09:49)
--- NOTE | 2022-10-16 13:56 | Hospitalist Progress Note ---
Date of Service October 16, 2022 Assessment & Plan (1) DVT (deep venous thrombosis): (2) Acute kidney injury: (3) Neuro-endocrine carcinoma: (4) Malfunction of nephrostomy tube: (5) Chemotherapy induced neutropenia: Plan per Dr. 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 Started on chemotherapy with C1 D1 of carboplatin/etoposide on October 01. On day 3 of the cycle(October 02), patient presented here. Admitted here from 10/02 to 10/04 secondary to altered mental status, LOLIS, concern for tumor lysis syndrome, anemia and acute DVT. Found to have extensive DVT of right lower extremity Also, found to have acute kidney injury with malfunction of left nephrostomy tube. Concern for TLS; received rasburicase. Also, found to have UTI, alpha streptococcus. She was transferred to [facility] on 10/04 for IR evaluation for malfunctioning nephrostomy tube. 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 She was transferred back here in [facility] on 10/06. Labs reviewed; HIT panel negative CBC reveals pancytopenia, improving Platelet counts of 60,000, patient has received platelet transfusion on October 10 , and and October 13 Hemoglobin of 8.8 status post 1 unit of transfusion on October 13 LOLIS resolved - Status post 3 days of Neupogen. - Completed antibiotic course for UTI. - Palliative consult done earlier in the hospitalization; remains full code. Pain controlled with current medication. - Avoid nephrotoxic agent. Monitor labs for tumor lysis syndrome. Continue allopurinol 300 mg once daily. 10/16 clinically improved CBC trending up LOLIS resolved, Nephrostomy tube functioning appropriately again discharge on: Coumadin 3mg po daily with Lovenox 80mg q12h for bridging (Coumadin clinic will be contacted by Nurse Navigator Mik to have them contact patient today or tomorrow for ff up) discussed with Dr. Kim- Hem/Onc Pressure ulcer of right medial buttock, stage 3, POA: Dressing as per wound care, Severe esophagitis Underwent endoscopy on October 03; found to have grade D esophagitis without bleeding. Also diffuse severe erosions throughout the lower and mid esophagus. Discussed with GI; recommend obtaining CMV and HSV titers. Results awaited. Continue on Protonix 40 mg po BID, Sucrafalte QID x 2 weeks, then daily Disposition d/c home with home health services ff up with PCP in 1 week Oncologist in 1 week plan of care discussed with patient in detail and at length all questions answered she is understanding, agreeable, comfortable with the plan of care Admission and Anticipated Discharge Date Admission Date: October 07, 2022 Subjective ff up for acute dvt, esophagitis, etc seen resting in bed, comfortable states she feels fine overall states she is able to tolerate her food and pills well no chest pain, dyspnea, palpitations, dizziness no leg pain, fever/chills no bleeding no other symptoms states she is ready and would like to be discharged home today Review of Systems Review of Systems: all noted and negative except for above Physical Exam Physical Exam: General- oriented x 3, not in distress, speaks in sentences with no effort or accessory muscle use Eyes- anicteric Neck- no JVD Lungs- clear breath sounds bilaterally, no rales/wheezes Heart- normal rate, regular rhythm; no murmurs Abdomen- normal bowel sounds, nondistended, soft, nontender BL nephrostomy tubes in place- draining yellow urine Extremities- grade 1 lower leg edema- no erythema, warmth, tenderness; no calf tenderness Neuro- alert, oriented x 3; no gross focal neurologic deficits Skin- warm & dry Results & Data Results & Data Vital Signs (Past 12 Hours) Vital Signs Temp Pulse Pulse Resp BP Pulse Ox O2 Del Method 10/16/22 08:01 36.3 C L 83 16 160/78 H 96 Room Air 10/16/22 03:22 36.6 C 105 H 18 149/87 H 96 Room Air 10/16/22 01:55 97 H all noted and reviewed including below
[2022-10-16] MEDS ORDERED: WARFARIN SOD 3 MG TAB PO SCH (16:00)
[2022-10-16 16:03] LABS: CMV IgG Antibody <0.60 U/mL; CMV IgM Antibody <30.00 AU/mL; HSV Type 1 DNA Not Detected (Not Detected); HSV Type 1&2 DNA Source Whole Blood; HSV Type 2 DNA Not Detected (Not Detected)
[2022-10-16 18:03] VITALS: PULSE 98
--- NOTE | 2022-10-17 10:26 | Discharge Summary ---
Discharge Summary Date of Service October 16, 2022 delayed entry date of service noted above Admission HPI Per Admitting Provider History obtained from patient, family, and records. Medical history significant for HTN, metastatic gynecologic neuroendocrine ma lignancy on chemotherapy, history of tumor lysis syndrome, chronic hydronephrosis secondary to bilateral ureteral obstruction status post nephroureteral catheter placement, CRI (baseline creatinine 1.2)chronic anemia (baseline hemoglobin 8-9), esophagitis, cancer pain on narcotics, history VRE UTI. Recent [facility] confinement October 02 to 2022 for acute renal failure secondary to malfunctioning nephrostomy tube, tumor lysis syndrome. Patient RTC narcotics at home held due to confusion. Other issues during confinement included upper GI bleed, RLE DVT, complicated UTI. EGD showed esophagitis without bleeding and diffuse severe erosions to lower and mid esophagus. PPI and Carafate recommended. IV heparin initiated during confinement after GI clearance. Patient transferred to [facility] for IR guided bilateral nephrostomy catheter exchange. [facility] confinement from October 02 to 2022. Kidney function normalized on discharge after nephrostomy catheter exchange and IV rasburicase administration for TLS. Patient completed IV ceftriaxone course as per [facility] ID recommendation for alpha strep UTI growth from [facility] confinement. IV heparin initiated at [facility] transition to Lovenox Coumadin due to Eliquis not b eing covered by insurance. Patient also found to have severe vitamin D deficiency for which calcium D supplementation was recommended. Patient requested to transfer back to [facility] from [facility] yesterday to complete care. Patient to transfer pending transport availability. Platelets noted to be 105 yesterday. Concerns for heparin-induced thrombocytopenia discussed with patient's [facility] oncology team who recommended holding Lovenox, HIT test, and utilizing Arixtra until HIT test results out. Heparin platelet factor 4 antibody with reflex to serotonin release assay pending at time of dictation. Follow-up CBC, CMP, mag, uric acid, ionized calcium, Phos, LD and CK recommended as per discharge summary. 10/07 [facility] lab results Hemoglobin 8.6, hematocrit 28, WBC 2.6, platelets 71 Serum sodium 141, potassium 3.6, chloride 110, CO2 20, anion gap 11, glucose 102 BUN 27, creatinine 1.2, uric acid 1.5, serum LDH 1263 Patient currently comfortable upon direct admission to floor. Patient denies chest pain, unusual SOB, headache, unusual belly pain, black, bloody stools. 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 Started on chemotherapy with C1 D1 of carboplatin/etoposide on October 01. On day 3 of the cycle(October 02), patient presented here. Admitted here from 10/02 to 10/04 secondary to altered mental status, LOLIS, concern for tumor lysis syndrome, anemia and acute DVT. Found to have extensive DVT of right lower extremity Also, found to have acute kidney injury with malfunction of left nephrostomy tube. Concern for TLS; received rasburicase. Also, found to have UTI, alpha streptococcus. She was transferred to [facility] on 10/04 for IR evaluation for malfunctioning nephrostomy tube. 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 She was transferred back here in [facility] on 10/06. Labs reviewed; HIT panel negative CBC reveals pancytopenia, improving Platelet counts of 60,000, patient has received platelet transfusion on October 10 , and and October 13 Hemoglobin of 8.8 status post 1 unit of transfusion on October 13 LOLIS resolved - Status post 3 days of Neupogen. - Completed antibiotic course for UTI. - Palliative consult done earlier in the hospitalization; remains full code. Pain controlled with current medication. - Avoid nephrotoxic agent. Monitor labs for tumor lysis syndrome. Continue allopurinol 300 mg once daily. 10/16 clinically improved CBC trending up LOLIS resolved, Nephrostomy tube functioning appropriately again discharge on: Coumadin 3mg po daily with Lovenox 80mg q12h for bridging (Coumadin clinic will be contacted by Nurse Navigator Mik to have them contact patient today or tomorrow for ff up) discussed with Dr. Kim- Hem/Onc Pressure ulcer of right medial buttock, stage 3, POA: Dressing as per wound care, Severe esophagitis Underwent endoscopy on October 03; found to have grade D esophagitis without bleeding. Also diffuse severe erosions throughout the lower and mid esophagus. Discussed with GI; recommend obtaining CMV and HSV titers. Results awaited. Continue on Protonix 40 mg po BID, Sucrafalte QID x 2 weeks, then daily Disposition d/c home with home health services ff up with PCP in 1 week Oncologist in 1 week plan of care discussed with patient in detail and at length all questions answered she is understanding, agreeable, comfortable with the plan of care Updated Medication List Medication Instructions Recorded Confirmed Type folic acid 1 mg tablet 1 mg PO DAILY 09/25/22 10/06/22 History olanzapine 2.5 mg tablet (Zyprexa) 2.5 mg PO HS 10/02/22 10/06/22 History ondansetron HCl 4 mg tablet 4 mg PO Q6H PRN Nausea And Vomiting 10/02/22 History allopurinol 100 mg tablet 300 mg PO QAM 10/06/22 10/06/22 History calcium carbonate 300 mg (750 mg) 600 mg PO BID 10/06/22 10/06/22 History chewable tablet ergocalciferol (vitamin D2) 1,250 1,250 mcg PO WK 10/06/22 10/06/22 History mcg (50,000 unit) capsule (Vitamin D2) hydrocodone 5 mg-acetaminophen 325 1 tab PO Q6H PRN Pain 10/06/22 10/06/22 History mg tablet ondansetron HCl 8 mg tablet 8 mg PO Q8H PRN NAUSEA/VOMITING 10/06/22 10/06/22 History prochlorperazine maleate 10 mg 10 mg PO Q6H PRN NAUSEA/VOMITING 10/06/22 10/06/22 History tablet aluminum-mag hydroxide-simethicone 15 ml PO Q6H PRN abdominal pain 10/16/22 Rx 400 mg-400 mg-40 mg/5 mL oral susp #355 mL (Mag-Al Plus Extra Strength) enoxaparin 80 mg/0.8 mL 80 mg (0.8 mL) subcut Q12 14 days 10/16/22 Rx subcutaneous syringe (Lovenox) #22.4 mL metoprolol tartrate 25 mg tablet 12.5 mg PO BID 30 days #30 tabs 10/16/22 Rx oxycodone 5 mg tablet 5 mg PO TID PRN PAIN 30 days #120 10/16/22 10/06/22 Rx tabs pantoprazole 40 mg tablet,delayed 40 mg PO BID 30 days #45 tabs 10/16/22 Rx release (Protonix) potassium chloride 20 mEq oral 20 meq PO DAILY 14 days #14 ea 10/16/22 Rx packet sennosides 8.6 mg-docusate sodium 1 tab PO QAM 30 days #30 tabs 10/16/22 Rx 50 mg tablet (Senokot-S) sucralfate 1 gram tablet 1 g PO ACHS 14 days #56 tabs 10/16/22 Rx warfarin 3 mg tablet 3 mg PO DAILY@1600 30 days #30 tabs 10/16/22 Rx Hospital Stay Data Consultations 10/07/22 20:15 Consult Hematology Routine 10/08/22 11:52 Consult General Surgery Routine 10/11/22 09:15 Consult Gastroenterology Routine Pending Results Patient Have Any Pending Studies at Discharge: Yes Discharge Instructions Given to Patient (Per Discharging Provider) PLEASE REFER TO YOUR NEW MEDICATION LIST AND FOLLOW INSTRUCTIONS CAREFULLY. YOUR NEW MEDICATIONS INCLUDE: Metoprolol- for control of high blood pressure Lovenox- blood thinner for blood clot in the leg Coumadin- blood thinner for blood clot in the leg Protonix, Carafate, Maalox as needed- for esophagitis Potassium - supplement Senokot S- for bowel movement PLEASE CALL YOUR PRIMARY CARE PHYSICIAN OR RETURN TO THE ER IF WITH WORSENING OF SYMPTOMS, INCLUDING fever/chills, bleeding, weakness, shortness of breath, dizziness, leg swelling/pain/redness, chest pain, etc FOLLOW UP WITH PRIMARY CARE PHYSICIAN in 1 week. THE COUMADIN [facility] PHARMACIST WILL BE CALLING YOU SOON FOR ADVICE REGARDING COUMADIN AND BLOOD WORK.
== END 2022-10-16 17:08 | disposition home or self-care (01) | DRG 299 ==
LOC: SUATTDRO 10-07 19:31 → 2S 10-07 19:31 → 2W 10-08 10:31

== ENCOUNTER 2022-11-11 10:29 | Inpatient (IN) ==
[2022-11-11] MEDS ORDERED: SODIUM CHLORIDE 0.9% 1000ML 1,000 ML IV ONE (10:48)
--- NOTE | 2022-11-11 10:52 | Emergency Department Note ---
Impression & Plan SDH (subdural hematoma), Neuroendocrine cancer, Leukocytosis, UTI (urinary tract infection) ED Provider Note NAME: ROMEO DOE AGE: 67 SEX: F : 1955 ARRIVES VIA: Walk-In INFORMANT: Patient, ED PROVIDER(S): Pancho Walker DO CHIEF COMPLAINT: Enlarging subdural HPI: Patient is a 67-year-old female who presents to the ER who was recently transferred to [facility] following a fall and a small subdural on 10/20. She presents today as on Thursday she saw her PCP was having some tingling/numbness in the left hand. He repeated a CT scan today and was referred in due to a tiny increase in the subdural. She has been taking her Coumadin. Denies any headache or change in vision. No chest pain or shortness of breath. No new falls. No dysuria, urgency, or frequency. No other exacerbating or remitting factors. PAST MEDICAL HISTORY:See Below PAST SURGICAL HISTORY:See Below FAMILY HISTORY:See Below SOCIAL HISTORY:See Below HOME MEDICATIONS:See Below ALLERGIES:See Below VITALS:See Below PHYSICAL EXAMINATION: GENERAL: Sitting up in bed, alert, well appearing, well nourished, no distress, non-toxic EYE EXAM: normal conjunctiva. PERRL and EOM's grossly intact. OROPHARYNX: no exudate, no erythema, lips, buccal mucosa, and tongue normal and mucous membranes are moist NECK: supple, no nuchal rigidity, no adenopathy, non-tender LUNGS: Clear to auscultation. Normal chest wall mechanics HEART: no murmurs, S1 normal and S2 normal ABDOMEN: abdomen soft, non-tender, normo-active bowel sounds, no masses, no rebound or guarding. BACK: Nephrostomy tube sites are clean dry and intact. UPPER EXTREMITIES: upper extremities are grossly normal. LOWER EXTREMITIES: No pitting edema. NEURO EXAM: Normal sensorium, cranial nerves II-XII intact, normal speech, no weakness of arms, no weakness of legs. MEDICAL DECISION MAKING: Patient is a 67-year-old female with a past medical history of pancytopenia, neuroendocrine tumor with a DVT currently on Coumadin with a recent subdural for increase in size of the recent subdural. External records reviewed. She was discharged from [facility] and is currently still on her Coumadin. The subdural increased in size slightly which was performed today following being discharged. Patient was referred into the ER. Images were transmitted to [facility] neurosurgery Dr. Nuñez who knew the patient from her last admission. He evaluated the images. He notes that with the CT and her presentation he recommends following her up as an outpatient within 2 weeks. He would like to have her have a repeat scan within the week performed by the PCP. Following this blood work eventually resulted. Labs showed a leukocytosis of 20,000. Hemoglobin at 8 fairly consistent with previous. No thrombocytopenia. INR was supratherapeutic at 3.5. BMP with a CO2 of 19 and a little bit of a gap at 12. LFTs bilirubin was unremarkable. Lipase was normal. UA does suggest UTI with bacteria, whites and leuks and no epithelial cells. Patient was covered with IV Rocephin. She was given IV fluids. Case was rediscussed with neurosurgery Dr. Nuñez. He recommends and is agreeable with admission to [facility]. He notes that since the patient is being admitted they can repeat the imaging in the morning. He recommends a goal INR of 2-3 and further management per the hospitalist for the infectious process. Discussed with Jeanette barros from the [facility] hospitalist service. She was agreeable to evaluating the patient please see their note for further details. Again per neurosurgery this patient from the SDH standpoint can be discharged home and follow-up as an outpatient and this patient has been admitted here medically to [facility] for the abnormalities of blood work and UTI. Triage Nursing notes reviewed. Limited review of prior medical records performed Vital Signs: reviewed and remarkable for no significant abnormalities Differential diagnosis: Differential diagnoses include major intracranial, cervical, spinal, thoracic, abdominal, pelvic and neurologic injury. Fracture, contusion, sprain, strain, laceration, abrasions included as well. ER treatment provided: See below Diagnostics interpreted by me include EKG and cardiac monitoring as listed below: -Cardiac Monitoring: An order was placed for continuous cardiac monitoring. The monitor shows a rate of 90 with sinus rhythm. -ECG: Sinus rhythm rate of 91 Normal axis Poor baseline QTc 430 -Laboratory studies:Interpreted by me as stated above in MDM and shown below. Imaging studies: Xrays: As interpreted by me:none CTs show: CT head performed as an outpatient was reviewed. Consultation(s): As described in MDM Procedures:none Critical Care: I have personally spent 31 minutes of critical care time in the direct management of this patient. This includes bedside care, interpretation of diagnostic studies, and testing, discussion with consultants, patient, and family members, and other required patient management activities. This 31 minutes is in excess of all separately billable procedures. Past Med/Surg History Medical History Advanced care planning/counseling discussion Anxiety Cancer related pain DVT (deep venous thrombosis) Insomnia Nausea Neuroendocrine cancer No significant medical problems Palliative care by specialist Surgical History H/O cervical biopsy Social History Smoking Status: Never smoker Do You Dip or Chew Tobacco: No; Hx Alcohol Use: No Hx Substance Use: No Preferred Language: Mauritian Communication Ability: Effective Beam House Inspector Required: No Beliefs That Will Affect Care: None marital status: Current Living Situation: Spouse current occupational status: employed How many Children do You have: 0 Feels Safe at Home: Yes during the past year weight has: decreased > 10 lbs Assistive Devices: Walker Allergies Allergies Allergy/AdvReac Type Severity Reaction Status Date / Time Sulfa (Sulfonamide Allergy Severe Swelling Verified 10/20/22 17:29 Antibiotics) of Lip/Tongue/Throat Home Meds Home Medications Medication Instructions Recorded Confirmed folic acid 1 mg tablet 1 mg PO QAM 09/25/22 11/11/22 ferrous sulfate 325 mg (65 mg 325 mg PO BID 11/11/22 11/11/22 iron) tablet furosemide 20 mg tablet 20 mg PO DAILY 11/11/22 11/11/22 metoprolol tartrate 25 mg tablet 25 mg PO DAILY 11/11/22 11/11/22 potassium chloride 20 mEq 20 meq PO BID 11/11/22 11/11/22 tablet,extended release Previous Rx's Medication Instructions Recorded warfarin 3 mg tablet 3 mg PO DAILY@1600 30 days #30 tabs 10/16/22 Results & Data (ED) Vital Signs Vital Signs - 24 hr 11/11/22 10:33 11/11/22 10:50 11/11/22 10:50 Temperature 36.8 C Temperature Source Temporal Artery Scan Pulse Rate 94 H Pulse Rate [Apical] 90 Pulse Rhythm [Apical] Respiratory Rate 20 Respiratory Effort / Characteristics Non-Labored Spontaneous Respiratory Depth Normal Respiratory Pattern Blood Pressure 87/41 L Blood Pressure [Right Arm] 134/64 Blood Pressure Mean 56 Blood Pressure Mean [Right Arm] 87 Pulse Oximetry 94 93 93 Oxygen Delivery Method Room Air Room Air Room Air Sepsis Recent Fever Within 48 Hours No Sepsis New/Unexplained Change in Mental Status No Sepsis Action Taken by Nursing No Action Required 11/11/22 11:19 11/11/22 12:30 11/11/22 14:10 Temperature Temperature Source Pulse Rate 85 Pulse Rate [Apical] 83 91 H Pulse Rhythm [Apical] Regular Respiratory Rate 18 18 Respiratory Effort / Characteristics Non-Labored Respiratory Depth Normal Respiratory Pattern Regular Blood Pressure Blood Pressure [Right Arm] 115/48 L 119/59 L Blood Pressure Mean Blood Pressure Mean [Right Arm] 70 79 Pulse Oximetry 98 98 Oxygen Delivery Method Room Air Room Air Sepsis Recent Fever Within 48 Hours Sepsis New/Unexplained Change in Mental Status Sepsis Action Taken by Nursing Laboratory Data 11/11/22 10:45 11/11/22 10:45 Lab Results 11/11/22 11/11/22 11/11/22 Range/Units 10:45 10:45 10:45 WBC 20.39 H (4.8-10.8) K/ul RBC 2.95 L (4.20-5.40) M/uL Hgb 8.3 L (12.0-16.0) g/dl Hct 25.9 L (37.0-47.0) % MCV 87.8 (80.0-100.0) fL MCH 28.1 (25.0-34.0) pg MCHC 32.0 (32.0-36.0) g/dL RDW Std Deviation 61.4 H (36.4-46.3) fL RDW Coeff of Claude 18.9 H (11.5-14.5) % Plt Count 270 (130-400) K/uL MPV 9.0 L (9.4-12.4) fL Immature Gran % (Auto) 5.1 % Neut % (Auto) 81.3 % Lymph % (Auto) 6.1 % [place] % (Auto) 6.9 % Eos % (Auto) 0.3 % Baso % (Auto) 0.3 % Neut # (Auto) 16.57 H (1.40-6.50) K/uL Lymph # (Auto) 1.24 (1.2-3.4) K/uL [place] # (Auto) 1.40 H (0.11-0.59) K/uL Eos # (Auto) 0.07 (0-0.50) K/uL Baso # (Auto) 0.07 (0-0.2) K/uL Immature Gran # (Auto) 1.04 H (0.01-0.20) K/uL PT 35.4 H (9.0-12.0) Seconds INR 3.5 H (0.9-1.1) Sodium 131 L (136-145) mmol/L Potassium 5.0 (3.5-5.1) mmol/L Chloride 100 (98-107) mmol/L Carbon Dioxide 19 L (21-32) mmol/L Anion Gap 12 H (3-11) BUN 13 (6-23) mg/dl Creatinine 1.05 (0.6-1.2) mg/dl Est Cr Clr Drug Dosing Not Reportable Est GFR ( Amer) 63.6 ml/min Est GFR (Non-Af Amer) 54.9 ml/min BUN/Creatinine Ratio 12.4 (10-20) Glucose 92 (70-99(Fasting)) mg/dl Calcium 9.2 (8.6-10.3) mg/dl Total Bilirubin 0.4 (0.2-1.0) mg/dl AST 17 (13-39) U/L ALT 11 (7-52) U/L Alkaline Phosphatase 180 H (34-104) U/L Total Protein 6.7 (6.0-8.3) gm/dl Albumin 3.3 L (3.4-5.0) gm/dl Globulin 3.4 (2.5-4.0) gm/dl Albumin/Globulin Ratio 1.0 (0.9-2) Lipase 37 (11-82) U/L Urine Color Urine Appearance (Clear) Urine pH (4.5-7.5) Ur Specific Perkins (1.000-1.030) Urine Protein (Negative) Urine Glucose (UA) (Negative) Urine Ketones (Negative) Urine Blood (Negative) Urine Nitrite (Negative) Urine Bilirubin (Negative) Urine Urobilinogen (Negative) Ur Leukocyte Esterase (Negative) Urine WBC (Auto) (0-5) /hpf Urine RBC (Auto) (0-4) /hpf U Hyaline Cast (Auto) (0-5) /lpf U Epithel Cells (Auto) (0-5) /lpf Urine Bacteria (Auto) (Negative) Urine Yeast SARS-CoV-2, RNA, NAAT (NEGATIVE) 11/11/22 11/11/22 Range/Units 10:45 13:22 WBC (4.8-10.8) K/ul RBC (4.20-5.40) M/uL Hgb (12.0-16.0) g/dl Hct (37.0-47.0) % MCV (80.0-100.0) fL MCH (25.0-34.0) pg MCHC (32.0-36.0) g/dL RDW Std Deviation (36.4-46.3) fL RDW Coeff of Claude (11.5-14.5) % Plt Count (130-400) K/uL MPV (9.4-12.4) fL Immature Gran % (Auto) % Neut % (Auto) % Lymph % (Auto) % [place] % (Auto) % Eos % (Auto) % Baso % (Auto) % Neut # (Auto) (1.40-6.50) K/uL Lymph # (Auto) (1.2-3.4) K/uL [place] # (Auto) (0.11-0.59) K/uL Eos # (Auto) (0-0.50) K/uL Baso # (Auto) (0-0.2) K/uL Immature Gran # (Auto) (0.01-0.20) K/uL PT (9.0-12.0) Seconds INR (0.9-1.1) Sodium (136-145) mmol/L Potassium (3.5-5.1) mmol/L Chloride (98-107) mmol/L Carbon Dioxide (21-32) mmol/L Anion Gap (3-11) BUN (6-23) mg/dl Creatinine (0.6-1.2) mg/dl Est Cr Clr Drug Dosing Est GFR ( Amer) ml/min Est GFR (Non-Af Amer) ml/min BUN/Creatinine Ratio (10-20) Glucose (70-99(Fasting)) mg/dl Calcium (8.6-10.3) mg/dl Total Bilirubin (0.2-1.0) mg/dl AST (13-39) U/L ALT (7-52) U/L Alkaline Phosphatase (34-104) U/L Total Protein (6.0-8.3) gm/dl Albumin (3.4-5.0) gm/dl Globulin (2.5-4.0) gm/dl Albumin/Globulin Ratio (0.9-2) Lipase (11-82) U/L Urine Color Yellow Urine Appearance Cloudy A (Clear) Urine pH 5.5 (4.5-7.5) Ur Specific [place] 1.008 (1.000-1.030) Urine Protein 2+ H (Negative) Urine Glucose (UA) Negative (Negative) Urine Ketones Negative (Negative) Urine Blood 1+ H (Negative) Urine Nitrite Negative (Negative) Urine Bilirubin Negative (Negative) Urine Urobilinogen Negative (Negative) Ur Leukocyte Esterase 3+ H (Negative) Urine WBC (Auto) >30 H (0-5) /hpf Urine RBC (Auto) 0-4 (0-4) /hpf U Hyaline Cast (Auto) 1-5 (0-5) /lpf U Epithel Cells (Auto) 0-5 (0-5) /lpf Urine Bacteria (Auto) 3+ H (Negative) Urine Yeast Not Reportable SARS-CoV-2, RNA, NAAT NEGATIVE (NEGATIVE) Administered Medications Discontinued Medications Sodium Chloride (Nss 1000ml) 1,000 mls @ 999 mls/hr IV .[id number] ONE Stop: 11/11/22 11:48 Last Infusion: 11/11/22 13:15 Dose: 0 mls/hr Documented By: Admin: 11/11/22 10:59 Dose: 999 mls/hr Documented By: AGA Ceftriaxone Sodium (Rocephin) 2,000 mg in 70 mls @ 140 mls/hr IV NOW STA Stop: 11/11/22 13:49 Last Infusion: 11/11/22 14:09 Dose: 0 mls/hr Documented By: Admin: 11/11/22 13:31 Dose: 140 mls/hr Documented By: AGA Discharge Plan Visit Data Chief Complaint: Referred by Doctor Stated Complaint: ABNORMAL CT SCAN; DOC REFERRED ED Provider: Pancho Walker Discharge Problem: SDH (subdural hematoma), Neuroendocrine cancer, Leukocytosis, UTI (urinary tract infection) Forms Stand Alone Forms: My [facility] Prescriptions Prescriptions: No Action folic acid 1 mg Tablet 1 mg PO QAM ferrous sulfate 325 mg (65 mg iron) Tablet 325 mg PO BID furosemide 20 mg Tablet 20 mg PO DAILY potassium chloride 20 mEq Tablet Extended Release 20 meq PO BID metoprolol tartrate 25 mg tablet 25 mg PO DAILY warfarin 3 mg Tablet 3 mg PO DAILY@1600 30 Days Qty: 30 0RF Referrals Referrals: Kelley Giordano DO [Primary Care Provider] -
[2022-11-11 11:08] LABS: Hematocrit (blood only) 25.9 % (37.0-47.0); Hemoglobin 8.3 g/dl (12.0-16.0); Mean Corpuscular Hemoglobin 28.1 pg (25.0-34.0); Mean Corpuscular Volume 87.8 fL (80.0-100.0); Platelet Count 270 K/uL (130-400); RDW Coefficient of Variation 18.9 % (11.5-14.5); RDW Standard Deviation 61.4 fL (36.4-46.3); Red Blood Count 2.95 M/uL (4.20-5.40); White Blood Count 20.39 K/ul (4.8-10.8)
[2022-11-11 11:25] LABS: Alanine Aminotransferase 11 U/L (7-52); Albumin Level 3.3 gm/dl (3.4-5.0); Alkaline Phosphatase 180 U/L (34-104); Anion Gap 12 (3-11); Aspartate Aminotransferase 17 U/L (13-39); BUN Creatinine Ratio 12.4 (10-20); Bilirubin,Total 0.4 mg/dl (0.2-1.0); Blood Urea Nitrogen 13 mg/dl (6-23); Calcium 9.2 mg/dl (8.6-10.3); Carbon Dioxide 19 mmol/L (21-32); Chloride 100 mmol/L (98-107); Est GFR (African American) 63.6 ml/min; Est GFR (Non-African American) 54.9 ml/min; Globulin 3.4 gm/dl (2.5-4.0); Glucose 92 mg/dl (70-99(Fasting)); Lipase 37 U/L (11-82); Sodium 131 mmol/L (136-145); Total Protein 6.7 gm/dl (6.0-8.3)
[2022-11-11 11:36] LABS: Basophils # (auto) 0.07 K/uL (0-0.2); Basophils % (auto) 0.3 %; Eosinophils # (auto) 0.07 K/uL (0-0.50); Eosinophils % (auto) 0.3 %; Immature Granulocytes # (auto) 1.04 K/uL (0.01-0.20); Immature Granulocytes % (auto) 5.1 %; Lymphocytes # (auto) 1.24 K/uL (1.2-3.4); Lymphocytes % (auto) 6.1 %; Monocytes % (auto) 6.9 %; Neutrophils # (auto) 16.57 K/uL (1.40-6.50); Neutrophils % (auto) 81.3 %
[2022-11-11 11:58] LABS: INR 3.5 (0.9-1.1); Prothrombin Time 35.4 Seconds (9.0-12.0)
[2022-11-11] MEDS ORDERED: cefTRIAXone SODIUM 2,000 MG/70 ML BAG IV STA (13:20)
[2022-11-11 13:44] LABS: Appearance Urine Cloudy (Clear); Bacteria Urine Automated 3+ (Negative); Bilirubin Urine Negative (Negative); Blood Urine 1+ (Negative); Color Urine Yellow; Epithelial Cell Urine Auto 0-5 /lpf (0-5); Glucose Urine UA Negative (Negative); Ketones Urine Negative (Negative); Leukocyte Esterase Urine 3+ (Negative); Nitrite Urine Negative (Negative); Protein Urine 2+ (Negative); RBC Urine Automated 0-4 /hpf (0-4); Specific Gravity Urine 1.008 (1.000-1.030); Urobilinogen Urine Negative (Negative); WBC Urine Automated >30 /hpf (0-5); pH Urine 5.5 (4.5-7.5)
--- NOTE | 2022-11-11 16:14 | History & Physical Report ---
Date of Service November 11, 2022 Assessment & Plan (1) UTI (urinary tract infection): (2) Nephrostomy status: Plan: Admit to [facility] with telemetry Patient initially presenting by referral of PCP for evaluation of abnormal head CT. However additional work-up in the ED demonstrated leukocytosis and UA suggestive of UTI. 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 s/p bilateral nephrostomy tube placement History of VRE UTI WBC 20 K, afebrile, BP stable S/p IV ceftriaxone in the ED, however given history of VRE and recent multiple hospitalizations, will place patient on daptomycin and cefepime Patient was scheduled to have nephrostomy tube exchange tomorrow at [facility] -- discussed case with AKSHAT Bridges with IR at [facility] --no indication for transfer at this time for nephrostomy tube exchange, this can be completed after discharge Initial UA obtained from right nephrostomy bag which may result in colonization results -- will recollect samples from both tubes directly CT ABD/pelvis shows that bilateral nephrostomy tubes in place without signs of hydronephrosis and fluid collection (3) SDH (subdural hematoma): Plan: Patient was admitted to [facility] 10/20 through 10/26 for management of traumatic SDH after a fall in the setting of anticoagulation use. Patient was managed conservatively with serial head CTs and 1 week of prophylactic Keppra. Patient's anticoagulation was subsequently resumed with Lovenox/Coumadin bridge. Patient evaluated by PCP yesterday and follow-up and reported left hand numbness. Head CT was obtained showing small but enlarging subdural hemorrhage along the right convexity without associated mass effect. ED provider was in contact with neurosurgery Dr. Kris Nuñez at [facility] who was able to review imaging and provide recommendations. I personally discussed the case with Dr. Nuñez. Dr. Nuñez recommends repeating head CT within 1 week and follow-up in his office. Patient can continue with Coumadin however close monitoring of INR to ensure goal of 2.0-3.0. INR 3.5 today - no need to reverse per Dr. Nuñez Repeat head CT in a.m. (4) Neuroendocrine cancer: Plan: History of large cell neuroendocrine uterine carcinoma Follows with Dr. Kim (5) History of DVT (deep vein thrombosis): Plan: On Coumadin, INR 3.5 Resume Coumadin once INR < 3.0 (6) Anemia: Plan: Hgb 8.3, stable, at recent baseline Continue iron replacement Continue to monitor CBC (7) HTN (hypertension): Plan: BP controlled, continue metoprolol DVT PROPHYLAXIS Anticoagulation as above Patient seen in collaboration with Dr. Plascencia. I spent a total of 120 minutes coordinating, documenting, and providing care for this patient excluding time spent in the performance of separately billed services. This included personally reviewing all current laboratories and imaging studies, medication reconciliation, outpatient chart review, and discussion with specialists. 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 History obtained from the patient and at the bedside as well as review of outpatient PCP, oncology, and recent inpatient records. Patient has had several admissions since August. Most recently, patient was admitted to [facility] 10/20 through 10/26 for management of traumatic SDH after a fall in the setting of anticoagulation use. Patient was managed conservatively with serial head CTs and 1 week of prophylactic Keppra. Patient's anticoagulation was subsequently resumed with Lovenox/Coumadin bridge. Patient was discharged to [facility] for rehab and returned home on 11/04/2022. Patient had a PCP follow-up appointment yesterday and reported that she developed left hand numbness a couple of days ago. PCP ordered head CT that was performed this morning which showed small but enlarging subdural hemorrhage along the right convexity without associated mass effect. Patient was then referred to the ED for further evaluation. Patient reports she has been doing fair since returning home from [facility]. She continues to be very weak however is able to ambulate with a walker. Bilateral nephrostomy tubes remain in place and she states that she developed hematuria from the left nephrostomy tube prior to discharge from [facility]. This has since cleared. She also notes some leaking around both tubes. No fevers or chills. She denies chest pain and shortness of breath. No lightheadedness, dizziness, diaphoresis, syncopal events. Denies abdominal pain, nausea, vomiting, diarrhea. ED physician spoke with neurosurgery Dr. Nuñez at [facility] who was able to review head CT images. From a neurosurgery standpoint, patient can remain on Coumadin with INR goal 2-3, repeat head CT within the week and close follow-up in his office. Additional work-up in the ED shows WBC 20 K and UA suggestive of UTI. Patient was given IV ceftriaxone and IVF. Allergies Allergy/AdvReac Type Severity Reaction Status Date / Time Sulfa (Sulfonamide Allergy Severe Swelling Verified 10/20/22 17:29 Antibiotics) of Lip/Tongue/Throat Home Medications Medication Instructions Recorded Confirmed Type folic acid 1 mg tablet 1 mg PO QAM 09/25/22 11/11/22 History warfarin 3 mg tablet 3 mg PO DAILY@1600 30 days #30 tabs 10/16/22 11/11/22 Rx ferrous sulfate 325 mg (65 mg 325 mg PO BID 11/11/22 11/11/22 History iron) tablet furosemide 20 mg tablet 20 mg PO DAILY 11/11/22 11/11/22 History metoprolol tartrate 25 mg tablet 25 mg PO DAILY 11/11/22 11/11/22 History potassium chloride 20 mEq 20 meq PO BID 11/11/22 11/11/22 History tablet,extended release Past Med/Surg History Medical History (Updated 11/11/22 @ 18:47 by AKSHAT Evans) Anemia Anxiety History of DVT (deep vein thrombosis) HTN (hypertension) Insomnia Iron deficiency Neuroendocrine cancer Pancytopenia due to chemotherapy SDH (subdural hematoma) Tumor lysis syndrome Surgical History H/O cervical biopsy Nephrostomy status History of bilateral nephrostomy tube placement due to obstructive uropathy from large neuroendocrine tumor Social History Smoking Status: Never smoker Do You Dip or Chew Tobacco: No; Hx Alcohol Use: No Hx Substance Use: No Preferred Language: Guinean Communication Ability: Effective 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 Beliefs That Will Affect Care: None marital status: Current Living Situation: Spouse current occupational status: employed How many Children do You have: 0 Feels Safe at Home: Yes during the past year weight has: decreased > 10 lbs Assistive Devices: Walker Review of Systems Review of Systems: ROS per HPI, all other systems reviewed and negative Physical Exam Constitutional: WD/WN, vitals as above Eyes: PERRL, conjunctivae normal, anicteric sclerae ENMT: external ear and nose normal, oropharynx normal Respiratory: normal respiratory effort, lungs clear to auscultation Cardiovascular: Rate/Rhythm: regular rate and regular rhythm Vessels: normal peripheral pulses Extremities: + edema (+1-2 edema BLE) Gastrointestinal (Abdomen): normal bowel sounds, soft, nontender, no hepatosplenomegaly Musculoskeletal: no cyanosis or clubbing, extremities motor strength 5/5 Skin: no rashes, warm and dry Neurologic: PERRL, EOMI, accommodation nl, no face palsy, no dysarthria Psychiatric: A+Ox3, euthymic affect Genitourinary: Bilateral nephrostomy tubes in place draining clear yellow urine, urine from left side slightly darker than right Results & Data Results & Data Vital Signs (Past 12 Hours) Vital Signs Temp Pulse Pulse Resp BP BP Pulse Ox 11/11/22 14:10 91 H 18 119/59 L 98 11/11/22 12:30 83 18 115/48 L 98 11/11/22 11:19 85 11/11/22 10:50 93 11/11/22 10:50 90 134/64 93 11/11/22 10:33 36.8 C 94 H 20 87/41 L 94 O2 Del Method 11/11/22 14:10 Room Air 11/11/22 12:30 Room Air 11/11/22 11:19 11/11/22 10:50 Room Air 11/11/22 10:50 Room Air 11/11/22 10:33 Room Air Laboratory Results Short CBC 11/11/22 Range/Units 10:45 WBC 20.39 H (4.8-10.8) K/ul Hgb 8.3 L (12.0-16.0) g/dl Hct 25.9 L (37.0-47.0) % Plt Count 270 (130-400) K/uL BMP 11/11/22 10:45 Sodium 131 L Potassium 5.0 Chloride 100 Carbon Dioxide 19 L BUN 13 Creatinine 1.05 Glucose 92 Calcium 9.2 Liver Function 11/11/22 Range/Units 10:45 Total Bilirubin 0.4 (0.2-1.0) mg/dl AST 17 (13-39) U/L ALT 11 (7-52) U/L Alkaline Phosphatase 180 H (34-104) U/L Albumin 3.3 L (3.4-5.0) gm/dl Urine 11/11/22 Range/Units 13:22 Urine Color Yellow Urine Appearance Cloudy A (Clear) Urine pH 5.5 (4.5-7.5) Ur Specific [place] 1.008 (1.000-1.030) Urine Protein 2+ H (Negative) Urine Glucose (UA) Negative (Negative) Diagnostic Findings Abdomen/Pelvis CT 11/11/22 15:45 CT abd pelvis wo con CLINICAL HISTORY: leukocytosis, hx BL nephrostomy tubes TECHNIQUE: Helical axial images of the abdomen and pelvis were obtained. Automated dose lowering techniques and/or adjustment according to patient size were utilized for this exam. This exam was performed without intravenous contrast. CT DOSE: 1733.13 mGy.cm COMPARISON: Comparison is made to CT abdomen pelvis 10/02/2022 FINDINGS: Lower chest: Bibasilar atelectasis versus scarring is seen. Liver: Hepatic steatosis is noted. Gallbladder and biliary tree: Cholelithiasis is seen without evidence of cholecystitis. No intra- or extrahepatic biliary ductal dilation. Pancreas: Unremarkable, no focal lesions. Spleen: Splenule is incidentally noted. Adrenals: Unremarkable. Kidneys and ureters: Bilateral nephrostomy tubes are seen. Bladder: Limited evaluation due to underdistention. Reproductive organs: Contour the reproductive organs is obscured by extensive nodularity. Bowel: No evidence of bowel obstruction or other acute abnormality. Prominent perirectal nodules are seen. Lymph nodes Retroperitoneal: Numerous retroperitoneal nodes and ill-defined masses are overall similar in appearance to prior exam. Pelvic: Numerous pelvic masses are similar in appearance to prior exam. Mesenteric: Unremarkable. Peritoneum: Normal. Vessels: Unremarkable. Abdominal wall: A fluid containing umbilical hernia is seen. Bones: Degenerative changes in the visualized spine. IMPRESSION: 1. Redemonstration of numerous abdominal and pelvic masses in this patient with known neuroendocrine tumor. Disease burden appears overall similar to prior exam with involvement of the uterus/cervix, and perirectal fat. 2. Bilateral nephrostomy tubes are seen without evidence of hydronephrosis. ACT 112: Negative or not required by law. Electronically signed by: Arnel Hurst M.D. 11/11/2022 4:19 PM Code Status & VTE Plan Code Status Patient is a full code as per my discussion with her. VTE Prophylaxis Plan VTE Prophylaxis will be ordered: No Supervising Physician Co-Signing Physician Notes Ms. 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 She developed left hand and left perioral numbness a few days ago. She was found to have enlarging small SDH on CTH, without associated mass effect. She was sent in by her PCP for further evaluation. Ms. Pérez was recently admitted following a fall while anticoagulated that resulted in a small traumatic SDH. She was treated conservatively with serial head CTs and 1 week of prophylactic Keppra. She was d/c to rehab and then to home. A few days ago she developed left hand numbness/tingling which has since improved, though is still present. This was initially associated with some left sided perioral numbness that has since resolved. She saw her PCP who checked a CT head which as above was abnormal and referred her here for further evaluation. The ED physician spoke with neurosurgery Dr. Nuñez at [facility] who was able to review head CT images. From a neurosurgery standpoint, patient can remain on Coumadin with INR goal 2-3, repeat head CT within the week and close follow-up in his office. Pt denies associated weakness. Further denies dizziness, lightheadedness, JOSEHP, and focal weakness. She started to develop symptoms in her right hand today but this resolved with repeatedly making a fist and opening it. She denies f/c/n/v, CP, sob, cough, congestion, abdominal pain, dysuria (does still void a small amount) and diarrhea. ED course: incidentally noted to have leukocytosis which is possibly reactive to SDH. Infectious w/u suggests possible asymptomatic bacteruria. given IV ceftriaxone and IVF and admitted to hospitalist service. Physical Exam: General: NAD, well nourished, non-toxic appearing Head: NC AT Eyes: anicteric sclera, no conjunctival injection Nose: nares patent Mouth: MMM Neck: supple, trachea midline CV: RRR S1 S2 Pulm: CTA b/l Abd/GI: + BS, soft, NT, ND, no guarding Ext: no pretibial edema MSK: normal bulk and tone Neuro: no focal deficits, moving all 4 extremities, alert and O x 3 Psych: pleasant mood and affect Skin: visible skin is warm, dry, and without rash. Pt not fully undressed for exam. # Bacteruria: per pt asymptomatic planned nephrostomy tube exchange tomorrow urology prefers tx first, will delay procedure given hx of VRE broadened abx to Cefepime and Doxy consider ID consult to evaluate for necessity of tx of UTI vs colonization f/u culture results # traumatic SDH: slightly larger on imaging, per neurosurgery no need to reverse Warfarin. Goal INR 2-3 # supratherapeutic INR: 3.5, hold Warfarin, resume when INR < 3 # hx DVT: Warfarin as above # nephrostomy tube status: as above Rest per attested note above
--- NOTE | 2022-11-11 16:21 | CT Scan Report ---
CT abd pelvis wo con CLINICAL HISTORY: leukocytosis, hx BL nephrostomy tubes TECHNIQUE: Helical axial images of the abdomen and pelvis were obtained. Automated dose lowering tech niques and/or adjustment according to patient size were utilized for this exam. This exam was perfor med without intravenous contrast. CT DOSE: 1733.13 mGy.cm COMPARISON: Comparison is made to CT abdomen pelvis 10/02/2022 FINDINGS: Lower chest: Bibasilar atelectasis versus scarring is seen. Liver: Hepatic steatosis is noted. Gallbladder and biliary tree: Cholelithiasis is seen without evidence of cholecystitis. No intra- or extrahepatic biliary ductal dilation. Pancreas: Unremarkable, no focal lesions. Spleen: Splenule is incidentally noted. Adrenals: Unremarkable. Kidneys and ureters: Bilateral nephrostomy tubes are seen. Bladder: Limited evaluation due to underdistention. Reproductive organs: Contour the reproductive organs is obscured by extensive nodularity. Bowel: No evidence of bowel obstruction or other acute abnormality. Prominent perirectal nodules are seen. Lymph nodes Retroperitoneal: Numerous retroperitoneal nodes and ill-defined masses are overall similar in appeara nce to prior exam. Pelvic: Numerous pelvic masses are similar in appearance to prior exam. Mesenteric: Unremarkable. Peritoneum: Normal. Vessels: Unremarkable. Abdominal wall: A fluid containing umbilical hernia is seen. Bones: Degenerative changes in the visualized spine. IMPRESSION: 1. Redemonstration of numerous abdominal and pelvic masses in this patient with known neuroendocrine tumor. Disease burden appears overall similar to prior exam with involvement of the uterus/cervix, a nd perirectal fat. 2. Bilateral nephrostomy tubes are seen without evidence of hydronephrosis. ACT 112: Negative or not required by law. Electronically signed by: Arnel Hurst M.D. 11/11/2022 4:19 PM
[2022-11-11] MEDS ORDERED: ACETAMINOPHEN 325 MG TAB PO PRN (17:22)
[2022-11-11] MEDS ORDERED: Patient's HEIGHT &/or WEIGHT Needed SCH (17:45)
[2022-11-11] MEDS: SODIUM CHLORIDE 0.9% 1000ML 1,000 ML IV SCH (19:56)
[2022-11-11] MEDS: DAPTOmycin 375 MG in SYRINGE 0 ML IV SCH (20:27)
[2022-11-11] MEDS: POTASSIUM CHLORIDE CRTAB 20 MEQ TABCR PO SCH (20:29)
[2022-11-11] MEDS: FERROUS SULFATE 325 MG TAB PO SCH (20:29)
[2022-11-11] MEDS: CEFEPIME 2,000 MG in SYRINGE 0 ML IV SCH (20:29)
[2022-11-11 20:38] LABS: Appearance Urine Clear (Clear); Appearance Urine Cloudy (Clear); Bacteria Urine Automated Negative (Negative); Bilirubin Urine Negative (Negative); Blood Urine 1+ (Negative); Blood Urine 3+ (Negative); Color Urine Yellow; Epithelial Cell Urine Auto 0-5 /lpf (0-5); Glucose Urine UA Negative (Negative); Ketones Urine Negative (Negative); Leukocyte Esterase Urine 2+ (Negative); Leukocyte Esterase Urine 3+ (Negative); Nitrite Urine Negative (Negative); Nitrite Urine Positive (Negative); Protein Urine 1+ (Negative); RBC Urine Automated 0-4 /hpf (0-4); Specific Gravity Urine 1.009 (1.000-1.030); Urobilinogen Urine Negative (Negative); WBC Urine Automated >30 /hpf (0-5); pH Urine 5.5 (4.5-7.5)
[2022-11-12] MEDS: SODIUM CHLORIDE 0.9% 1000ML 1,000 ML IV SCH (06:02)
[2022-11-12 07:24] LABS: BUN Creatinine Ratio 16.5 (10-20); Calcium 7.8 mg/dl (8.6-10.3); Creatinine Clr Calc Pharmacy 66.1 ml/min; Est GFR (African American) 82.2 ml/min; Est GFR (Non-African American) 70.9 ml/min
[2022-11-12 07:35] LABS: Hematocrit (blood only) 22.2 % (37.0-47.0); Hemoglobin 6.9 g/dl (12.0-16.0); Mean Corpuscular Hemoglobin 28.4 pg (25.0-34.0); Mean Corpuscular Hgb Conc 31.1 g/dL (32.0-36.0); Mean Corpuscular Volume 91.4 fL (80.0-100.0); Mean Platelet Volume 9.2 fL (9.4-12.4); Platelet Count 221 K/uL (130-400); RDW Coefficient of Variation 19.1 % (11.5-14.5); RDW Standard Deviation 63.1 fL (36.4-46.3); Red Blood Count 2.43 M/uL (4.20-5.40); White Blood Count 14.38 K/ul (4.8-10.8)
[2022-11-12 07:50] LABS: INR 3.8 (0.9-1.1); Prothrombin Time 37.9 Seconds (9.0-12.0)
[2022-11-12] MEDS: FERROUS SULFATE 325 MG TAB PO SCH ×2 (08:34→20:47)
[2022-11-12] MEDS: METOPROLOL TARTRATE 25 MG TAB PO SCH (08:34)
[2022-11-12] MEDS: FOLIC ACID 1 MG TAB PO SCH (08:34)
[2022-11-12] MEDS: POTASSIUM CHLORIDE CRTAB 20 MEQ TABCR PO SCH ×2 (08:35→20:47)
[2022-11-12] MEDS: CEFEPIME 2,000 MG in SYRINGE 0 ML IV SCH ×2 (08:39→19:48)
[2022-11-12] MEDS ORDERED: FUROSEMIDE 20 MG TAB PO SCH (09:00)
[2022-11-12] MEDS ORDERED: SODIUM CHLORIDE 0.9% 250 ML IV PRN ×2 (09:01→11:57)
--- NOTE | 2022-11-12 11:40 | CT Scan Report ---
CT head/brain wo con CLINICAL HISTORY: hx SDH Technique: Contiguous axial CT images of the head were acquired from the base of the skull to the lucy shilpa without intravenous contrast administration. Images were viewed in brain, subdural and [facility]. Automated dose lowering techniques and/or adjustment according to patient size were utilized for this exam. Comparison: Comparison is made to CT head 11/11/2022 Findings: Areas of decreased attenuation are present in the periventricular and subcortical white matter bilate rally consistent with small vessel ischemic disease. Generalized cerebral atrophy with commensurate e nlargement of the ventricles, sulci, and cisterns is also present. There is no acute intracranial hem orrhage or evidence of acute territorial infarction. No shift of the midline structures, mass effect, or extra-axial abnormalities are shown. Atherosclerotic calcifications are present in the intracran ial segments of the internal carotid arteries. Imaged portions of the paranasal sinuses and mastoid air cells are clear. The orbits appear normal. There are no acute fractures of the calvaria or scalp swelling. Impression: No acute intracranial hemorrhage, no evidence of acute territorial infarction or other acute intracra nial disease process. ACT 112: Negative or not required by law. Electronically signed by: Arnel Hurst M.D. 11/12/2022 11:39 AM
[2022-11-12] MEDS ORDERED: ONDANSETRON INJ 2 MG/ML 2 ML VIAL IV PRN (14:46)
--- NOTE | 2022-11-12 15:52 | Urology Consultation ---
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 Urology consulted for leaking around left nephrostomy tube, complicated UTI Patient is afebrile and hemodynamically stable. Labs show-WBC 14.38, creatinine 0.85, hemoglobin 6.9 -Pt receiving PRBC [place] [facility]fusion. Urine culture showing preliminary gram-negative bacilli, blood cultures prelim no growth x24 hours. She is on cefepime and daptomycin. Continue antibiotics and tailor as culture data becomes available. CT abd pelvis 11/11 shows bilateral nephrostomy tubes in place without evidence of hydronephrosis. Both nephrostomy tubes appear to be in good position. I was able to flush and aspirate through both tubes without difficulty. There is clear yellow urine draining into the drainage bags from both tubes. Would recommend monitoring nephrostomy tube output/drainage closely. If the nephrostomy tube becomes obstructed or displaced, she would require transfer to a facility where nephrostomy tubes can be exchanged with interventional radiology. Patient was scheduled to have recent nephrostomy tube exchange at [facility] and plans to follow-up with them after discharge for continued care and management. Urology will follow peripherally. Please contact us with any further questions, concerns, or changes in patient status. 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 Urology consulted for leaking around left neph tube, complicated UTI Per chart review -Patient was scheduled to have nephrostomy tube exchange tomorrow at [facility]. Case discussed with IR at [facility] --no indication for transfer at this time for nephrostomy tube exchange, this can be completed after discharge. Afebrile, hemodynamically stable. WBC 14.38 [address]oglobin [address] abd pelvis 11/11 reviewed and shows bilateral nephrostomy tubes are seen without evidence of hydronephrosis. Urine culture 11/11 prelim gram negative bacilli Urine culture R neph tube prelim gram negative bacilli Urine culture L neph tube pin point growth, reincubating Blood culture 11/11 prelim no growth x 24 hours Patient examined at bedside this afternoon. Awake, resting in bed on arrival. No acute distress. Bilateral nephrostomy tubes are intact, there is clear yellow urine in both bags. There does appear to be leakage around the left nephrostomy tube. Patient states she typically flushes the nephrostomy tubes daily. Allergies Allergy/AdvReac Type Severity Reaction Status Date / Time Sulfa (Sulfonamide Allergy Severe Swelling Verified 10/20/22 17:29 Antibiotics) of Lip/Tongue/Throat Home Medications Medication Instructions Recorded Confirmed Type folic acid 1 mg tablet 1 mg PO QAM 09/25/22 11/11/22 History warfarin 3 mg tablet 3 mg PO DAILY@1600 30 days #30 tabs 10/16/22 11/11/22 Rx ferrous sulfate 325 mg (65 mg 325 mg PO BID 11/11/22 11/11/22 History iron) tablet furosemide 20 mg tablet 20 mg PO DAILY 11/11/22 11/11/22 History metoprolol tartrate 25 mg tablet 25 mg PO DAILY 11/11/22 11/11/22 History potassium chloride 20 mEq 20 meq PO BID 11/11/22 11/11/22 History tablet,extended release Patient History Medical History (Updated 11/11/22 @ 18:47 by AKSHAT Evans) Anemia Anxiety History of DVT (deep vein thrombosis) HTN (hypertension) Insomnia Iron deficiency Neuroendocrine cancer Pancytopenia due to chemotherapy SDH (subdural hematoma) Tumor lysis syndrome Surgical History H/O cervical biopsy Nephrostomy status History of bilateral nephrostomy tube placement due to obstructive uropathy from large neuroendocrine tumor Social History Smoking Status: Never smoker Do You Dip or Chew Tobacco: No; Hx Alcohol Use: No Hx Substance Use: No Preferred Language: [place] Rican Communication Ability: Effective Family Practice Physician Required: No Beliefs That Will Affect Care: None marital status: Current Living Situation: Spouse current occupational status: employed How many Children do You have: 0 Feels Safe at Home: Yes during the past year weight has: decreased > 10 lbs Assistive Devices: Walker Review of Systems Review of Systems: All systems reviewed & are unremarkable except as noted in HPI & below Physical Exam Constitutional: no acute distress Frail-appearing Respiratory: normal respiratory effort; no respiratory distress Gastrointestinal (Abdomen): Inspection/Auscultation: abdomen normal to inspection; abdomen not distended Musculoskeletal: Extremities: extremities normal to inspection Skin: no rashes Neurologic: moves all extremities and awake Psychiatric: Orientation: alert and oriented x 3 Genitourinary: Bilateral nephrostomy tubes intact, clear yellow urine in drainage bag. There does appear to be leakage around the left nephrostomy site. Results & Data Vital Signs (Past 12 Hours) Vital Signs Temp Pulse Pulse Pulse Resp BP BP 11/12/22 15:42 36.8 C 103 H 18 115/69 11/12/22 15:19 36.8 C 103 H 18 115/69 11/12/22 14:19 37 C 102 H 16 118/70 11/12/22 13:49 37 C 104 H 16 121/72 11/12/22 13:34 37.5 C 96 H 18 99/56 L 11/12/22 13:17 37.2 C 99 H 18 105/57 L 11/12/22 12:20 36.8 C 98 H 12 11/12/22 08:02 101 H 11/12/22 07:51 36.7 C 97 H 19 105/66 BP Pulse Ox O2 Del Method O2 Flow Rate 11/12/22 15:42 95 Room Air 11/12/22 15:19 95 11/12/22 14:19 94 11/12/22 13:49 96 11/12/22 13:34 93 0 11/12/22 13:17 96 11/12/22 12:20 101/82 97 Room Air 11/12/22 08:02 11/12/22 07:51 93 Room Air PG Care Time/CCT Total # of Minutes Spent Total Time Spent with Patient: Total time spent is greater than 50% in coordination of care (as documented) at patient's floor/unit and/or counseling patient: Coding Level of Care Code 12242 INT INP/OBS CARE 2/55MIN Diagnoses Nephrostomy status Z93.6 UTI (urinary tract infection) N39.0
--- NOTE | 2022-11-12 17:42 | Hospitalist Progress Note ---
Date of Service November 12, 2022 Assessment & Plan (1) UTI (urinary tract infection): (2) Nephrostomy status: Plan: Patient initially presenting by referral of PCP for evaluation of abnormal head CT. However additional work-up in the ED demonstrated leukocytosis and UA suggestive of UTI. 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 Disease burden appears overall similar to prior exam with involvement of the uterus/cervix, and perirectal fat. Bilateral nephrostomy tubes are seen without evidence of hydronephrosis. --Plan for nephrostomy tube exchange at [facility] [place]: Admission team discussed with AKSHAT Bridges with IR at [facility] [place] --no indication for transfer at this time for nephrostomy tube exchange, this can be completed after discharge -- Blood culture negative to date Urine culture growing gram-negative bacilli Continue cefepime, daptomycin for now Appreciate urology input ID consulted as well Monitor nephrostomy tube output drainage./If becomes obstructed or displaced, may need to be transferred to tertiary care facility for tube exchange by IR Follow-up cultures (3) SDH (subdural hematoma): Plan: Patient was admitted to [facility] 10/20 through 10/26 for management of traumatic SDH after a fall in the setting of anticoagulation use. Patient was managed conservatively with serial head CTs and 1 week of prophylactic Keppra. Patient's anticoagulation was subsequently resumed with Lovenox/Coumadin bridge. Head CT was obtained showing small but enlarging subdural hemorrhage along the right convexity without associated mass effect. ED provider was in contact with neurosurgery Dr. Kris Nuñez at [facility] who was able to review imaging and provide recommendations. Admitting team discussed with Dr. Nuñez:recommends repeating head CT within 1 week and follow-up in his office. Patient can continue with Coumadin however close monitoring of INR to ensure goal of 2.0-3.0. (No need for reversing supratherapeutic INR as per Dr. Nuñez) Given supratherapeutic INR Coumadin on hold. (4) Neuroendocrine cancer: Plan: History of large cell neuroendocrine uterine carcinoma Follows with Dr. Kim (5) History of DVT (deep vein thrombosis): Plan: Coumadin held INR 3.8 today Monitor INR (6) Anemia: Plan: Acute on chronic anemia Hemoglobin 6.9 today We will transfuse 1 unit PRBC Monitor CBC (7) HTN (hypertension): Plan: continue metoprolol DVT Px Supratherapeutic INR Coumadin on hold CODE STATUS Full Code Admission and Anticipated Discharge Date Admission Date: November 11, 2022 Subjective Patient is seen and examined at bedside States noticing blood in left side of nephrostomy tube Reports nausea but no vomiting Denies any chest pain, dyspnea, dizziness, abdominal pain Discussed with patient's family at bedside Also discussed with urology Review of Systems Review of Systems: All systems reviewed & are unremarkable except as noted in Subjective Physical Exam Physical Exam: Physical Exam: Vitals signs as noted above General Appearance:Moderately built and nourished, no apparent distress Head: normocephalic, Atraumatic Eyes: normal inspection, EOMI Neck: supple, Trachea midline Respiratory/Chest: Normal breath sounds, CTA, No accessory muscle use Cardiovascular: S1, S2, No murmur Abdomen/GI:Soft, Non tender, Bowel sounds present,+ B/L Nephrostomy tubes Extremities/Musculoskeletal:normal inspection, 1-1+ B/L LE edema Neurologic/Psych:AAOX3, grossly no focal neurological deficits Skin: normal color, warm Results & Data Results & Data Vital Signs (Past 12 Hours) Vital Signs Temp Pulse Pulse Pulse Resp BP BP 11/12/22 15:42 36.8 C 103 H 18 115/69 11/12/22 16:12 36.9 C 99 H 18 101/63 11/12/22 15:19 36.8 C 103 H 18 115/69 11/12/22 14:19 37 C 102 H 16 118/70 11/12/22 13:49 37 C 104 H 16 121/72 11/12/22 13:34 37.5 C 96 H 18 99/56 L 11/12/22 13:17 37.2 C 99 H 18 105/57 L 11/12/22 12:20 36.8 C 98 H 12 11/12/22 08:02 101 H 11/12/22 07:51 36.7 C 97 H 19 105/66 BP Pulse Ox O2 Del Method O2 Flow Rate 07/12/23 15:42 95 Room Air 11/12/22 16:12 96 11/12/22 15:19 95 11/12/22 14:19 94 11/12/22 13:49 96 11/12/22 13:34 93 0 11/12/22 13:17 96 11/12/22 12:20 101/82 97 Room Air 11/12/22 08:02 11/12/22 07:51 93 Room Air Laboratory Results Short CBC 11/12/22 Range/Units 06:09 WBC 14.38 H (4.8-10.8) K/ul Hgb 6.9 L* (12.0-16.0) g/dl Hct 22.2 L (37.0-47.0) % Plt Count 221 (130-400) K/uL BMP 11/12/22 06:09 Sodium 133 L Potassium 4.0 Chloride 105 Carbon Dioxide 19 L BUN 14 Creatinine 0.85 Glucose 85 Calcium 7.8 L Urine 11/11/22 11/11/22 Range/Units 19:50 19:50 Urine Color Yellow Yellow Urine Appearance Clear Cloudy A (Clear) Urine pH 5.0 5.5 (4.5-7.5) Ur Specific [place] 1.010 1.009 (1.000-1.030) Urine Protein 1+ H 1+ H (Negative) Urine Glucose (UA) Negative Negative (Negative)
[2022-11-12] MEDS: DAPTOmycin 375 MG in SYRINGE 0 ML IV SCH (19:48)
[2022-11-12 19:58] LABS: Hematocrit (blood only) 28.2 % (37.0-47.0)
[2022-11-12] MEDS: PROMETHAZINE HCL 12.5 MG in SODIUM CHLORIDE 0.9% 50 ML IV PRN (20:42)
[2022-11-13] MEDS: CEFEPIME 2,000 MG in SYRINGE 0 ML IV SCH ×2 (09:07→21:14)
[2022-11-13] MEDS: FOLIC ACID 1 MG TAB PO SCH (09:07)
[2022-11-13] MEDS: POTASSIUM CHLORIDE CRTAB 20 MEQ TABCR PO SCH ×2 (09:08→21:19)
[2022-11-13] MEDS: METOPROLOL TARTRATE 25 MG TAB PO SCH ×3 (09:08→21:19)
[2022-11-13] MEDS: FERROUS SULFATE 325 MG TAB PO SCH ×2 (09:08→21:19)
[2022-11-13 09:57] LABS: Hematocrit (blood only) 29.2 % (37.0-47.0); Hemoglobin 9.5 g/dl (12.0-16.0); Mean Corpuscular Hemoglobin 27.9 pg (25.0-34.0); Mean Corpuscular Hgb Conc 32.5 g/dL (32.0-36.0); Mean Corpuscular Volume 85.6 fL (80.0-100.0); Mean Platelet Volume 8.8 fL (9.4-12.4); Platelet Count 273 K/uL (130-400); RDW Coefficient of Variation 19.6 % (11.5-14.5); RDW Standard Deviation 60.8 fL (36.4-46.3); Red Blood Count 3.41 M/uL (4.20-5.40); White Blood Count 13.56 K/ul (4.8-10.8)
[2022-11-13 10:12] LABS: BUN Creatinine Ratio 15.9 (10-20); Creatinine Clr Calc Pharmacy 63.8 ml/min; Est GFR (African American) 78.8 ml/min; Magnesium 1.6 mg/dl (1.7-2.4); Potassium 3.8 mmol/L (3.5-5.1)
[2022-11-13 10:23] LABS: INR 2.6 (0.9-1.1); Prothrombin Time 26.5 Seconds (9.0-12.0)
--- NOTE | 2022-11-13 11:46 | Communication Note ---
Date of Service: November 13, 2022 Contacted by hospitalist today as patient is experiencing leakage around left nephrostomy tube. Per chart review, patient was due for nephrostomy tubes exchange at [facility] on 11/12. Patient continues to experience leakage around left nephrostomy tube Nephrostomy tubes were flushed yesterday without difficulty. However, if she is due for an exchange, they will likely continue to leak until exchanged. Unfortunately, we do not have IR capabilities here to exchange nephrostomy tubes. Discussed with hospital team.
--- NOTE | 2022-11-13 11:52 | Urology Progress Note ---
Date of Service November 13, 2022 Assessment & Plan (1) Nephrostomy status: (2) UTI (urinary tract infection): Plan 67yo/F with a history of large cell neuroendocrine tumor of the uterus s/p bilateral nephrostomy tubes due to obstructive uropathy admitted with complicated UTI. Urology consulted for leaking around left nephrostomy tube, complicated UTI Patient is afebrile and hemodynamically stable. Labs today reviewed -WBC 13.56, creatinine 0.88, hemoglobin 9.5 -Received PRBC transfusion yesterday. Urine cultures growing Klebsiella, E.coli, blood cultures prelim no growth x24 hours. She is on cefepime and daptomycin. Continue antibiotics and tailor as culture data becomes available. CT abd pelvis from 11/11 shows bilateral nephrostomy tubes in place without evidence of hydronephrosis. Bilateral nephrostomy tubes were flushed yesterday without difficulty and are currently intact with clear yellow urine in drainage bags. Patient continues to experience intermittent leakage around left nephrostomy tube. Per chart review, patient was due for nephrostomy tubes exchange at [facility] [address] [facility] on 11/12. Patient is due for nephrostomy tube exchange and will likely continue to experience leakage until they are exchanged. Unfortunately, we do not have IR capabilities here to exchange nephrostomy tubes. Discussed with hospital team. Urology will follow peripherally. Please contact us with any further questions, concerns, or changes in patient status. Case discussed with Dr. Tolliver. Admission and Anticipated Discharge Date Admission Date: November 11, 2022 Subjective Pt examined at bedside this AM. Awake, resting in bed on arrival. No acute distress. B/L neph tubes intact with clear yellow urine in drainage bags. Review of Systems Constitutional: as per Subjective / HPI Genitourinary: as per Subjective / HPI Physical Exam Constitutional: no acute distress Frail-appearing Respiratory: normal respiratory effort; no respiratory distress Neurologic: moves all extremities and awake Psychiatric: Orientation: alert and oriented x 3 Genitourinary: Bilateral nephrostomy tubes intact, clear yellow urine in drainage bag. Results & Data Vital Signs (Past 12 Hours) Vital Signs Temp Pulse Pulse Resp BP Pulse Ox O2 Del Method 11/13/22 11:43 36.7 C 85 18 116/73 95 Room Air 11/13/22 08:03 36.2 C L 106 H 18 143/63 H 97 Room Air 11/13/22 07:36 111 H PG Care Time/CCT Total # of Minutes Spent Total Time Spent with Patient: Total time spent is greater than 50% in coordination of care (as documented) at patient's floor/unit and/or counseling patient: Coding Level of Care Code 23248 SUB INP/OBS CARE 2/35MIN Diagnoses Nephrostomy status Z93.6 UTI (urinary tract infection) N39.0
[2022-11-13] MEDS ORDERED: MAGNESIUM SULFATE / D5W 1 GM/100 ML BAG IV ONE (12:34)
[2022-11-13] MEDS ORDERED: oxyCODONE/ACETAMINOPHEN 5mg/325mg TAB PO ONE (13:24)
--- NOTE | 2022-11-13 18:03 | Hospitalist Progress Note ---
Date of Service November 13, 2022 Assessment & Plan (1) UTI (urinary tract infection): (2) Nephrostomy status: Plan: Patient initially presenting by referral of PCP for evaluation of abnormal head CT. However additional work-up in the ED demonstrated leukocytosis and UA suggestive of UTI. 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 Disease burden appears overall similar to prior exam with involvement of the uterus/cervix, and perirectal fat. Bilateral nephrostomy tubes are seen without evidence of hydronephrosis. --Plan for nephrostomy tube exchange [place] [facility]: Admission team discussed with AKSHAT Bridges with IR at [facility] --no indication for transfer at this time for nephrostomy tube exchange, this can be completed after discharge -- Blood culture negative to date Urine culture growing yeast, gram-positive cocci, Klebsiella pneumonia, gram- negative bacilli Continue cefepime, daptomycin for now Appreciate urology input Appreciate ID Input Initially plan to be transferred to [facility] for nephrostomy tube exchange by IR. Patient refused to be transferred to [facility], instead preferred to transfer to [facility]. Currently no beds available at [facility] per transfer center no urgency needed for nephrostomy tube exchange. --We will consider transfer to [facility] versus [facility] as per patient's request tomorrow (3) SDH (subdural hematoma): Plan: Patient was admitted to [facility] 10/20 through 10/26 for management of traumatic SDH after a fall in the setting of anticoagulation use. Patient was managed conservatively with serial head CTs and 1 week of prophylactic Keppra. Patient's anticoagulation was subsequently resumed with Lovenox/Coumadin bridge. Head CT was obtained showing small but enlarging subdural hemorrhage along the right convexity without associated mass effect. ED provider was in contact with neurosurgery Dr. Kris Nuñez at [facility] who was able to review imaging and provide recommendations. Admitting team discussed with Dr. Nuñez:recommends repeating head CT within 1 week and follow-up in his office. Patient can continue with Coumadin however close monitoring of INR to ensure goal of 2.0-3.0. (No need for reversing supratherapeutic INR as per Dr. Nuñez) Given supratherapeutic INR Coumadin on hold. (4) Neuroendocrine cancer: Plan: History of large cell neuroendocrine uterine carcinoma Follows with Dr. Kim (5) History of DVT (deep vein thrombosis): Plan: INR 2.6 today Monitor INR Resume Coumadin as able (6) Anemia: Plan: Acute on chronic anemia Hemoglobin 9.5 today S/P 1 unit PRBC Monitor CBC (7) HTN (hypertension): Plan: BP Variable continue metoprolol DVT Px Therapeutic INR CODE STATUS Full Code Admission and Anticipated Discharge Date Admission Date: November 11, 2022 Subjective Patient is seen and examined at bedside Reports having nephrostomy tube leakage Discussed with urology today Denies any hematuria today Also denies any chest pain, dyspnea, dizziness, abdominal pain Review of Systems Review of Systems: All systems reviewed & are unremarkable except as noted in Subjective Physical Exam Physical Exam: Physical Exam: Vitals signs as noted above General Appearance:Moderately built and nourished, no apparent distress Head: normocephalic, Atraumatic Eyes: normal inspection, EOMI Neck: supple, Trachea midline Respiratory/Chest: Normal breath sounds, CTA, No accessory muscle use Cardiovascular: S1, S2, No murmur Abdomen/GI:Soft, Non tender, Bowel sounds present,+ B/L Nephrostomy tubes Extremities/Musculoskeletal:normal inspection, 1-1+ B/L LE edema Neurologic/Psych:AAOX3, grossly no focal neurological deficits Skin: normal color, warm Results & Data Results & Data Vital Signs (Past 12 Hours) Vital Signs Temp Pulse Pulse Resp BP Pulse Ox O2 Del Method 11/13/22 16:27 96 H 11/13/22 16:20 36.5 C 94 H 18 96/64 L 96 Room Air 11/13/22 11:43 36.7 C 85 18 116/73 95 Room Air 11/13/22 08:03 36.2 C L 106 H 18 143/63 H 97 Room Air 11/13/22 07:36 111 H Laboratory Results Short CBC 11/12/22 11/13/22 Range/Units 19:39 09:28 WBC 13.56 H (4.8-10.8) K/ul Hgb 9.0 L 9.5 L (12.0-16.0) g/dl Hct 28.2 L 29.2 L (37.0-47.0) % Plt Count 273 (130-400) K/uL [facility] 11/13/22 09:28 Sodium 133 L Potassium 3.8 Chloride 106 Carbon Dioxide 18 L BUN 14 Creatinine 0.88 Glucose 132 H Calcium 8.0 L
[2022-11-13] MEDS: DAPTOmycin 375 MG in SYRINGE 0 ML IV SCH (21:14)
[2022-11-14 07:36] LABS: Hematocrit (blood only) 27.4 % (37.0-47.0); Mean Corpuscular Hgb Conc 32.8 g/dL (32.0-36.0); Mean Corpuscular Volume 85.1 fL (80.0-100.0); Mean Platelet Volume 8.6 fL (9.4-12.4); Platelet Count 277 K/uL (130-400); RDW Coefficient of Variation 19.5 % (11.5-14.5); RDW Standard Deviation 59.6 fL (36.4-46.3); Red Blood Count 3.22 M/uL (4.20-5.40); White Blood Count 13.28 K/ul (4.8-10.8)
[2022-11-14] MEDS: CEFEPIME 2,000 MG in SYRINGE 0 ML IV SCH ×2 (07:54→21:45)
[2022-11-14 07:56] LABS: BUN Creatinine Ratio 20.3 (10-20); Creatinine Clr Calc Pharmacy 87.5 ml/min; Est GFR (Non-African American) 92.3 ml/min; Magnesium 1.9 mg/dl (1.7-2.4); Potassium 4.1 mmol/L (3.5-5.1)
[2022-11-14] MEDS: METOPROLOL TARTRATE 25 MG TAB PO SCH ×2 (07:56→21:47)
[2022-11-14] MEDS: FERROUS SULFATE 325 MG TAB PO SCH ×2 (07:56→21:46)
[2022-11-14] MEDS: FOLIC ACID 1 MG TAB PO SCH (07:56)
[2022-11-14] MEDS: POTASSIUM CHLORIDE CRTAB 20 MEQ TABCR PO SCH ×2 (07:56→21:47)
[2022-11-14 08:01] LABS: INR 2.4 (0.9-1.1); Prothrombin Time 25.3 Seconds (9.0-12.0)
[2022-11-14] MEDS ORDERED: MoRPHine SULFATE 2 MG/ML CARP IV PRN (08:58)
[2022-11-14] MEDS ORDERED: oxyCODONE/ACETAMINOPHEN 5mg/325mg TAB PO PRN (08:59)
--- NOTE | 2022-11-14 16:07 | Hospitalist Progress Note ---
Date of Service November 14, 2022 Assessment & Plan (1) UTI (urinary tract infection): (2) Nephrostomy status: Plan: Patient initially presenting by referral of PCP for evaluation of abnormal head CT. However additional work-up in the ED demonstrated leukocytosis and UA suggestive of UTI. 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 Disease burden appears overall similar to prior exam with involvement of the uterus/cervix, and perirectal fat. Bilateral nephrostomy tubes are seen without evidence of hydronephrosis. -- Blood culture negative to date Urine culture growing yeast, gram-positive cocci, Klebsiella pneumonia, gram- negative bacilli, Streptococcus species Continue cefepime, daptomycin for now Appreciate urology input Appreciate ID Input Initially plan to be transferred to [facility] for nephrostomy tube exchange by IR. Patient refused to be transferred to [facility], instead preferred to transfer to [facility]. Currently no beds available at [facility] per transfer center no urgency needed for nephrostomy tube exchange. Patient is accepted at [facility], awaiting bed availability. Accepting physician:Dr.Irene Gordon (hospitalist); triage officer Dr. Kin Land (3) SDH (subdural hematoma): Plan: Patient was admitted to [facility] 10/20 through 10/26 for management of traumatic SDH after a fall in the setting of anticoagulation use. Patient was managed conservatively with serial head CTs and 1 week of prophylactic Keppra. Patient's anticoagulation was subsequently resumed with Lovenox/Coumadin bridge. Head CT was obtained showing small but enlarging subdural hemorrhage along the right convexity without associated mass effect. ED provider was in contact with neurosurgery Dr. Kris Nuñez at [facility] who was able to review imaging and provide recommendations. Admitting team discussed with Dr. Nuñez:recommends repeating head CT within 1 week and follow-up in his office. Patient can continue with Coumadin however close monitoring of INR to ensure goal of 2.0-3.0. (No need for reversing supratherapeutic INR as per Dr. Nuñez) Given supratherapeutic INR Coumadin held initially INR 2.4 today Resume Coumadin as able (4) Neuroendocrine cancer: Plan: History of large cell neuroendocrine uterine carcinoma Follows with Dr. Kim (5) History of DVT (deep vein thrombosis): Plan: INR 2.4 today Monitor INR Resume Coumadin as able (6) Anemia: Plan: Acute on chronic anemia Hemoglobin 9.0 today S/P 1 unit PRBC Monitor CBC (7) HTN (hypertension): Plan: BP Variable continue metoprolol DVT Px Therapeutic INR CODE STATUS Full Code Admission and Anticipated Discharge Date Admission Date: November 11, 2022 Subjective Patient is seen and examined at bedside States having pain at nephrostomy tube site Denies any hematuria Discussed with [facility] Also discussed with patient's family over the phone Denies any chest pain, dyspnea, dizziness Continues to have nephrostomy tube leakage Review of Systems Review of Systems: All systems reviewed & are unremarkable except as noted in Subjective Physical Exam Physical Exam: Physical Exam: Vitals signs as noted above General Appearance:Moderately built and nourished, no apparent distress Head: normocephalic, Atraumatic Eyes: normal inspection, EOMI Neck: supple, Trachea midline Respiratory/Chest: Normal breath sounds, CTA, No accessory muscle use Cardiovascular: S1, S2, No murmur Abdomen/GI:Soft, Non tender, Bowel sounds present,+ B/L Nephrostomy tubes Extremities/Musculoskeletal:normal inspection, 1-1+ B/L LE edema Neurologic/Psych:AAOX3, grossly no focal neurological deficits Skin: normal color, warm Results & Data Results & Data Vital Signs (Past 12 Hours) Vital Signs Temp Pulse Pulse Resp BP Pulse Ox O2 Del Method 11/14/22 15:13 36.4 C L 106 H 95 H 109/70 11/14/22 11:31 Room Air 11/14/22 10:55 36.6 C 92 H 18 98/66 L 97 Room Air 11/14/22 07:48 36.4 C L 113 H 18 135/81 95 Room Air 11/14/22 07:48 114 H 11/14/22 06:00 101 H Laboratory Results Short CBC 11/14/22 Range/Units 07:21 WBC 13.28 H (4.8-10.8) K/ul Hgb 9.0 L (12.0-16.0) g/dl Hct 27.4 L (37.0-47.0) % Plt Count 277 (130-400) K/uL BMP 11/14/22 07:21 Sodium 133 L Potassium 4.1 Chloride 107 Carbon Dioxide 19 L BUN 13 Creatinine 0.64 Glucose 91 Calcium 8.0 L
--- NOTE | 2022-11-14 18:01 | Electrocardiogram Report ---
Test Reason : Blood Pressure : / mmHG Vent. Rate : 091 BPM Atrial Rate : 000 BPM P-R Int : 000 ms QRS Dur : 070 ms QT Int : 350 ms P-R-T Axes : 000 -04 028 degrees QTc Int : 430 ms Probably sinus rhyth, but junctional can be considered Confirmed by Sagar Monroe ([id number]) on 11/14/2022 6:00:53 PM Referred By: Kelley Giordano Confirmed By:Clemente Monroe
[2022-11-14] MEDS: PROMETHAZINE HCL 12.5 MG in SODIUM CHLORIDE 0.9% 50 ML IV PRN (18:45)
[2022-11-14] MEDS: DAPTOmycin 375 MG in SYRINGE 0 ML IV SCH (18:46)
[2022-11-15 06:11] LABS: Hematocrit (blood only) 29.2 % (37.0-47.0); Hemoglobin 9.3 g/dl (12.0-16.0); Mean Corpuscular Hemoglobin 27.8 pg (25.0-34.0); Mean Corpuscular Hgb Conc 31.8 g/dL (32.0-36.0); Mean Corpuscular Volume 87.2 fL (80.0-100.0); Mean Platelet Volume 8.5 fL (9.4-12.4); Platelet Count 317 K/uL (130-400); RDW Coefficient of Variation 19.3 % (11.5-14.5); RDW Standard Deviation 61.1 fL (36.4-46.3); Red Blood Count 3.35 M/uL (4.20-5.40); White Blood Count 17.03 K/ul (4.8-10.8)
[2022-11-15 06:23] LABS: BUN Creatinine Ratio 21.6 (10-20); Calcium 8.7 mg/dl (8.6-10.3); Creatinine Clr Calc Pharmacy 75.7 ml/min; Est GFR (African American) 97.2 ml/min; Est GFR (Non-African American) 83.8 ml/min; Magnesium 1.9 mg/dl (1.7-2.4); Potassium 4.3 mmol/L (3.5-5.1)
[2022-11-15 06:33] LABS: INR 2.3 (0.9-1.1); Prothrombin Time 23.9 Seconds (9.0-12.0)
--- NOTE | 2022-11-15 07:24 | Hospitalist Progress Note ---
Date of Service November 15, 2022 Assessment & Plan (1) UTI (urinary tract infection): (2) Nephrostomy status: Plan: Patient initially presenting by referral of PCP for evaluation of abnormal head CT. However additional work-up in the ED demonstrated leukocytosis and UA suggestive of UTI. 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 Disease burden appears overall similar to prior exam with involvement of the uterus/cervix, and perirectal fat. Bilateral nephrostomy tubes are seen without evidence of hydronephrosis. -- Blood culture negative to date Urine culture growing yeast, gram-positive cocci, Klebsiella pneumonia, gram- negative bacilli, Streptococcus species Continue cefepime, daptomycin for now Appreciate urology input Appreciate ID Input Initially plan to be transferred to [facility] for nephrostomy tube exchange by IR. Patient refused to be transferred to [facility], instead preferred to transfer to [facility]. Currently no beds available at [facility] per transfer center no urgency needed for nephrostomy tube exchange. Patient is accepted at [facility], awaiting bed availability. Accepting physician:Dr.Irene Gordon (hospitalist); triage officer Dr. Kin Land Persistent leukocytosis (3) SDH (subdural hematoma): Plan: Patient was admitted to [facility] 10/20 through 10/26 for management of traumatic SDH after a fall in the setting of anticoagulation use. Patient was managed conservatively with serial head CTs and 1 week of prophylactic Keppra. Patient's anticoagulation was subsequently resumed with Lovenox/Coumadin bridge. Head CT was obtained showing small but enlarging subdural hemorrhage along the right convexity without associated mass effect. ED provider was in contact with [place]surgery [place]. Kris Nuñez [place] [facility] [place] who was able to review imaging and provide recommendations. Admitting team discussed with Dr. Nuñez:recommends repeating head CT within 1 week and follow-up in his office. Patient can continue with Coumadin however close monitoring of INR to ensure goal of 2.0-3.0. (No need for reversing supra therapeutic INR as per Dr. Nuñez) Given supratherapeutic INR Coumadin held initially INR 2.3 today Resume Coumadin as able (4) Neuroendocrine cancer: Plan: History of large cell neuroendocrine uterine carcinoma Follows with Dr. Kim (5) History of DVT (deep vein thrombosis): Plan: INR 2.3 today Monitor INR Resume Coumadin as able (6) Anemia: Plan: Acute on chronic anemia Hemoglobin 9.3 today S/P 1 unit PRBC Monitor CBC (7) HTN (hypertension): Plan: BP Variable continue metoprolol DVT Px Therapeutic INR CODE STATUS Full Code Disposition [facility] Admission and Anticipated Discharge Date Admission Date: November 11, 2022 Subjective Patient is seen and examined at bedside States having nausea this morning Nephrostomy site pain resolved No recurrence of hematuria Denies any chest pain, dyspnea, dizziness Review of Systems Review of Systems: All systems reviewed & are unremarkable except as noted in Subjective Physical Exam Physical Exam: Physical Exam: Vitals signs as noted above General Appearance:Moderately built and nourished, no apparent distress Head: normocephalic, Atraumatic Eyes: normal inspection, EOMI Neck: supple, Trachea midline Respiratory/Chest: Normal breath sounds, CTA, No accessory muscle use Cardiovascular: S1, S2, No murmur Abdomen/GI:Soft, Non tender, Bowel sounds present,+ B/L Nephrostomy tubes Extremities/Musculoskeletal:normal inspection, 1-1+ B/L LE edema Neurologic/Psych:AAOX3, grossly no focal neurological deficits Skin: normal color, warm Results & Data Results & Data Vital Signs (Past 12 Hours) Vital Signs Temp Pulse Resp BP BP Pulse Ox O2 Del Method 11/15/22 02:00 36.4 C L 109 H 18 136/82 97 Room Air 11/14/22 22:27 36.5 C 109 H 16 116/72 94 Room Air Laboratory Results Short CBC 11/14/22 11/15/22 Range/Units 07:21 05:46 WBC 13.28 H 17.03 H (4.8-10.8) K/ul Hgb 9.0 L 9.3 L (12.0-16.0) g/dl Hct 27.4 L 29.2 L (37.0-47.0) % Plt Count 277 317 (130-400) K/uL BMP 07/14/23 07/15/23 07:21 05:46 Sodium 133 L 132 L Potassium 4.1 4.3 Chloride 107 105 Carbon Dioxide 19 L 17 L BUN 13 16 Creatinine 0.64 0.74 Glucose 91 92 Calcium 8.0 L 8.7
--- NOTE | 2022-11-15 07:40 | Discharge Summary ---
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 History obtained from the patient and at the bedside as well as review of outpatient PCP, oncology, and recent inpatient records. Patient has had several admissions since August. Most recently, patient was admitted to [facility] 10/20 through 10/26 for management of traumatic SDH after a fall in the setting of anticoagulation use. Patient was managed conservatively with serial head CTs and 1 week of prophylactic Keppra. Patient's anticoagulation was subsequently resumed with Lovenox/Coumadin bridge. Patient was discharged to [facility] for rehab and returned home on 11/04/2022. Patient had a PCP follow-up appointment yesterday and reported that she developed left hand numbness a couple of days ago. PCP ordered head CT that was performed this morning which showed small but enlarging subdural hemorrhage along the right convexity without associated mass effect. Patient was then referred to the ED for further evaluation. Patient reports she has been doing fair since returning home from [facility]. She continues to be very weak however is able to ambulate with a walker. Bilateral nephrostomy tubes remain in place and she states that she developed hematuria from the left nephrostomy tube prior to discharge from [facility]. This has since cleared. She also notes some leaking around both tubes. No fevers or chills. She denies chest pain and shortness of breath. No lightheadedness, dizziness, diaphoresis, syncopal events. Denies abdominal pain, nausea, vomiting, diarrhea. ED physician spoke with neurosurgery Dr. Nuñez at [facility] who was able to review head CT images. From a neurosurgery standpoint, patient can remain on Coumadin with INR goal 2-3, repeat head CT within the week and close follow-up in his office. Additional work-up in the ED shows WBC 20 K and UA suggestive of UTI. Patient was given IV ceftriaxone and IVF. Admission Exam Per Admitting Provider Physical Exam Constitutional: WD/WN, vitals as above Eyes: PERRL, conjunctivae normal, anicteric sclerae ENMT: external ear and nose normal, oropharynx normal Respiratory: normal respiratory effort, lungs clear to auscultation Cardiovascular: Rate/Rhythm: regular rate and regular rhythm Vessels: normal peripheral pulses Extremities: + edema (+1-2 edema BLE) Gastrointestinal (Abdomen): normal bowel sounds, soft, nontender, no hepatosplenomegaly Musculoskeletal: no cyanosis or clubbing, extremities motor strength 5/5 Skin: no rashes, warm and dry Neurologic: PERRL, EOMI, accommodation nl, no face palsy, no dysarthria Psychiatric: A+Ox3, euthymic affect Genitourinary: Bilateral nephrostomy tubes in place draining clear yellow urine, urine from left side slightly darker than right Principal Diagnosis Complicated urinary tract infection Nephrostomy tube leakage Acute on chronic anemia Discharge Data Allergies Allergy/AdvReac Type Severity Reaction Status Date / Time Sulfa (Sulfonamide Allergy Severe Swelling Verified 10/20/22 17:29 Antibiotics) of Lip/Tongue/Throat Consultations 11/11/22 13:44 ED Decision to Admit Stat 11/12/22 14:45 Consult Urology Routine 11/12/22 17:37 Consult Infectious Diseases Routine 11/14/22 16:56 Burn CD for patient Routine Procedures Performed Laboratory Results WBC 17.03 K/ul (4.8-10.8) H 11/15/22 05:46 RBC 3.35 M/uL (4.20-5.40) L 11/15/22 05:46 Hgb 9.3 g/dl (12.0-16.0) L 11/15/22 05:46 Hct 29.2 % (37.0-47.0) L 11/15/22 05:46 MCV 87.2 fL (80.0-100.0) 11/15/22 05:46 MCH 27.8 pg (25.0-34.0) 11/15/22 05:46 MCHC 31.8 g/dL (32.0-36.0) L 11/15/22 05:46 RDW Std Deviation 61.1 fL (36.4-46.3) H 11/15/22 05:46 RDW Coeff of Claude 19.3 % (11.5-14.5) H 11/15/22 05:46 Plt Count 317 K/uL (130-400) 11/15/22 05:46 MPV 8.5 fL (9.4-12.4) L 11/15/22 05:46 Immature Gran % (Auto) 5.1 % 11/11/22 10:45 Neut % (Auto) 81.3 % 11/11/22 10:45 Lymph % (Auto) 6.1 % 11/11/22 10:45 [place] % (Auto) 6.9 % 11/11/22 10:45 Eos % (Auto) 0.3 % 11/11/22 10:45 Baso % (Auto) 0.3 % 11/11/22 10:45 Neut # (Auto) 16.57 K/uL (1.40-6.50) H 11/11/22 10:45 Lymph # (Auto) 1.24 K/uL (1.2-3.4) 11/11/22 10:45 [place] # (Auto) 1.40 K/uL (0.11-0.59) H 11/11/22 10:45 Eos # (Auto) 0.07 K/uL (0-0.50) 11/11/22 10:45 Baso # (Auto) 0.07 K/uL (0-0.2) 11/11/22 10:45 Immature Gran # (Auto) 1.04 K/uL (0.01-0.20) H 11/11/22 10:45 PT 23.9 Seconds (9.0-12.0) H 11/15/22 05:46 INR 2.3 (0.9-1.1) H 11/15/22 05:46 Sodium 132 mmol/L (136-145) L 11/15/22 05:46 Potassium 4.3 mmol/L (3.5-5.1) 11/15/22 05:46 Chloride 105 mmol/L (98-107) 11/15/22 05:46 Carbon Dioxide 17 mmol/L (21-32) L 11/15/22 05:46 Anion Gap 10 (3-11) 11/15/22 05:46 BUN 16 mg/dl (6-23) 11/15/22 05:46 Creatinine 0.74 mg/dl (0.6-1.2) 11/15/22 05:46 Est Cr Clr Drug Dosing 75.7 ml/min 11/15/22 05:46 Est GFR ( Amer) 97.2 ml/min 11/15/22 05:46 Est GFR (Non-Af Amer) 83.8 ml/min 11/15/22 05:46 BUN/Creatinine Ratio 21.6 (10-20) H 11/15/22 05:46 Glucose 92 mg/dl (70-99(Fasting)) 11/15/22 05:46 Lactate 1.0 mmol/L (0.4-2.0) 11/11/22 14:53 Calcium 8.7 mg/dl (8.6-10.3) 11/15/22 05:46 Magnesium 1.9 mg/dl (1.7-2.4) 11/15/22 05:46 Total Bilirubin 0.4 mg/dl (0.2-1.0) 11/11/22 10:45 AST 17 U/L (13-39) 11/11/22 10:45 ALT 11 U/L (7-52) 11/11/22 10:45 Alkaline Phosphatase 180 U/L (34-104) H 11/11/22 10:45 Total Protein 6.7 gm/dl (6.0-8.3) 11/11/22 10:45 Albumin 3.3 gm/dl (3.4-5.0) L 11/11/22 10:45 Globulin 3.4 gm/dl (2.5-4.0) 11/11/22 10:45 Albumin/Globulin Ratio 1.0 (0.9-2) 11/11/22 10:45 Lipase 37 U/L (11-82) 11/11/22 10:45 Urine Color Yellow 11/11/22 19:50 Urine Color Yellow 11/11/22 19:50 Urine Appearance Clear (Clear) 11/11/22 19:50 Urine Appearance Cloudy (Clear) A 11/11/22 19:50 Urine pH 5.0 (4.5-7.5) 11/11/22 19:50 Urine pH 5.5 (4.5-7.5) 11/11/22 19:50 Ur Specific [place] 1.009 (1.000-1.030) 11/11/22 19:50 Ur Specific [place] 1.010 (1.000-1.030) 11/11/22 19:50 Urine Protein 1+ (Negative) H 11/11/22 19:50 Urine Protein 1+ (Negative) H 11/11/22 19:50 Urine Glucose (UA) Negative (Negative) 11/11/22 19:50 Urine Glucose (UA) Negative (Negative) 11/11/22 19:50 Urine Ketones Negative (Negative) 11/11/22 19:50 Urine Ketones Negative (Negative) 11/11/22 19:50 Urine Blood 1+ (Negative) H 11/11/22 19:50 Urine Blood 3+ (Negative) H 11/11/22 19:50 Urine Nitrite Negative (Negative) 11/11/22 19:50 Urine Nitrite Positive (Negative) A 11/11/22 19:50 Urine Bilirubin Negative (Negative) 11/11/22 19:50 Urine Bilirubin Negative (Negative) 11/11/22 19:50 Urine Urobilinogen Negative (Negative) 11/11/22 19:50 Urine Urobilinogen Negative (Negative) 11/11/22 19:50 Ur Leukocyte Esterase 2+ (Negative) H 11/11/22 19:50 Ur Leukocyte Esterase 3+ (Negative) H 11/11/22 19:50 Urine WBC (Auto) 10-30 /hpf (0-5) H 11/11/22 19:50 Urine WBC (Auto) >30 /hpf (0-5) H 11/11/22 19:50 Urine RBC (Auto) 0-4 /hpf (0-4) 11/11/22 19:50 Urine RBC (Auto) 5-10 /hpf (0-4) H 11/11/22 19:50 U Hyaline Cast (Auto) 1-5 /lpf (0-5) 11/11/22 19:50 U Hyaline Cast (Auto) 5-10 /lpf (0-5) H 11/11/22 19:50 U Epithel Cells (Auto) 0-5 /lpf (0-5) 11/11/22 19:50 U Epithel Cells (Auto) 0-5 /lpf (0-5) 11/11/22 19:50 Urine Bacteria (Auto) Negative (Negative) 11/11/22 19:50 Urine Bacteria (Auto) Negative (Negative) 11/11/22 19:50 Urine Yeast Present (None Prsent) A 11/11/22 19:50 Urine Yeast Present (None Prsent) A 11/11/22 19:50 SARS-CoV-2, RNA, NAAT NEGATIVE (NEGATIVE) 11/11/22 10:45 Blood Type A Positive 11/12/22 09:34 Antibody Screen NEGATIVE 11/12/22 09:34 Crossmatch See Detail 11/12/22 09:34 Impressions Abdomen/Pelvis CT 11/11/22 15:45 CT abd pelvis wo con CLINICAL HISTORY: leukocytosis, hx BL nephrostomy tubes TECHNIQUE: Helical axial images of the abdomen and pelvis were obtained. Automated dose lowering techniques and/or adjustment according to patient size were utilized for this exam. This exam was performed without intravenous contrast. CT DOSE: 1733.13 mGy.cm COMPARISON: Comparison is made to CT abdomen pelvis 10/02/2022 FINDINGS: Lower chest: Bibasilar atelectasis versus scarring is seen. Liver: Hepatic steatosis is noted. Gallbladder and biliary tree: Cholelithiasis is seen without evidence of cholecystitis. No intra- or extrahepatic biliary ductal dilation. Pancreas: Unremarkable, no focal lesions. Spleen: Splenule is incidentally noted. Adrenals: Unremarkable. Kidneys and ureters: Bilateral nephrostomy tubes are seen. Bladder: Limited evaluation due to underdistention. Reproductive organs: Contour the reproductive organs is obscured by extensive nodularity. Bowel: No evidence of bowel obstruction or other acute abnormality. Prominent perirectal nodules are seen. Lymph nodes Retroperitoneal: Numerous retroperitoneal nodes and ill-defined masses are overall similar in appearance to prior exam. Pelvic: Numerous pelvic masses are similar in appearance to prior exam. Mesenteric: Unremarkable. Peritoneum: Normal. Vessels: Unremarkable. Abdominal wall: A fluid containing umbilical hernia is seen. Bones: Degenerative changes in the visualized spine. IMPRESSION: 1. Redemonstration of numerous abdominal and pelvic masses in this patient with known neuroendocrine tumor. Disease burden appears overall similar to prior exam with involvement of the uterus/cervix, and perirectal fat. 2. Bilateral nephrostomy tubes are seen without evidence of hydronephrosis. ACT 112: Negative or not required by law. Electronically signed by: Arnel Hurst M.D. 11/11/2022 4:[address] 11/12/22 08:00 CT head/brain wo con CLINICAL HISTORY: hx SDH Technique: Contiguous axial CT images of the head were acquired from the base of the skull to the vertex without intravenous contrast administration. Images were viewed in brain, subdural and bone windows. Automated dose lowering techniques and/or adjustment according to patient size were utilized for this exam. Comparison: Comparison is made to CT head 11/11/2022 Findings: Areas of decreased attenuation are present in the periventricular and subcortical white matter bilaterally consistent with small vessel ischemic disease. Generalized cerebral atrophy with commensurate enlargement of the ventricles, sulci, and cisterns is also present. There is no acute intracranial hemorrhage or evidence of acute territorial infarction. No shift of the midline structures, mass effect, or extra-axial abnormalities are shown. Atherosclerotic calcifications are present in the intracranial segments of the internal carotid arteries. Imaged portions of the paranasal sinuses and mastoid air cells are clear. The orbits appear normal. There are no acute fractures of the calvaria or scalp swelling. Impression: No acute intracranial hemorrhage, no evidence of acute territorial infarction or other acute intracranial disease process. ACT 112: Negative or not required by law. Electronically signed by: Arnel Hurst M.D. 11/12/2022 11:39 AM Ordered Studies 11/11/22 15:45 CT Abd and Pelvis [CT abd pelvis wo con] Stat 11/12/22 08:[address] [CT head/brain wo con] Routine Hospital Course (1) UTI (urinary tract infection): (2) Nephrostomy status: Patient initially presenting by referral of PCP for evaluation of abnormal head CT. However additional work-up in the ED demonstrated leukocytosis and UA suggestive of UTI. 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 Disease burden appears overall similar to prior exam with involvement of the uterus/cervix, and perirectal fat. Bilateral nephrostomy tubes are seen without evidence of hydronephrosis. -- Blood culture negative to date Urine culture growing yeast, gram-positive cocci, Klebsiella pneumonia, gram- negative bacilli, Streptococcus species Continue cefepime, daptomycin for now Appreciate urology input Appreciate ID Input Initially plan to be transferred to [facility] for nephrostomy tube exchange by IR. Patient refused to be transferred to [facility], instead preferred to transfer to [facility]. Currently no beds available at [facility] per transfer center no urgency needed for nephrostomy tube exchange. Patient is accepted at [facility], awaiting bed availability. Accepting physician:Dr.Irene Gordon (hospitalist); triage officer Dr. Kin Land Persistent leukocytosis (3) SDH (subdural hematoma): Patient was admitted to [facility] 10/20 through 10/26 for management of traumatic SDH after a fall in the setting of anticoagulation use. Patient was managed conservatively with serial head CTs and 1 week of prophylactic Keppra. Patient's anticoagulation was subsequently resumed with Lovenox/Coumadin bridge. Head CT was obtained showing small but enlarging subdural hemorrhage along the right convexity without associated mass effect. ED provider was in contact with neurosurgery Dr. Kris Nuñez at [facility] who was able to review imaging and provide recommendations. Admitting team discussed with Dr. Nuñez:recommends repeating head CT within 1 week and follow-up in his office. Patient can continue with Coumadin however close monitoring of INR to ensure goal of 2.0-3.0. (No need for reversing supratherapeutic INR as per Dr. Nuñez) Given supratherapeutic INR Coumadin held initially INR 2.3 today Resume Coumadin as able (4) Neuroendocrine cancer: History of large cell neuroendocrine uterine carcinoma Follows with Dr. Kim (5) History of DVT (deep vein thrombosis): INR 2.3 today Monitor INR Resume Coumadin as able (6) Anemia: Acute on chronic anemia Hemoglobin 9.3 today S/P 1 unit PRBC Monitor CBC (7) HTN (hypertension): BP Variable continue metoprolol DVT Px Therapeutic INR CODE STATUS Full Code Disposition [facility] Total Time Total Time Spent Total Time Spent (In Minutes): 48 minutes Discharge Plan Discharge Items Patient Disposition: Transfer Acute Care Hospital Reason For Visit: UTI Discharge Diagnosis: Complicated urinary tract infection Nephrostomy tube leakage Acute on chronic anemia Activity: Per Instructions section Exercise/Sports: Wait until after follow-up appointment Non-emergency contact: Primary Care Provider and Specialist Call non-emergency contact if: you have any medication questions, your symptoms worsen, your pain is concerning for you and you have a fever Follow-up/Referrals: Kelley Giordano, [Primary Care Provider] - Diet: Heart Healthy Michelle Attending Provider Instructions: Follow up with Dr.Irene Gordon (hospitalist) at [facility] for further recommendations. Seek immediate medical attention if your symptoms reoccur or worsen Please take all medications as instructed on discharge list below. Please call if you have any questions or problems. You can reach a [facility] hospitalist on duty at [facility] 24 hours a day by calling [phone] Michelle [employer] Provider Instructions: Date of Service: November 15, 2022 Current Inpatient Medications Acetaminophen (Acetaminophen 325 Mg Tab) 650 mg PO Q4H PRN PRN Reason: pain/fever Stop: 12/11/22 17:21 Ferrous Sulfate (Ferrous Sulfate 325 Mg Tab) 325 mg PO BID ADAN Stop: 12/11/22 20:59 Last Admin: 11/14/22 21:46 Dose: 325 mg Folic Acid (Folic Acid 1 Mg Tab) 1 mg PO QAM ADAN Stop: 12/12/22 08:59 Last Admin: 11/14/22 07:56 Dose: 1 mg Furosemide (Furosemide 20 Mg Tab) 20 mg PO DAILY ADAN Stop: 12/12/22 08:59 Heparin Sodium (Beef Lung) (Heparin 10 Unit/Ml 5 Ml Flush) 5 ml FLUSH PRN PRN PRN Reason: Flush Stop: 12/12/22 01:30 Last Admin: 11/14/22 07:57 Dose: 5 ml Daptomycin 375 mg/ Syringe 7.5 mls @ 3.75 mls/min IV Q24H ADAN; Protocol Stop: 11/21/22 15:59 Last Admin: 11/14/22 18:46 Dose: 3.75 mls/min Cefepime HCl 2,000 mg/ Syringe 20 mls @ 5 mls/min IV Q12H ADAN; Protocol Stop: 11/21/22 15:59 Last Admin: 11/14/22 21:45 Dose: 5 mls/min Promethazine HCl 12.5 mg/ (Sodium Chloride) 50.5 mls @ 202 mls/hr IV Q6H PRN PRN Reason: Nausea And Vomiting Stop: 12/12/22 20:03 Last Infusion: 11/14/22 19:31 Dose: Infused Metoprolol Tartrate (Metoprolol Tartrate 25 Mg Tab) 25 mg PO BID ADAN Stop: 12/13/22 09:04 Last Admin: 11/14/22 21:47 Dose: 25 mg Morphine Sulfate (Morphine Sulfate 2 Mg/Ml Carp) 2 mg IV Q4H PRN PRN Reason: Severe Pain (Scale 7, 8, 9,10) Stop: 11/28/22 08:57 Last Admin: 11/14/22 12:34 Dose: 2 mg Oxycodone/Acetaminophen (Oxycodone/Acetaminophen 5mg/325mg Tab) 1 tab PO Q6H PRN PRN Reason: Moderate Pain (Scale 4, 5, 6) Stop: 11/28/22 08:58 Last Admin: 11/14/22 09:32 Dose: 1 tab Potassium Chloride (Potassium Chloride Crtab 20 Meq Tabcr) 20 meq PO BID [facility] Stop: 12/11/22 20:59 Last Admin: 11/14/22 21:47 Dose: 20 meq Pending Studies at Discharge: Yes Studies:: Urine/Blood Cultures Stand-Alone Forms: [facility] Skilled Items Patient informed of condition?: Yes DNR: No Discharge Level of Care: Other Communicable Disease: No Discharge Prognosis: Stable Lines: Peripheral IV Urinary Catheter: No Medications and DC Order Prescriptions: Continued folic acid 1 mg Tablet 1 mg PO QAM ferrous sulfate 325 mg (65 mg iron) Tablet 325 mg PO BID furosemide 20 mg Tablet 20 mg PO DAILY potassium chloride 20 mEq Tablet Extended Release 20 meq PO BID metoprolol tartrate 25 mg tablet 12.5 mg PO BID warfarin 3 mg Tablet 3 mg PO DAILY@1600 30 Days Qty: 30 0RF Discharge Orders: Discharge Order (Routine); Ordered 11/15/22 Ordered By: Rolando Deluca Admission Data Admit Date/Time: 11/11/22 15:41 Attending Provider: Lance Saul Admit Provider: Sofiya Plascencia Primary Care Provider: Kelley Giordano Other Providers: Sofiya Plascencia ; [facility] ; Shine Avila ; Philip Davis ; Sagar Silva ; Jeanette Harris ; Tim Gil ; Muna Washington ; Fadia Thomas ; Cristian Denson ; Vikki Lewis ; Abbie Newton ; Kalia Harden ; Ariel William ; Nam Thurston ; Alycia Maharaj ; Amauri Fagan I. ; Anuj Layne II ; Alexia Betancourt ; Baldemar Armendariz ; Hardik Villanueva ; Lino Lucas
[2022-11-15] MEDS: PROMETHAZINE HCL 12.5 MG in SODIUM CHLORIDE 0.9% 50 ML IV PRN (07:58)
== END 2022-11-15 08:32 | disposition short-term general hospital (02) | DRG 690 ==
LOC: ED 10:29 → 2N 15:41 → SUATTDRO 15:41 → 2N 17:23